=== PATIENT | male | born 1935 | race Caucasian/White ===

== ENCOUNTER → 2017-12-23 13:38 | Outpatient (CLI) | payer MEDICARE, OTHER, SELFPAY ==
[2017-12-13 10:35] VITALS: BMI 22.6
[2017-12-23 15:05] LABS: Absolute Lymphocyte Count 0.53 X10^3/ul (0.83-4.51); Absolute Neutrophil Count 19.1 X10^3/uL (2.0-7.7); Basophil# 0.01 X10^3/uL; Hematocrit 40.2 % (40-54); Lymphocyte # 0.53 X10^3/ul (4.0); Lymphocyte % 2.6 % (19-41); Mean Corp Hgb Conc 32.3 g/gl (32-36); Mean Corpuscular Hgb 29.3 pg (27.0-32.0); Mean Corpuscular Volume 90.7 fL (80-94); Mean Platelet Vol. 9.9 fl (6.2-12.0); Monocyte# 0.48 X10^3/uL; Monocyte% 2.4 % (0-10); Neutrophil # 19.12 X10^3/uL (2.7-7.7); Neutrophil % 93.9 % (47-70); Platelet Count 147 K/mm3 (150-450); RBC Distribution Width CV 14.5 % (11.6-14.6); RBC Distribution Width SD 47.5 fl (35.1-43.9); Red Blood Count 4.43 M/mm3 (4.6-6.2); White Blood Count 20.4 K/mm3 (4.4-11.0)
[2017-12-23 15:07] LABS: Differential Indicated SCAN CRITERIA MET; POSITIVE COUNT NO; POSITIVE DIFFERENTIAL YES; POSITIVE MORPHOLOGY NO
[2017-12-23 15:29] LABS: Anion Gap 10 (5-15); BUN 62 mg/dL (7-18); BUN/Creat Ratio 41.9 RATIO (10-20); Calcium,Total 8.2 mg/dL (8.5-10.1); Chloride 103 mmol/L (98-107); Creatinine, Serum 1.48 mg/dL (0.70-1.30); EST Glomerular Filtration Rate 48 mL/min (>60); Est Glom Filt Rate - Afr Amer 58 mL/min (>60); Glucose 175 mg/dL (74-106); Potassium 5.7 mmol/L (3.5-5.1); Sodium Level 133 mmol/L (136-145)
== END ==
PROVIDERS: Family Provider Family Medicine; PCP Family Medicine
DX: Z01.818 Encounter for other preprocedural examination (principal); C71.9 Malignant neoplasm of brain, unspecified; R73.9 Hyperglycemia, unspecified
CPT/HCPCS: 36415; 80048; 85025

== ENCOUNTER 2017-12-25 11:14 | Emergency (ER) | payer MEDICARE, OTHER, SELFPAY ==
[2017-12-13 10:35] VITALS: BMI 22.6
[2017-12-25 11:14] VITALS: BP 83/50; PULSE 83; RESP 18; TEMP 36.6; O2SAT 99; BMI 22.4
--- NOTE | 2017-12-25 11:53 | ED.VISSUMM ---
- ER Visit Summary Date of Service: 12/25/17 Chief Complaint: Abnormal labs History of Present Illness: The patient is a 82 M recently diagnosed with a glioblastoma. Patient was placed on Decadron for swelling. He has pending brain surgery tomorrow in [place] at the [facility] for resection of the glioblastoma. Outpatient labs revealed an elevated potassium and dehydration. He was sent in by his primary care physician's office for evaluation. He states he feels fine. He denies any nausea, vomiting or any headaches currently. Physical Examination: Elderly male accompanied by family. Initial blood pressure is 83/50. Afebrile. H EENT exam unremarkable. Moist mucous membranes. Neck nontender no lymphadenopathy. Lungs clear to auscultation bilaterally. Heart regular rhythm no murmur rate about 80. Abdomen soft nontender. Patient is moving all 4 extremities. Neurologically is awake and alert. He is answering questions. Normal speech. No facial droop. 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 Dorsi and plantar flexion intact. Test Results: CBC shows a 21,000 white count consistent with him being on Decadron. Hemoglobin 13. 125,000 platelets. MP shows a potassium of 5.9. BUN is 60 creatinine 1.4. Glucose of 84. Normal anion gap. Emergency Department Course and Treatment: Patient treated with 2 L normal saline. Treatment Plan: I spoke to the eye as a transfer line. The patient is scheduled to have neurosurgery on Saturday. They would like him transferred down there to get him optimally. For surgery. Discussed with the family they are comfortable with the plan. He will be transferred down by ground. Disposition: Transferred to [facility] Impression: Acute hyperkalemia Acute dehydration with hypotension History of glioblastoma on Decadron This note was generated with [employer] dictation software. It may contain incorrect words, spelling, and punctuation that were not noted in review of the chart prior to signing ED Disposition - Plan for ED Patient: Chief Complaint: Weakness Referrals: Violeta Copeland [Primary Care Provider] -
--- NOTE | 2017-12-25 11:57 | ED.DCSUM_ITS ---
- ER Visit Summary Date of Service: 12/25/17 Chief Complaint: Abnormal labs History of Present Illness: The patient is a 82 M recently diagnosed with a glioblastoma. Patient was placed on Decadron for swelling. He has pending brain surgery tomorrow in [place] at the [facility] for resection of t he glioblastoma. Outpatient labs revealed an elevated potassium and dehydration. He was sent in by his primary care physician's office for evaluation. He states he feels fine. He denies any nausea, vomiting or any headaches currently. Physical Examination: Elderly male accompanied by family. Initial blood pressure is 83/50. Afebrile. H EENT exam unremarkable. Moist mucous membranes. Neck nontender no lymphadenopathy. Lungs clear to auscultation bilaterally. Heart regular rhythm no murmur rate about 80. Abdomen soft nontender. Patient is moving all 4 extremities. Neurologically is awake and alert. He is answering questions. Normal speech. No facial droop. 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 Dorsi and plantar flexion intact. Test Results: CBC shows a 21,000 white count consistent with him being on Decadron. Hemoglobin 13. 125,000 platelets. MP shows a potassium of 5.9. BUN is 60 creatinine 1.4. Glucose of 84. Normal anion gap. Emergency Department Course and Treatment: Patient treated with 2 L normal saline. Treatment Plan: I spoke to the eye as a transfer line. The patient is scheduled to have neurosurgery on Saturday. They would like him transferred down there to get him optimally. For surgery. Discussed with the family they are comfortable with the plan. He will be transferred down by ground. Disposition: Transferred to [facility] Impression: Acute hyperkalemia Acute dehydration with hypotension History of glioblastoma on Decadron This note was generated with [employer] dictation software. It may contain incorrect words, spelling, and punctuation that were not noted in review of the chart prior to signing ED Disposition - Plan for ED Patient: Chief Complaint: Weakness Referrals: Violeta Copeland [Primary Care Provider] -
[2017-12-25 12:12] LABS: Absolute Lymphocyte Count 1.05 X10^3/ul (0.83-4.51); Absolute Neutrophil Count 20.1 X10^3/uL (2.0-7.7); Basophil# 0.01 X10^3/uL; Hematocrit 40.4 % (40-54); Hemoglobin 13.2 g/dl (13.0-16.5); Lymphocyte # 1.05 X10^3/ul (4.0); Lymphocyte % 4.8 % (19-41); Mean Corp Hgb Conc 32.7 g/gl (32-36); Mean Corpuscular Hgb 29.5 pg (27.0-32.0); Mean Corpuscular Volume 90.2 fL (80-94); Mean Platelet Vol. 8.9 fl (6.2-12.0); Monocyte# 0.54 X10^3/uL; Monocyte% 2.5 % (0-10); Neutrophil # 20.05 X10^3/uL (2.7-7.7); Neutrophil % 91.8 % (47-70); Platelet Count 125 K/mm3 (150-450); RBC Distribution Width CV 14.7 % (11.6-14.6); RBC Distribution Width SD 48.1 fl (35.1-43.9); Red Blood Count 4.48 M/mm3 (4.6-6.2); White Blood Count 21.8 K/mm3 (4.4-11.0)
[2017-12-25 12:13] LABS: Differential Indicated SCAN CRITERIA MET; POSITIVE COUNT NO; POSITIVE DIFFERENTIAL YES; POSITIVE MORPHOLOGY NO
[2017-12-25 12:14] VITALS: BP 114/59; PULSE 61; RESP 17; O2SAT 99
[2017-12-25 12:20] LABS: Anion Gap 7 (5-15); BUN 62 mg/dL (7-18); BUN/Creat Ratio 44.3 RATIO (10-20); Calcium,Total 8.3 mg/dL (8.5-10.1); Chloride 105 mmol/L (98-107); EST Glomerular Filtration Rate 51 mL/min (>60); Est Glom Filt Rate - Afr Amer 62 mL/min (>60); Glucose 84 mg/dL (74-106); Potassium 5.9 mmol/L (3.5-5.1); Sodium Level 135 mmol/L (136-145)
[2017-12-25] MEDS: 0.9% Normal Saline 1,000 ML 1000 ML IV ×2 (12:24)
--- NOTE | 2017-12-25 14:00 | NURSING ---
[facility] ER TO ER
[2017-12-25 14:09] VITALS: BP 120/84; PULSE 68; RESP 14; O2SAT 98
--- NOTE | 2017-12-25 14:10 | NURSING ---
CALLED [facility] FOR TRANSPORT. ETA IS 1. 5 HRS
[2017-12-25 14:47] VITALS: BP 135/75; PULSE 91; RESP 17
== END 2017-12-25 15:00 | disposition short-term general hospital (02) ==
LOC: ED 12:07
PROVIDERS: Emergency Provider Emergency Medicine; Family Provider Family Medicine; PCP Family Medicine
DX: E87.5 Hyperkalemia (principal); E86.0 Dehydration; I95.9 Hypotension, unspecified; C71.9 Malignant neoplasm of brain, unspecified; Z90.49 Acquired absence of other specified parts of digestive tract; Z79.899 Other long term (current) drug therapy
CPT/HCPCS: 80048; 85025; 96360; 96361; 96365; 96366; 99284; J7030; A4216

== ENCOUNTER 2018-01-20 15:15 | Inpatient (IN) | payer MEDICARE, OTHER, SELFPAY ==
[2017-12-13 10:35] VITALS: BMI 22.6
[2018-01-20 15:29] VITALS: BP 132/66; PULSE 82; RESP 18; TEMP 36.2; O2SAT 98; BMI 21.5; BMI 21.6
--- NOTE | 2018-01-20 15:32 | NURSING ---
pt arrived via cot from [facility]
[2018-01-20] MEDS: Tamsulosin HCl 0.4 MG Capsule PO (17:24)
[2018-01-20] MEDS: levETIRAcetam 500 MG Tablet PO (17:24)
[2018-01-20] MEDS: Menthol/Lanolin/Calamine/Znox 113 GM Tube 1 APPLIC TOPICAL (21:03)
[2018-01-20] MEDS: Atorvastatin Calcium 10 MG Tablet PO (21:04)
[2018-01-20] MEDS: MELATONIN 3 MG TABLET PO (21:04)
[2018-01-20 21:15] LABS: Bedside Glucose 140 mg/dL (70-110)
--- NOTE | 2018-01-20 21:15 | PCM.HP.STD ---
Problem List (1) BPH (benign prostatic hyperplasia) Status: Chronic (2) Hypertension Status: Chronic (3) Steroid-induced diabetes mellitus Status: Acute (4) Neurogenic bladder Status: Chronic (5) Left hemiparesis Status: Acute (6) Debility Status: Acute (7) GBM (glioblastoma multiforme) Status: Acute History of Present Illness Date of Admission: 01/20/18 Chief Complaint: Here for rehabilitation, strengthening, prior to discharge home for further treatment of Glioblastoma Multiforme. The patient is a 82 year old Male with below past medical history with following. Patient was in usual state of health, when his noted personality changes. He also had left leg weakness, dizziness. He was seen at [facility] Emergency Department where CT brain showed abnormal findings, and he was transferred to [facility], and MRI brain showed 3.3CM focus of abnormal signal right frontal area. 11/29/2017 Patient underwent biopsy with Dr. Cage that revealed GBM. He was then referred to Dr. Diony Barboza for radiation therapy. Dr. Barboza referred the patient to Dr. Mccabe for surgical resection. 12/16/2017, glucose noted to be 474, with creatinine of 1.85. He was sent to ER where he was treated with insulin, fluids, and given a Rx for Bactrim for presumed UTI. 12/17/2017 He followed up with primary care provider and started on insulin for steroid inducted diabetes mellitus. 12/25/2017 ED for dehydration, admitted to [facility] for surgery. 12/27/2017 Dr. Mccabe performed right frontal craniotomy for resection of right frontal glioblastoma multiforme. The procedure was well tolerated and post-op imaging showed stable post-op findings. Decadron was weaned for the management of cerebral edema. Patient was advanced in terms of diet and activity as tolerated. 12/31/2017 Patient was admitted to [facility] for inpatient rehab. While at [facility], patient developed ESBL K. pneumoniae UTI which was treated with Invanz. 01/20/2018 Admit to TCU with debility, here to continue rehabilitation, strengthening, prior to further treatment for GBM. Past Medical History Past Medical History (Chronic Problems): Chronic Problems (Last Reviewed 12/13/17 @ 10:34 by Heidi Pires) BPH (benign prostatic hyperplasia) (Chronic) Hypertension (Chronic) Neurogenic bladder (Chronic) History of chest pain (Chronic) Medical History: Medical History (Last Reviewed 12/13/17 @ 10:34 by Heidi Pires) Benign prostatic hyperplasia with lower urinary tract symptoms N40.1 Hyperlipidemia E78.5 Primary glioblastoma of brain C71.9 Ventricular hypertrophy I51.7 bilateral enlargement Allergies No Known Allergies Allergy (Unverified 12/25/17 11:16) Home Medications: Ambulatory Orders Medication Instructions Recorded Simvastatin [Zocor] 20 mg PO QHS 12/09/17 Tamsulosin HCl [Flomax] 0.4 mg PO BID 12/09/17 Levetiracetam [Keppra] 500 mg PO BID 12/11/17 Acetaminophen [Tylenol] 650 mg PO Q4H PRN PRN 01/20/18 Calcium Citrate 950 mg PO DAILY 01/20/18 Cholecalciferol (VIT D3) [Vitamin 2,000 unit PO DAILY 01/20/18 D] Docusate Sodium [Colace] 100 mg PO DAILY 01/20/18 Enoxaparin Sodium [Lovenox] 40 mg SQ DAILY 01/20/18 Ertapenem Sod [Invanz] 1 gm IV Q24 01/20/18 Melatonin 3 mg PO QHS 01/20/18 Ondansetron [Zofran Odt] 4 mg PO Q8H PRN PRN 01/20/18 Sennosides [Senna Laxative] 8.6 mg PO DAILY 01/20/18 Surgical History: Surgical History (Last Reviewed 12/13/17 @ 10:34 by Heidi Pires) History of appendectomy Z90.49 History of bilateral knee replacement Z96.653 History of cholecystectomy Z90.49 History of tonsillectomy Z90.89 Surgical History: appendectomy, cholecystectomy, total knee arthroplasty, tonsillectomy, - - Excision brain tumor by craniotomy. Psychiatric History: Anxiety, Depression Lives: Spouse/ Significant Other Smoking Status: Former smoker Tobacco Use: Non-smoker Alcohol: None Drugs: None - *Family History Maternal Family History: Family History (Last Updated 12/13/17 @ 10:50 by Heidi Pires) Mother Heart disease Father CAD (coronary artery disease) History Items: No pertinent history Paternal Family History: Family History (Last Updated 12/13/17 @ 10:50 by Heidi Pires) Mother Heart disease Father CAD (coronary artery disease) History Items: No pertinent history Review of Systems Constitutional: Denies: Chills, Fever, Weight Change HEENT: Denies: Head Aches, Sinus Congestion, Sinus Drainage Cardiovascular: Denies: Chest Pain, Palpitations Respiratory: Denies: Cough, Shortness of breath at rest, Sputum production Gastrointestinal: Denies: Abdominal Pain, Nausea, Vomiting Genitourinary: Denies: Dysuria Musculoskeletal: Denies: Joint Pain, Joint Tenderness Skin: Denies: Rash, Wounds Neurological: Denies: Numbness, Tingling, Focal weakness Psychiatric: Denies: Anxiety, Depression, Homicidal Ideations, Suicidal Ideations Hematologic/ Lymphatic: Denies: Easy Bruising, Easy Bleeding VTE Information - Inpt Only VTE Present on Admission: No VTE Mechan Device Prophylaxis: Knee High ALYSON Hose VTE Pharm Prophylaxis ordered?: Yes Patient Problems: Active and Suspected Problems (Last Reviewed 12/13/17 @ 10:34 by Heidi Pires) Steroid-induced diabetes mellitus (Acute) Left hemiparesis (Acute) Debility (Acute) - Physical Exam General: Alert, Oriented x3, Cooperative HEENT: Atraumatic, PERRLA, EOMI, Normocephalic Neck: Supple, No JVD, Negative Carotid Bruits Lungs: Clear to auscultation, Normal air movement Cardiovascular: Regular rate, No murmurs Abdomen: Bowel Sounds Present, Soft, Non Tender Extremities: No edema, Capillary Refill Less than 3 Seconds Skin: No rashes, No breakdown Musculoskeletal: No Tenderness to Palpation of Joints or Extremities Neurological: Cranial nerves II-XII grossly intact, - - Left lower extremity hemiparesis. Psych/Mental Status: Normal Affect, Appropriate Vital Signs Temp Pulse Resp BP Pulse Ox 97.1 F L 82 18 132/66 H 98 01/20/18 15:29 01/20/18 15:29 01/20/18 15:29 01/20/18 15:29 01/20/18 15:29 Oxygen Delivery Method Room Air Weight: 74.208 kg Body Mass Index (BMI) 21.5 Intake and Output for Last 24 Hours 01/18/18 01/19/18 01/20/18 23:59 23:59 23:59 Output Total 950 / 950 Balance -950 / -950 Assessment/Plan All Active Problems (Last Reviewed 12/13/17 @ 10:34 by Heidi Pires) Steroid-induced diabetes mellitus (Acute) Left hemiparesis (Acute) Debility (Acute) GBM (glioblastoma multiforme) (Acute) 82 year old male with below past medical history significant for glioblastoma multiforme s/p excision, complicated left hemiparesis, steroid induced diabetes mellitus, ESBL K. Pneumoniae UTI, admitted from [facility] inpatient rehab to U with debility, to continue rehabilitation, strengthening, prior to discharge home with spouse to continue treatment for GBM. Debility - PT/OT. Pain - Tylenol 1000MG Q6H PRN mild pain. Bowel - Miralax 17GM daily, Senna/colace 1 tablet BID, Dulcolax 10MG daily PRN. Pneumonia vaccination - Administer Prevnar 13 and/or Pneumovax 23 as necessary. DVT prophylaxis - Lovenox 40MG SC daily. Hyperlipidemia - Atorvastatin 10MG QHS. Calcium deficiency - Calcium 500MG daily. Vitamin D deficiency - D3 2000IU daily. ESBL K. Pneumoniae UTI - Invanz 1GM IV Q24H thru 01/26/2018. Seizure prophylaxis - Keppra 500MG twice daily. Insomnia - Melatonin 3MG QHS. Skin irritation - Calmoseptine BID coccyx. Nausea - Zofran 4MG Q8H PRN. BPH - Tamsulosin 0.4MG BID. Urinary retention - Straight cath twice daily, per resident he has urinary retention for 8 weeks after general anesthesia.
--- NOTE | 2018-01-20 21:25 | HP.PCM_ITS ---
Problem List (1) BPH (benign prostatic hyperplasia) Status: Chronic (2) Hypertension Status: Chronic (3) Steroid-induced diabetes mellitus Status: Acute (4) Neurogenic bladder Status: Chronic (5) Left hemiparesis Status: Acute (6) Debility Status: Acute (7) GBM (glioblastoma multiforme) Status: Acute History of Present Illness Date of Admission: 01/20/18 Chief Complaint: Here for rehabilitation, strengthening, prior to discharge home for further treatment of Glioblastoma Multiforme. The patient is a 82 year old Male with below past medical history with following. Patient was in usual state of health, when his noted personality changes. He also had left leg weakness, dizziness. He was seen at [facility] Emergency Department where CT brain showed abnormal findings, and he was transferred to [facility], and MRI brain showed 3.3CM focus of abnormal signal right frontal area. 11/29/2017 Patient underwent biopsy with Dr. Cage that revealed GBM. He was then referred to Dr. Diony Barboza for radiation therapy. Dr. Barboza referred the patient to Dr. Mccabe for surgical resection. 12/16/2017, glucose noted to be 474, with creatinine of 1.85. He was sent to ER where he was treated with insulin, fluids, and given a Rx for Bactrim for presumed UTI. 12/17/2017 He followed up with primary care provider and started on insulin for steroid inducted diabetes mellitus. 12/25/2017 ED for dehydration, admitted to [facility] for surgery. 12/27/2017 Dr. Mccabe performed right frontal craniotomy for resection of right frontal glioblastoma multiforme. The procedure was well tolerated and post-op imaging showed stable post-op findings. Decadron was weaned for the management of cerebral edema. Patient was advanced in terms of diet and activity as tolerated. 12/31/2017 Patient was admitted to [facility] for inpatient rehab. While at [facility], patient developed ESBL K. pneumoniae UTI which was treated with Invanz. 01/20/2018 Admit to TCU with debility, here to continue rehabilitation, strengthening, prior to further treatment for GBM. Past Medical History Past Medical History (Chronic Problems): Chronic Problems (Last Reviewed 12/13/17 @ 10:34 by Heidi Pires) BPH (benign prostatic hyperplasia) (Chronic) Hypertension (Chronic) Neurogenic bladder (Chronic) History of chest pain (Chronic) Medical History: Medical History (Last Reviewed 12/13/17 @ 10:34 by Heidi Pires) Benign prostatic hyperplasia with lower urinary tract symptoms N40.1 Hyperlipidemia E78.5 Primary glioblastoma of brain C71.9 Ventricular hypertrophy I51.7 bilateral enlargement Allergies No Known Allergies Allergy (Unverified 12/25/17 11:16) Home Medications: Ambulatory Orders Medication Instructions Recorded Simvastatin [Zocor] 20 mg PO QHS 12/09/17 Tamsulosin HCl [Flomax] 0.4 mg PO BID 12/09/17 Levetiracetam [Keppra] 500 mg PO BID 12/11/17 Acetaminophen [Tylenol] 650 mg PO Q4H PRN PRN 01/20/18 Calcium Citrate 950 mg PO DAILY 01/20/18 Cholecalciferol (VIT D3) [Vitamin 2,000 unit PO DAILY 01/20/18 D] Docusate Sodium [Colace] 100 mg PO DAILY 01/20/18 Enoxaparin Sodium [Lovenox] 40 mg SQ DAILY 01/20/18 Ertapenem Sod [Invanz] 1 gm IV Q24 01/20/18 Melatonin 3 mg PO QHS 01/20/18 Ondansetron [Zofran Odt] 4 mg PO Q8H PRN PRN 01/20/18 Sennosides [Senna Laxative] 8.6 mg PO DAILY 01/20/18 Surgical History: Surgical History (Last Reviewed 12/13/17 @ 10:34 by Heidi Pires) History of appendectomy Z90.49 History of bilateral knee replacement Z96.653 History of cholecystectomy Z90.49 History of tonsillectomy Z90.89 Surgical History: appendectomy, cholecystectomy, total knee arthroplasty, tonsillectomy, - - Excision brain tumor by craniotomy. Psychiatric History: Anxiety, Depression Lives: Spouse/ Significant Other Smoking Status: Former smoker Tobacco Use: Non-smoker Alcohol: None Drugs: None - *Family History Maternal Family History: Family History (Last Updated 12/13/17 @ 10:50 by Heidi Pires) Mother Heart disease Father CAD (coronary artery disease) History Items: No pertinent history Paternal Family History: Family History (Last Updated 12/13/17 @ 10:50 by Heidi Pires) Mother Heart disease Father CAD (coronary artery disease) History Items: No pertinent history Review of Systems Constitutional: Denies: Chills, Fever, Weight Change HEENT: Denies: Head Aches, Sinus Congestion, Sinus Drainage Cardiovascular: Denies: Chest Pain, Palpitations Respiratory: Denies: Cough, Shortness of breath at rest, Sputum production Gastrointestinal: Denies: Abdominal Pain, Nausea, Vomiting Genitourinary: Denies: Dysuria Musculoskeletal: Denies: Joint Pain, Joint Tenderness Skin: Denies: Rash, Wounds Neurological: Denies: Numbness, Tingling, Focal weakness Psychiatric: Denies: Anxiety, Depression, Homicidal Ideations, Suicidal Ideations Hematologic/ Lymphatic: Denies: Easy Bruising, Easy Bleeding VTE Information - Inpt Only VTE Present on Admission: No VTE Mechan Device Prophylaxis: Knee High ALYSON Hose VTE Pharm Prophylaxis ordered?: Yes Patient Problems: Active and Suspected Problems (Last Reviewed 12/13/17 @ 10:34 by Heidi Pires) Steroid-induced diabetes mellitus (Acute) Left hemiparesis (Acute) Debility (Acute) - Physical Exam General: Alert, Oriented x3, Cooperative HEENT: Atraumatic, PERRLA, EOMI, Normocephalic Neck: Supple, No JVD, Negative Carotid Bruits Lungs: Clear to auscultation, Normal air movement Cardiovascular: Regular rate, No murmurs Abdomen: Bowel Sounds Present, Soft, Non Tender Extremities: No edema, Capillary Refill Less than 3 Seconds Skin: No rashes, No breakdown Musculoskeletal: No Tenderness to Palpation of Joints or Extremities Neurological: Cranial nerves II-XII grossly intact, - - Left lower extremity hemiparesis. Psych/Mental Status: Normal Affect, Appropriate Vital Signs Temp Pulse Resp BP Pulse Ox 97.1 F L 82 18 132/66 H 98 01/20/18 15:29 01/20/18 15:29 01/20/18 15:29 01/20/18 15:29 01/20/18 15:29 Oxygen Delivery Method Room Air Weight: 74.208 kg Body Mass Index (BMI) 21.5 Intake and Output for Last 24 Hours 01/18/18 01/19/18 01/20/18 23:59 23:59 23:59 Output Total 950 / 950 Balance -950 / -950 Assessment/Plan All Active Problems (Last Reviewed 12/13/17 @ 10:34 by Heidi Pires) Steroid-induced diabetes mellitus (Acute) Left hemiparesis (Acute) Debility (Acute) GBM (glioblastoma multiforme) (Acute) 82 year old male with below past medical history significant for glioblastoma multiforme s/p excision, complicated left hemiparesis, steroid induced diabetes mellitus, ESBL K. Pneumoniae UTI, admitted from [facility] inpatient rehab to U with debility, to continue rehabilitation, strengthening, prior to discharge home with spouse to continue treatment for GBM. * Debility - PT/OT. * Pain - Tylenol 1000MG Q6H PRN mild pain. * Bowel - Miralax 17GM daily, Senna/colace 1 tablet BID, Dulcolax 10MG daily PRN. * Pneumonia vaccination - Administer Prevnar 13 and/or Pneumovax 23 as necessary. * DVT prophylaxis - Lovenox 40MG SC daily. * Hyperlipidemia - Atorvastatin 10MG QHS. * Calcium deficiency - Calcium 500MG daily. * Vitamin D deficiency - D3 2000IU daily. * ESBL K. Pneumoniae UTI - Invanz 1GM IV Q24H thru 01/26/2018. * Seizure prophylaxis - Keppra 500MG twice daily. * Insomnia - Melatonin 3MG QHS. * Skin irritation - Calmoseptine BID coccyx. * Nausea - Zofran 4MG Q8H PRN. * BPH - Tamsulosin 0.4MG BID. * Urinary retention - Straight cath twice daily, per resident he has urinary retention for 8 weeks after general anesthesia.
[2018-01-21] MEDS: Enoxaparin 40 MG/0.4 ML Syringe SC (04:32)
[2018-01-21] MEDS: levETIRAcetam 500 MG Tablet PO ×2 (04:32→17:19)
[2018-01-21] MEDS: Menthol/Lanolin/Calamine/Znox 113 GM Tube 1 APPLIC TOPICAL ×2 (04:38→21:36)
[2018-01-21 06:11] LABS: Anion Gap 8 (5-15); BUN 15 mg/dL (7-18); BUN/Creat Ratio 25.4 RATIO (10-20); Calcium,Total 7.7 mg/dL (8.5-10.1); Chloride 105 mmol/L (98-107); Creatinine, Serum 0.59 mg/dL (0.70-1.30); EST Glomerular Filtration Rate 139 mL/min (>60); Est Glom Filt Rate - Afr Amer 169 mL/min (>60); Estimated Creatinine Clearance 58.75 ml/min; Glucose 107 mg/dL (74-106); Hematocrit 29.3 % (40-54); Hemoglobin 9.4 g/dl (13.0-16.5); Mean Corp Hgb Conc 32.1 g/gl (32-36); Mean Corpuscular Hgb 29.7 pg (27.0-32.0); Mean Corpuscular Volume 92.7 fL (80-94); Mean Platelet Vol. 8.1 fl (6.2-12.0); Platelet Count 208 K/mm3 (150-450); RBC Distribution Width SD 51.8 fl (35.1-43.9); Red Blood Count 3.16 M/mm3 (4.6-6.2); Sodium Level 141 mmol/L (136-145); White Blood Count 6.9 K/mm3 (4.4-11.0)
[2018-01-21 06:19] LABS: Differential Indicated MANUAL DIFF; POSITIVE COUNT YES; POSITIVE DIFFERENTIAL NO; POSITIVE MORPHOLOGY YES
[2018-01-21 06:46] LABS: Bedside Glucose 115 mg/dL (70-110)
[2018-01-21 07:17] LABS: Lymphocyte 24 % (19-41); Metamyelocyte 3 % (0-1); Monocyte 7 % (0-10); Myelocyte 1 (0-0); Neutrophil-Band 3 % (0-5); Neutrophil-Segmented 62 % (47-70); Total Cells Counted 100 (MANUAL DIFF)
[2018-01-21 07:19] LABS: Anisocytosis 1+; Hypochromasia 1+; Platelet Estimate ADEQUATE (ADEQ); Platelet Morphology LARGE; Polychromasia 1+
[2018-01-21 07:30] LABS: Absolute Lymphocyte Count 1.66 X10^3/ul (0.83-4.51); Absolute Neutrophil Count 4.5 X10^3/uL (2.0-7.7)
[2018-01-21] MEDS: Calcium Carbonate 500 MG Tablet PO (08:23)
[2018-01-21] MEDS: Tamsulosin HCl 0.4 MG Capsule PO ×2 (08:23→17:19)
--- NOTE | 2018-01-21 08:27 | NURSING ---
ALL CARE GIVEN IN ROOM DUE TO PT IN PRECAUTIONS FOR ESBL IN URINE.
[2018-01-21] MEDS: 0.9% NaCl IVPB Med Flush (250 mL) 15 ML IV (09:54)
--- NOTE | 2018-01-21 10:18 | PCM.PN.RX ---
<MaritzachautrungArmando D - Last Filed: 01/21/18 10:18> Progress Note - Pharmacy Subjective: TCU Admission Objective: Allergies No Known Allergies Allergy (Unverified 12/25/17 11:16) Current Medications Generic Name Dose Route Start Last Admin Trade Name Freq PRN Reason Stop Dose Admin Acetaminophen 1,000 mg 01/20/18 21:38 Tylenol PO Q6H PRN PRN MILD PAIN (1-3/10) Atorvastatin Calcium 10 mg 01/20/18 22:00 01/20/18 21:04 Lipitor PO 10 mg QHS PAUL Administration Bisacodyl 10 mg 01/20/18 21:38 Dulcolax PO DAILY PRN Constipation Calamine/Phenol 1 applic 01/20/18 22:00 01/21/18 04:38 Calmoseptine Ointment TOPICAL 1 applicatio 0600,2200 PAUL Administration Protocol Calcium Carbonate 500 mg 01/21/18 08:00 01/21/18 08:23 Tums PO 500 mg DAILYCM PAUL Administration Cholecalciferol 2,000 unit 01/21/18 06:00 01/21/18 04:32 Vitamin D PO 2,000 unit DAILY PAUL Administration Enoxaparin Sodium 40 mg 01/21/18 06:00 01/21/18 04:32 Lovenox SC 40 mg DAILY PAUL Administration Ertapenem 1 gm/ Sodium 50 mls @ 100 mls/hr 01/21/18 10:00 01/21/18 09:54 Chloride IV 01/26/18 10:29 100 mls/hr Q24 PAUL Administration Sodium Chloride 250 mls @ 15 mls/hr 01/20/18 18:50 01/21/18 09:54 IV 15 mls/hr .[id number] PRN Administration SALINE FLUSH Levetiracetam 500 mg 01/20/18 18:00 01/21/18 04:32 Keppra Tablet PO 500 mg BID PAUL Administration Melatonin 3 mg 01/20/18 22:00 01/20/18 21:04 Melatonin PO 3 mg QHS PAUL Administration Ondansetron HCl 4 mg 01/20/18 15:51 Zofran Odt PO Q8H PRN PRN NAUSEA Polyethylene Glycol 17 gm 01/21/18 06:00 01/21/18 04:33 Miralax PO Not Given DAILY [facility] Polysaccharide Iron Complex 150 mg 01/22/18 08:00 Ferrex 150 PO DAILYCM [facility] Senna/Docusate Sodium 1 tablet 01/21/18 06:00 01/21/18 04:33 Senokot-S, Amberly-Colace PO Not Given BID [facility] Sodium Chloride 10 - 20 ml 01/20/18 18:50 IV UD PRN Midline Flush Tamsulosin HCl 0.4 mg 01/20/18 17:30 01/21/18 08:23 Flomax PO 0.4 mg BID@0830,1730 PAUL Administration Tuberculin PPD 5 tu 01/28/18 10:00 Tubersol, Aplisol, Ppd ID 01/28/18 10:01 X1 ONE Problem List (Last Reviewed 12/13/17 @ 10:34 by Heidi Pires) BPH (benign prostatic hyperplasia) (Chronic) Hypertension (Chronic) Steroid-induced diabetes mellitus (Acute) Neurogenic bladder (Chronic) Left hemiparesis (Acute) Debility (Acute) Vital Signs Temp Pulse Resp BP Pulse Ox 97.1 F L 82 18 132/66 H 98 01/20/18 15:29 01/20/18 15:29 01/20/18 15:29 01/20/18 15:29 01/20/18 15:29 Oxygen Delivery Method Room Air Weight: 74.208 kg Body Mass Index (BMI) 21.5 Sodium 141 mmol/L (136-145) 01/21/18 05:20 Potassium 4.0 mmol/L (3.5-5.1) 01/21/18 05:20 Chloride 105 mmol/L (98-107) 01/21/18 05:20 Carbon Dioxide 28.0 mmol/L (21.0-32.0) 01/21/18 05:20 Anion Gap 8 (5-15) 01/21/18 05:20 BUN 15 mg/dL (7-18) 01/21/18 05:20 Creatinine 0.59 mg/dL (0.70-1.30) L 01/21/18 05:20 Est GFR (MDRD) Af Amer 169 mL/min (>60) 01/21/18 05:20 Est GFR (MDRD) Non-Af 139 mL/min (>60) 01/21/18 05:20 BUN/Creatinine Ratio 25.4 RATIO (10-20) H 01/21/18 05:20 Glucose 107 mg/dL (74-106) H 01/21/18 05:20 Assessment/Plan: 1) Pain APAP for mild pain. Continue to monitor daily pain scores, prn medication use. 2) HLD Atorvastatin at HS. Continue to monitor lipids. 3) ID Ertapenem daily until 01/26. Continue to monitor s/s infection. 4) Seizure PPx Levetiracetam twice daily. Continue to monitor for seizure. 5) DVT PPx Enoxaparin daily. Continue to monitor for bleeding/clot. 6) Urinary Retention Tamsulosin. Continue to monitor for urinary symptoms. Psychotropic Medications: None Unnecessary Medications: None Bowel Regimen: 7) Senna/s, PEG, prn bisacodyl. Continue to monitor prn medication use, for constipation/diarrhea. Date of Note:: 01/21/18 - Provider Comments Provider responsibility: Provider responsible to enter orders to implement recommendations <Rui Mccray Chi - Last Filed: 01/21/18 17:54> Progress Note - Pharmacy Subjective: [] Objective: Allergies No Known Allergies Allergy (Unverified 12/25/17 11:16) Current Medications Generic Name Dose Route Start Last Admin Trade Name Freq PRN Reason Stop Dose Admin Acetaminophen 1,000 mg 01/20/18 21:38 Tylenol PO Q6H PRN PRN MILD PAIN (1-3/10) Atorvastatin Calcium 10 mg 01/20/18 22:00 01/20/18 21:04 Lipitor PO 10 mg QHS PAUL Administration Bisacodyl 10 mg 01/20/18 21:38 Dulcolax PO DAILY PRN Constipation Calamine/Phenol 1 applic 01/20/18 22:00 01/21/18 04:38 Calmoseptine Ointment TOPICAL 1 applicatio 0600,2200 PAUL Administration Protocol Calcium Carbonate 500 mg 01/21/18 08:00 01/21/18 08:23 Tums PO 500 mg DAILYCM PAUL Administration Cholecalciferol 2,000 unit 01/21/18 06:00 01/21/18 04:32 Vitamin D PO 2,000 unit DAILY PAUL Administration Enoxaparin Sodium 40 mg 01/21/18 06:00 01/21/18 04:32 Lovenox SC 40 mg DAILY PAUL Administration Ertapenem 1 gm/ Sodium 50 mls @ 100 mls/hr 01/21/18 10:00 01/21/18 09:54 Chloride IV 01/26/18 10:29 100 mls/hr Q24 PAUL Administration Sodium Chloride 250 mls @ 15 mls/hr 01/20/18 18:50 01/21/18 09:54 IV 15 mls/hr .[id number] PRN Administration SALINE FLUSH Levetiracetam 500 mg 01/20/18 18:00 01/21/18 17:19 Keppra Tablet PO 500 mg BID PAUL Administration Melatonin 3 mg 01/20/18 22:00 01/20/18 21:04 Melatonin PO 3 mg QHS PAUL Administration Nutritional Formula (Lactose Free) 120 ml 01/21/18 12:45 01/21/18 17:18 Glucerna Shake PO 120 ml TIDCM PAUL Administration Ondansetron HCl 4 mg 01/20/18 15:51 Zofran Odt PO Q8H PRN PRN NAUSEA Polyethylene Glycol 17 gm 01/21/18 06:00 01/21/18 04:33 Miralax PO Not Given DAILY [facility] Polysaccharide Iron Complex 150 mg 01/22/18 08:00 Ferrex 150 PO DAILYCM [facility] Senna/Docusate Sodium 1 tablet 01/21/18 06:00 01/21/18 17:19 Senokot-S, Amberly-Colace PO 1 tablet BID PAUL Administration Sodium Chloride 10 - 20 ml 01/20/18 18:50 IV UD PRN Midline Flush Tamsulosin HCl 0.4 mg 01/20/18 17:30 01/21/18 17:19 Flomax PO 0.4 mg BID@0830,1730 PAUL Administration Tuberculin PPD 5 tu 01/28/18 10:00 Tubersol, Aplisol, Ppd ID 01/28/18 10:01 X1 ONE Problem List (Last Reviewed 12/13/17 @ 10:34 by Heidi Pires) BPH (benign prostatic hyperplasia) (Chronic) Hypertension (Chronic) Steroid-induced diabetes mellitus (Acute) Neurogenic bladder (Chronic) Left hemiparesis (Acute) Debility (Acute) Vital Signs Temp Pulse Resp BP Pulse Ox 98.2 F 82 18 117/61 97 01/21/18 15:57 01/21/18 15:57 01/21/18 15:57 01/21/18 15:57 01/21/18 15:57 Oxygen Delivery Method Room Air Weight: 74.162 kg Body Mass Index (BMI) 21.5 Sodium 141 mmol/L (136-145) 01/21/18 05:20 Potassium 4.0 mmol/L (3.5-5.1) 01/21/18 05:20 Chloride 105 mmol/L (98-107) 01/21/18 05:20 Carbon Dioxide 28.0 mmol/L (21.0-32.0) 01/21/18 05:20 Anion Gap 8 (5-15) 01/21/18 05:20 BUN 15 mg/dL (7-18) 01/21/18 05:20 Creatinine 0.59 mg/dL (0.70-1.30) L 01/21/18 05:20 Est GFR (MDRD) Af Amer 169 mL/min (>60) 01/21/18 05:20 Est GFR (MDRD) Non-Af 139 mL/min (>60) 01/21/18 05:20 BUN/Creatinine Ratio 25.4 RATIO (10-20) H 01/21/18 05:20 Glucose 107 mg/dL (74-106) H 01/21/18 05:20 Assessment/Plan: Psychotropic Medications: Unnecessary Medications: Bowel Regimen: - Provider Comments Provider responsibility: Provider responsible to enter orders to implement recommendations Provider Comments to Recommendations by Pharmacy: Agree
--- NOTE | 2018-01-21 10:22 | PHA.CONS_ITS ---
<MaritzachautrungArmando D - Last Filed: 01/21/18 10:18> Progress Note - Pharmacy Subjective: TCU Admission Objective: Allergies No Known Allergies Allergy (Unverified 12/25/17 11:16) Current Medications Generic Name Dose Route Start Last Admin Trade Name Freq PRN Reason Stop Dose Admin Acetaminophen 1,000 mg 01/20/18 21:38 Tylenol PO Q6H PRN PRN MILD PAIN (1-3/10) Atorvastatin Calcium 10 mg 01/20/18 22:00 01/20/18 21:04 Lipitor PO 10 mg QHS PAUL Administration Bisacodyl 10 mg 01/20/18 21:38 Dulcolax PO DAILY PRN Constipation Calamine/Phenol 1 applic 01/20/18 22:00 01/21/18 04:38 Calmoseptine Ointment TOPICAL 1 applicatio 0600,2200 PAUL Administration Protocol Calcium Carbonate 500 mg 01/21/18 08:00 01/21/18 08:23 Tums PO 500 mg DAILYCM PAUL Administration Cholecalciferol 2,000 unit 01/21/18 06:00 01/21/18 04:32 Vitamin D PO 2,000 unit DAILY PAUL Administration Enoxaparin Sodium 40 mg 01/21/18 06:00 01/21/18 04:32 Lovenox SC 40 mg DAILY PAUL Administration Ertapenem 1 gm/ Sodium 50 mls @ 100 mls/hr 01/21/18 10:00 01/21/18 09:54 Chloride IV 01/26/18 10:29 100 mls/hr Q24 PAUL Administration Sodium Chloride 250 mls @ 15 mls/hr 01/20/18 18:50 01/21/18 09:54 IV 15 mls/hr .[id number] PRN Administration SALINE FLUSH Levetiracetam 500 mg 01/20/18 18:00 01/21/18 04:32 Keppra Tablet PO 500 mg BID PAUL Administration Melatonin 3 mg 01/20/18 22:00 01/20/18 21:04 Melatonin PO 3 mg QHS PAUL Administration Ondansetron HCl 4 mg 01/20/18 15:51 Zofran Odt PO Q8H PRN PRN NAUSEA Polyethylene Glycol 17 gm 01/21/18 06:00 01/21/18 04:33 Miralax PO Not Given DAILY [facility] Polysaccharide Iron Complex 150 mg 01/22/18 08:00 Ferrex 150 PO DAILYCM [facility] Senna/Docusate Sodium 1 tablet 01/21/18 06:00 01/21/18 04:33 Senokot-S, Amberly-Colace PO Not Given BID [facility] Sodium Chloride 10 - 20 ml 01/20/18 18:50 IV UD PRN Midline Flush Tamsulosin HCl 0.4 mg 01/20/18 17:30 01/21/18 08:23 Flomax PO 0.4 mg BID@0830,1730 PAUL Administration Tuberculin PPD 5 tu 01/28/18 10:00 Tubersol, Aplisol, Ppd ID 01/28/18 10:01 X1 ONE Problem List (Last Reviewed 12/13/17 @ 10:34 by Heidi Pires) BPH (benign prostatic hyperplasia) (Chronic) Hypertension (Chronic) Steroid-induced diabetes mellitus (Acute) Neurogenic bladder (Chronic) Left hemiparesis (Acute) Debility (Acute) Vital Signs Temp Pulse Resp BP Pulse Ox 97.1 F L 82 18 132/66 H 98 01/20/18 15:29 01/20/18 15:29 01/20/18 15:29 01/20/18 15:29 01/20/18 15:29 Oxygen Delivery Method Room Air Weight: 74.208 kg Body Mass Index (BMI) 21.5 Sodium 141 mmol/L (136-145) 01/21/18 05:20 Potassium 4.0 mmol/L (3.5-5.1) 01/21/18 05:20 Chloride 105 mmol/L (98-107) 01/21/18 05:20 Carbon Dioxide 28.0 mmol/L (21.0-32.0) 01/21/18 05:20 Anion Gap 8 (5-15) 01/21/18 05:20 BUN 15 mg/dL (7-18) 01/21/18 05:20 Creatinine 0.59 mg/dL (0.70-1.30) L 01/21/18 05:20 Est GFR (MDRD) Af Amer 169 mL/min (>60) 01/21/18 05:20 Est GFR (MDRD) Non-Af 139 mL/min (>60) 01/21/18 05:20 BUN/Creatinine Ratio 25.4 RATIO (10-20) H 01/21/18 05:20 Glucose 107 mg/dL (74-106) H 01/21/18 05:20 Assessment/Plan: 1) Pain APAP for mild pain. Continue to monitor daily pain scores, prn medication use. 2) HLD Atorvastatin at HS. Continue to monitor lipids. 3) ID Ertapenem daily until 01/26. Continue to monitor s/s infection. 4) Seizure PPx Levetiracetam twice daily. Continue to monitor for seizure. 5) DVT PPx Enoxaparin daily. Continue to monitor for bleeding/clot. 6) Urinary Retention Tamsulosin. Continue to monitor for urinary symptoms. Psychotropic Medications: None Unnecessary Medications: None Bowel Regimen: 7) Senna/s, PEG, prn bisacodyl. Continue to monitor prn medication use, for constipation/diarrhea. Date of Note:: 01/21/18 - Provider Comments Provider responsibility: Provider responsible to enter orders to implement recommendations <Rui Mccray Chi - Last Filed: 01/21/18 17:54> Progress Note - Pharmacy Subjective: [] Objective: Allergies No Known Allergies Allergy (Unverified 12/25/17 11:16) Current Medications Generic Name Dose Route Start Last Admin Trade Name Freq PRN Reason Stop Dose Admin Acetaminophen 1,000 mg 01/20/18 21:38 Tylenol PO Q6H PRN PRN MILD PAIN (1-3/10) Atorvastatin Calcium 10 mg 01/20/18 22:00 01/20/18 21:04 Lipitor PO 10 mg QHS PAUL Administration Bisacodyl 10 mg 01/20/18 21:38 Dulcolax PO DAILY PRN Constipation Calamine/Phenol 1 applic 01/20/18 22:00 01/21/18 04:38 Calmoseptine Ointment TOPICAL 1 applicatio 0600,2200 PAUL Administration Protocol Calcium Carbonate 500 mg 01/21/18 08:00 01/21/18 08:23 Tums PO 500 mg DAILYCM PAUL Administration Cholecalciferol 2,000 unit 01/21/18 06:00 01/21/18 04:32 Vitamin D PO 2,000 unit DAILY PAUL Administration Enoxaparin Sodium 40 mg 01/21/18 06:00 01/21/18 04:32 Lovenox SC 40 mg DAILY PAUL Administration Ertapenem 1 gm/ Sodium 50 mls @ 100 mls/hr 01/21/18 10:00 01/21/18 09:54 Chloride IV 01/26/18 10:29 100 mls/hr Q24 PAUL Administration Sodium Chloride 250 mls @ 15 mls/hr 01/20/18 18:50 01/21/18 09:54 IV 15 mls/hr .[id number] PRN Administration SALINE FLUSH Levetiracetam 500 mg 01/20/18 18:00 01/21/18 17:19 Keppra Tablet PO 500 mg BID PAUL Administration Melatonin 3 mg 01/20/18 22:00 01/20/18 21:04 Melatonin PO 3 mg QHS PAUL Administration Nutritional Formula (Lactose Free) 120 ml 01/21/18 12:45 01/21/18 17:18 Glucerna Shake PO 120 ml TIDCM PAUL Administration Ondansetron HCl 4 mg 01/20/18 15:51 Zofran Odt PO Q8H PRN PRN NAUSEA Polyethylene Glycol 17 gm 01/21/18 06:00 01/21/18 04:33 Miralax PO Not Given DAILY [facility] Polysaccharide Iron Complex 150 mg 01/22/18 08:00 Ferrex 150 PO DAILYCM [facility] Senna/Docusate Sodium 1 tablet 01/21/18 06:00 01/21/18 17:19 Senokot-S, Amberly-Colace PO 1 tablet BID PAUL Administration Sodium Chloride 10 - 20 ml 01/20/18 18:50 IV UD PRN Midline Flush Tamsulosin HCl 0.4 mg 01/20/18 17:30 01/21/18 17:19 Flomax PO 0.4 mg BID@0830,1730 PAUL Administration Tuberculin PPD 5 tu 01/28/18 10:00 Tubersol, Aplisol, Ppd ID 01/28/18 10:01 X1 ONE Problem List (Last Reviewed 12/13/17 @ 10:34 by Heidi Pires) BPH (benign prostatic hyperplasia) (Chronic) Hypertension (Chronic) Steroid-induced diabetes mellitus (Acute) Neurogenic bladder (Chronic) Left hemiparesis (Acute) Debility (Acute) Vital Signs Temp Pulse Resp BP Pulse Ox 98.2 F 82 18 117/61 97 01/21/18 15:57 01/21/18 15:57 01/21/18 15:57 01/21/18 15:57 01/21/18 15:57 Oxygen Delivery Method Room Air Weight: 74.162 kg Body Mass Index (BMI) 21.5 Sodium 141 mmol/L (136-145) 01/21/18 05:20 Potassium 4.0 mmol/L (3.5-5.1) 01/21/18 05:20 Chloride 105 mmol/L (98-107) 01/21/18 05:20 Carbon Dioxide 28.0 mmol/L (21.0-32.0) 01/21/18 05:20 Anion Gap 8 (5-15) 01/21/18 05:20 BUN 15 mg/dL (7-18) 01/21/18 05:20 Creatinine 0.59 mg/dL (0.70-1.30) L 01/21/18 05:20 Est GFR (MDRD) Af Amer 169 mL/min (>60) 01/21/18 05:20 Est GFR (MDRD) Non-Af 139 mL/min (>60) 01/21/18 05:20 BUN/Creatinine Ratio 25.4 RATIO (10-20) H 01/21/18 05:20 Glucose 107 mg/dL (74-106) H 01/21/18 05:20 Assessment/Plan: Psychotropic Medications: Unnecessary Medications: Bowel Regimen: - Provider Comments Provider responsibility: Provider responsible to enter orders to implement recommendations Provider Comments to Recommendations by Pharmacy: Agree
[2018-01-21] MEDS: Tuberculin,Purif.prot.deriv. 50 TU/ML Vial 5 ML ID (10:45)
--- NOTE | 2018-01-21 10:48 | NURSING ---
THIS NURSE TOOK PT TO BATHROOM FOR PT TO STRAIGHT CATH HIS SELF. STERILE PROCEDURE USED. PT DID OWN,TOLERATED WELL. 200 OUT, URINE CLOUDY AND STRAW. NORMAL SMELL. PT BACK TO RECLINER, CALL LIGHT AND BED TABLE IN REACH.
[2018-01-21] MEDS: Glucerna Shake 120 ML LIQUID PO ×2 (13:08→17:18)
[2018-01-21 15:57] VITALS: BP 117/61; PULSE 82; RESP 18; TEMP 36.8; O2SAT 97
[2018-01-21] MEDS: Senna/Docusate Sodium 1 Tablet PO (17:19)
[2018-01-21 20:41] LABS: Bedside Glucose 149 mg/dL (70-110)
[2018-01-21] MEDS: MELATONIN 3 MG TABLET PO (21:32)
[2018-01-21] MEDS: Atorvastatin Calcium 10 MG Tablet PO (21:33)
[2018-01-21] MEDS: 0.9% NaCl Midline IV Flush IV (21:33)
[2018-01-22] MEDS: Enoxaparin 40 MG/0.4 ML Syringe SC (06:47)
[2018-01-22] MEDS: levETIRAcetam 500 MG Tablet PO ×2 (06:47→16:40)
[2018-01-22] MEDS: Menthol/Lanolin/Calamine/Znox 113 GM Tube 1 APPLIC TOPICAL ×2 (06:52→20:59)
[2018-01-22 06:55] LABS: Bedside Glucose 113 mg/dL (70-110)
[2018-01-22] MEDS: Glucerna Shake 120 ML LIQUID PO ×3 (08:43→16:40)
[2018-01-22] MEDS: Iron Polysaccharide Complex 150 MG CAPSULE PO (08:44)
[2018-01-22] MEDS: Calcium Carbonate 500 MG Tablet PO (08:44)
[2018-01-22] MEDS: Tamsulosin HCl 0.4 MG Capsule PO ×2 (08:44→16:40)
[2018-01-22 13:31] LABS: Pathologist Review Reviewed
[2018-01-22 16:00] VITALS: BP 111/60; PULSE 76; RESP 18; TEMP 36.8; O2SAT 97
[2018-01-22] MEDS: Senna/Docusate Sodium 1 Tablet PO (16:40)
[2018-01-22] MEDS: MELATONIN 3 MG TABLET PO (20:59)
[2018-01-22] MEDS: Atorvastatin Calcium 10 MG Tablet PO (20:59)
--- NOTE | 2018-01-22 21:02 | NURSING ---
Pt unsure last time he was straight cath. No documentation noted. Pt bladder scanned for >900. Pt straight cath himself for 950ml. Pt did not have any sensation of needing the urge to void. Pt tolerated well.
[2018-01-23] MEDS: levETIRAcetam 500 MG Tablet PO ×2 (05:51→16:33)
[2018-01-23] MEDS: Enoxaparin 40 MG/0.4 ML Syringe SC (05:51)
[2018-01-23] MEDS: Menthol/Lanolin/Calamine/Znox 113 GM Tube 1 APPLIC TOPICAL ×2 (05:53→21:27)
[2018-01-23] MEDS: Calcium Carbonate 500 MG Tablet PO (09:22)
[2018-01-23] MEDS: Iron Polysaccharide Complex 150 MG CAPSULE PO (09:22)
[2018-01-23] MEDS: Tamsulosin HCl 0.4 MG Capsule PO ×2 (09:22→16:32)
[2018-01-23] MEDS: 0.9% NaCl Midline IV Flush IV ×2 (09:28→21:26)
[2018-01-23] MEDS: Glucerna Shake 120 ML LIQUID PO ×3 (09:28→16:32)
[2018-01-23 15:37] VITALS: BP 110/59; PULSE 78; RESP 14; TEMP 36.4; O2SAT 93
[2018-01-23] MEDS: Senna/Docusate Sodium 1 Tablet PO (16:33)
[2018-01-23] MEDS: MELATONIN 3 MG TABLET PO (21:27)
[2018-01-23] MEDS: Atorvastatin Calcium 10 MG Tablet PO (21:27)
[2018-01-24] MEDS: Senna/Docusate Sodium 1 Tablet PO ×2 (06:45→18:14)
[2018-01-24] MEDS: levETIRAcetam 500 MG Tablet PO ×2 (06:45→18:35)
[2018-01-24] MEDS: Enoxaparin 40 MG/0.4 ML Syringe SC (06:45)
[2018-01-24] MEDS: Menthol/Lanolin/Calamine/Znox 113 GM Tube 1 APPLIC TOPICAL ×2 (06:45→20:45)
[2018-01-24] MEDS: Polyethylene Glycol 3350 17 GM PACKET PO (06:45)
[2018-01-24] MEDS: Iron Polysaccharide Complex 150 MG CAPSULE PO (07:53)
[2018-01-24] MEDS: Calcium Carbonate 500 MG Tablet PO (07:53)
[2018-01-24] MEDS: Tamsulosin HCl 0.4 MG Capsule PO ×2 (07:53→18:35)
[2018-01-24] MEDS: Glucerna Shake 120 ML LIQUID PO ×3 (07:57→18:14)
--- NOTE | 2018-01-24 07:59 | NURSING ---
THIS NURSE APPLIED NEW MEPILEX TO PT BOTTOM.
--- NOTE | 2018-01-24 10:18 | NURSING ---
PT STRAIGHT CATH SELF FOR 400.
[2018-01-24] MEDS: 0.9% NaCl IVPB Med Flush (250 mL) 15 ML IV (10:28)
[2018-01-24] MEDS: 0.9% NaCl Midline IV Flush IV ×2 (10:33→22:57)
[2018-01-24 11:00] VITALS: PULSE 75; RESP 18; O2SAT 96
--- NOTE | 2018-01-24 14:42 | CASEMGMT ---
Addendum entered by Dali Forde 01/24/18 14:53: Student SW notes reviewed. JOSEFA Carias Original Note: Brief interview for mental status (BIMS) and mood (PHQ-9) completed on this day. BIMS score 02/01. PHQ-9 score 05/14. Faustina Xiong social work student
[2018-01-24 16:00] VITALS: BP 117/58; PULSE 76; RESP 20; TEMP 36.9; O2SAT 98
--- NOTE | 2018-01-24 16:46 | NURSING ---
PT STRAIGHT CATHED SELF. 300 OUT. PT TOLERATED WELL. REPORTED TO KELSEY WAKEFIELD
[2018-01-24] MEDS: Atorvastatin Calcium 10 MG Tablet PO (20:47)
[2018-01-24] MEDS: MELATONIN 3 MG TABLET PO (20:47)
--- NOTE | 2018-01-24 23:11 | NURSING ---
Pt straight cathed at this time per order. Pt tolerated procedure well. 350cc of clear, yellow urine flowed out.
[2018-01-25] MEDS: Menthol/Lanolin/Calamine/Znox 113 GM Tube 1 APPLIC TOPICAL ×2 (06:15→20:30)
[2018-01-25] MEDS: levETIRAcetam 500 MG Tablet PO ×2 (06:15→16:48)
[2018-01-25] MEDS: Polyethylene Glycol 3350 17 GM PACKET PO (06:16)
[2018-01-25] MEDS: Senna/Docusate Sodium 1 Tablet PO ×2 (06:16→16:48)
[2018-01-25] MEDS: Enoxaparin 40 MG/0.4 ML Syringe SC (06:16)
--- NOTE | 2018-01-25 06:31 | NURSING ---
Pt assisted with straight cath this morning with minimal assistance. Pt tolerated procedure well. 300cc of clear, yellow urine drained into urinal.
[2018-01-25] MEDS: Calcium Carbonate 500 MG Tablet PO (09:14)
[2018-01-25] MEDS: Glucerna Shake 120 ML LIQUID PO ×3 (09:14→16:47)
[2018-01-25] MEDS: Iron Polysaccharide Complex 150 MG CAPSULE PO (09:14)
[2018-01-25] MEDS: Tamsulosin HCl 0.4 MG Capsule PO ×2 (09:14→16:48)
[2018-01-25] MEDS: 0.9% NaCl Midline IV Flush IV ×2 (09:15→20:30)
[2018-01-25 15:20] VITALS: BP 114/67; PULSE 74; RESP 18; TEMP 36.4; O2SAT 98
[2018-01-25] MEDS: MELATONIN 3 MG TABLET PO (20:31)
[2018-01-25] MEDS: Atorvastatin Calcium 10 MG Tablet PO (20:31)
[2018-01-26] MEDS: Polyethylene Glycol 3350 17 GM PACKET PO (06:46)
[2018-01-26] MEDS: Senna/Docusate Sodium 1 Tablet PO ×2 (06:46→16:38)
[2018-01-26] MEDS: levETIRAcetam 500 MG Tablet PO ×2 (06:46→16:38)
[2018-01-26] MEDS: Menthol/Lanolin/Calamine/Znox 113 GM Tube 1 APPLIC TOPICAL ×2 (06:46→19:43)
[2018-01-26] MEDS: Enoxaparin 40 MG/0.4 ML Syringe SC (06:46)
[2018-01-26] MEDS: Tamsulosin HCl 0.4 MG Capsule PO ×2 (08:13→16:38)
[2018-01-26] MEDS: Iron Polysaccharide Complex 150 MG CAPSULE PO (08:13)
[2018-01-26] MEDS: Glucerna Shake 120 ML LIQUID PO ×3 (08:13→16:37)
[2018-01-26] MEDS: Calcium Carbonate 500 MG Tablet PO (08:13)
[2018-01-26 15:33] VITALS: BP 130/65; PULSE 81; RESP 20; TEMP 36.3; O2SAT 98
--- NOTE | 2018-01-26 18:32 | NURSING ---
pt needs encouraged to st cath more frequently. at bedside. Talia Choudhary RN offered to assist pt but pt said he did not want to now. this nurse explained that he has not been st cathed since 1030 this AM. Pt was not happy but did get up, RN assisting pt in BR at this time.
[2018-01-26] MEDS: Atorvastatin Calcium 10 MG Tablet PO (19:42)
[2018-01-26] MEDS: MELATONIN 3 MG TABLET PO (19:42)
[2018-01-26] MEDS: 0.9% NaCl Midline IV Flush IV (19:42)
[2018-01-27] MEDS: Polyethylene Glycol 3350 17 GM PACKET PO (04:52)
[2018-01-27] MEDS: Menthol/Lanolin/Calamine/Znox 113 GM Tube 1 APPLIC TOPICAL ×2 (04:52→21:14)
[2018-01-27] MEDS: Senna/Docusate Sodium 1 Tablet PO ×2 (04:52→17:03)
[2018-01-27] MEDS: levETIRAcetam 500 MG Tablet PO ×2 (04:52→17:03)
[2018-01-27] MEDS: Enoxaparin 40 MG/0.4 ML Syringe SC (04:52)
[2018-01-27] MEDS: Glucerna Shake 120 ML LIQUID PO ×3 (08:11→17:08)
[2018-01-27] MEDS: Iron Polysaccharide Complex 150 MG CAPSULE PO (08:11)
[2018-01-27] MEDS: Tamsulosin HCl 0.4 MG Capsule PO ×2 (08:11→17:03)
[2018-01-27] MEDS: Calcium Carbonate 500 MG Tablet PO (08:11)
[2018-01-27 08:43] VITALS: PULSE 75; O2SAT 95
[2018-01-27] MEDS: 0.9% NaCl Midline IV Flush IV (11:16)
[2018-01-27 16:00] VITALS: BP 185/65; PULSE 72; RESP 16; TEMP 36.5; O2SAT 95
[2018-01-27] MEDS: Atorvastatin Calcium 10 MG Tablet PO (21:15)
[2018-01-27] MEDS: MELATONIN 3 MG TABLET PO (21:15)
[2018-01-28 05:44] LABS: Absolute Lymphocyte Count 1.83 X10^3/ul (0.83-4.51); Absolute Neutrophil Count 3.3 X10^3/uL (2.0-7.7); Basophil# 0.03 X10^3/uL; Basophil% 0.5 % (0-1); Eosinophil# 0.09 X10^3/uL; Eosinophils% 1.5 % (0-5); Hematocrit 29.6 % (40-54); Hemoglobin 9.4 g/dl (13.0-16.5); Lymphocyte # 1.83 X10^3/ul (4.0); Lymphocyte % 30.7 % (19-41); Mean Corp Hgb Conc 31.8 g/gl (32-36); Mean Corpuscular Volume 94.6 fL (80-94); Mean Platelet Vol. 8.2 fl (6.2-12.0); Monocyte# 0.62 X10^3/uL; Monocyte% 10.4 % (0-10); Neutrophil # 3.32 X10^3/uL (2.7-7.7); Neutrophil % 55.6 % (47-70); Platelet Count 169 K/mm3 (150-450); RBC Distribution Width CV 17.1 % (11.6-14.6); RBC Distribution Width SD 56.4 fl (35.1-43.9); Red Blood Count 3.13 M/mm3 (4.6-6.2)
[2018-01-28 06:01] LABS: POSITIVE COUNT NO; POSITIVE DIFFERENTIAL NO; POSITIVE MORPHOLOGY NO
[2018-01-28 06:09] LABS: Anion Gap 9 (5-15); BUN 21 mg/dL (7-18); BUN/Creat Ratio 36.2 RATIO (10-20); Calcium,Total 7.9 mg/dL (8.5-10.1); Chloride 107 mmol/L (98-107); Creatinine, Serum 0.58 mg/dL (0.70-1.30); EST Glomerular Filtration Rate 142 mL/min (>60); Est Glom Filt Rate - Afr Amer 172 mL/min (>60); Estimated Creatinine Clearance 58.71 ml/min; Glucose 104 mg/dL (74-106); Sodium Level 143 mmol/L (136-145)
[2018-01-28] MEDS: Polyethylene Glycol 3350 17 GM PACKET PO (06:13)
[2018-01-28] MEDS: Senna/Docusate Sodium 1 Tablet PO ×2 (06:14→17:09)
[2018-01-28] MEDS: levETIRAcetam 500 MG Tablet PO ×2 (06:14→17:09)
[2018-01-28] MEDS: Menthol/Lanolin/Calamine/Znox 113 GM Tube 1 APPLIC TOPICAL ×2 (06:14→22:18)
[2018-01-28] MEDS: Enoxaparin 40 MG/0.4 ML Syringe SC (06:14)
[2018-01-28] MEDS: Glucerna Shake 120 ML LIQUID PO ×3 (08:11→17:10)
[2018-01-28] MEDS: Iron Polysaccharide Complex 150 MG CAPSULE PO (08:14)
[2018-01-28] MEDS: Tamsulosin HCl 0.4 MG Capsule PO ×2 (08:14→17:10)
[2018-01-28] MEDS: Calcium Carbonate 500 MG Tablet PO (08:14)
--- NOTE | 2018-01-28 10:01 | NURSING ---
Per Dr. Mahendra phan to D/C midline.
[2018-01-28] MEDS: Tuberculin,Purif.prot.deriv. 50 TU/ML Vial 5 ML ID (10:21)
--- NOTE | 2018-01-28 10:57 | NURSING ---
Left heel dressing was changed 01/27/18. Did not removed at this time. will monitor. heels offloaded at this time.
--- NOTE | 2018-01-28 11:26 | NURSING ---
Addendum entered by Nidia Zhu 01/28/18 11:38: Patient lowered to the floor by PRODUCTION BROACHER while transferring from recliner to wheelchair. Small abrasion to right upper back, no bleeding. Denies hitting head, PERRL. Denies pain. Alert and oriented. Patient assisted back to wheelchair and toileted. Vitals 115/74, 94, 98% RA, 16, 97.6. Hand grasps strong and equal, pedal push strong and equal. present during incident. Therapy department notified and Dr. Mccray updated. Will continue to monitor. Red falling star placed on patients doorway. Original Note: AID CALLED THIS NURSE FOR HELP. PT WAS SITTING ON FLOOR IN FRONT OF RECLINER. TOOK 3 PEOPLE TO GET PT UP IN WHEELCHAIR. FOUND SMALL ABRASION TO LEFT MIDDLE BACK. REPORTED TO KELSEY CUMMINGS. VITALS DONE. AID STATED PT GOT UP FROM RECLINER WITH HELP TO GO TO WHEELCHAIR AND PT STARTED SITTING DOWN BEFORE WHEELCHAIR WAS COMPLETELY UNDER HIM.
--- NOTE | 2018-01-28 11:53 | NURSING ---
PT STRAIGHT CATHED SELF WITH THIS NURSE IN ROOM. NO COMPLAINT OR CONCERNS AT THIS TIME. PT TOLERATED WELL. 350 OUT
--- NOTE | 2018-01-28 12:06 | NURSING ---
Patient left unit at 1130 for radiation treatment. with patient.
--- NOTE | 2018-01-28 14:53 | NURSING ---
Pt has appointment with Jojo Martin NP on 01/29/18 at 1300 in the outpatient pavilion.
[2018-01-28 15:27] VITALS: BP 124/82; PULSE 80; RESP 16; TEMP 36.4; O2SAT 97
--- NOTE | 2018-01-28 18:28 | NURSING ---
PT STRAIGHT CATHED SELF ON EDGE OF BED FOR 300. STERIL PROCEDURE USED, WITH THIS NURSE IN ROOM. PT TOLERATED WELL. NO QUESTIONS OR CONCERNS AT THIS TIME. REPORTED TO KELSEY WAKEFIELD
[2018-01-28] MEDS: MELATONIN 3 MG TABLET PO (22:18)
[2018-01-28] MEDS: Atorvastatin Calcium 10 MG Tablet PO (22:18)
[2018-01-29] MEDS: Polyethylene Glycol 3350 17 GM PACKET PO (06:24)
[2018-01-29] MEDS: Menthol/Lanolin/Calamine/Znox 113 GM Tube 1 APPLIC TOPICAL ×2 (06:24→21:08)
[2018-01-29] MEDS: levETIRAcetam 500 MG Tablet PO ×2 (06:24→16:57)
[2018-01-29] MEDS: Enoxaparin 40 MG/0.4 ML Syringe SC (06:24)
[2018-01-29] MEDS: Senna/Docusate Sodium 1 Tablet PO ×2 (06:24→16:56)
[2018-01-29] MEDS: Nystatin Powder 15gm Bottle 1 APPLIC TOPICAL ×2 (06:29→17:07)
[2018-01-29] MEDS: Glucerna Shake 120 ML LIQUID PO ×3 (08:18→16:57)
[2018-01-29] MEDS: Iron Polysaccharide Complex 150 MG CAPSULE PO (08:28)
[2018-01-29] MEDS: Tamsulosin HCl 0.4 MG Capsule PO ×2 (08:28→16:56)
[2018-01-29] MEDS: Calcium Carbonate 500 MG Tablet PO (08:29)
--- NOTE | 2018-01-29 12:51 | NURSING ---
PT STRAIGHT CATHED SELF IN BATHROOM THIS NURSE PRESENT. STERIL PROCEDURE USED. 250 OUT, CLEAR YELLOW. NORMAL SMELL.
--- NOTE | 2018-01-29 13:46 | NURSING ---
MEPILEX TO PT BOTTOM AND LEFT HEEL CHANGED TODAY.
--- NOTE | 2018-01-29 13:49 | CASEMGMT ---
Plan of care meeting held. Resident present as well as resident spouse. No discharge date set at this time. Resident to continue with further care and treatment on the Transitional Care Unit. Resident does have a ramp in place at this time. Resident plans to return to home with spouse at time of discharge. Support given. Will continue to follow. JOSEFA Buitrago, [employer] STENOGRAPHER
[2018-01-29 15:03] VITALS: BP 111/56; PULSE 82; RESP 16; TEMP 37.1; O2SAT 97
--- NOTE | 2018-01-29 18:13 | NURSING ---
PT STRAIGHT CATHED SELF IN BATH ROOM. THIS NURSE PRESENT. STERILE PROCEDURE USED. 150 OUT,CLEAR/YELLOW. NORMAL SMELL.
[2018-01-29] MEDS: Atorvastatin Calcium 10 MG Tablet PO (21:06)
[2018-01-29] MEDS: MELATONIN 3 MG TABLET PO (21:06)
--- NOTE | 2018-01-30 00:41 | NURSING ---
pT STRAIGHT CATH BY RN FOR 250CC OF CLEAR YELLOW. STERILE TECHNIQUE MAINTAINED. PT TOLERATED IT WELLL.
[2018-01-30] MEDS: Senna/Docusate Sodium 1 Tablet PO ×2 (06:07→16:52)
[2018-01-30] MEDS: levETIRAcetam 500 MG Tablet PO ×2 (06:07→16:52)
[2018-01-30] MEDS: Enoxaparin 40 MG/0.4 ML Syringe SC (06:07)
[2018-01-30] MEDS: Polyethylene Glycol 3350 17 GM PACKET PO (06:07)
[2018-01-30] MEDS: Nystatin Powder 15gm Bottle 1 APPLIC TOPICAL ×2 (06:21→16:54)
[2018-01-30] MEDS: Menthol/Lanolin/Calamine/Znox 113 GM Tube 1 APPLIC TOPICAL ×2 (06:22→21:29)
--- NOTE | 2018-01-30 06:23 | NURSING ---
pt staright cath for 650cc of clear yellow urine. sterile technique maintained. pt toleerated it well
[2018-01-30] MEDS: Glucerna Shake 120 ML LIQUID PO ×3 (09:18→16:51)
[2018-01-30] MEDS: Calcium Carbonate 500 MG Tablet PO (09:19)
[2018-01-30] MEDS: Iron Polysaccharide Complex 150 MG CAPSULE PO (09:19)
[2018-01-30] MEDS: Tamsulosin HCl 0.4 MG Capsule PO ×2 (09:19→16:52)
--- NOTE | 2018-01-30 13:07 | NURSING ---
pt catheterizes self at home, patient performed self catheterization with this RN to assist
--- NOTE | 2018-01-30 14:13 | MDS.RN ---
Information for the mds was obtained from review of the clinical record, interview of resident, staff, and direct observation of resident's care
--- NOTE | 2018-01-30 14:37 | NURSING ---
pt returned from chemo teaching, orders sent for bactrim DS & zofran. has chemo script and will bring med to unit when obtained from pharmacy.
[2018-01-30 15:33] VITALS: BP 144/79; PULSE 94; RESP 18; TEMP 36.4; O2SAT 99
[2018-01-30] MEDS: Atorvastatin Calcium 10 MG Tablet PO (21:28)
[2018-01-30] MEDS: MELATONIN 3 MG TABLET PO (21:28)
--- NOTE | 2018-01-31 06:30 | NURSING ---
pT STRAIGHT CATH HIMSELF WITH RN SUPERVISION. PT CATH 1000CC OF CLEAR YELLOW URINE. PT ATTEMPTED TO VOID EARLIER BUT WAS UNABLE TO
[2018-01-31] MEDS: Nystatin Powder 15gm Bottle 1 APPLIC TOPICAL ×2 (06:48→16:58)
[2018-01-31] MEDS: Menthol/Lanolin/Calamine/Znox 113 GM Tube 1 APPLIC TOPICAL ×2 (06:48→21:33)
[2018-01-31] MEDS: levETIRAcetam 500 MG Tablet PO ×2 (06:49→16:58)
[2018-01-31] MEDS: Polyethylene Glycol 3350 17 GM PACKET PO (06:49)
[2018-01-31] MEDS: Senna/Docusate Sodium 1 Tablet PO ×2 (06:49→16:58)
[2018-01-31] MEDS: Enoxaparin 40 MG/0.4 ML Syringe SC (06:49)
[2018-01-31] MEDS: Calcium Carbonate 500 MG Tablet PO (08:30)
[2018-01-31] MEDS: Iron Polysaccharide Complex 150 MG CAPSULE PO (08:30)
[2018-01-31] MEDS: Tamsulosin HCl 0.4 MG Capsule PO ×2 (08:30→16:58)
[2018-01-31] MEDS: Glucerna Shake 120 ML LIQUID PO ×3 (08:33→16:58)
--- NOTE | 2018-01-31 09:59 | CASEMGMT ---
Brief interview for mental status (BIMS) and resident mood interview (PHQ-9) completed on this day. BIMS score 15/15. PHQ-9 score
[2018-01-31 15:33] VITALS: BP 113/60; PULSE 77; RESP 18; TEMP 36.9; O2SAT 96
--- NOTE | 2018-01-31 16:25 | NURSING ---
pt straight cath for 650ml.
[2018-01-31] MEDS: MELATONIN 3 MG TABLET PO (21:30)
[2018-01-31] MEDS: Atorvastatin Calcium 10 MG Tablet PO (21:30)
[2018-02-01] MEDS: Senna/Docusate Sodium 1 Tablet PO ×2 (06:29→17:05)
[2018-02-01] MEDS: Menthol/Lanolin/Calamine/Znox 113 GM Tube 1 APPLIC TOPICAL ×2 (06:30→21:08)
[2018-02-01] MEDS: Enoxaparin 40 MG/0.4 ML Syringe SC (06:30)
[2018-02-01] MEDS: levETIRAcetam 500 MG Tablet PO ×2 (06:30→17:04)
[2018-02-01] MEDS: Nystatin Powder 15gm Bottle 1 APPLIC TOPICAL ×2 (06:32→17:02)
[2018-02-01] MEDS: Glucerna Shake 120 ML LIQUID PO ×3 (08:19→17:01)
[2018-02-01] MEDS: Calcium Carbonate 500 MG Tablet PO (08:20)
[2018-02-01] MEDS: Tamsulosin HCl 0.4 MG Capsule PO ×2 (08:20→17:04)
[2018-02-01] MEDS: Iron Polysaccharide Complex 150 MG CAPSULE PO (08:21)
--- NOTE | 2018-02-01 10:26 | NURSING ---
PT REFUSED THE PREVNOR-13. PT STATED HE HAD SHOT 2 WEEKS AGO.
--- NOTE | 2018-02-01 12:42 | NURSING ---
PT STRAIGHT CATHED SELF IN BATHROOM,THIS NURSE PRESENT. STERILE PROCEDURE USED. YELLOW,CLOUDY NORMAL SMELL. NO COMPLANTS OR CONCERNS VOICED. PT TOLERATED WELL.
[2018-02-01 16:00] VITALS: BP 137/70; PULSE 83; RESP 16; TEMP 36.9; O2SAT 96
--- NOTE | 2018-02-01 19:25 | NURSING ---
PT STRAIGHT CATHED SELF IN BATH ROOM,THIS NURSE PRESENT. STERILE PROCEDURE USED. 500 OUT. YELLOW,CLOUDY MINOR SMELL. PT TOLERATED WELL. URINE SAMPLES SENT PER ORDER.
[2018-02-01 19:35] LABS: Mucous, Urine 0 SEEN /hpf (<or=2+); Red Blood Cells-Urine 0 SEEN /hpf (0-5); Squamous Epithelial Cells - UA 0 SEEN /hpf (0-5)
[2018-02-01 19:45] LABS: Color, Urine Yellow (Yellow); Glucose, Dipstick Normal (Normal); Ketone-Dipstick Negative (Negative); Leukocyte Esterase-Dipstick 500 /ul (Negative); Nitrite-Dipstick Negative (Negative); Occult Blood-Urine 50 /ul (Negative); Protein-Dipstick 30 mg/dl (Negative); Urine Bilirubin Dipstick Negative (Negative); Urine Clarity Cloudy (Clear); Urine Urobilinogen Normal (Normal)
[2018-02-01 20:00] LABS: White Blood Cells >100 SEEN /hpf (0-5)
[2018-02-01 20:01] LABS: Bacteria 4+ /hpf (None Seen)
--- NOTE | 2018-02-01 20:43 | NURSING ---
Pt was very tearful about the drastic change to his body, and the new responsibilities of the urostomy and colostomy. States he is depressed and sad due to his new challenges. Also states his has not been the same, since he's been away, and doesn't want to be home for Andreina so he isn't a burden on the family during the Season.
--- NOTE | 2018-02-01 21:06 | NURSING ---
notified of UA results. N.O. PO Ceftin 500mg BID for 10days, first dose now.
[2018-02-01] MEDS: MELATONIN 3 MG TABLET PO (21:09)
[2018-02-01] MEDS: Atorvastatin Calcium 10 MG Tablet PO (21:09)
[2018-02-01 21:10] VITALS: PULSE 87; O2SAT 95
[2018-02-01] MEDS: CEFUROXIME AXETIL 250 MG TABLET 500 MG PO (21:27)
--- NOTE | 2018-02-02 01:10 | NURSING ---
Pt straight cathed at this time per order for 475cc for yellow, cloudy urine with strong odor. Pt tolerated procedure well.
[2018-02-02] MEDS: Menthol/Lanolin/Calamine/Znox 113 GM Tube 1 APPLIC TOPICAL ×2 (06:20→20:47)
[2018-02-02] MEDS: CEFUROXIME AXETIL 250 MG TABLET 500 MG PO ×2 (06:21→18:01)
[2018-02-02] MEDS: Enoxaparin 40 MG/0.4 ML Syringe SC (06:21)
[2018-02-02] MEDS: Senna/Docusate Sodium 1 Tablet PO ×2 (06:21→18:01)
[2018-02-02] MEDS: Polyethylene Glycol 3350 17 GM PACKET PO (06:21)
[2018-02-02] MEDS: Nystatin Powder 15gm Bottle 1 APPLIC TOPICAL ×2 (06:21→20:48)
[2018-02-02] MEDS: levETIRAcetam 500 MG Tablet PO ×2 (06:21→18:01)
--- NOTE | 2018-02-02 07:10 | NURSING ---
Pt straight cathed at this time per order for 550cc of yellow, cloudy strong odored urine. Pt tolerated well.
[2018-02-02] MEDS: Glucerna Shake 120 ML LIQUID PO ×3 (08:26→17:59)
[2018-02-02] MEDS: Tamsulosin HCl 0.4 MG Capsule PO ×2 (08:27→18:01)
[2018-02-02] MEDS: Calcium Carbonate 500 MG Tablet PO (08:27)
[2018-02-02] MEDS: Iron Polysaccharide Complex 150 MG CAPSULE PO (08:27)
--- NOTE | 2018-02-02 14:27 | NURSING ---
PT STRAIGHT CATHED SELF IN BATHROOM,THIS NURSE PRESENT. STERIL PROCEDURE USED. 600 OUT,YELLOW/CLOUDY,STRONG SMELL. PT TOLERATED WELL. NO COMPLAINTS OR CONCERNS AT THIS TIME.
[2018-02-02 15:02] VITALS: BP 113/61; PULSE 90; RESP 16; TEMP 36.3; O2SAT 96
--- NOTE | 2018-02-02 19:21 | NURSING ---
AT 1900 PT STRAIGHT CATHED SELF IN BATH ROOM,THIS NURSE PRESENT. STERILE PROCEDURE USED. 200 OUT,YELLOW/CLOUDY, FOUL SMELL. PT TOLERATED WELL. NO COMPLAINTS OR CONCERNS AT THIS TIME.
[2018-02-02] MEDS: MELATONIN 3 MG TABLET PO (20:47)
[2018-02-02] MEDS: Atorvastatin Calcium 10 MG Tablet PO (20:47)
[2018-02-03] MEDS: Enoxaparin 40 MG/0.4 ML Syringe SC (06:38)
[2018-02-03] MEDS: Senna/Docusate Sodium 1 Tablet PO ×2 (06:39→19:01)
[2018-02-03] MEDS: levETIRAcetam 500 MG Tablet PO ×2 (06:39→19:02)
[2018-02-03] MEDS: CEFUROXIME AXETIL 250 MG TABLET 500 MG PO (06:39)
[2018-02-03] MEDS: Nystatin Powder 15gm Bottle 1 APPLIC TOPICAL ×2 (06:40→22:01)
[2018-02-03] MEDS: Menthol/Lanolin/Calamine/Znox 113 GM Tube 1 APPLIC TOPICAL ×2 (06:40→22:01)
--- NOTE | 2018-02-03 07:54 | CPS ---
started by nursing
[2018-02-03] MEDS: Iron Polysaccharide Complex 150 MG CAPSULE PO (08:33)
[2018-02-03] MEDS: Tamsulosin HCl 0.4 MG Capsule PO ×2 (08:33→19:01)
[2018-02-03] MEDS: Calcium Carbonate 500 MG Tablet PO (08:33)
[2018-02-03] MEDS: Glucerna Shake 120 ML LIQUID PO ×3 (08:33→19:00)
[2018-02-03] MEDS: Smz/Tmp Ds Tablet 1 TABLET PO (08:33)
--- NOTE | 2018-02-03 09:00 | RAD_ITS ---
STUDY: X-RAY CHEST REASON FOR EXAM: Male, 82 years old. History of brain cancer. TECHNIQUE: PA and lateral views of the chest. COMPARISON: None. FINDINGS: There is elevation of the right hemidiaphragm. Increased linear markings at the lung bases suggestive of bibasilar scarring. Calcified granuloma in the right midlung. There is no demonstrated pleural abnormality. Normal size heart. Normal mediastinum and judah. Normal visualized pulmonary arteries. There is atherosclerotic calcification of the aortic arch with tortuosity. There are degenerative changes of the visualized thoracic spine. Normal visualized ribs, clavicles, and shoulders. There is no demonstrated abnormality of the visualized soft tissue structures of the upper abdomen. RAD/Chest PA and Lateral IMPRESSION: Mild increased linear markings at the lung bases suggestive of scarring. Electronically Signed: Mil Bell MD at 13:32 EST Tel [phone], Service support ,
--- NOTE | 2018-02-03 09:01 | NURSING ---
Addendum entered by Nisreen Zhou 02/03/18 17:18: dr mccray reviewed xray, no new orders. Original Note: Dr Mccray notified according to nurse on previous shift of crackles post bases & 2+ pitting edema ble's. new order for chest xray. pt updated.
--- NOTE | 2018-02-03 10:01 | NURSING ---
Dr bowman wants pt to start Temodar 140mg one tab m-f x3 weeks to start immediately today.
[2018-02-03] MEDS: Ondansetron ODT 4 MG Tablet PO (10:30)
[2018-02-03] MEDS: Ondansetron 8 MG Tablet PO (11:44)
[2018-02-03] MEDS: 0.9% NaCl IVPB Med Flush (250 mL) 15 ML IV (15:52)
[2018-02-03 16:00] VITALS: BP 108/59; PULSE 77; RESP 18; TEMP 36.8; O2SAT 98
--- NOTE | 2018-02-03 16:39 | NURSING ---
Pt self cathed himself with this nurse in the room. 450 ml of dark airam urine noted.
[2018-02-03] MEDS: 0.9% NaCl Midline IV Flush IV ×2 (19:00→23:32)
[2018-02-03] MEDS: Atorvastatin Calcium 10 MG Tablet PO (21:43)
[2018-02-03] MEDS: MELATONIN 3 MG TABLET PO (21:43)
--- NOTE | 2018-02-03 22:07 | NURSING ---
Pt straight cathed at this time for 480ml. Tolerated well.
--- NOTE | 2018-02-04 05:30 | NURSING ---
Pt straight cathed for 900ml. Tolerated well.
[2018-02-04] MEDS: Polyethylene Glycol 3350 17 GM PACKET PO (05:48)
[2018-02-04] MEDS: 0.9% NaCl Midline IV Flush IV ×5 (05:48→23:45)
[2018-02-04] MEDS: Enoxaparin 40 MG/0.4 ML Syringe SC (05:48)
[2018-02-04] MEDS: levETIRAcetam 500 MG Tablet PO ×2 (05:49→18:01)
[2018-02-04] MEDS: Senna/Docusate Sodium 1 Tablet PO ×2 (05:49→18:01)
[2018-02-04] MEDS: Menthol/Lanolin/Calamine/Znox 113 GM Tube 1 APPLIC TOPICAL ×2 (05:57→20:44)
[2018-02-04] MEDS: Nystatin Powder 15gm Bottle 1 APPLIC TOPICAL ×2 (05:57→20:43)
[2018-02-04 06:21] LABS: Absolute Lymphocyte Count 1.43 X10^3/ul (0.83-4.51); Absolute Neutrophil Count 3.8 X10^3/uL (2.0-7.7); Basophil# 0.03 X10^3/uL; Basophil% 0.5 % (0-1); Eosinophils% 3.2 % (0-5); Hematocrit 30.7 % (40-54); Hemoglobin 9.6 g/dl (13.0-16.5); Lymphocyte # 1.43 X10^3/ul (4.0); Lymphocyte % 23.1 % (19-41); Mean Corp Hgb Conc 31.3 g/gl (32-36); Mean Corpuscular Hgb 30.1 pg (27.0-32.0); Mean Corpuscular Volume 96.2 fL (80-94); Mean Platelet Vol. 8.5 fl (6.2-12.0); Monocyte% 11.3 % (0-10); Neutrophil # 3.78 X10^3/uL (2.7-7.7); Neutrophil % 60.9 % (47-70); Platelet Count 187 K/mm3 (150-450); RBC Distribution Width CV 17.1 % (11.6-14.6); RBC Distribution Width SD 57.4 fl (35.1-43.9); Red Blood Count 3.19 M/mm3 (4.6-6.2); White Blood Count 6.2 K/mm3 (4.4-11.0)
[2018-02-04 06:32] LABS: POSITIVE COUNT NO; POSITIVE DIFFERENTIAL NO; POSITIVE MORPHOLOGY NO
[2018-02-04 06:38] LABS: Anion Gap 8 (5-15); BUN 17 mg/dL (7-18); BUN/Creat Ratio 24.5 RATIO (10-20); Calcium,Total 8.2 mg/dL (8.5-10.1); Chloride 109 mmol/L (98-107); Creatinine, Serum 0.69 mg/dL (0.70-1.30); EST Glomerular Filtration Rate 116 mL/min (>60); Est Glom Filt Rate - Afr Amer 140 mL/min (>60); Estimated Creatinine Clearance 63.25 ml/min; Glucose 101 mg/dL (74-106); Potassium 4.1 mmol/L (3.5-5.1); Sodium Level 142 mmol/L (136-145)
--- NOTE | 2018-02-04 08:07 | NURSING ---
[facility], patient has an appointment Saturday 02/[address] Claros, will have radiation immediately after.
[2018-02-04] MEDS: Glucerna Shake 120 ML LIQUID PO ×3 (08:24→18:00)
[2018-02-04] MEDS: Iron Polysaccharide Complex 150 MG CAPSULE PO (08:25)
[2018-02-04] MEDS: Calcium Carbonate 500 MG Tablet PO (08:25)
[2018-02-04] MEDS: Tamsulosin HCl 0.4 MG Capsule PO ×2 (08:26→18:02)
[2018-02-04 10:45] VITALS: PULSE 90; RESP 18; O2SAT 96
--- NOTE | 2018-02-04 11:58 | NURSING ---
PT STRAIGHT CATHED SELF IN BATHROOM. STERIL,AND CHEMO PROCEDURE USED ,THIS NURSE PRESENT. URINE,YELLOW/CLOUDY,STRONG SMELL. NO COMPLAINTS OR CONCERNS AT THIS TIME.
--- NOTE | 2018-02-04 12:56 | NURSING ---
NO to D/C fluid restriction d/t need for increased fluids with chemo medication.
[2018-02-04 16:00] VITALS: BP 117/60; PULSE 81; RESP 18; TEMP 36.6; O2SAT 98
--- NOTE | 2018-02-04 17:56 | NURSING ---
Pt's toenails long and fibrotic. Attempted to trim, unable to due to thickness. Dr. Mccray notified, NO for podiatry consult.
[2018-02-04] MEDS: 0.9% NaCl IVPB Med Flush (250 mL) 15 ML IV (18:55)
[2018-02-04] MEDS: Ondansetron 8 MG Tablet PO (19:02)
--- NOTE | 2018-02-04 19:05 | NURSING ---
PT STRAIGHT CATHED SELF IN BATH ROOM,THIS NURSE PRESENT. STERIL PROCEDURE USED. 500 OUT. YELLOW/CLOUDY, MILD SMELL. NO COMPLAINT OR CONCERNS AT THIS TIME. PT TOLERATED WELL.
[2018-02-04] MEDS: MELATONIN 3 MG TABLET PO (20:43)
[2018-02-04] MEDS: Atorvastatin Calcium 10 MG Tablet PO (20:43)
[2018-02-05] MEDS: Senna/Docusate Sodium 1 Tablet PO ×2 (05:21→17:11)
[2018-02-05] MEDS: Polyethylene Glycol 3350 17 GM PACKET PO (05:21)
[2018-02-05] MEDS: levETIRAcetam 500 MG Tablet PO ×2 (05:21→17:11)
[2018-02-05] MEDS: Enoxaparin 40 MG/0.4 ML Syringe SC (05:21)
[2018-02-05] MEDS: 0.9% NaCl Midline IV Flush IV ×4 (05:27→23:57)
[2018-02-05] MEDS: Nystatin Powder 15gm Bottle 1 APPLIC TOPICAL ×2 (05:33→20:50)
[2018-02-05] MEDS: Menthol/Lanolin/Calamine/Znox 113 GM Tube 1 APPLIC TOPICAL ×2 (05:34→20:49)
[2018-02-05] MEDS: Glucerna Shake 120 ML LIQUID PO ×3 (07:53→17:08)
[2018-02-05] MEDS: Smz/Tmp Ds Tablet 1 TABLET PO (07:54)
[2018-02-05] MEDS: Tamsulosin HCl 0.4 MG Capsule PO ×2 (07:54→17:11)
[2018-02-05] MEDS: Calcium Carbonate 500 MG Tablet PO (07:54)
[2018-02-05] MEDS: Iron Polysaccharide Complex 150 MG CAPSULE PO (07:54)
--- NOTE | 2018-02-05 13:07 | NURSING ---
PT STRAIGHT CATHED SELF IN BATHROOM, THIS NURSE PRESENT. STERIL PROCEDURE USED. 6OO YELLOW,CLOUDY FOUL SMELL. PT TOLERATED WELL. NO COMPLAINTS OR CONCERNS AT THIS TIME.
[2018-02-05 14:58] VITALS: PULSE 84; RESP 18; O2SAT 96
[2018-02-05 15:59] VITALS: BP 135/66; PULSE 72; RESP 18; TEMP 36.6; O2SAT 96
--- NOTE | 2018-02-05 16:59 | PCM.PROGNOTE ---
Patient Problems: Active and Suspected Problems (Last Reviewed 02/03/18 @ 14:42 by Neetu Santiago) GBM (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) Left hemiparesis (Acute) Debility (Acute) Anemia (Acute) Educational circumstance (Acute) Subjective: This patient was consulted to podiatry for thickened, elongated, discolored, painful toenails 1, 2, 3, 4, 5 of the right and left foot. Patient says he is not had his nails trimmed in a long time. Patient currently denies any feelings of nausea, vomiting, fever, chills. - Physical Exam General: Alert, Oriented x3, Cooperative Extremities: Capillary Refill Less than 3 Seconds, No Calf Tenderness - Negative Brunilda and Ku sign, Edema - Slight lower extremity edema. Patient wearing ALYSON hose for this., Peripheral Pulses Normal - DP pulses palpable bilateral Skin: - - Toenails 1, 2, 3, 4, 5 of the right and left foot are thickened, discolored, elongated, painful with the presence of subungual debris. Musculoskeletal: No Tenderness to Palpation of Joints or Extremities, Tenderness - With palpation of the aforementioned toenails Neurological: Sensory exam intact to light touch and pain Psych/Mental Status: Normal Affect, Appropriate Vital Signs Temp Pulse Resp BP Pulse Ox 97.8 F 72 18 135/66 H 96 02/05/18 15:59 02/05/18 15:59 02/05/18 15:59 02/05/18 15:59 02/05/18 15:59 Oxygen Delivery Method Room Air Weight: 82.554 kg Body Mass Index (BMI) 21.5 Intake and Output for Last 24 Hours 02/03/18 02/04/18 02/05/18 23:59 23:59 23:59 Intake Total 910 / 910 1693 / 1693 920 / 920 Output Total 1080 / 1080 1750 / 1750 1200 / 1200 Balance -170 / -170 -57 / -57 -280 / -280 Microbiology Past 72 Hours 02/01/18 19:15 Urine Culture - Final Urine, Clean Catch Presumptive E. coli Medical Necessity - Tobacco Use Smoking Status: Former smoker Tobacco Use: Non-smoker Assessment/Plan All Active Problems (Last Reviewed 02/03/18 @ 14:42 by Neetu Santiago) GBM (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) Left hemiparesis (Acute) Debility (Acute) Anemia (Acute) Educational circumstance (Acute) Tinea unguium Pain right toe (s) Pain left toe (s) Patient was carefully examined and evaluated. Toenails 1, 2, 3, 4, 5 of the right and left foot were carefully debrided in length using a nail nipper. This was done without incident. Patient experienced relief following debridement of toenails. At this time, patient can be seen on an as-needed basis by podiatry. Thank you for this consult.
--- NOTE | 2018-02-05 18:33 | NURSING ---
IV FLUSHED,NO S/S OF INFECTION. NO CONCERNS OR COMPLAINTS AT THIS TIME. PT TOLERATED WELL. PT STRAIGHT CATHED SELF IN BATH ROOM,THIS NURSE PRESENT. STERIL PROCEDURE USED. 500 OUT,YELLOW,CLEAR, MILD SMELL. NO COMPLAINTS OR CONCERNS AT THIS TIME. PT TOLERATED WELL.
[2018-02-05] MEDS: Ondansetron 8 MG Tablet PO (20:49)
[2018-02-05] MEDS: Atorvastatin Calcium 10 MG Tablet PO (20:50)
[2018-02-05] MEDS: MELATONIN 3 MG TABLET PO (20:50)
--- NOTE | 2018-02-05 22:23 | NURSING ---
Pt remains in chemo precautions this shift.
[2018-02-05] MEDS: 0.9% NaCl IVPB Med Flush (250 mL) 15 ML IV (23:57)
--- NOTE | 2018-02-06 00:14 | NURSING ---
Pt straight cathed at this time for 800cc of clear, yellow urine. Pt tolerated procedure well.
--- NOTE | 2018-02-06 06:15 | NURSING ---
Pt straight cathed at this time for 1050cc of clear, yellow urine. Pt tolerated procedure well.
[2018-02-06] MEDS: Polyethylene Glycol 3350 17 GM PACKET PO (06:17)
[2018-02-06] MEDS: Nystatin Powder 15gm Bottle 1 APPLIC TOPICAL ×2 (06:17→19:59)
[2018-02-06] MEDS: Menthol/Lanolin/Calamine/Znox 113 GM Tube 1 APPLIC TOPICAL ×2 (06:17→20:01)
[2018-02-06] MEDS: levETIRAcetam 500 MG Tablet PO ×2 (06:17→19:47)
[2018-02-06] MEDS: Enoxaparin 40 MG/0.4 ML Syringe SC (06:17)
[2018-02-06] MEDS: Senna/Docusate Sodium 1 Tablet PO ×2 (06:18→19:47)
[2018-02-06] MEDS: 0.9% NaCl Midline IV Flush IV ×3 (06:28→23:50)
--- NOTE | 2018-02-06 07:41 | MDS.RN ---
Information for the mds was obtained from review of the clinical record, interview of resident, staff, and direct observation of resident's care.
[2018-02-06] MEDS: Iron Polysaccharide Complex 150 MG CAPSULE PO (08:26)
[2018-02-06] MEDS: Tamsulosin HCl 0.4 MG Capsule PO ×2 (08:26→19:47)
[2018-02-06] MEDS: Glucerna Shake 120 ML LIQUID PO (08:26)
[2018-02-06] MEDS: Calcium Carbonate 500 MG Tablet PO (08:26)
--- NOTE | 2018-02-06 18:05 | NURSING ---
pt off unit at 1000 to radiation then off to [facility] for appt, still has not returned. will catch up meds on return
[2018-02-06] MEDS: Atorvastatin Calcium 10 MG Tablet PO (19:47)
[2018-02-06] MEDS: Ondansetron 8 MG Tablet PO (19:47)
[2018-02-06] MEDS: 0.9% NaCl IVPB Med Flush (250 mL) 15 ML IV (19:54)
[2018-02-06] MEDS: MELATONIN 3 MG TABLET PO (21:18)
[2018-02-07] MEDS: Polyethylene Glycol 3350 17 GM PACKET PO (06:36)
[2018-02-07] MEDS: levETIRAcetam 500 MG Tablet PO ×2 (06:40→17:27)
[2018-02-07] MEDS: Senna/Docusate Sodium 1 Tablet PO ×2 (06:40→17:50)
[2018-02-07] MEDS: Enoxaparin 40 MG/0.4 ML Syringe SC (06:40)
[2018-02-07] MEDS: Nystatin Powder 15gm Bottle 1 APPLIC TOPICAL ×2 (06:42→20:53)
[2018-02-07] MEDS: Menthol/Lanolin/Calamine/Znox 113 GM Tube 1 APPLIC TOPICAL ×2 (06:43→20:54)
[2018-02-07] MEDS: Calcium Carbonate 500 MG Tablet PO (09:17)
[2018-02-07] MEDS: Iron Polysaccharide Complex 150 MG CAPSULE PO (09:17)
[2018-02-07] MEDS: Smz/Tmp Ds Tablet 1 TABLET PO (09:17)
[2018-02-07] MEDS: Glucerna Shake 120 ML LIQUID PO ×2 (09:17→17:26)
[2018-02-07] MEDS: Tamsulosin HCl 0.4 MG Capsule PO ×2 (09:18→17:27)
[2018-02-07 09:39] VITALS: PULSE 85
[2018-02-07] MEDS: 0.9% NaCl Midline IV Flush IV (11:09)
--- NOTE | 2018-02-07 15:31 | NURSING ---
Pt straight cathed himself with minimal assiastance from this nurse. Pt had 500ml of airam urine out. No odor noted
[2018-02-07 15:52] VITALS: BP 136/72; PULSE 77; RESP 18; TEMP 36.8; O2SAT 96
[2018-02-07] MEDS: Ondansetron 8 MG Tablet PO (19:17)
[2018-02-07] MEDS: Atorvastatin Calcium 10 MG Tablet PO (20:53)
[2018-02-07] MEDS: MELATONIN 3 MG TABLET PO (20:53)
[2018-02-08] MEDS: 0.9% NaCl IVPB Med Flush (250 mL) 15 ML IV (00:19)
[2018-02-08] MEDS: 0.9% NaCl Midline IV Flush IV ×5 (00:25→23:29)
[2018-02-08] MEDS: levETIRAcetam 500 MG Tablet PO ×2 (06:30→17:40)
[2018-02-08] MEDS: Polyethylene Glycol 3350 17 GM PACKET PO (06:30)
[2018-02-08] MEDS: Enoxaparin 40 MG/0.4 ML Syringe SC (06:30)
[2018-02-08] MEDS: Senna/Docusate Sodium 1 Tablet PO ×2 (06:30→17:40)
[2018-02-08] MEDS: Nystatin Powder 15gm Bottle 1 APPLIC TOPICAL ×2 (06:31→21:27)
[2018-02-08] MEDS: Menthol/Lanolin/Calamine/Znox 113 GM Tube 1 APPLIC TOPICAL ×2 (06:31→21:26)
[2018-02-08 10:00] VITALS: PULSE 86; O2SAT 93
[2018-02-08] MEDS: Tamsulosin HCl 0.4 MG Capsule PO ×2 (11:18→17:40)
[2018-02-08] MEDS: Calcium Carbonate 500 MG Tablet PO (11:18)
[2018-02-08] MEDS: Iron Polysaccharide Complex 150 MG CAPSULE PO (11:18)
[2018-02-08] MEDS: Glucerna Shake 120 ML LIQUID PO ×2 (11:56→17:42)
[2018-02-08 16:00] VITALS: BP 107/55; PULSE 74; RESP 20; TEMP 36.8; O2SAT 96
[2018-02-08] MEDS: Ondansetron 8 MG Tablet PO (19:17)
--- NOTE | 2018-02-08 20:14 | NURSING ---
PT has concerns that oral chemo medication should be given every day. [facility] pharmacist called, according to the original order put in by the oncology pharmacist, medication is to be given Saturday-Saturday. Patient made aware.
[2018-02-08] MEDS: MELATONIN 3 MG TABLET PO (21:27)
[2018-02-08] MEDS: Atorvastatin Calcium 10 MG Tablet PO (21:27)
--- NOTE | 2018-02-08 21:30 | NURSING ---
Pt straight cathed at this time per request for 700cc of clear, yellow urine. Pt tolerated procedure well. States wanting to be cathed again at 0630.
--- NOTE | 2018-02-09 06:20 | NURSING ---
Pt straight cathed at this time per order. 900cc of clear, yellow non odorous urine flowed out. Pt tolerated procedure well.
[2018-02-09] MEDS: Menthol/Lanolin/Calamine/Znox 113 GM Tube 1 APPLIC TOPICAL ×2 (06:31→21:38)
[2018-02-09] MEDS: 0.9% NaCl Midline IV Flush IV ×3 (06:32→18:19)
[2018-02-09] MEDS: Enoxaparin 40 MG/0.4 ML Syringe SC (06:34)
[2018-02-09] MEDS: levETIRAcetam 500 MG Tablet PO ×2 (06:34→18:17)
[2018-02-09] MEDS: Polyethylene Glycol 3350 17 GM PACKET PO (06:35)
[2018-02-09] MEDS: Senna/Docusate Sodium 1 Tablet PO ×2 (06:35→18:16)
[2018-02-09] MEDS: Nystatin Powder 15gm Bottle 1 APPLIC TOPICAL ×2 (06:35→21:38)
[2018-02-09] MEDS: Glucerna Shake 120 ML LIQUID PO ×3 (08:09→18:17)
[2018-02-09] MEDS: Iron Polysaccharide Complex 150 MG CAPSULE PO (08:09)
[2018-02-09] MEDS: Tamsulosin HCl 0.4 MG Capsule PO ×2 (08:09→18:17)
[2018-02-09] MEDS: Calcium Carbonate 500 MG Tablet PO (08:09)
[2018-02-09 15:31] VITALS: BP 115/66; PULSE 73; RESP 18; TEMP 36.8; O2SAT 97
--- NOTE | 2018-02-09 21:36 | NURSING ---
Pt straight cathed at this time per order for 700cc of clear, yellow urine. Pt tolerated procedure well.
[2018-02-09] MEDS: Atorvastatin Calcium 10 MG Tablet PO (21:38)
[2018-02-09] MEDS: MELATONIN 3 MG TABLET PO (21:38)
[2018-02-09 21:40] VITALS: PULSE 79; O2SAT 94
[2018-02-10] MEDS: 0.9% NaCl Midline IV Flush IV ×5 (00:24→23:10)
[2018-02-10] MEDS: Menthol/Lanolin/Calamine/Znox 113 GM Tube 1 APPLIC TOPICAL ×2 (06:17→19:57)
[2018-02-10] MEDS: Senna/Docusate Sodium 1 Tablet PO ×2 (06:18→17:19)
[2018-02-10] MEDS: levETIRAcetam 500 MG Tablet PO ×2 (06:18→17:19)
[2018-02-10] MEDS: Nystatin Powder 15gm Bottle 1 APPLIC TOPICAL ×2 (06:18→19:58)
[2018-02-10] MEDS: Polyethylene Glycol 3350 17 GM PACKET PO (06:18)
[2018-02-10] MEDS: Enoxaparin 40 MG/0.4 ML Syringe SC (06:21)
--- NOTE | 2018-02-10 06:36 | NURSING ---
Pt straight cathed at this time for 1,000cc of clear, yellow nonodorous urine. Pt tolerated procedure well.
[2018-02-10] MEDS: Glucerna Shake 120 ML LIQUID PO ×3 (07:54→17:16)
[2018-02-10] MEDS: Smz/Tmp Ds Tablet 1 TABLET PO (07:56)
[2018-02-10] MEDS: Tamsulosin HCl 0.4 MG Capsule PO ×2 (07:56→17:19)
[2018-02-10] MEDS: Calcium Carbonate 500 MG Tablet PO (07:56)
[2018-02-10] MEDS: Iron Polysaccharide Complex 150 MG CAPSULE PO (07:56)
[2018-02-10 09:30] VITALS: PULSE 88; RESP 18; O2SAT 92
--- NOTE | 2018-02-10 09:52 | PCM.TCUNOT ---
Subjective: Resident seen in room, he is sitting in chair, reading the newspaper, he has no complaints, he feels he is improving every day. Vitals/I&O's: Vital Signs Temp Pulse Resp BP Pulse Ox 98.3 F 79 18 115/66 94 02/09/18 15:31 02/09/18 21:40 02/09/18 15:31 02/09/18 15:31 02/09/18 21:40 Oxygen Delivery Method Room Air Weight: 82.327 kg Body Mass Index (BMI) 21.5 Intake and Output for Last 24 Hours 02/08/18 02/09/18 02/10/18 23:59 23:59 23:59 Intake Total 930 / 930 1061 / 1061 736 / 736 Output Total 1800 / 1800 2500 / 2500 1000 / 1000 Balance -870 / -870 -1439 / -1439 -264 / -264 Past Medical History Past Medical History (Chronic Problems): Chronic Problems (Last Reviewed 02/03/18 @ 14:42 by Neetu Santiago) History of chest pain (Chronic) BPH (benign prostatic hyperplasia) (Chronic) Hypertension (Chronic) Neurogenic bladder (Chronic) Medical History: Medical History (Last Reviewed 02/03/18 @ 14:42 by Neetu Santiago) S/P RIGHT FRONTAL CRANIECTOMY 12-27-[address] [facility] [address] MILLER Benign prostatic hyperplasia with lower urinary tract symptoms N40.1 Hyperlipidemia E78.5 Primary glioblastoma of brain C71.9 Ventricular hypertrophy I51.7 bilateral enlargement Allergies No Known Allergies Allergy (Verified 02/03/18 14:42) Home Medications: Ambulatory Orders Medication Instructions Recorded Simvastatin [Zocor] 20 mg PO QHS 12/09/17 Tamsulosin HCl [Flomax] 0.4 mg PO BID 12/09/17 Levetiracetam [Keppra] 500 mg PO BID 12/11/17 Acetaminophen [Tylenol] 650 mg PO Q4H PRN PRN 01/20/18 Calcium Citrate 950 mg PO DAILY 01/20/18 Cholecalciferol (VIT D3) [Vitamin 2,000 unit PO DAILY 01/20/18 D] Docusate Sodium [Colace] 100 mg PO DAILY 01/20/18 Enoxaparin Sodium [Lovenox] 40 mg SQ DAILY 01/20/18 Ertapenem Sod [Invanz] 1 gm IV Q24 12/03/18 Melatonin 3 mg PO QHS 01/20/18 Ondansetron [Zofran Odt] 4 mg PO Q8H PRN PRN 01/20/18 Sennosides [Senna Laxative] 8.6 mg PO DAILY 01/20/18 Ondansetron [Zofran] 8 mg PO Q8H PRN PRN 30 Days #30 tab 01/30/18 Smz/Tmp Ds [Bactrim Ds] 1 tab PO DAILY 70 Days #30 tab 01/30/18 Surgical History: Surgical History (Last Reviewed 02/03/18 @ 14:42 by Neetu Santiago) History of appendectomy Z90.49 History of bilateral knee replacement Z96.653 History of cholecystectomy Z90.49 History of tonsillectomy Z90.89 Surgical History: appendectomy, cholecystectomy, total knee arthroplasty, tonsillectomy, - - Excision brain tumor by craniotomy. Psychiatric History: Anxiety, Depression Lives: Spouse/ Significant Other Smoking Status: Former smoker Tobacco Use: Non-smoker Alcohol: None Drugs: None - *Family History Maternal Family History: Family History (Last Reviewed 02/03/18 @ 14:42 by Neetu Santiago) Mother Heart disease Father CAD (coronary artery disease) History Items: No pertinent history Paternal Family History: Family History (Last Reviewed 02/03/18 @ 14:42 by Neetu Santiago) Mother Heart disease Father CAD (coronary artery disease) History Items: No pertinent history Review of Systems Constitutional: Denies: Chills, Fever, Weight Change HEENT: Denies: Head Aches, Sinus Congestion, Sinus Drainage Cardiovascular: Denies: Chest Pain, Palpitations Respiratory: Denies: Cough, Shortness of breath at rest, Sputum production Gastrointestinal: Denies: Abdominal Pain, Nausea, Vomiting Genitourinary: Denies: Dysuria Musculoskeletal: Denies: Joint Pain, Joint Tenderness Skin: Denies: Rash, Wounds Neurological: Denies: Numbness, Tingling, Focal weakness Psychiatric: Denies: Anxiety, Depression, Homicidal Ideations, Suicidal Ideations Hematologic/ Lymphatic: Denies: Easy Bruising, Easy Bleeding Patient Problems: Active and Suspected Problems (Last Reviewed 02/03/18 @ 14:42 by Neetu Santiago) GBM (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) Left hemiparesis (Acute) Debility (Acute) Anemia (Acute) Educational circumstance (Acute) - Physical Exam General: Alert, Oriented x3, Cooperative HEENT: Atraumatic, PERRLA, EOMI, Normocephalic Neck: Supple, No JVD, Negative Carotid Bruits Lungs: Clear to auscultation, Normal air movement Cardiovascular: Regular rate, No murmurs Abdomen: Bowel Sounds Present, Soft, Non Tender Extremities: No edema, Capillary Refill Less than 3 Seconds Skin: No rashes, No breakdown Musculoskeletal: No Tenderness to Palpation of Joints or Extremities Neurological: Cranial nerves II-XII grossly intact Psych/Mental Status: Normal Affect, Appropriate Vital Signs Temp Pulse Resp BP Pulse Ox 98.3 F 79 18 115/66 94 02/09/18 15:31 02/09/18 21:40 02/09/18 15:31 02/09/18 15:31 02/09/18 21:40 Oxygen Delivery Method Room Air Weight: 82.327 kg Body Mass Index (BMI) 21.5 Intake and Output for Last 24 Hours 02/08/18 02/09/18 02/10/18 23:59 23:59 23:59 Intake Total 930 / 930 1061 / 1061 736 / 736 Output Total 1800 / 1800 2500 / 2500 1000 / 1000 Balance -870 / -870 -1439 / -1439 -264 / -264 Assessment/Plan All Active Problems (Last Reviewed 02/03/18 @ 14:42 by Neetu Santiago) GBM (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) Left hemiparesis (Acute) Debility (Acute) Anemia (Acute) Educational circumstance (Acute) 82 year old male with below past medical history significant for glioblastoma multiforme s/p excision, complicated left hemiparesis, steroid induced diabetes mellitus, ESBL K. Pneumoniae UTI, admitted from [facility] inpatient rehab to TCU with debility, to continue rehabilitation, strengthening, prior to discharge home with spouse to continue treatment for GBM. Debility - PT/OT. Pain - Tylenol 1000MG Q6H PRN mild pain. Bowel - Miralax 17GM daily, Senna/colace 1 tablet BID, Dulcolax 10MG daily PRN. Pneumonia vaccination - Administer Prevnar 13 and/or Pneumovax 23 as necessary. DVT prophylaxis - Lovenox 40MG SC daily. Hyperlipidemia - Atorvastatin 10MG QHS. Calcium deficiency - Calcium 500MG daily. Vitamin D deficiency - D3 2000IU daily. ESBL E. Coli UTI - Meropenem 500MG IV Q6H thru 02/13/2018. Seizure prophylaxis - Keppra 500MG twice daily. Insomnia - Melatonin 3MG QHS. Skin irritation - Calmoseptine BID coccyx. Nausea - Zofran 4MG Q8H PRN. BPH - Tamsulosin 0.4MG BID. Urinary retention - Straight cath twice daily, per resident he has urinary retention for 8 weeks after general anesthesia. GBM - Temozolomide 140MG Saturday thru Saturday per Dr. Singletary.
--- NOTE | 2018-02-10 09:55 | PN_ITS ---
Subjective: Resident seen in room, he is sitting in chair, reading the newspaper, he has no complaints, he feels he is improving every day. Vitals/I&O's: Vital Signs Temp Pulse Resp BP Pulse Ox 98.3 F 79 18 115/66 94 02/09/18 15:31 02/09/18 21:40 02/09/18 15:31 02/09/18 15:31 02/09/18 21:40 Oxygen Delivery Method Room Air Weight: 82.327 kg Body Mass Index (BMI) 21.5 Intake and Output for Last 24 Hours 02/08/18 02/09/18 02/10/18 23:59 23:59 23:59 Intake Total 930 / 930 1061 / 1061 736 / 736 Output Total 1800 / 1800 2500 / 2500 1000 / 1000 Balance -870 / -870 -1439 / -1439 -264 / -264 Past Medical History Past Medical History (Chronic Problems): Chronic Problems (Last Reviewed 02/03/18 @ 14:42 by Neetu Snatiago) History of chest pain (Chronic) BPH (benign prostatic hyperplasia) (Chronic) Hypertension (Chronic) Neurogenic bladder (Chronic) Medical History: Medical History (Last Reviewed 02/03/18 @ 14:42 by Neetu Santiago) S/P RIGHT FRONTAL CRANIECTOMY 12-27-[address] [address] MILLER Benign prostatic hyperplasia with lower urinary tract symptoms N40.1 Hyperlipidemia E78.5 Primary glioblastoma of brain C71.9 Ventricular hypertrophy I51.7 bilateral enlargement Allergies No Known Allergies Allergy (Verified 02/03/18 14:42) Home Medications: Ambulatory Orders Medication Instructions Recorded Simvastatin [Zocor] 20 mg PO QHS 12/09/17 Tamsulosin HCl [Flomax] 0.4 mg PO BID 12/09/17 Levetiracetam [Keppra] 500 mg PO BID 12/11/17 Acetaminophen [Tylenol] 650 mg PO Q4H PRN PRN 01/20/18 Calcium Citrate 950 mg PO DAILY 01/20/18 Cholecalciferol (VIT D3) [Vitamin 2,000 unit PO DAILY 01/20/18 D] Docusate Sodium [Colace] 100 mg PO DAILY 01/20/18 Enoxaparin Sodium [Lovenox] 40 mg SQ DAILY 01/20/18 Ertapenem Sod [Invanz] 1 gm IV Q24 12/03/18 Melatonin 3 mg PO QHS 01/20/18 Ondansetron [Zofran Odt] 4 mg PO Q8H PRN PRN 01/20/18 Sennosides [Senna Laxative] 8.6 mg PO DAILY 01/20/18 Ondansetron [Zofran] 8 mg PO Q8H PRN PRN 30 Days #30 tab 01/30/18 Smz/Tmp Ds [Bactrim Ds] 1 tab PO DAILY 70 Days #30 tab 01/30/18 Surgical History: Surgical History (Last Reviewed 02/03/18 @ 14:42 by Neetu Santiago) History of appendectomy Z90.49 History of bilateral knee replacement Z96.653 History of cholecystectomy Z90.49 History of tonsillectomy Z90.89 Surgical History: appendectomy, cholecystectomy, total knee arthroplasty, tonsillectomy, - - Excision brain tumor by craniotomy. Psychiatric History: Anxiety, Depression Lives: Spouse/ Significant Other Smoking Status: Former smoker Tobacco Use: Non-smoker Alcohol: None Drugs: None - *Family History Maternal Family History: Family History (Last Reviewed 02/03/18 @ 14:42 by Neetu Santiago) Mother Heart disease Father CAD (coronary artery disease) History Items: No pertinent history Paternal Family History: Family History (Last Reviewed 02/03/18 @ 14:42 by Neetu Santiago) Mother Heart disease Father CAD (coronary artery disease) History Items: No pertinent history Review of Systems Constitutional: Denies: Chills, Fever, Weight Change HEENT: Denies: Head Aches, Sinus Congestion, Sinus Drainage Cardiovascular: Denies: Chest Pain, Palpitations Respiratory: Denies: Cough, Shortness of breath at rest, Sputum production Gastrointestinal: Denies: Abdominal Pain, Nausea, Vomiting Genitourinary: Denies: Dysuria Musculoskeletal: Denies: Joint Pain, Joint Tenderness Skin: Denies: Rash, Wounds Neurological: Denies: Numbness, Tingling, Focal weakness Psychiatric: Denies: Anxiety, Depression, Homicidal Ideations, Suicidal Ideations Hematologic/ Lymphatic: Denies: Easy Bruising, Easy Bleeding Patient Problems: Active and Suspected Problems (Last Reviewed 02/03/18 @ 14:42 by Neetu Santiago) GBM (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) Left hemiparesis (Acute) Debility (Acute) Anemia (Acute) Educational circumstance (Acute) - Physical Exam General: Alert, Oriented x3, Cooperative HEENT: Atraumatic, PERRLA, EOMI, Normocephalic Neck: Supple, No JVD, Negative Carotid Bruits Lungs: Clear to auscultation, Normal air movement Cardiovascular: Regular rate, No murmurs Abdomen: Bowel Sounds Present, Soft, Non Tender Extremities: No edema, Capillary Refill Less than 3 Seconds Skin: No rashes, No breakdown Musculoskeletal: No Tenderness to Palpation of Joints or Extremities Neurological: Cranial nerves II-XII grossly intact Psych/Mental Status: Normal Affect, Appropriate Vital Signs Temp Pulse Resp BP Pulse Ox 98.3 F 79 18 115/66 94 02/09/18 15:31 02/09/18 21:40 02/09/18 15:31 02/09/18 15:31 02/09/18 21:40 Oxygen Delivery Method Room Air Weight: 82.327 kg Body Mass Index (BMI) 21.5 Intake and Output for Last 24 Hours 02/08/18 02/09/18 02/10/18 23:59 23:59 23:59 Intake Total 930 / 930 1061 / 1061 736 / 736 Output Total 1800 / 1800 2500 / 2500 1000 / 1000 Balance -870 / -870 -1439 / -1439 -264 / -264 Assessment/Plan All Active Problems (Last Reviewed 02/03/18 @ 14:42 by Neetu Santiago) GBM (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) Left hemiparesis (Acute) Debility (Acute) Anemia (Acute) Educational circumstance (Acute) 82 year old male with below past medical history significant for glioblastoma multiforme s/p excision, complicated left hemiparesis, steroid induced diabetes mellitus, ESBL K. Pneumoniae UTI, admitted from [facility] inpatient rehab to TCU with debility, to continue rehabilitation, strengthening, prior to discharge home with spouse to continue treatment for GBM. * Debility - PT/OT. * Pain - Tylenol 1000MG Q6H PRN mild pain. * Bowel - Miralax 17GM daily, Senna/colace 1 tablet BID, Dulcolax 10MG daily PRN. * Pneumonia vaccination - Administer Prevnar 13 and/or Pneumovax 23 as necessary. * DVT prophylaxis - Lovenox 40MG SC daily. * Hyperlipidemia - Atorvastatin 10MG QHS. * Calcium deficiency - Calcium 500MG daily. * Vitamin D deficiency - D3 2000IU daily. * ESBL E. Coli UTI - Meropenem 500MG IV Q6H thru 02/13/2018. * Seizure prophylaxis - Keppra 500MG twice daily. * Insomnia - Melatonin 3MG QHS. * Skin irritation - Calmoseptine BID coccyx. * Nausea - Zofran 4MG Q8H PRN. * BPH - Tamsulosin 0.4MG BID. * Urinary retention - Straight cath twice daily, per resident he has urinary retention for 8 weeks after general anesthesia. * GBM - Temozolomide 140MG Saturday thru Saturday per Dr. Singletary.
[2018-02-10] MEDS: 0.9% NaCl IVPB Med Flush (250 mL) 15 ML IV (11:54)
--- NOTE | 2018-02-10 13:16 | NURSING ---
PT STRAIGHT CATHED SELF IN BATHROOM. STERIL PROCEDURE USED. THIS NURSE PRESENT. URINE, YELLOW/CLEAR NORMAL SMELL. NO CONCERNS OR COMPLAINTS AT THIS TIME. 5OO OUT.
[2018-02-10 16:00] VITALS: BP 109/75; PULSE 76; RESP 18; TEMP 36.8; O2SAT 96
[2018-02-10] MEDS: Ondansetron 8 MG Tablet PO (18:55)
[2018-02-10] MEDS: Atorvastatin Calcium 10 MG Tablet PO (21:17)
[2018-02-10] MEDS: MELATONIN 3 MG TABLET PO (21:18)
[2018-02-11] MEDS: Senna/Docusate Sodium 1 Tablet PO ×2 (06:23→18:14)
[2018-02-11] MEDS: levETIRAcetam 500 MG Tablet PO ×2 (06:23→18:15)
[2018-02-11] MEDS: Enoxaparin 40 MG/0.4 ML Syringe SC (06:23)
[2018-02-11] MEDS: Polyethylene Glycol 3350 17 GM PACKET PO (06:23)
[2018-02-11] MEDS: 0.9% NaCl Midline IV Flush IV ×3 (06:24→18:12)
[2018-02-11] MEDS: Nystatin Powder 15gm Bottle 1 APPLIC TOPICAL ×2 (06:25→21:27)
[2018-02-11] MEDS: Menthol/Lanolin/Calamine/Znox 113 GM Tube 1 APPLIC TOPICAL ×2 (06:25→21:27)
[2018-02-11] MEDS: Glucerna Shake 120 ML LIQUID PO ×3 (09:03→18:11)
[2018-02-11] MEDS: Iron Polysaccharide Complex 150 MG CAPSULE PO (09:03)
[2018-02-11] MEDS: Tamsulosin HCl 0.4 MG Capsule PO ×2 (09:04→18:14)
[2018-02-11] MEDS: Calcium Carbonate 500 MG Tablet PO (09:04)
[2018-02-11 15:15] VITALS: BP 147/69; PULSE 69; RESP 17; TEMP 36.8
[2018-02-11] MEDS: Ondansetron 8 MG Tablet PO (18:51)
[2018-02-11] MEDS: Atorvastatin Calcium 10 MG Tablet PO (21:26)
[2018-02-11] MEDS: MELATONIN 3 MG TABLET PO (21:26)
[2018-02-12] MEDS: 0.9% NaCl Midline IV Flush IV ×4 (00:20→23:27)
[2018-02-12] MEDS: 0.9% NaCl IVPB Med Flush (250 mL) 15 ML IV (06:22)
[2018-02-12] MEDS: Polyethylene Glycol 3350 17 GM PACKET PO (06:22)
[2018-02-12] MEDS: Enoxaparin 40 MG/0.4 ML Syringe SC (06:25)
[2018-02-12] MEDS: levETIRAcetam 500 MG Tablet PO ×2 (06:25→17:15)
[2018-02-12] MEDS: Senna/Docusate Sodium 1 Tablet PO ×2 (06:25→17:15)
[2018-02-12] MEDS: Menthol/Lanolin/Calamine/Znox 113 GM Tube 1 APPLIC TOPICAL ×2 (06:26→20:20)
[2018-02-12] MEDS: Nystatin Powder 15gm Bottle 1 APPLIC TOPICAL ×2 (06:26→20:17)
[2018-02-12] MEDS: Glucerna Shake 120 ML LIQUID PO ×3 (07:52→17:16)
[2018-02-12] MEDS: Tamsulosin HCl 0.4 MG Capsule PO ×2 (07:53→17:15)
[2018-02-12] MEDS: Iron Polysaccharide Complex 150 MG CAPSULE PO (07:53)
[2018-02-12] MEDS: Smz/Tmp Ds Tablet 1 TABLET PO (07:53)
[2018-02-12] MEDS: Calcium Carbonate 500 MG Tablet PO (07:53)
--- NOTE | 2018-02-12 12:52 | NURSING ---
PT STRAIGHT CATHED SELF IN BATHROOM WITH THIS NURSE PRESENT. STERIL PROCEDURE USED. YELLOW/CLEAR NORMAL SMELL,400 OUT. PT TOLERATED WELL. NO CONCERNS OR COMPLAINTS AT THIS TIME.
[2018-02-12 15:30] VITALS: BP 132/70; PULSE 75; RESP 20; TEMP 36.6; O2SAT 98
--- NOTE | 2018-02-12 18:46 | NURSING ---
PT REFUSED TO DO THE STRAIGHT CATH AT THIS TIME. PT STATED HE WOULD LIKE TO DO IT AT 2100 TONIGHT SO HE DOESN'T HAVE TO GET IT DONE DURING THE MIDDLE OF THE NIGHT. REPORTED TO KELSEY MAYES
--- NOTE | 2018-02-12 20:10 | NURSING ---
Patient self cathed self at this time. Patient had 500 cc of clear yellow urine. Patient had no complaints at this time.
[2018-02-12] MEDS: Ondansetron 8 MG Tablet PO (20:12)
[2018-02-12] MEDS: Atorvastatin Calcium 10 MG Tablet PO (21:10)
[2018-02-12] MEDS: MELATONIN 3 MG TABLET PO (21:10)
[2018-02-13] MEDS: 0.9% NaCl Midline IV Flush IV ×2 (06:11→17:50)
[2018-02-13] MEDS: 0.9% NaCl IVPB Med Flush (250 mL) 15 ML IV (06:14)
[2018-02-13] MEDS: levETIRAcetam 500 MG Tablet PO ×2 (06:15→17:50)
[2018-02-13] MEDS: Polyethylene Glycol 3350 17 GM PACKET PO (06:15)
[2018-02-13] MEDS: Enoxaparin 40 MG/0.4 ML Syringe SC (06:15)
[2018-02-13] MEDS: Senna/Docusate Sodium 1 Tablet PO ×2 (06:16→17:51)
[2018-02-13] MEDS: Nystatin Powder 15gm Bottle 1 APPLIC TOPICAL ×2 (06:19→20:49)
[2018-02-13] MEDS: Menthol/Lanolin/Calamine/Znox 113 GM Tube 1 APPLIC TOPICAL ×2 (06:19→20:49)
--- NOTE | 2018-02-13 06:21 | NURSING ---
Patient self cathed self at this time. Patient had 1200 cc of clear yellow urine. Patient had no complaints at this time.
[2018-02-13] MEDS: Tamsulosin HCl 0.4 MG Capsule PO ×2 (09:11→17:50)
[2018-02-13] MEDS: Calcium Carbonate 500 MG Tablet PO (09:11)
[2018-02-13] MEDS: Iron Polysaccharide Complex 150 MG CAPSULE PO (09:11)
[2018-02-13] MEDS: Glucerna Shake 120 ML LIQUID PO ×3 (09:11→17:50)
--- NOTE | 2018-02-13 12:33 | NURSING ---
pt st cathed self on toilet, 325cc clear yellow urine
[2018-02-13 15:56] VITALS: BP 133/72; PULSE 76; RESP 20; TEMP 36.6; O2SAT 96
[2018-02-13] MEDS: Ondansetron 8 MG Tablet PO (18:58)
[2018-02-13] MEDS: Atorvastatin Calcium 10 MG Tablet PO (20:45)
[2018-02-13] MEDS: MELATONIN 3 MG TABLET PO (20:46)
--- NOTE | 2018-02-13 21:00 | NURSING ---
Patient self cathed self at this time. Patient had 500 cc of clear yellow urine. Patient had no complaints at this time.
--- NOTE | 2018-02-14 05:50 | NURSING ---
Patient straight cathed self at this time. Patient had 900 cc of clear yellow urine. Patient had no complaints at this time.
[2018-02-14] MEDS: Polyethylene Glycol 3350 17 GM PACKET PO (06:22)
[2018-02-14] MEDS: Enoxaparin 40 MG/0.4 ML Syringe SC (06:22)
[2018-02-14] MEDS: levETIRAcetam 500 MG Tablet PO ×2 (06:22→16:44)
[2018-02-14] MEDS: Senna/Docusate Sodium 1 Tablet PO ×2 (06:22→16:43)
[2018-02-14] MEDS: Menthol/Lanolin/Calamine/Znox 113 GM Tube 1 APPLIC TOPICAL ×2 (06:24→20:10)
[2018-02-14] MEDS: Nystatin Powder 15gm Bottle 1 APPLIC TOPICAL ×2 (06:25→20:10)
[2018-02-14] MEDS: Glucerna Shake 120 ML LIQUID PO ×3 (07:21→16:44)
[2018-02-14] MEDS: Calcium Carbonate 500 MG Tablet PO (07:22)
[2018-02-14] MEDS: Tamsulosin HCl 0.4 MG Capsule PO ×2 (07:23→16:43)
[2018-02-14] MEDS: Iron Polysaccharide Complex 150 MG CAPSULE PO (07:23)
[2018-02-14] MEDS: Smz/Tmp Ds Tablet 1 TABLET PO (07:23)
[2018-02-14 11:00] VITALS: PULSE 87; RESP 18; O2SAT 92
--- NOTE | 2018-02-14 11:35 | CASEMGMT ---
Brief interview for mental status (BIMS) and resident mood interview (PHQ-9) completed on this day. BIMS score 15/15. PHQ-9 score
--- NOTE | 2018-02-14 12:53 | NURSING ---
PT STRAIGHT CATHED SELF IN BATHROOM. STERIL PROCEDURE USED. THIS NURSE PRESENT. 500 OUT,YELLOW/CLEAR,NORMAL SMELL. NO COMPLAINTS OR CONCERNS AT THIS TIME.
--- NOTE | 2018-02-14 13:12 | MDS.RN ---
Pain interview for sue 02/17/18 completed.
--- NOTE | 2018-02-14 13:13 | MDS.RN ---
Pain interview for sue 02/17/18 completed.
[2018-02-14 15:26] VITALS: BP 135/67; PULSE 77; RESP 16; TEMP 36.9; O2SAT 95
--- NOTE | 2018-02-14 18:37 | NURSING ---
PT INCONTINENT IN PANTS. PT THEN WENT TO BATHROOM TO STRAIGHT CATH SELF, STERIL PROCEDURE USED. THIS NURSE PRESENT. 900 OUT YELLOW/CLEAR, NORMAL SMELL.
[2018-02-14] MEDS: Ondansetron 8 MG Tablet PO (19:09)
[2018-02-14] MEDS: Atorvastatin Calcium 10 MG Tablet PO (20:08)
[2018-02-14] MEDS: MELATONIN 3 MG TABLET PO (20:08)
[2018-02-15] MEDS: Enoxaparin 40 MG/0.4 ML Syringe SC (05:43)
[2018-02-15] MEDS: Senna/Docusate Sodium 1 Tablet PO ×2 (05:44→16:55)
[2018-02-15] MEDS: levETIRAcetam 500 MG Tablet PO ×2 (05:44→16:56)
[2018-02-15] MEDS: Polyethylene Glycol 3350 17 GM PACKET PO (05:45)
[2018-02-15] MEDS: Menthol/Lanolin/Calamine/Znox 113 GM Tube 1 APPLIC TOPICAL ×2 (05:48→21:44)
[2018-02-15] MEDS: Nystatin Powder 15gm Bottle 1 APPLIC TOPICAL ×2 (05:48→21:46)
[2018-02-15] MEDS: Glucerna Shake 120 ML LIQUID PO ×3 (08:44→16:55)
[2018-02-15] MEDS: Tamsulosin HCl 0.4 MG Capsule PO ×2 (08:45→16:55)
[2018-02-15] MEDS: Iron Polysaccharide Complex 150 MG CAPSULE PO (08:45)
[2018-02-15] MEDS: Calcium Carbonate 500 MG Tablet PO (08:45)
--- NOTE | 2018-02-15 10:57 | NURSING ---
Pt straight cath himself with this nurse assistance. Pt staight cathed for 700ml of clear yellow urine.
[2018-02-15 15:27] VITALS: BP 126/58; PULSE 86; RESP 16; TEMP 36.8; O2SAT 96
--- NOTE | 2018-02-15 16:25 | NURSING ---
Pt had 350ml of clear yellow urine out. Pt self cathed with assistance from this nurse
[2018-02-15] MEDS: Atorvastatin Calcium 10 MG Tablet PO (21:43)
[2018-02-15] MEDS: MELATONIN 3 MG TABLET PO (21:43)
--- NOTE | 2018-02-16 03:13 | NURSING ---
Pt calling out having the urge to void. Pt unable to void. Bladder scanned >500ml. Pt straight cath 550ml. Pt resting in bed with call light in reach.
[2018-02-16] MEDS: Polyethylene Glycol 3350 17 GM PACKET PO (06:40)
[2018-02-16] MEDS: levETIRAcetam 500 MG Tablet PO ×2 (06:43→19:05)
[2018-02-16] MEDS: Senna/Docusate Sodium 1 Tablet PO ×2 (06:43→19:05)
[2018-02-16] MEDS: Enoxaparin 40 MG/0.4 ML Syringe SC (06:46)
[2018-02-16] MEDS: Nystatin Powder 15gm Bottle 1 APPLIC TOPICAL ×2 (06:46→19:30)
[2018-02-16] MEDS: Menthol/Lanolin/Calamine/Znox 113 GM Tube 1 APPLIC TOPICAL ×2 (06:47→19:30)
[2018-02-16] MEDS: Glucerna Shake 120 ML LIQUID PO ×2 (08:52→19:02)
[2018-02-16] MEDS: Calcium Carbonate 500 MG Tablet PO (08:52)
[2018-02-16] MEDS: Tamsulosin HCl 0.4 MG Capsule PO ×2 (08:52→19:05)
[2018-02-16] MEDS: Iron Polysaccharide Complex 150 MG CAPSULE PO (08:52)
[2018-02-16] MEDS: Acetaminophen 500 MG Tablet 1000 MG PO ×2 (08:54→19:25)
--- NOTE | 2018-02-16 09:01 | NURSING ---
pt noted to have moist HOUSE PARENT cough, pt states it started lastnight. he feels that it is his sinuses. requesting cough syrup, dr walker updated, new order milton HARRY PRN
[2018-02-16] MEDS: guaiFENesin Dm 10 ML UDC PO ×2 (09:22→19:05)
--- NOTE | 2018-02-16 09:22 | NURSING ---
pt st cathed himself for 700cc yellow clear urine. robitussin & tylenol given for cough/sinus congestion per pt request
[2018-02-16 19:31] VITALS: O2SAT 98
[2018-02-16] MEDS: MELATONIN 3 MG TABLET PO (21:37)
[2018-02-16] MEDS: Atorvastatin Calcium 10 MG Tablet PO (21:37)
[2018-02-16 22:39] VITALS: BP 129/66; PULSE 81; RESP 19; TEMP 36.9; O2SAT 97
[2018-02-17] MEDS: guaiFENesin Dm 10 ML UDC PO ×3 (01:27→17:41)
[2018-02-17 05:55] LABS: Absolute Lymphocyte Count 1.24 X10^3/ul (0.83-4.51); Absolute Neutrophil Count 2.9 X10^3/uL (2.0-7.7); Basophil# 0.04 X10^3/uL; Basophil% 0.8 % (0-1); Eosinophil# 0.26 X10^3/uL; Eosinophils% 4.9 % (0-5); Hematocrit 31.4 % (40-54); Lymphocyte # 1.24 X10^3/ul (4.0); Lymphocyte % 23.3 % (19-41); Mean Corp Hgb Conc 31.8 g/gl (32-36); Mean Corpuscular Hgb 30.5 pg (27.0-32.0); Mean Corpuscular Volume 95.7 fL (80-94); Mean Platelet Vol. 8.5 fl (6.2-12.0); Monocyte# 0.84 X10^3/uL; Monocyte% 15.8 % (0-10); Neutrophil # 2.91 X10^3/uL (2.7-7.7); Neutrophil % 54.6 % (47-70); Platelet Count 175 K/mm3 (150-450); RBC Distribution Width CV 15.2 % (11.6-14.6); RBC Distribution Width SD 51.2 fl (35.1-43.9); Red Blood Count 3.28 M/mm3 (4.6-6.2); White Blood Count 5.3 K/mm3 (4.4-11.0)
[2018-02-17] MEDS: Senna/Docusate Sodium 1 Tablet PO ×2 (06:04→17:41)
[2018-02-17 06:05] LABS: POSITIVE COUNT NO; POSITIVE DIFFERENTIAL NO; POSITIVE MORPHOLOGY NO
[2018-02-17] MEDS: Polyethylene Glycol 3350 17 GM PACKET PO (06:05)
[2018-02-17] MEDS: levETIRAcetam 500 MG Tablet PO ×2 (06:05→17:41)
[2018-02-17 06:09] LABS: Anion Gap 9 (5-15); BUN 17 mg/dL (7-18); BUN/Creat Ratio 25.3 RATIO (10-20); Chloride 107 mmol/L (98-107); Creatinine, Serum 0.67 mg/dL (0.70-1.30); EST Glomerular Filtration Rate 120 mL/min (>60); Est Glom Filt Rate - Afr Amer 145 mL/min (>60); Estimated Creatinine Clearance 63.25 ml/min; Glucose 94 mg/dL (74-106); Potassium 3.9 mmol/L (3.5-5.1); Sodium Level 144 mmol/L (136-145)
[2018-02-17] MEDS: Nystatin Powder 15gm Bottle 1 APPLIC TOPICAL ×2 (06:11→20:03)
[2018-02-17] MEDS: Menthol/Lanolin/Calamine/Znox 113 GM Tube 1 APPLIC TOPICAL ×2 (06:11→20:03)
[2018-02-17] MEDS: Enoxaparin 40 MG/0.4 ML Syringe SC (06:12)
[2018-02-17] MEDS: Tamsulosin HCl 0.4 MG Capsule PO ×2 (07:53→17:41)
[2018-02-17] MEDS: Glucerna Shake 120 ML LIQUID PO ×3 (07:53→17:42)
[2018-02-17] MEDS: Smz/Tmp Ds Tablet 1 TABLET PO (07:53)
[2018-02-17] MEDS: Calcium Carbonate 500 MG Tablet PO (07:53)
[2018-02-17] MEDS: Iron Polysaccharide Complex 150 MG CAPSULE PO (07:53)
[2018-02-17] MEDS: Acetaminophen 500 MG Tablet 1000 MG PO (09:08)
[2018-02-17 15:11] VITALS: BP 148/61; PULSE 88; RESP 18; TEMP 37.1; O2SAT 97
[2018-02-17 17:47] LABS: Mucous, Urine 0 SEEN /hpf (<or=2+)
[2018-02-17 17:56] LABS: Color, Urine Yellow (Yellow); Glucose, Dipstick Normal (Normal); Ketone-Dipstick Negative (Negative); Leukocyte Esterase-Dipstick 25 /ul (Negative); Nitrite-Dipstick Positive (Negative); Occult Blood-Urine 10 /ul (Negative); Protein-Dipstick Negative (Negative); Urine Bilirubin Dipstick Negative (Negative); Urine Clarity Sl. Cloudy (Clear); Urine Urobilinogen Normal (Normal)
[2018-02-17 18:13] LABS: Bacteria 2+ /hpf (None Seen); Red Blood Cells-Urine 0-5 SEEN /hpf (0-5); Squamous Epithelial Cells - UA 0-5 SEEN /hpf (0-5); White Blood Cells 0-5 SEEN /hpf (0-5)
[2018-02-17 18:14] LABS: Amorphous Sediment 1+ PHOS
[2018-02-17] MEDS: Ondansetron 8 MG Tablet PO (19:01)
--- NOTE | 2018-02-17 19:39 | NURSING ---
Patient care was provided in R' room d/t isolation status.
[2018-02-17 20:00] VITALS: O2SAT 97
[2018-02-17] MEDS: MELATONIN 3 MG TABLET PO (22:04)
[2018-02-17] MEDS: Atorvastatin Calcium 10 MG Tablet PO (22:04)
[2018-02-18] MEDS: guaiFENesin Dm 10 ML UDC PO ×4 (00:06→23:03)
[2018-02-18] MEDS: CEFUROXIME AXETIL 250 MG TABLET 500 MG PO ×3 (00:06→16:47)
--- NOTE | 2018-02-18 03:15 | NURSING ---
Pt straight cathed at this time for 500cc of clear, yellow urine with strong odor. Pt tolerated procedure well.
--- NOTE | 2018-02-18 03:45 | NURSING ---
All care provided in room d/t pt remains in precautions.
[2018-02-18] MEDS: Senna/Docusate Sodium 1 Tablet PO ×2 (06:34→16:47)
[2018-02-18] MEDS: levETIRAcetam 500 MG Tablet PO ×2 (06:34→16:47)
[2018-02-18] MEDS: Menthol/Lanolin/Calamine/Znox 113 GM Tube 1 APPLIC TOPICAL ×2 (06:35→20:19)
[2018-02-18] MEDS: Polyethylene Glycol 3350 17 GM PACKET PO (06:35)
[2018-02-18] MEDS: Nystatin Powder 15gm Bottle 1 APPLIC TOPICAL ×2 (06:36→20:20)
[2018-02-18] MEDS: Enoxaparin 40 MG/0.4 ML Syringe SC (06:36)
[2018-02-18] MEDS: Glucerna Shake 120 ML LIQUID PO ×3 (08:47→16:47)
[2018-02-18] MEDS: Calcium Carbonate 500 MG Tablet PO (08:48)
[2018-02-18] MEDS: Tamsulosin HCl 0.4 MG Capsule PO ×2 (08:48→16:47)
[2018-02-18] MEDS: Iron Polysaccharide Complex 150 MG CAPSULE PO (08:48)
[2018-02-18 09:07] VITALS: PULSE 96; O2SAT 96
--- NOTE | 2018-02-18 09:12 | NURSING ---
Pt st cathed self w/supervision of nurse. obtained 500cc cloudy yellow urine.
--- NOTE | 2018-02-18 09:26 | NURSING ---
pt remains in precautions for RSV, all care/treatment done in room
--- NOTE | 2018-02-18 12:33 | NURSING ---
ALL CARE GIVEN IN ROOM DUE TO PT IN PRECAUTIONS FOR RSV.
--- NOTE | 2018-02-18 15:28 | NURSING ---
PT STRAIGHT CATHED SELF IN BATH ROOM,THIS NURSE PRESENT. STERIL PROCEDURE USED. URINE,YELLOW/CLOUDY,MINIMAL SMELL. 500 OUT AT 1500. PT TOLERATED WELL,NO COMPLAINTS OR CONCERNS AT THIS TIME.
[2018-02-18 15:56] VITALS: BP 154/85; PULSE 87; RESP 20; TEMP 37.2; O2SAT 91
[2018-02-18] MEDS: Acetaminophen 500 MG Tablet 1000 MG PO ×2 (16:51→23:03)
[2018-02-18] MEDS: Ondansetron 8 MG Tablet PO (18:55)
[2018-02-18] MEDS: MELATONIN 3 MG TABLET PO (21:33)
[2018-02-18] MEDS: Atorvastatin Calcium 10 MG Tablet PO (21:33)
--- NOTE | 2018-02-18 21:58 | NURSING ---
Pt straight cathed at this time for 780ml. Tolerated well.
--- NOTE | 2018-02-19 00:23 | NURSING ---
Pt remains in precautions w/RSV. All care/treatment provided in room.
--- NOTE | 2018-02-19 04:10 | NURSING ---
Pt straight cathed for 550ml. Tolerated well.
[2018-02-19] MEDS: Menthol/Lanolin/Calamine/Znox 113 GM Tube 1 APPLIC TOPICAL ×2 (05:19→20:00)
[2018-02-19] MEDS: Enoxaparin 40 MG/0.4 ML Syringe SC (05:20)
[2018-02-19] MEDS: CEFUROXIME AXETIL 250 MG TABLET 500 MG PO ×2 (05:20→17:52)
[2018-02-19] MEDS: levETIRAcetam 500 MG Tablet PO ×2 (05:20→17:52)
[2018-02-19] MEDS: guaiFENesin Dm 10 ML UDC PO ×3 (05:20→21:00)
[2018-02-19] MEDS: Senna/Docusate Sodium 1 Tablet PO ×2 (05:21→17:52)
[2018-02-19] MEDS: Polyethylene Glycol 3350 17 GM PACKET PO (05:21)
[2018-02-19] MEDS: Nystatin Powder 15gm Bottle 1 APPLIC TOPICAL ×2 (05:21→20:01)
--- NOTE | 2018-02-19 08:46 | NURSING ---
Per laborer rags, patient's urine positive for ESBL. Contact precautions initiated.
[2018-02-19] MEDS: Glucerna Shake 120 ML LIQUID PO (08:57)
[2018-02-19] MEDS: Calcium Carbonate 500 MG Tablet PO (08:58)
[2018-02-19] MEDS: Iron Polysaccharide Complex 150 MG CAPSULE PO (08:58)
[2018-02-19] MEDS: Smz/Tmp Ds Tablet 1 TABLET PO (08:58)
[2018-02-19] MEDS: Tamsulosin HCl 0.4 MG Capsule PO ×2 (08:58→17:52)
--- NOTE | 2018-02-19 10:22 | NURSING ---
Pt Straight cathed for 850ml strong smelling, straw colored urine.
[2018-02-19] MEDS: Acetaminophen 500 MG Tablet 1000 MG PO ×2 (12:10→20:59)
[2018-02-19 15:39] VITALS: BP 125/59; PULSE 66; RESP 18; TEMP 36.6; O2SAT 93
--- NOTE | 2018-02-19 15:50 | NURSING ---
Adrienne d/c'd per school guard.
--- NOTE | 2018-02-19 18:29 | NURSING ---
Dr. Mccray reviewed urine culture, NO to D/C ceftin and start meropenum IV x 10days, pharmacy to dose.
[2018-02-19] MEDS: Ondansetron 8 MG Tablet PO (18:53)
--- NOTE | 2018-02-19 19:24 | NURSING ---
Pt straight cathed for 700 ML strong smelling, straw colored urine. Pt tolerated well.
[2018-02-19] MEDS: Atorvastatin Calcium 10 MG Tablet PO (20:01)
[2018-02-19] MEDS: MELATONIN 3 MG TABLET PO (20:02)
[2018-02-19] MEDS: 0.9% NaCl Midline IV Flush IV (21:20)
[2018-02-19] MEDS: 0.9% NaCl IVPB Med Flush (250 mL) 15 ML IV (21:20)
--- NOTE | 2018-02-19 21:39 | NURSING ---
Pt remains in isolation precautions this shift for RSV. All care provided in room.
--- NOTE | 2018-02-20 05:05 | NURSING ---
Pt straight catheted at this time per request per order. Pt voided 100c prior to catheterization. Straight cathed for 450cc of clear, yellow, mildly odorous urine. Pt tolerated procedure well.
[2018-02-20] MEDS: Menthol/Lanolin/Calamine/Znox 113 GM Tube 1 APPLIC TOPICAL ×2 (05:13→20:00)
[2018-02-20] MEDS: Enoxaparin 40 MG/0.4 ML Syringe SC (05:16)
[2018-02-20] MEDS: Nystatin Powder 15gm Bottle 1 APPLIC TOPICAL ×2 (05:16→20:00)
[2018-02-20] MEDS: levETIRAcetam 500 MG Tablet PO ×2 (05:16→17:48)
[2018-02-20] MEDS: Polyethylene Glycol 3350 17 GM PACKET PO (05:16)
[2018-02-20] MEDS: Senna/Docusate Sodium 1 Tablet PO ×2 (05:17→17:48)
[2018-02-20] MEDS: 0.9% NaCl Midline IV Flush IV ×3 (05:19→21:00)
[2018-02-20] MEDS: Acetaminophen 500 MG Tablet 1000 MG PO ×2 (08:02→15:41)
[2018-02-20] MEDS: Iron Polysaccharide Complex 150 MG CAPSULE PO (08:02)
[2018-02-20] MEDS: Tamsulosin HCl 0.4 MG Capsule PO ×2 (08:02→17:48)
[2018-02-20] MEDS: Calcium Carbonate 500 MG Tablet PO (08:02)
--- NOTE | 2018-02-20 11:31 | NURSING ---
PT STRAIGHT CATHED SELF IN BATH ROOM,THIS NURSE PRESENT. STERILE PROCEDURE USED. 400 OUT. YELLOW/CLEAR,MINIMAL SMELL. NO CONCERNS OR COMPLAINTS AT THIS TIME.
--- NOTE | 2018-02-20 12:01 | NURSING ---
ALL CARE GIVEN IN ROOM DUE TO PT IN PRECAUTIONS FOR RSV.
[2018-02-20 15:02] VITALS: BP 109/52; PULSE 85; RESP 16; TEMP 37.2; O2SAT 93
[2018-02-20] MEDS: guaiFENesin Dm 10 ML UDC PO (15:41)
--- NOTE | 2018-02-20 17:45 | NURSING ---
PT STRAIGHT CATHED SELF IN BATH ROOM,THIS NURSE PRESENT. STERIL PROCEDURE USED. 400 OUT, YELLOW/CLOUDY MINIMAL SMELL. NO COMPLAINTS OR CONCERNS AT THIS TIME. PT TOLERATED WELL.
[2018-02-20] MEDS: Ondansetron 8 MG Tablet PO (19:56)
[2018-02-20] MEDS: 0.9% NaCl IVPB Med Flush (250 mL) 15 ML IV (21:00)
[2018-02-20] MEDS: MELATONIN 3 MG TABLET PO (21:17)
[2018-02-20] MEDS: Atorvastatin Calcium 10 MG Tablet PO (21:17)
--- NOTE | 2018-02-20 23:55 | NURSING ---
Pt straight cathed for 400ml. Tolerated well.
--- NOTE | 2018-02-21 01:14 | NURSING ---
Pt remains in precautions w/RSV. All care/treatment provided in room.
[2018-02-21] MEDS: Nystatin Powder 15gm Bottle 1 APPLIC TOPICAL ×2 (05:41→20:12)
[2018-02-21] MEDS: Menthol/Lanolin/Calamine/Znox 113 GM Tube 1 APPLIC TOPICAL ×2 (05:41→20:11)
[2018-02-21] MEDS: Polyethylene Glycol 3350 17 GM PACKET PO (05:42)
[2018-02-21] MEDS: Enoxaparin 40 MG/0.4 ML Syringe SC (05:42)
[2018-02-21] MEDS: levETIRAcetam 500 MG Tablet PO ×2 (05:42→18:44)
[2018-02-21] MEDS: Senna/Docusate Sodium 1 Tablet PO ×2 (05:42→18:44)
[2018-02-21] MEDS: 0.9% NaCl Midline IV Flush IV ×3 (05:43→21:31)
--- NOTE | 2018-02-21 06:00 | NURSING ---
Pt straight cathed at this time for 640ml. Tolerated well.
[2018-02-21] MEDS: Tamsulosin HCl 0.4 MG Capsule PO ×2 (08:31→18:44)
[2018-02-21] MEDS: Calcium Carbonate 500 MG Tablet PO (08:31)
[2018-02-21] MEDS: Iron Polysaccharide Complex 150 MG CAPSULE PO (08:31)
[2018-02-21] MEDS: Smz/Tmp Ds Tablet 1 TABLET PO (08:31)
[2018-02-21 10:00] VITALS: PULSE 74; RESP 16; O2SAT 94
--- NOTE | 2018-02-21 12:33 | NURSING ---
Pt remains in precautions this shift
--- NOTE | 2018-02-21 12:50 | NURSING ---
Pt straight cathed for 620. tolerated procedure well no complaints or pain noted.
[2018-02-21 15:35] VITALS: BP 152/77; PULSE 76; RESP 20; TEMP 36.8; O2SAT 97
--- NOTE | 2018-02-21 17:42 | NURSING ---
Pt straight cathed for 625 ml of Sarah colored Urine. Pt tolerated well with no complaints of pain. Pt assisted to recliner and set up with meal.
[2018-02-21] MEDS: Ondansetron 8 MG Tablet PO (18:44)
[2018-02-21] MEDS: MELATONIN 3 MG TABLET PO (21:30)
[2018-02-21] MEDS: Atorvastatin Calcium 10 MG Tablet PO (21:30)
[2018-02-21] MEDS: 0.9% NaCl IVPB Med Flush (250 mL) 15 ML IV (21:30)
[2018-02-22] MEDS: Enoxaparin 40 MG/0.4 ML Syringe SC (06:13)
[2018-02-22] MEDS: Polyethylene Glycol 3350 17 GM PACKET PO (06:13)
[2018-02-22] MEDS: Senna/Docusate Sodium 1 Tablet PO ×2 (06:13→16:59)
[2018-02-22] MEDS: Nystatin Powder 15gm Bottle 1 APPLIC TOPICAL ×2 (06:14→21:52)
[2018-02-22] MEDS: levETIRAcetam 500 MG Tablet PO ×2 (06:14→16:59)
[2018-02-22] MEDS: Menthol/Lanolin/Calamine/Znox 113 GM Tube 1 APPLIC TOPICAL ×2 (06:14→21:55)
[2018-02-22] MEDS: 0.9% NaCl Midline IV Flush IV ×3 (06:18→22:36)
--- NOTE | 2018-02-22 07:23 | NURSING ---
All care provided in room d/t pt remains in precautions.
[2018-02-22] MEDS: Calcium Carbonate 500 MG Tablet PO (08:17)
[2018-02-22] MEDS: Tamsulosin HCl 0.4 MG Capsule PO ×2 (08:17→16:59)
[2018-02-22] MEDS: Iron Polysaccharide Complex 150 MG CAPSULE PO (08:17)
--- NOTE | 2018-02-22 08:18 | NURSING ---
ALL PT CARE DONE IN ROOM DUE TO PT IN PRECAUTIONS FOR RSV.
--- NOTE | 2018-02-22 13:02 | NURSING ---
PT STRAIGHT CATHED SELF IN BATH ROOM AT 1300,THIS NURSE PRESENT. STERILE PROCEDURE USED. 400 OUT,YELLOW/CLEAR WITH SOME SEDIMENT. MINIMAL SMELL. PT TOLERATED WELL. NO CONCERNS OR COMPLAINTS AT THIS TIME.
[2018-02-22] MEDS: Acetaminophen 500 MG Tablet 1000 MG PO (14:13)
[2018-02-22 16:00] VITALS: BP 124/69; PULSE 72; RESP 18; TEMP 36.9; O2SAT 93
--- NOTE | 2018-02-22 18:25 | NURSING ---
PT RIGHT UPPER ARM WERE IV IS AT IS RED AND SWOLLEN. REPORTED TO SUGEYRN
--- NOTE | 2018-02-22 18:55 | NURSING ---
PT REFUSED TO BE STRAIGHT CATHED AT THIS TIME. REPORTED TO KELSEY MAYES
[2018-02-22] MEDS: MELATONIN 3 MG TABLET PO (21:44)
[2018-02-22] MEDS: Atorvastatin Calcium 10 MG Tablet PO (21:44)
[2018-02-22] MEDS: 0.9% NaCl IVPB Med Flush (250 mL) 15 ML IV (22:05)
[2018-02-22 23:26] VITALS: PULSE 77; RESP 18; O2SAT 95
[2018-02-23] MEDS: 0.9% NaCl Midline IV Flush IV ×3 (06:30→21:48)
[2018-02-23] MEDS: levETIRAcetam 500 MG Tablet PO ×2 (06:35→17:43)
[2018-02-23] MEDS: Senna/Docusate Sodium 1 Tablet PO ×2 (06:35→17:43)
[2018-02-23] MEDS: Enoxaparin 40 MG/0.4 ML Syringe SC (06:36)
[2018-02-23] MEDS: Polyethylene Glycol 3350 17 GM PACKET PO (06:50)
[2018-02-23] MEDS: Menthol/Lanolin/Calamine/Znox 113 GM Tube 1 APPLIC TOPICAL ×2 (06:52→21:51)
[2018-02-23] MEDS: Nystatin Powder 15gm Bottle 1 APPLIC TOPICAL ×2 (06:52→21:53)
[2018-02-23] MEDS: Acetaminophen 500 MG Tablet 1000 MG PO ×2 (08:33→17:46)
[2018-02-23] MEDS: guaiFENesin Dm 10 ML UDC PO ×2 (08:33→17:45)
[2018-02-23] MEDS: Iron Polysaccharide Complex 150 MG CAPSULE PO (08:38)
[2018-02-23] MEDS: Tamsulosin HCl 0.4 MG Capsule PO ×2 (08:38→17:43)
[2018-02-23] MEDS: Calcium Carbonate 500 MG Tablet PO (08:38)
--- NOTE | 2018-02-23 08:39 | NURSING ---
ALL CARE DONE IN ROOM DUE TO PT IN PRECAUTIONS FOR RSV.
--- NOTE | 2018-02-23 11:58 | NURSING ---
PT STRAIGHT CATHED SELF IN BATH ROOM, STERIL PROCEDURE USED. THIS NURSE PRESENT. 400 OUT, YELLOW/CLEAR, NORMAL SMELL. NO COMPLANTS OR CONCERNS AT THIS TIME.
[2018-02-23 15:27] VITALS: BP 139/73; PULSE 76; RESP 18; TEMP 36.7; O2SAT 94
--- NOTE | 2018-02-23 17:51 | NURSING ---
PT WAS DUE AT 1800 FOR STRAIGHT CATH. PT REFUSED AND STATED LETS WAIT TILL LATER. STATED TO PT TO CALL WHEN HE WAS READY. REPORTED TO KELSEY MOSHER
[2018-02-23] MEDS: MELATONIN 3 MG TABLET PO (21:48)
[2018-02-23] MEDS: 0.9% NaCl IVPB Med Flush (250 mL) 15 ML IV (21:48)
[2018-02-23] MEDS: Atorvastatin Calcium 10 MG Tablet PO (21:48)
[2018-02-23 21:55] VITALS: PULSE 74; RESP 18; O2SAT 97
[2018-02-24] MEDS: Senna/Docusate Sodium 1 Tablet PO (05:59)
[2018-02-24] MEDS: Polyethylene Glycol 3350 17 GM PACKET PO (05:59)
[2018-02-24] MEDS: levETIRAcetam 500 MG Tablet PO ×2 (05:59→18:05)
[2018-02-24] MEDS: Enoxaparin 40 MG/0.4 ML Syringe SC (05:59)
[2018-02-24] MEDS: Menthol/Lanolin/Calamine/Znox 113 GM Tube 1 APPLIC TOPICAL ×2 (06:12→21:11)
[2018-02-24] MEDS: Nystatin Powder 15gm Bottle 1 APPLIC TOPICAL ×2 (06:12→21:11)
[2018-02-24] MEDS: 0.9% NaCl Midline IV Flush IV ×2 (06:18→21:03)
[2018-02-24] MEDS: Iron Polysaccharide Complex 150 MG CAPSULE PO (08:40)
[2018-02-24] MEDS: Smz/Tmp Ds Tablet 1 TABLET PO (08:40)
[2018-02-24] MEDS: Calcium Carbonate 500 MG Tablet PO (08:40)
[2018-02-24] MEDS: Tamsulosin HCl 0.4 MG Capsule PO ×2 (08:40→18:05)
[2018-02-24 10:00] VITALS: PULSE 84; RESP 18; O2SAT 95
[2018-02-24 15:37] VITALS: BP 147/77; PULSE 84; RESP 16; TEMP 37; O2SAT 94
--- NOTE | 2018-02-24 19:18 | NURSING ---
Pt straight cathed by this nurse 850 ml of clear yellow urine.
[2018-02-24] MEDS: Ondansetron 8 MG Tablet PO (19:24)
[2018-02-24] MEDS: 0.9% NaCl IVPB Med Flush (250 mL) 15 ML IV (21:06)
[2018-02-24] MEDS: Atorvastatin Calcium 10 MG Tablet PO (21:12)
[2018-02-24] MEDS: MELATONIN 3 MG TABLET PO (21:16)
--- NOTE | 2018-02-24 22:40 | NURSING ---
All care provided in pt room remains in precaution for RSV.
--- NOTE | 2018-02-24 23:15 | NURSING ---
Pt straight cathed at this time for 400ml. Tolerated well.
--- NOTE | 2018-02-24 23:45 | NURSING ---
Nurse attempted to pass hs med pass couldn't locate chemo med, Temozolomide. Looked in med box, isolation box, and accudose couldn't find called pharmacy spoken with [facility] pharmarcist requesting nurse to check all areas to locate med. Nurse checked all areas didn't locate med will continue to monitor pt. RN aware
[2018-02-25] MEDS: Menthol/Lanolin/Calamine/Znox 113 GM Tube 1 APPLIC TOPICAL ×2 (06:25→21:40)
[2018-02-25] MEDS: Nystatin Powder 15gm Bottle 1 APPLIC TOPICAL ×2 (06:26→21:40)
[2018-02-25] MEDS: levETIRAcetam 500 MG Tablet PO ×2 (06:27→17:41)
[2018-02-25] MEDS: 0.9% NaCl Midline IV Flush IV ×3 (06:27→21:17)
[2018-02-25] MEDS: Polyethylene Glycol 3350 17 GM PACKET PO (06:27)
[2018-02-25] MEDS: Senna/Docusate Sodium 1 Tablet PO ×2 (06:27→17:41)
[2018-02-25] MEDS: Enoxaparin 40 MG/0.4 ML Syringe SC (06:27)
--- NOTE | 2018-02-25 06:42 | NURSING ---
Dr Claros office called and making sure pt last dose of chemo med is tonight at 8pm. orders entered.
--- NOTE | 2018-02-25 06:52 | NURSING ---
Pt was straight cathed at this time for 400ml. Tolerated well.
[2018-02-25] MEDS: Calcium Carbonate 500 MG Tablet PO (08:04)
[2018-02-25] MEDS: Iron Polysaccharide Complex 150 MG CAPSULE PO (08:04)
[2018-02-25] MEDS: Tamsulosin HCl 0.4 MG Capsule PO ×2 (08:04→17:41)
--- NOTE | 2018-02-25 08:10 | MDS.RN ---
Information for the mds was obtained from review of the clinical record, interview of resident, staff, and direct observation of resident's care.
--- NOTE | 2018-02-25 10:43 | NURSING ---
spoke with pharmacy and pt has had all 15 doses of chemo medication, Dr gracie soto and Chemo DC'd.
[2018-02-25] MEDS: guaiFENesin Dm 10 ML UDC PO (13:23)
[2018-02-25] MEDS: Acetaminophen 500 MG Tablet 1000 MG PO (13:24)
--- NOTE | 2018-02-25 13:57 | NURSING ---
PT STRAIGHT CATHED SELF,THIS NURSE PRESENT. STERIL PROCEDURE USED. 400 OUT,YELLOW/CLEAR,NORMAL SMELL. PT TOLERATED WELL. NO COMPLAINTS OR CONCERNS AT THIS TIME.
[2018-02-25 15:35] VITALS: BP 124/64; PULSE 70; RESP 18; TEMP 36.6; O2SAT 95
--- NOTE | 2018-02-25 18:05 | NURSING ---
PT STRAIGHT CATHED SELF IN BATHROOM,STERIL PROCEDURE USED. THIS NURSE PRESENT. 500 OUT,YELLOW/CLEAR,MINOR SMELL. PT TOLERATED WELL. NO CONCERNS OR COMPLAINTS AT THIS TIME.
--- NOTE | 2018-02-25 18:07 | NURSING ---
ALL CARE DONE IN ROOM DUE TO PT IN PRECAUTIONS FOR RSV.
[2018-02-25] MEDS: Ondansetron 8 MG Tablet PO (19:19)
[2018-02-25 21:20] VITALS: PULSE 82; O2SAT 94
--- NOTE | 2018-02-25 21:35 | NURSING ---
Pt remains in isolation precautions this shift dt RSV. All care provided in room.
[2018-02-25] MEDS: Atorvastatin Calcium 10 MG Tablet PO (21:40)
[2018-02-25] MEDS: MELATONIN 3 MG TABLET PO (21:41)
--- NOTE | 2018-02-26 | NURSING ---
Pt straight cathed at this time for 500cc of clear, yellow nonodorous urine. Pt tolerated procedure well.
--- NOTE | 2018-02-26 04:48 | NURSING ---
Per pt request, straight cathed at this time for 600cc of clear, yellow non-odorous urine. Pt tolerated procedure well.
[2018-02-26] MEDS: Menthol/Lanolin/Calamine/Znox 113 GM Tube 1 APPLIC TOPICAL ×2 (04:50→20:03)
[2018-02-26] MEDS: levETIRAcetam 500 MG Tablet PO ×2 (04:51→17:40)
[2018-02-26] MEDS: Senna/Docusate Sodium 1 Tablet PO ×2 (04:51→17:40)
[2018-02-26] MEDS: Nystatin Powder 15gm Bottle 1 APPLIC TOPICAL ×2 (04:51→20:04)
[2018-02-26] MEDS: Enoxaparin 40 MG/0.4 ML Syringe SC (04:51)
[2018-02-26] MEDS: Polyethylene Glycol 3350 17 GM PACKET PO (04:51)
[2018-02-26] MEDS: 0.9% NaCl Midline IV Flush IV ×2 (05:08→13:41)
[2018-02-26] MEDS: Ondansetron ODT 4 MG Tablet PO (08:18)
--- NOTE | 2018-02-26 08:20 | NURSING ---
PT REALLY NAUSEATED THIS MORNING. PT STATED HE FELT LIKE THAT YESTERDAY BUT DID NOT SAY ANY THING. N.O FOR ZOFRAN GIVEN. REPORTED TO KELSEY VILLAGOMEZ
[2018-02-26] MEDS: Iron Polysaccharide Complex 150 MG CAPSULE PO (08:55)
[2018-02-26] MEDS: Smz/Tmp Ds Tablet 1 TABLET PO (08:55)
[2018-02-26] MEDS: Calcium Carbonate 500 MG Tablet PO (08:55)
[2018-02-26] MEDS: Tamsulosin HCl 0.4 MG Capsule PO ×2 (08:56→17:40)
--- NOTE | 2018-02-26 09:58 | PCA ---
patient refused breakfast, due to nausea, offered a peg zita he declined offer and drank sunkist that was in his room along with some soda crackers
[2018-02-26 10:50] VITALS: PULSE 77; RESP 18; O2SAT 95
[2018-02-26] MEDS: Acetaminophen 500 MG Tablet 1000 MG PO (11:02)
[2018-02-26] MEDS: guaiFENesin Dm 10 ML UDC PO (11:02)
--- NOTE | 2018-02-26 11:26 | NURSING ---
PT RESTING IN BED. ONLY HAS GOTTEN UP TO GET DRESSED. PT STATED HE FEELS REALLY WEAK AND TIRED FROM THE LAST 2 RADIATION TREATMENTS AND WANTS TO JUST REST. STATED HE DOESN'T WANT TO GO FAR DO TO HIM BEING SO WEAK. ASSESSMENT DONE AND PT STRAIGHT CATHED SELF IN BED,THIS NURSE PRESENT. STERIL PROCEDURE USED. 600 OUT,YELLOW/CLEAR NORMAL SMELL. REPORTED TO KELSEY VILLAGOMEZ
--- NOTE | 2018-02-26 13:11 | MDS.RN ---
Information for the mds was obtained from review of the clinical record, interview of resident, staff, and direct observation of resident's care.
[2018-02-26] MEDS: 0.9% NaCl IVPB Med Flush (250 mL) 15 ML IV (13:41)
[2018-02-26 15:52] VITALS: BP 158/82; PULSE 72; RESP 20; TEMP 37.1; O2SAT 96
--- NOTE | 2018-02-26 15:52 | NURSING ---
PT STRAIGHT CATHED SELF IN BATH ROOM,STERIL PROCEDURE USED. THIS NURSE PRESENT. 800 OUT,YELLOW/CLEAR. NORMAL SMELL. PT ALSO HAD XL STOOL INCONTINENT. PT STATED HE IS FEELING A LITTLE BETTER. [facility] CLOTHES AND BED LINEN CHANGED. NO CONCERNS OR COMPLAINTS AT THIS TIME. REPORTED TO KELSEY VILLAGOMEZ
--- NOTE | 2018-02-26 16:48 | NURSING ---
Addendum entered by Nisreen Zhou 02/26/18 17:42: added room humidifier too, pt feels that is helping. Original Note: pt continues with dry cough, Dr Mccray updated, new order for fabian mayo
[2018-02-26] MEDS: Benzonatate 100 MG Capsule PO ×2 (17:40→21:38)
[2018-02-26] MEDS: Atorvastatin Calcium 10 MG Tablet PO (20:03)
[2018-02-26] MEDS: MELATONIN 3 MG TABLET PO (20:03)
[2018-02-27] MEDS: levETIRAcetam 500 MG Tablet PO ×2 (07:01→17:41)
[2018-02-27] MEDS: Enoxaparin 40 MG/0.4 ML Syringe SC (07:02)
[2018-02-27] MEDS: Menthol/Lanolin/Calamine/Znox 113 GM Tube 1 APPLIC TOPICAL ×2 (07:06→20:14)
[2018-02-27] MEDS: Nystatin Powder 15gm Bottle 1 APPLIC TOPICAL ×2 (07:07→20:14)
[2018-02-27] MEDS: Calcium Carbonate 500 MG Tablet PO (08:34)
[2018-02-27] MEDS: Iron Polysaccharide Complex 150 MG CAPSULE PO (08:34)
[2018-02-27] MEDS: Tamsulosin HCl 0.4 MG Capsule PO ×2 (08:34→17:41)
--- NOTE | 2018-02-27 13:25 | NURSING ---
Pt straight catged per protocol for 450 of clear yellow urine no smell noted.
[2018-02-27] MEDS: 0.9% NaCl Midline IV Flush IV ×2 (14:49→21:59)
[2018-02-27 15:29] LABS: Absolute Lymphocyte Count 1.67 X10^3/ul (0.83-4.51); Absolute Neutrophil Count 5.7 X10^3/uL (2.0-7.7); Basophil# 0.04 X10^3/uL; Basophil% 0.5 % (0-1); Eosinophil# 0.15 X10^3/uL; Eosinophils% 1.8 % (0-5); Hematocrit 34.1 % (40-54); Lymphocyte # 1.67 X10^3/ul (4.0); Lymphocyte % 19.6 % (19-41); Mean Corp Hgb Conc 32.3 g/gl (32-36); Mean Corpuscular Hgb 30.3 pg (27.0-32.0); Mean Corpuscular Volume 93.9 fL (80-94); Mean Platelet Vol. 8.3 fl (6.2-12.0); Monocyte# 0.94 X10^3/uL; Neutrophil # 5.71 X10^3/uL (2.7-7.7); Neutrophil % 66.9 % (47-70); Platelet Count 229 K/mm3 (150-450); RBC Distribution Width SD 46.1 fl (35.1-43.9); Red Blood Count 3.63 M/mm3 (4.6-6.2); White Blood Count 8.5 K/mm3 (4.4-11.0)
[2018-02-27 15:30] LABS: POSITIVE COUNT NO; POSITIVE DIFFERENTIAL NO; POSITIVE MORPHOLOGY NO
[2018-02-27 16:00] VITALS: BP 124/60; PULSE 83; RESP 22; TEMP 37.1; O2SAT 94
[2018-02-27 16:01] LABS: Anion Gap 6 (5-15); BUN 14 mg/dL (7-18); BUN/Creat Ratio 19.1 RATIO (10-20); Calcium,Total 8.4 mg/dL (8.5-10.1); Chloride 103 mmol/L (98-107); Creatinine, Serum 0.73 mg/dL (0.70-1.30); EST Glomerular Filtration Rate 108 mL/min (>60); Est Glom Filt Rate - Afr Amer 131 mL/min (>60); Estimated Creatinine Clearance 63.25 ml/min; Glucose 140 mg/dL (74-106); Potassium 4.3 mmol/L (3.5-5.1); Sodium Level 137 mmol/L (136-145)
[2018-02-27] MEDS: Senna/Docusate Sodium 1 Tablet PO (17:41)
[2018-02-27] MEDS: Atorvastatin Calcium 10 MG Tablet PO (20:16)
[2018-02-27] MEDS: MELATONIN 3 MG TABLET PO (20:16)
[2018-02-27] MEDS: 0.9% NaCl IVPB Med Flush (250 mL) 15 ML IV (21:58)
[2018-02-28] MEDS: Benzonatate 100 MG Capsule PO ×2 (03:33→21:38)
[2018-02-28] MEDS: 0.9% NaCl Midline IV Flush IV ×3 (06:01→21:35)
[2018-02-28] MEDS: levETIRAcetam 500 MG Tablet PO ×2 (06:33→17:37)
[2018-02-28] MEDS: Enoxaparin 40 MG/0.4 ML Syringe SC (06:33)
[2018-02-28] MEDS: Nystatin Powder 15gm Bottle 1 APPLIC TOPICAL ×2 (06:51→21:27)
[2018-02-28] MEDS: Menthol/Lanolin/Calamine/Znox 113 GM Tube 1 APPLIC TOPICAL ×2 (06:51→21:27)
[2018-02-28] MEDS: Calcium Carbonate 500 MG Tablet PO (08:40)
[2018-02-28] MEDS: Tamsulosin HCl 0.4 MG Capsule PO ×2 (08:40→17:37)
[2018-02-28] MEDS: Smz/Tmp Ds Tablet 1 TABLET PO (08:40)
[2018-02-28] MEDS: Iron Polysaccharide Complex 150 MG CAPSULE PO (08:40)
--- NOTE | 2018-02-28 08:50 | RAD_ITS ---
STUDY: X-RAY CHEST REASON FOR EXAM: Male, 82 years old. Cough. TECHNIQUE: AP and lateral views of the chest. COMPARISON: Comparison is made with prior study dated February 03, 2018. FINDINGS: Mild elevation of the right hemidiaphragm. The lungs are clear and expanded. Scattered calcified granulomas. No acute infiltration is seen. There is no demonstrated pleural abnormality. Normal size heart. Normal mediastinum and judah. Normal visualized pulmonary arteries. Normal visualized aortic arch and descending thoracic aorta. There are diffuse degenerative changes of the visualized thoracic spine. Normal visualized ribs, clavicles, and shoulders. There is no demonstrated abnormality of the visualized soft tissue structures of the upper abdomen. RAD/Chest PA and Lateral IMPRESSION: No acute abnormality is seen. Electronically Signed: Mil Bell MD at 9:58 EST Tel [phone], Service support ,
--- NOTE | 2018-02-28 08:53 | NURSING ---
Addendum entered by Nisreen Zhou 02/28/18 10:01: dr walker updated pt on chest xray results. Original Note: Addendum entered by Nisreen Zhou 02/28/18 09:11: Dr Walker updated, new order for chest xray, duonebs prn, robitussing codeine Original Note: Pt c/o to this nurse of increased cough, stating nothing he is currently taking is working. Pt has increased wheezing in posterior lung rashid and generalized weakness. Nisreen COLE notified.
[2018-02-28 09:02] VITALS: PULSE 68
[2018-02-28] MEDS: guaiFENesin/Codeine 5 ML UDC PO ×3 (09:28→21:38)
--- NOTE | 2018-02-28 12:22 | NURSING ---
Pt syraight cathed pper protocol. 350 ml or clear yellow urine noted. Pt tolerated well
[2018-02-28 15:42] VITALS: BP 134/77; PULSE 76; RESP 18; TEMP 37
--- NOTE | 2018-02-28 16:04 | CASEMGMT ---
Brief interview for mental status (BIMS) and resident mood interview (PHQ-9) completed on this day. BIMS score 15. PHQ-9 score 03/16
[2018-02-28] MEDS: Senna/Docusate Sodium 1 Tablet PO (17:37)
--- NOTE | 2018-02-28 19:12 | NURSING ---
Pt straight cathed for 350ml of clear yellow urine. Pt daniel cathed himself with assistance from this nurse.
[2018-02-28] MEDS: MELATONIN 3 MG TABLET PO (21:26)
[2018-02-28] MEDS: Atorvastatin Calcium 10 MG Tablet PO (21:26)
[2018-03-01] MEDS: Senna/Docusate Sodium 1 Tablet PO ×2 (06:12→18:37)
[2018-03-01] MEDS: Enoxaparin 40 MG/0.4 ML Syringe SC (06:12)
[2018-03-01] MEDS: Menthol/Lanolin/Calamine/Znox 113 GM Tube 1 APPLIC TOPICAL ×2 (06:12→21:41)
[2018-03-01] MEDS: Nystatin Powder 15gm Bottle 1 APPLIC TOPICAL ×2 (06:12→21:41)
[2018-03-01] MEDS: levETIRAcetam 500 MG Tablet PO ×2 (06:12→18:36)
[2018-03-01] MEDS: guaiFENesin/Codeine 5 ML UDC PO ×3 (06:15→21:33)
[2018-03-01] MEDS: Benzonatate 100 MG Capsule PO (06:15)
[2018-03-01] MEDS: Tamsulosin HCl 0.4 MG Capsule PO ×2 (09:31→18:36)
[2018-03-01] MEDS: Calcium Carbonate 500 MG Tablet PO (09:31)
[2018-03-01] MEDS: Iron Polysaccharide Complex 150 MG CAPSULE PO (09:32)
[2018-03-01 10:00] VITALS: PULSE 82; O2SAT 95
[2018-03-01] MEDS: 0.9% NaCl Midline IV Flush IV ×2 (14:39→21:36)
[2018-03-01 16:00] VITALS: BP 106/62; PULSE 16; RESP 16; TEMP 36.9; O2SAT 95
[2018-03-01] MEDS: MELATONIN 3 MG TABLET PO (21:34)
[2018-03-01] MEDS: Atorvastatin Calcium 10 MG Tablet PO (21:34)
--- NOTE | 2018-03-01 22:10 | NURSING ---
Pt straight cathed at this time for 400ml. Tolerated well.
[2018-03-02] MEDS: levETIRAcetam 500 MG Tablet PO ×2 (06:02→19:05)
[2018-03-02] MEDS: Polyethylene Glycol 3350 17 GM PACKET PO (06:02)
[2018-03-02] MEDS: Enoxaparin 40 MG/0.4 ML Syringe SC (06:02)
[2018-03-02] MEDS: Menthol/Lanolin/Calamine/Znox 113 GM Tube 1 APPLIC TOPICAL ×2 (06:03→21:33)
[2018-03-02] MEDS: Nystatin Powder 15gm Bottle 1 APPLIC TOPICAL ×2 (06:03→21:34)
[2018-03-02] MEDS: guaiFENesin/Codeine 5 ML UDC PO ×2 (06:24→19:04)
--- NOTE | 2018-03-02 06:26 | NURSING ---
Pt straight cathed at this time for 600ml. Tolerated well.
[2018-03-02] MEDS: Tamsulosin HCl 0.4 MG Capsule PO ×2 (08:22→19:05)
[2018-03-02] MEDS: Iron Polysaccharide Complex 150 MG CAPSULE PO (08:22)
[2018-03-02] MEDS: Calcium Carbonate 500 MG Tablet PO (08:22)
[2018-03-02 15:38] VITALS: BP 117/57; PULSE 73; RESP 14; TEMP 37; O2SAT 96
[2018-03-02] MEDS: Senna/Docusate Sodium 1 Tablet PO (19:05)
[2018-03-02] MEDS: Atorvastatin Calcium 10 MG Tablet PO (21:30)
[2018-03-02] MEDS: MELATONIN 3 MG TABLET PO (21:30)
--- NOTE | 2018-03-02 23:55 | NURSING ---
Pt straight cathed at this time for 380ml. Tolerated well.
--- NOTE | 2018-03-03 06:10 | NURSING ---
Pt straight cathed at this time for 500ml. Tolerated well.
[2018-03-03] MEDS: Senna/Docusate Sodium 1 Tablet PO ×2 (06:23→17:46)
[2018-03-03] MEDS: Polyethylene Glycol 3350 17 GM PACKET PO (06:23)
[2018-03-03] MEDS: Enoxaparin 40 MG/0.4 ML Syringe SC (06:23)
[2018-03-03] MEDS: levETIRAcetam 500 MG Tablet PO ×2 (06:23→17:46)
[2018-03-03] MEDS: Menthol/Lanolin/Calamine/Znox 113 GM Tube 1 APPLIC TOPICAL ×2 (06:26→21:42)
[2018-03-03] MEDS: Nystatin Powder 15gm Bottle 1 APPLIC TOPICAL ×2 (06:27→21:45)
[2018-03-03] MEDS: Smz/Tmp Ds Tablet 1 TABLET PO (08:33)
[2018-03-03] MEDS: Iron Polysaccharide Complex 150 MG CAPSULE PO (08:33)
[2018-03-03] MEDS: Tamsulosin HCl 0.4 MG Capsule PO ×2 (08:33→17:46)
[2018-03-03] MEDS: Calcium Carbonate 500 MG Tablet PO (08:33)
--- NOTE | 2018-03-03 15:42 | NURSING ---
this nurse straight cathed PT, 325 ml of clear yellow urine noted. No odor, or sediment noted. Pt tolerated with no concerns
[2018-03-03 15:58] VITALS: BP 109/64; PULSE 77; RESP 18; TEMP 36.7; O2SAT 96
--- NOTE | 2018-03-03 16:28 | NURSING ---
Pt straight cathed at this time. 200 ml of clear yellow urine noted. Pt tried getting to his urinal prior to pressing call light and was unsuccessful, Pt had soaked his brief and his pants. this nurse changed Pt brief and put him in hospital gown. Pt sitting in bed watching TV at this time.
[2018-03-03] MEDS: MELATONIN 3 MG TABLET PO (21:41)
[2018-03-03] MEDS: Atorvastatin Calcium 10 MG Tablet PO (21:41)
[2018-03-03 21:48] VITALS: O2SAT 98
[2018-03-04] MEDS: Polyethylene Glycol 3350 17 GM PACKET PO (06:42)
[2018-03-04] MEDS: levETIRAcetam 500 MG Tablet PO ×2 (06:42→17:42)
[2018-03-04] MEDS: Senna/Docusate Sodium 1 Tablet PO ×2 (06:42→17:42)
[2018-03-04] MEDS: Enoxaparin 40 MG/0.4 ML Syringe SC (06:42)
[2018-03-04] MEDS: Menthol/Lanolin/Calamine/Znox 113 GM Tube 1 APPLIC TOPICAL ×2 (06:43→20:31)
[2018-03-04] MEDS: Nystatin Powder 15gm Bottle 1 APPLIC TOPICAL ×2 (06:43→20:31)
[2018-03-04] MEDS: Tamsulosin HCl 0.4 MG Capsule PO ×2 (08:56→17:42)
[2018-03-04] MEDS: Iron Polysaccharide Complex 150 MG CAPSULE PO (08:56)
[2018-03-04] MEDS: Calcium Carbonate 500 MG Tablet PO (08:56)
--- NOTE | 2018-03-04 12:21 | NURSING ---
PT STRAIGHT CATHED SELF. THIS NURSE IN ROOM. STERILE PROCEDURE USED. 400 OUT,YELLOW,CLOUDY NORMAL SMELL. PT TOLERATED WELL. NO COMPLANTS OR CONCERNS AT THIS TIME.
[2018-03-04 14:15] VITALS: PULSE 74; RESP 18; O2SAT 97
[2018-03-04 15:50] VITALS: BP 152/70; PULSE 71; RESP 20; TEMP 36.3; O2SAT 95
--- NOTE | 2018-03-04 16:38 | NURSING ---
PT STRAIGHT CATHED SELF IN BED. STATED HE WAS TO WEAK TO GO TO BATH ROOM. THIS NURSE PRESENT. STERIL PROCEDURE USED. 500 OUT,YELLOW/CLOUDY,NORMAL SMELL. PT TOLERATED WELL.
--- NOTE | 2018-03-04 16:40 | NURSING ---
FINE CRACKLES TO POST LOWER LOBES. REPORTED TO KELSEY MAYES
[2018-03-04] MEDS: Atorvastatin Calcium 10 MG Tablet PO (20:32)
[2018-03-04] MEDS: MELATONIN 3 MG TABLET PO (20:32)
[2018-03-05] MEDS: Polyethylene Glycol 3350 17 GM PACKET PO (04:37)
[2018-03-05] MEDS: Senna/Docusate Sodium 1 Tablet PO ×2 (04:37→17:44)
[2018-03-05] MEDS: Enoxaparin 40 MG/0.4 ML Syringe SC (04:37)
[2018-03-05] MEDS: levETIRAcetam 500 MG Tablet PO ×2 (04:37→17:45)
[2018-03-05] MEDS: Nystatin Powder 15gm Bottle 1 APPLIC TOPICAL ×2 (04:38→21:59)
[2018-03-05] MEDS: Menthol/Lanolin/Calamine/Znox 113 GM Tube 1 APPLIC TOPICAL ×2 (04:38→22:00)
[2018-03-05] MEDS: Calcium Carbonate 500 MG Tablet PO ×2 (08:42)
[2018-03-05] MEDS: Tamsulosin HCl 0.4 MG Capsule PO ×2 (08:42→17:44)
[2018-03-05] MEDS: Iron Polysaccharide Complex 150 MG CAPSULE PO (08:43)
[2018-03-05] MEDS: Smz/Tmp Ds Tablet 1 TABLET PO (08:43)
--- NOTE | 2018-03-05 12:18 | NURSING ---
st cathed, return 300cc yellow urine.
[2018-03-05 15:09] VITALS: BP 134/76; PULSE 75; RESP 18; TEMP 36.6; O2SAT 95
--- NOTE | 2018-03-05 15:43 | NURSING ---
Pt straight cathed at this time. 250 ml of clear yellow urine noted. Pt tolerated well with no complaints
--- NOTE | 2018-03-05 18:04 | NURSING ---
Pt requesting to be straight cathed again, this nurse bladder scanned for 41. this nurse explained that we cannot cath again at this time. Pt understood.
[2018-03-05] MEDS: Atorvastatin Calcium 10 MG Tablet PO (21:59)
[2018-03-05] MEDS: MELATONIN 3 MG TABLET PO (21:59)
--- NOTE | 2018-03-06 01:30 | NURSING ---
Pt called out to nurses' station requesting to be straight cathed at 0130. Pt perviously cathed at 2230 for 600cc. Pt brief incot with moderate amt of urine. Pt bladder scanned for 250cc. Pt brief changed. Pt informed this nurse he used to go to a urologist years ago whom since has retired. Pt encouraged to use urinal and agreeable. Will continue to monitor and assess. Will report to day shift and Dr Mccray.
[2018-03-06] MEDS: Senna/Docusate Sodium 1 Tablet PO ×2 (06:42→18:34)
[2018-03-06] MEDS: Enoxaparin 40 MG/0.4 ML Syringe SC (06:42)
[2018-03-06] MEDS: Nystatin Powder 15gm Bottle 1 APPLIC TOPICAL ×2 (06:42→21:53)
[2018-03-06] MEDS: Menthol/Lanolin/Calamine/Znox 113 GM Tube 1 APPLIC TOPICAL ×2 (06:42→21:53)
[2018-03-06] MEDS: levETIRAcetam 500 MG Tablet PO ×2 (06:42→18:34)
[2018-03-06] MEDS: Polyethylene Glycol 3350 17 GM PACKET PO (06:42)
[2018-03-06] MEDS: Iron Polysaccharide Complex 150 MG CAPSULE PO (08:36)
[2018-03-06] MEDS: Tamsulosin HCl 0.4 MG Capsule PO ×2 (08:36→18:34)
[2018-03-06] MEDS: guaiFENesin/Codeine 5 ML UDC PO (13:27)
[2018-03-06 13:30] VITALS: PULSE 94; RESP 18; O2SAT 96
--- NOTE | 2018-03-06 13:44 | NURSING ---
pt straight cathed self in bath room. this nurse present. Steril procedure used. yellow/clear,normal smell. 300 out, sm incontinent. pt tolerated well. no complaints or concerns at this time. assessment done, fine crackles to right lower lobe. reported to carlos escalante
[2018-03-06 15:51] VITALS: BP 136/78; PULSE 80; RESP 16; TEMP 36.9; O2SAT 97
--- NOTE | 2018-03-06 18:36 | NURSING ---
PT STRAIGHT CATHED SELF IN BED.THIS NURSE PRESENT. STERIL PROCEDURE USED. 300 OUT,YELLOW/CLEAR,NORMAL SMELL. PT TOLERATED WELL.
[2018-03-06] MEDS: guaiFENesin Dm 10 ML UDC PO (19:19)
[2018-03-06] MEDS: MELATONIN 3 MG TABLET PO (21:52)
[2018-03-06] MEDS: Atorvastatin Calcium 10 MG Tablet PO (21:52)
[2018-03-07] MEDS: Enoxaparin 40 MG/0.4 ML Syringe SC (06:28)
[2018-03-07] MEDS: Polyethylene Glycol 3350 17 GM PACKET PO (06:28)
[2018-03-07] MEDS: levETIRAcetam 500 MG Tablet PO ×2 (06:28→17:39)
[2018-03-07] MEDS: Senna/Docusate Sodium 1 Tablet PO ×2 (06:28→17:39)
[2018-03-07] MEDS: Nystatin Powder 15gm Bottle 1 APPLIC TOPICAL ×2 (06:29→20:30)
[2018-03-07] MEDS: Menthol/Lanolin/Calamine/Znox 113 GM Tube 1 APPLIC TOPICAL ×2 (06:29→20:29)
[2018-03-07] MEDS: Acetaminophen 500 MG Tablet 1000 MG PO (06:44)
[2018-03-07] MEDS: Tamsulosin HCl 0.4 MG Capsule PO ×2 (08:28→17:39)
[2018-03-07] MEDS: Iron Polysaccharide Complex 150 MG CAPSULE PO (08:28)
[2018-03-07] MEDS: Smz/Tmp Ds Tablet 1 TABLET PO (08:28)
[2018-03-07] MEDS: Calcium Carbonate 500 MG Tablet PO (08:28)
--- NOTE | 2018-03-07 09:22 | NURSING ---
PT COMPLAINED TO THIS NURSE THAT HE DIDN'T GET ANY SLEEP DUE TO THE PT IN NEXT ROOM YELLING. REPORTED TO KELSEY WAKEFIELD
--- NOTE | 2018-03-07 13:07 | CASEMGMT ---
Addendum entered by Kellie Weiss 03/07/18 14:14: Reviewed and approved social work student [employer] documentation. JESÚS Patrick Original Note: Brief interview for mental status (BIMS) and mood (PHQ-9) completed on this day. BIMS score . PHQ-9 score 05/14. Faustina Xiong social work student
[2018-03-07 16:00] VITALS: BP 142/77; PULSE 69; RESP 18; TEMP 36.2; O2SAT 99
--- NOTE | 2018-03-07 19:35 | NURSING ---
PT STRAIGHT CATHED SELF IN BED. THIS NURSE PRESENT. STERIL PROCEDURE USED. 400 OUT,YELLOW/CLOUDY, MINOR SMELL. PT TOLERATED WELL. NO CONCERNS OR COMPLAINTS AT THIS TIME.
[2018-03-07] MEDS: Atorvastatin Calcium 10 MG Tablet PO (20:30)
[2018-03-07] MEDS: MELATONIN 3 MG TABLET PO (20:30)
--- NOTE | 2018-03-08 | NURSING ---
Pt straight cathed at this time for 200ml. Tolerated well.
[2018-03-08] MEDS: levETIRAcetam 500 MG Tablet PO ×2 (07:03→18:02)
[2018-03-08] MEDS: Polyethylene Glycol 3350 17 GM PACKET PO (07:03)
[2018-03-08] MEDS: Senna/Docusate Sodium 1 Tablet PO ×2 (07:03→18:02)
[2018-03-08] MEDS: Enoxaparin 40 MG/0.4 ML Syringe SC (07:03)
[2018-03-08] MEDS: Menthol/Lanolin/Calamine/Znox 113 GM Tube 1 APPLIC TOPICAL ×2 (07:06→21:54)
[2018-03-08] MEDS: Nystatin Powder 15gm Bottle 1 APPLIC TOPICAL ×2 (07:07→21:54)
--- NOTE | 2018-03-08 07:08 | NURSING ---
Pt straight cathed at this time for 400ml. Tolerated well.
[2018-03-08] MEDS: Iron Polysaccharide Complex 150 MG CAPSULE PO (08:36)
[2018-03-08] MEDS: Calcium Carbonate 500 MG Tablet PO (08:36)
[2018-03-08] MEDS: Tamsulosin HCl 0.4 MG Capsule PO ×2 (08:36→18:02)
[2018-03-08] MEDS: guaiFENesin/Codeine 5 ML UDC PO ×2 (14:54→22:01)
[2018-03-08 15:11] LABS: Mucous, Urine 0 SEEN /hpf (<or=2+); Red Blood Cells-Urine 0 SEEN /hpf (0-5); Squamous Epithelial Cells - UA 0 SEEN /hpf (0-5)
[2018-03-08 15:15] LABS: Color, Urine Yellow (Yellow); Glucose, Dipstick 50 mg/dl (Normal); Ketone-Dipstick Negative (Negative); Leukocyte Esterase-Dipstick 500 /ul (Negative); Nitrite-Dipstick Positive (Negative); Occult Blood-Urine 25 /ul (Negative); Protein-Dipstick 30 mg/dl (Negative); Specific Gravity, Urine 1.025 (1.002-1.030); Urine Bilirubin Dipstick Negative (Negative); Urine Clarity Clear (Clear); Urine Urobilinogen Normal (Normal)
[2018-03-08 15:23] LABS: Bacteria 3+ /hpf (None Seen); White Blood Cells 25-50 SEEN /hpf (0-5)
[2018-03-08 15:46] VITALS: BP 147/67; PULSE 75; RESP 18; TEMP 36.9; O2SAT 96
--- NOTE | 2018-03-08 16:25 | NURSING ---
Pt urine Dark in color, odorous during st cath. Dr Mccray updated, new order to check UA, send culture.
[2018-03-08] MEDS: MELATONIN 3 MG TABLET PO (21:54)
[2018-03-08] MEDS: Atorvastatin Calcium 10 MG Tablet PO (21:54)
[2018-03-09] MEDS: Nystatin Powder 15gm Bottle 1 APPLIC TOPICAL ×2 (05:02→21:55)
[2018-03-09] MEDS: Menthol/Lanolin/Calamine/Znox 113 GM Tube 1 APPLIC TOPICAL ×2 (05:02→21:55)
[2018-03-09] MEDS: levETIRAcetam 500 MG Tablet PO ×2 (05:03→17:11)
[2018-03-09] MEDS: Enoxaparin 40 MG/0.4 ML Syringe SC (05:03)
[2018-03-09] MEDS: Senna/Docusate Sodium 1 Tablet PO ×2 (05:03→17:11)
[2018-03-09] MEDS: Polyethylene Glycol 3350 17 GM PACKET PO (05:03)
[2018-03-09] MEDS: guaiFENesin/Codeine 5 ML UDC PO ×3 (05:08→21:54)
[2018-03-09] MEDS: Tamsulosin HCl 0.4 MG Capsule PO ×2 (08:33→17:11)
[2018-03-09] MEDS: Iron Polysaccharide Complex 150 MG CAPSULE PO (08:33)
[2018-03-09] MEDS: Calcium Carbonate 500 MG Tablet PO (08:33)
--- NOTE | 2018-03-09 12:47 | NURSING ---
Pt straight cathed at this time. 650 ml of dark airam urine with a strong odor noted. Pt tolerated well, Pt resting in bed at this time call light within reach.
[2018-03-09 13:13] VITALS: PULSE 82; O2SAT 96
[2018-03-09 15:53] VITALS: BP 154/73; PULSE 69; RESP 18; TEMP 36.3; O2SAT 96
--- NOTE | 2018-03-09 16:48 | NURSING ---
st cathed pt for 300cc yellow urine w/strong odor.
[2018-03-09] MEDS: guaiFENesin Dm 10 ML UDC PO (17:13)
[2018-03-09] MEDS: MELATONIN 3 MG TABLET PO (21:52)
[2018-03-09] MEDS: Atorvastatin Calcium 10 MG Tablet PO (21:52)
[2018-03-10] MEDS: Polyethylene Glycol 3350 17 GM PACKET PO (06:45)
[2018-03-10] MEDS: Enoxaparin 40 MG/0.4 ML Syringe SC (06:45)
[2018-03-10] MEDS: Menthol/Lanolin/Calamine/Znox 113 GM Tube 1 APPLIC TOPICAL ×2 (06:45→22:45)
[2018-03-10] MEDS: Nystatin Powder 15gm Bottle 1 APPLIC TOPICAL ×2 (06:45→23:38)
[2018-03-10] MEDS: levETIRAcetam 500 MG Tablet PO ×2 (06:45→17:03)
[2018-03-10] MEDS: Senna/Docusate Sodium 1 Tablet PO ×2 (06:45→17:03)
[2018-03-10] MEDS: guaiFENesin/Codeine 5 ML UDC PO ×3 (06:49→23:37)
--- NOTE | 2018-03-10 07:59 | NURSING ---
Pt with crackles posterior. Non productive cough noted. Reported at dayshift. Will update Dr Mccray.
[2018-03-10] MEDS: Smz/Tmp Ds Tablet 1 TABLET PO (08:25)
[2018-03-10] MEDS: Calcium Carbonate 500 MG Tablet PO (08:26)
[2018-03-10] MEDS: Tamsulosin HCl 0.4 MG Capsule PO ×2 (08:26→17:03)
[2018-03-10] MEDS: Iron Polysaccharide Complex 150 MG CAPSULE PO (08:26)
--- NOTE | 2018-03-10 11:11 | NURSING ---
Dr Marcial's office called to f/u with consult to TCU
--- NOTE | 2018-03-10 12:54 | NURSING ---
PT STRAIGHT CATHED IN BED,THIS NURSE PRESENT. STERIL PROCEDURE USED. 200 OUT,YELLOW/CLOUDY STRONG SMELL. PT TOLERATED WELL. NO CONCERNS OR COMPLAINTS AT THIS TIME.
--- NOTE | 2018-03-10 13:46 | RAD_ITS ---
STUDY: X-RAY CHEST REASON FOR EXAM: Male, 82 years old. Cough TECHNIQUE: PA and lateral views of the chest. COMPARISON: February 28, 2018 chest x-ray FINDINGS: There is a calcified granuloma in the right upper lobe stable since prior study measuring 5.4 mm. There is no demonstrated pleural abnormality. Normal size heart. Normal mediastinum and judah. Normal visualized pulmonary arteries. Normal visualized aortic arch and descending thoracic aorta. There are diffuse degenerative changes of the visualized thoracic spine. Normal visualized ribs, clavicles, and shoulders. There is no demonstrated abnormality of the visualized soft tissue structures of the upper abdomen. RAD/Chest 1 View (Portable) IMPRESSION: Degenerative changes, as described above. No demonstrated acute cardiopulmonary process. Electronically Signed: Chelsea Lua MD at 15:36 EST Tel , Service support ,
[2018-03-10 15:54] VITALS: BP 106/68; PULSE 77; RESP 18; TEMP 36.7; O2SAT 96
--- NOTE | 2018-03-10 16:46 | PCM.CONS.U ---
Problem List (1) BPH loc w urin obs/LUTS Status: Acute Reason for Consult Date of Consultation: 03/10/18 Reason for Consultation: urinary retention History of Present Illness: The patient is a 82 year old male s/p surgery for Glioblastoma h/o retention of surgery in the past on flomax currently doing well with self intermittent cath. recent UTI treated. Past Medical History Past Medical History (Chronic Problems): Chronic Problems (Last Reviewed 02/24/18 @ 11:27 by Neetu Santiago) History of chest pain (Chronic) BPH (benign prostatic hyperplasia) (Chronic) Hypertension (Chronic) Neurogenic bladder (Chronic) Medical History: Medical History (Last Reviewed 03/10/18 @ 16:48 by Kishan Marcial MD) Benign prostatic hyperplasia with lower urinary tract symptoms N40.1 Hyperlipidemia E78.5 Primary glioblastoma of brain C71.9 S/P RIGHT FRONTAL CRANIECTOMY 12-27-[address] [facility] [address] MILLER Ventricular hypertrophy I51.7 bilateral enlargement Allergies No Known Allergies Allergy (Verified 02/25/18 12:06) Home Medications: Ambulatory Orders Medication Instructions Recorded Simvastatin [Zocor] 20 mg PO QHS 12/09/17 Tamsulosin HCl [Flomax] 0.4 mg PO BID 12/09/17 Levetiracetam [Keppra] 500 mg PO BID 12/11/17 Acetaminophen [Tylenol] 650 mg PO Q4H PRN PRN 01/20/18 Calcium Citrate 950 mg PO DAILY 01/20/18 Cholecalciferol (VIT D3) [Vitamin 2,000 unit PO DAILY 01/20/18 D] Docusate Sodium [Colace] 100 mg PO DAILY 01/20/18 Enoxaparin Sodium [Lovenox] 40 mg SQ DAILY 01/20/18 Ertapenem Sod [Invanz] 1 gm IV Q24 01/20/18 Melatonin 3 mg PO QHS 01/20/18 Ondansetron [Zofran Odt] 4 mg PO Q8H PRN PRN 01/20/18 Sennosides [Senna Laxative] 8.6 mg PO DAILY 01/20/18 Ondansetron [Zofran] 8 mg PO Q8H PRN PRN 30 Days #30 tab 01/30/18 Smz/Tmp Ds [Bactrim Ds] 1 tab PO DAILY 70 Days #30 tab 01/30/18 Surgical History: Surgical History (Last Reviewed 03/10/18 @ 16:48 by Kishan Marcial MD) History of appendectomy Z90.49 History of bilateral knee replacement Z96.653 History of cholecystectomy Z90.49 History of tonsillectomy Z90.89 Surgical History: appendectomy, cholecystectomy, total knee arthroplasty, tonsillectomy, - - Excision brain tumor by craniotomy. Psychiatric History: Anxiety, Depression Lives: Spouse/ Significant Other Smoking Status: Former smoker Tobacco Use: Non-smoker Alcohol: None Drugs: None - *Family History Maternal Family History: Family History (Last Reviewed 02/24/18 @ 11:27 by Neetu Santiago) Mother Heart disease Father CAD (coronary artery disease) History Items: No pertinent history Paternal Family History: Family History (Last Reviewed 02/24/18 @ 11:27 by Neetu Santiago) Mother Heart disease Father CAD (coronary artery disease) History Items: No pertinent history Review of Systems Constitutional: Denies: Chills, Fever, Weight Change HEENT: Denies: Head Aches, Sinus Congestion, Sinus Drainage Cardiovascular: Denies: Chest Pain, Palpitations Respiratory: Denies: Cough, Shortness of breath at rest, Sputum production Gastrointestinal: Denies: Abdominal Pain, Nausea, Vomiting Genitourinary: Reports: Dysuria, Retention Musculoskeletal: Denies: Joint Pain, Joint Tenderness Skin: Denies: Rash, Wounds Neurological: Denies: Numbness, Tingling, Focal weakness Psychiatric: Denies: Anxiety, Depression, Homicidal Ideations, Suicidal Ideations Hematologic/ Lymphatic: Denies: Easy Bruising, Easy Bleeding Physical Exam - Physical Exam Vital Signs Temp 98.1 F 03/10/18 15:54 Pulse 77 03/10/18 15:54 Resp 18 03/10/18 15:54 BP 106/68 03/10/18 15:54 Pulse Ox 96 03/10/18 15:54 Intake & Output 03/08/18 03/09/18 03/10/18 23:59 23:59 23:59 Intake Total 780 / 780 1160 / 1160 613 / 613 Output Total 1050 / 1050 1150 / 1150 900 / 900 Balance -270 / -270 -287 / -287 Weight: 79.889 kg 80.343 kg Intake: Oral 780 / 780 1160 / 1160 613 / 613 Output: Urine 1050 / 1050 1150 / 1150 900 / 900 Other: Number of Bowel Movements 1 General: Alert, Oriented x3 HEENT: Atraumatic Oral: Moist Mucosa Neck: Supple Lungs: Normal air movement Cardiovascular: Regular rate Abdomen: Soft, Obese Microbiology Past 72 Hours 03/08/18 14:50 Urine Culture - Preliminary Urine, Catheterized Presumptive E. coli Assessment/Plan All Active Problems (Last Reviewed 02/24/18 @ 11:27 by Neetu Santiago) GBM (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) Left hemiparesis (Acute) Debility (Acute) Anemia (Acute) Educational circumstance (Acute) Chemotherapy management, encounter for (Acute) RSV (respiratory syncytial virus infection) (Acute) BPH loc w urin obs/LUTS (Acute) continue with flomax continue with self intermitent cath he can follow up with me as outpatient after discharge. urination will probably return with time.
--- NOTE | 2018-03-10 21:23 | PCM.TCUNOT ---
Subjective: Resident seen in room. He is undergoing treatment for glioblastoma with radiation, and chemotherapy. He says the radiation really took his energy away but he feels he is recovering. He has chronic cough, Chest X-rays have been negative, cough treated symptomatically. 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 Vitals/I&O's: Vital Signs Temp Pulse Resp BP Pulse Ox 98.1 F 77 18 106/68 96 03/10/18 15:54 03/10/18 15:54 03/10/18 15:54 03/10/18 15:54 03/10/18 15:54 Oxygen Delivery Method Room Air Weight: 80.343 kg Body Mass Index (BMI) 21.5 Intake and Output for Last 24 Hours 03/08/18 03/09/18 03/10/18 23:59 23:59 23:59 Intake Total 780 / 780 1160 / 1160 853 / 853 Output Total 1050 / 1050 1150 / 1150 900 / 900 Balance -270 / -270 -47 / -47 Microbiology Past 72 Hours 03/08/18 14:50 Urine, Catheterized Urine Culture - Preliminary Presumptive E. coli Past Medical History Past Medical History (Chronic Problems): Chronic Problems (Last Reviewed 03/10/18 @ 16:48 by Kishan Marcial MD) History of chest pain (Chronic) BPH (benign prostatic hyperplasia) (Chronic) Hypertension (Chronic) Neurogenic bladder (Chronic) Medical History: Medical History (Last Reviewed 03/10/18 @ 16:48 by Kishan Marcial MD) Benign prostatic hyperplasia with lower urinary tract symptoms N40.1 Hyperlipidemia E78.5 Primary glioblastoma of brain C71.9 S/P RIGHT FRONTAL CRANIECTOMY 12-27-[address] [facility] [address] MILLER Ventricular hypertrophy I51.7 bilateral enlargement Allergies No Known Allergies Allergy (Verified 02/25/18 12:06) Home Medications: Ambulatory Orders Medication Instructions Recorded Simvastatin [Zocor] 20 mg PO QHS 12/09/17 Tamsulosin HCl [Flomax] 0.4 mg PO BID 12/09/17 Levetiracetam [Keppra] 500 mg PO BID 12/11/17 Acetaminophen [Tylenol] 650 mg PO Q4H PRN PRN 12/03/18 Calcium Citrate 950 mg PO DAILY 01/20/18 Cholecalciferol (VIT D3) [Vitamin 2,000 unit PO DAILY 01/20/18 D] Docusate Sodium [Colace] 100 mg PO DAILY 01/20/18 Enoxaparin Sodium [Lovenox] 40 mg SQ DAILY 01/20/18 Ertapenem Sod [Invanz] 1 gm IV Q24 01/20/18 Melatonin 3 mg PO QHS 01/20/18 Ondansetron [Zofran Odt] 4 mg PO Q8H PRN PRN 01/20/18 Sennosides [Senna Laxative] 8.6 mg PO DAILY 01/20/18 Ondansetron [Zofran] 8 mg PO Q8H PRN PRN 30 Days #30 tab 01/30/18 Smz/Tmp Ds [Bactrim Ds] 1 tab PO DAILY 70 Days #30 tab 01/30/18 Surgical History: Surgical History (Last Reviewed 03/10/18 @ 16:48 by Kishan Marcial MD) History of appendectomy Z90.49 History of bilateral knee replacement Z96.653 History of cholecystectomy Z90.49 History of tonsillectomy Z90.89 Surgical History: appendectomy, cholecystectomy, total knee arthroplasty, tonsillectomy, - - Excision brain tumor by craniotomy. Psychiatric History: Anxiety, Depression Lives: Spouse/ Significant Other Smoking Status: Former smoker Tobacco Use: Non-smoker Alcohol: None Drugs: None - *Family History Maternal Family History: Family History (Last Reviewed 02/24/18 @ 11:27 by Neetu Santiago) Mother Heart disease Father CAD (coronary artery disease) History Items: No pertinent history Paternal Family History: Family History (Last Reviewed 02/24/18 @ 11:27 by Neetu Santiago) Mother Heart disease Father CAD (coronary artery disease) History Items: No pertinent history Review of Systems Constitutional: Denies: Chills, Fever, Weight Change HEENT: Denies: Head Aches, Sinus Congestion, Sinus Drainage Cardiovascular: Denies: Chest Pain, Palpitations Respiratory: Denies: Cough, Shortness of breath at rest, Sputum production Gastrointestinal: Denies: Abdominal Pain, Nausea, Vomiting Genitourinary: Denies: Dysuria Musculoskeletal: Denies: Joint Pain, Joint Tenderness Skin: Denies: Rash, Wounds Neurological: Denies: Numbness, Tingling, Focal weakness Psychiatric: Denies: Anxiety, Depression, Homicidal Ideations, Suicidal Ideations Hematologic/ Lymphatic: Denies: Easy Bruising, Easy Bleeding Patient Problems: Active and Suspected Problems (Last Reviewed 03/10/18 @ 16:48 by Kishan Marcial MD) Steroid-induced diabetes mellitus (Acute) Left hemiparesis (Acute) Debility (Acute) BPH loc w urin obs/LUTS (Acute) - Physical Exam General: Alert, Oriented x3, Cooperative HEENT: Atraumatic, PERRLA, EOMI, Normocephalic Neck: Supple, No JVD, Negative Carotid Bruits Lungs: Clear to auscultation, Normal air movement Cardiovascular: Regular rate, No murmurs Abdomen: Bowel Sounds Present, Soft, Non Tender Extremities: No edema, Capillary Refill Less than 3 Seconds Skin: No rashes, No breakdown Musculoskeletal: No Tenderness to Palpation of Joints or Extremities Neurological: Cranial nerves II-XII grossly intact Psych/Mental Status: Normal Affect, Appropriate Vital Signs Temp Pulse Resp BP Pulse Ox 98.1 F 77 18 106/68 96 03/10/18 15:54 03/10/18 15:54 03/10/18 15:54 03/10/18 15:54 03/10/18 15:54 Oxygen Delivery Method Room Air Weight: 80.343 kg Body Mass Index (BMI) 21.5 Intake and Output for Last 24 Hours 03/08/18 03/09/18 03/10/18 23:59 23:59 23:59 Intake Total 780 / 780 1160 / 1160 853 / 853 Output Total 1050 / 1050 1150 / 1150 900 / 900 Balance -270 / -270 -47 / -47 Microbiology Past 72 Hours 03/08/18 14:50 Urine Culture - Preliminary Urine, Catheterized Presumptive E. coli Assessment/Plan All Active Problems (Last Reviewed 03/10/18 @ 16:48 by Kishan Marcial MD) GBM (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) Left hemiparesis (Acute) Debility (Acute) Anemia (Acute) Educational circumstance (Acute) Chemotherapy management, encounter for (Acute) RSV (respiratory syncytial virus infection) (Acute) BPH loc w urin obs/LUTS (Acute) 82 year old male with below past medical history significant for glioblastoma multiforme s/p excision, complicated left hemiparesis, steroid induced diabetes mellitus, ESBL K. Pneumoniae UTI, admitted from [facility] inpatient rehab to U with debility, to continue rehabilitation, strengthening, prior to discharge home with spouse to continue treatment for GBM. Debility - PT/OT. Pain - Tylenol 1000MG Q6H PRN mild pain. Bowel - Miralax 17GM daily, Senna/colace 1 tablet BID, Dulcolax 10MG daily PRN. Pneumonia vaccination - Administer Prevnar 13 and/or Pneumovax 23 as necessary. DVT prophylaxis - Lovenox 40MG SC daily. Hyperlipidemia - Atorvastatin 10MG QHS. Calcium deficiency - Calcium 500MG daily. Vitamin D deficiency - D3 2000IU daily. ESBL E. Coli UTI - His bladder is colonized, will not treat, will not obtain further urine culture. Seizure prophylaxis - Keppra 500MG twice daily. Insomnia - Melatonin 3MG QHS. Skin irritation - Calmoseptine BID coccyx, Eucerin daily. Tinea Corporis - Nystatin powder BID. Nausea - Zofran 4MG Q8H PRN. BPH - Tamsulosin 0.4MG BID. Urinary retention - Straight cath twice daily, per resident he has urinary retention for 8 weeks after general anesthesia. GBM - Temozolomide 140MG Saturday thru Saturday per Dr. Singletary, radiation per Dr. Barboza. Chronic cough - Tessalon perles 100MG TID PRN, Robitussin DM 10ML Q6H PRN, Robitussin AC 5ML Q6H PRN, Duoneb 3ML Q6H. Iron deficiency anemia - Ferrex 150MG daily. PCP prophylaxis - Bactrim DS MWF.
--- NOTE | 2018-03-10 21:28 | PN_ITS ---
Subjective: Resident seen in room. He is undergoing treatment for glioblastoma with radiation, and chemotherapy. He says the radiation really took his energy away but he feels he is recovering. He has chronic cough, Chest X-rays have been negative, cough treated symptomatically. 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 Vitals/I&O's: Vital Signs Temp Pulse Resp BP Pulse Ox 98.1 F 77 18 106/68 96 03/10/18 15:54 03/10/18 15:54 03/10/18 15:54 03/10/18 15:54 03/10/18 15:54 Oxygen Delivery Method Room Air Weight: 80.343 kg Body Mass Index (BMI) 21.5 Intake and Output for Last 24 Hours 03/08/18 03/09/18 03/10/18 23:59 23:59 23:59 Intake Total 780 / 780 1160 / 1160 853 / 853 Output Total 1050 / 1050 1150 / 1150 900 / 900 Balance -270 / -270 -47 / -47 Microbiology Past 72 Hours 03/08/18 14:50 Urine, Catheterized Urine Culture - Preliminary Presumptive E. coli Past Medical History Past Medical History (Chronic Problems): Chronic Problems (Last Reviewed 03/10/18 @ 16:48 by Kishan Marcial MD) History of chest pain (Chronic) BPH (benign prostatic hyperplasia) (Chronic) Hypertension (Chronic) Neurogenic bladder (Chronic) Medical History: Medical History (Last Reviewed 03/10/18 @ 16:48 by Kishan Marcial MD) Benign prostatic hyperplasia with lower urinary tract symptoms N40.1 Hyperlipidemia E78.5 Primary glioblastoma of brain C71.9 S/P RIGHT FRONTAL CRANIECTOMY 12-27-[address] [address] MILLER Ventricular hypertrophy I51.7 bilateral enlargement Allergies No Known Allergies Allergy (Verified 02/25/18 12:06) Home Medications: Ambulatory Orders Medication Instructions Recorded Simvastatin [Zocor] 20 mg PO QHS 12/09/17 Tamsulosin HCl [Flomax] 0.4 mg PO BID 12/09/17 Levetiracetam [Keppra] 500 mg PO BID 12/11/17 Acetaminophen [Tylenol] 650 mg PO Q4H PRN PRN 12/03/18 Calcium Citrate 950 mg PO DAILY 01/20/18 Cholecalciferol (VIT D3) [Vitamin 2,000 unit PO DAILY 01/20/18 D] Docusate Sodium [Colace] 100 mg PO DAILY 01/20/18 Enoxaparin Sodium [Lovenox] 40 mg SQ DAILY 01/20/18 Ertapenem Sod [Invanz] 1 gm IV Q24 01/20/18 Melatonin 3 mg PO QHS 01/20/18 Ondansetron [Zofran Odt] 4 mg PO Q8H PRN PRN 01/20/18 Sennosides [Senna Laxative] 8.6 mg PO DAILY 01/20/18 Ondansetron [Zofran] 8 mg PO Q8H PRN PRN 30 Days #30 tab 01/30/18 Smz/Tmp Ds [Bactrim Ds] 1 tab PO DAILY 70 Days #30 tab 01/30/18 Surgical History: Surgical History (Last Reviewed 03/10/18 @ 16:48 by iKshan Marcial MD) History of appendectomy Z90.49 History of bilateral knee replacement Z96.653 History of cholecystectomy Z90.49 History of tonsillectomy Z90.89 Surgical History: appendectomy, cholecystectomy, total knee arthroplasty, tonsillectomy, - - Excision brain tumor by craniotomy. Psychiatric History: Anxiety, Depression Lives: Spouse/ Significant Other Smoking Status: Former smoker Tobacco Use: Non-smoker Alcohol: None Drugs: None - *Family History Maternal Family History: Family History (Last Reviewed 02/24/18 @ 11:27 by Neetu Santiago) Mother Heart disease Father CAD (coronary artery disease) History Items: No pertinent history Paternal Family History: Family History (Last Reviewed 02/24/18 @ 11:27 by Neetu Santiago) Mother Heart disease Father CAD (coronary artery disease) History Items: No pertinent history Review of Systems Constitutional: Denies: Chills, Fever, Weight Change HEENT: Denies: Head Aches, Sinus Congestion, Sinus Drainage Cardiovascular: Denies: Chest Pain, Palpitations Respiratory: Denies: Cough, Shortness of breath at rest, Sputum production Gastrointestinal: Denies: Abdominal Pain, Nausea, Vomiting Genitourinary: Denies: Dysuria Musculoskeletal: Denies: Joint Pain, Joint Tenderness Skin: Denies: Rash, Wounds Neurological: Denies: Numbness, Tingling, Focal weakness Psychiatric: Denies: Anxiety, Depression, Homicidal Ideations, Suicidal Ideations Hematologic/ Lymphatic: Denies: Easy Bruising, Easy Bleeding Patient Problems: Active and Suspected Problems (Last Reviewed 03/10/18 @ 16:48 by Kishan Marcial MD) Steroid-induced diabetes mellitus (Acute) Left hemiparesis (Acute) Debility (Acute) BPH loc w urin obs/LUTS (Acute) - Physical Exam General: Alert, Oriented x3, Cooperative HEENT: Atraumatic, PERRLA, EOMI, Normocephalic Neck: Supple, No JVD, Negative Carotid Bruits Lungs: Clear to auscultation, Normal air movement Cardiovascular: Regular rate, No murmurs Abdomen: Bowel Sounds Present, Soft, Non Tender Extremities: No edema, Capillary Refill Less than 3 Seconds Skin: No rashes, No breakdown Musculoskeletal: No Tenderness to Palpation of Joints or Extremities Neurological: Cranial nerves II-XII grossly intact Psych/Mental Status: Normal Affect, Appropriate Vital Signs Temp Pulse Resp BP Pulse Ox 98.1 F 77 18 106/68 96 03/10/18 15:54 03/10/18 15:54 03/10/18 15:54 03/10/18 15:54 03/10/18 15:54 Oxygen Delivery Method Room Air Weight: 80.343 kg Body Mass Index (BMI) 21.5 Intake and Output for Last 24 Hours 03/08/18 03/09/18 03/10/18 23:59 23:59 23:59 Intake Total 780 / 780 1160 / 1160 853 / 853 Output Total 1050 / 1050 1150 / 1150 900 / 900 Balance -270 / -270 -47 / -47 Microbiology Past 72 Hours 03/08/18 14:50 Urine Culture - Preliminary Urine, Catheterized Presumptive E. coli Assessment/Plan All Active Problems (Last Reviewed 03/10/18 @ 16:48 by Kishan Marcial MD) GBM (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) Left hemiparesis (Acute) Debility (Acute) Anemia (Acute) Educational circumstance (Acute) Chemotherapy management, encounter for (Acute) RSV (respiratory syncytial virus infection) (Acute) BPH loc w urin obs/LUTS (Acute) 82 year old male with below past medical history significant for glioblastoma multiforme s/p excision, complicated left hemiparesis, steroid induced diabetes mellitus, ESBL K. Pneumoniae UTI, admitted from [facility] inpatient rehab to TCU with debility, to continue rehabilitation, strengthening, prior to discharge margaret e with spouse to continue treatment for GBM. * Debility - PT/OT. * Pain - Tylenol 1000MG Q6H PRN mild pain. * Bowel - Miralax 17GM daily, Senna/colace 1 tablet BID, Dulcolax 10MG daily PRN. * Pneumonia vaccination - Administer Prevnar 13 and/or Pneumovax 23 as necessary. * DVT prophylaxis - Lovenox 40MG SC daily. * Hyperlipidemia - Atorvastatin 10MG QHS. * Calcium deficiency - Calcium 500MG daily. * Vitamin D deficiency - D3 2000IU daily. * ESBL E. Coli UTI - His bladder is colonized, will not treat, will not obtain further urine culture. * Seizure prophylaxis - Keppra 500MG twice daily. * Insomnia - Melatonin 3MG QHS. * Skin irritation - Calmoseptine BID coccyx, Eucerin daily. * Tinea Corporis - Nystatin powder BID. * Nausea - Zofran 4MG Q8H PRN. * BPH - Tamsulosin 0.4MG BID. * Urinary retention - Straight cath twice daily, per resident he has urinary retention for 8 weeks after general anesthesia. * GBM - Temozolomide 140MG Saturday thru Saturday per Dr. Singletary, radiation per Dr. Barboza. * Chronic cough - Tessalon perles 100MG TID PRN, Robitussin DM 10ML Q6H PRN, Robitussin AC 5ML Q6H PRN, Duoneb 3ML Q6H. * Iron deficiency anemia - Ferrex 150MG daily. * PCP prophylaxis - Bactrim DS MWF.
[2018-03-10] MEDS: MELATONIN 3 MG TABLET PO (22:45)
[2018-03-10] MEDS: Atorvastatin Calcium 10 MG Tablet PO (22:45)
[2018-03-11] MEDS: guaiFENesin/Codeine 5 ML UDC PO (06:25)
[2018-03-11] MEDS: Senna/Docusate Sodium 1 Tablet PO ×2 (06:26→17:16)
[2018-03-11] MEDS: Enoxaparin 40 MG/0.4 ML Syringe SC (06:26)
[2018-03-11] MEDS: Menthol/Lanolin/Calamine/Znox 113 GM Tube 1 APPLIC TOPICAL ×2 (06:26→19:56)
[2018-03-11] MEDS: Polyethylene Glycol 3350 17 GM PACKET PO (06:26)
[2018-03-11] MEDS: Nystatin Powder 15gm Bottle 1 APPLIC TOPICAL ×2 (06:26→19:56)
[2018-03-11] MEDS: levETIRAcetam 500 MG Tablet PO ×2 (06:26→17:16)
[2018-03-11] MEDS: Tamsulosin HCl 0.4 MG Capsule PO ×2 (08:36→17:16)
[2018-03-11] MEDS: Iron Polysaccharide Complex 150 MG CAPSULE PO (08:36)
[2018-03-11] MEDS: Calcium Carbonate 500 MG Tablet PO (08:36)
[2018-03-11 15:29] VITALS: BP 139/67; PULSE 75; RESP 18; TEMP 36.4; O2SAT 95
[2018-03-11] MEDS: guaiFENesin Dm 10 ML UDC PO (17:15)
--- NOTE | 2018-03-11 18:02 | NURSING ---
Dr. Mccray reviewed final urine culture, NNO. Patient is colonized.
[2018-03-11] MEDS: MELATONIN 3 MG TABLET PO (19:54)
[2018-03-11] MEDS: Atorvastatin Calcium 10 MG Tablet PO (19:54)
[2018-03-12 06:01] LABS: Absolute Lymphocyte Count 1.34 X10^3/ul (0.83-4.51); Absolute Neutrophil Count 3.4 X10^3/uL (2.0-7.7); Basophil# 0.04 X10^3/uL; Basophil% 0.7 % (0-1); Eosinophil# 0.23 X10^3/uL; Hematocrit 33.8 % (40-54); Lymphocyte # 1.34 X10^3/ul (4.0); Lymphocyte % 23.5 % (19-41); Mean Corp Hgb Conc 32.5 g/gl (32-36); Mean Corpuscular Hgb 30.2 pg (27.0-32.0); Mean Corpuscular Volume 92.9 fL (80-94); Mean Platelet Vol. 8.6 fl (6.2-12.0); Monocyte# 0.64 X10^3/uL; Monocyte% 11.2 % (0-10); Neutrophil # 3.43 X10^3/uL (2.7-7.7); Neutrophil % 60.2 % (47-70); POSITIVE COUNT NO; POSITIVE DIFFERENTIAL NO; POSITIVE MORPHOLOGY NO; Platelet Count 208 K/mm3 (150-450); RBC Distribution Width CV 13.1 % (11.6-14.6); RBC Distribution Width SD 42.4 fl (35.1-43.9); Red Blood Count 3.64 M/mm3 (4.6-6.2); White Blood Count 5.7 K/mm3 (4.4-11.0)
[2018-03-12 06:14] LABS: Anion Gap 9 (5-15); BUN 18 mg/dL (7-18); BUN/Creat Ratio 21.7 RATIO (10-20); Calcium,Total 8.6 mg/dL (8.5-10.1); Chloride 106 mmol/L (98-107); Creatinine, Serum 0.83 mg/dL (0.70-1.30); EST Glomerular Filtration Rate 94 mL/min (>60); Est Glom Filt Rate - Afr Amer 114 mL/min (>60); Estimated Creatinine Clearance 76.21 ml/min; Glucose 101 mg/dL (74-106); Sodium Level 142 mmol/L (136-145)
[2018-03-12] MEDS: Enoxaparin 40 MG/0.4 ML Syringe SC (06:19)
[2018-03-12] MEDS: levETIRAcetam 500 MG Tablet PO ×2 (06:20→17:59)
[2018-03-12] MEDS: Polyethylene Glycol 3350 17 GM PACKET PO (06:20)
[2018-03-12] MEDS: Senna/Docusate Sodium 1 Tablet PO ×2 (06:21→17:59)
[2018-03-12] MEDS: Menthol/Lanolin/Calamine/Znox 113 GM Tube 1 APPLIC TOPICAL ×2 (06:33→20:53)
[2018-03-12] MEDS: Nystatin Powder 15gm Bottle 1 APPLIC TOPICAL ×2 (06:33→20:52)
[2018-03-12] MEDS: Iron Polysaccharide Complex 150 MG CAPSULE PO (08:26)
[2018-03-12] MEDS: Smz/Tmp Ds Tablet 1 TABLET PO (08:26)
[2018-03-12] MEDS: Calcium Carbonate 500 MG Tablet PO (08:26)
[2018-03-12] MEDS: Tamsulosin HCl 0.4 MG Capsule PO ×2 (08:28→17:59)
[2018-03-12 15:42] VITALS: BP 124/65; PULSE 76; RESP 20; TEMP 36.7; O2SAT 94
[2018-03-12] MEDS: guaiFENesin Dm 10 ML UDC PO (18:02)
[2018-03-12] MEDS: MELATONIN 3 MG TABLET PO (20:52)
[2018-03-12] MEDS: Atorvastatin Calcium 10 MG Tablet PO (20:52)
[2018-03-12] MEDS: guaiFENesin/Codeine 5 ML UDC PO (20:56)
[2018-03-13] MEDS: Enoxaparin 40 MG/0.4 ML Syringe SC (06:18)
[2018-03-13] MEDS: Senna/Docusate Sodium 1 Tablet PO ×2 (06:18→17:21)
[2018-03-13] MEDS: levETIRAcetam 500 MG Tablet PO ×2 (06:18→17:21)
[2018-03-13] MEDS: Polyethylene Glycol 3350 17 GM PACKET PO (06:19)
[2018-03-13] MEDS: Menthol/Lanolin/Calamine/Znox 113 GM Tube 1 APPLIC TOPICAL ×2 (06:22→20:53)
[2018-03-13] MEDS: Nystatin Powder 15gm Bottle 1 APPLIC TOPICAL ×2 (06:22→20:54)
[2018-03-13] MEDS: Calcium Carbonate 500 MG Tablet PO (09:46)
[2018-03-13] MEDS: Iron Polysaccharide Complex 150 MG CAPSULE PO (09:46)
[2018-03-13] MEDS: Tamsulosin HCl 0.4 MG Capsule PO ×2 (09:46→17:21)
--- NOTE | 2018-03-13 10:17 | NURSING ---
Pt straight cathed at this time for 450. urine is pale yellow and cloudy with a strong odor. Pt tolerated porcedure without complaint. Pt also noted to have urinated in his brief. this nurse changed Pt brief and assisted Pt to a comfortable position in bed. Pt watching TV with call light within reach
--- NOTE | 2018-03-13 15:02 | NURSING ---
pt straight cathed for 550 of cloudy yellow urine. urine has a strong odor. Pt tolerated well with no complaints.
[2018-03-13 15:38] VITALS: BP 138/70; PULSE 76; RESP 16; TEMP 36.8
[2018-03-13] MEDS: Atorvastatin Calcium 10 MG Tablet PO (20:54)
[2018-03-13] MEDS: MELATONIN 3 MG TABLET PO (20:54)
[2018-03-14] MEDS: Polyethylene Glycol 3350 17 GM PACKET PO (06:16)
[2018-03-14] MEDS: levETIRAcetam 500 MG Tablet PO ×2 (06:16→17:37)
[2018-03-14] MEDS: Senna/Docusate Sodium 1 Tablet PO ×2 (06:16→17:37)
[2018-03-14] MEDS: Menthol/Lanolin/Calamine/Znox 113 GM Tube 1 APPLIC TOPICAL ×2 (06:16→22:03)
[2018-03-14] MEDS: Enoxaparin 40 MG/0.4 ML Syringe SC (06:16)
[2018-03-14] MEDS: Nystatin Powder 15gm Bottle 1 APPLIC TOPICAL ×2 (06:17→22:04)
[2018-03-14] MEDS: Iron Polysaccharide Complex 150 MG CAPSULE PO (08:32)
[2018-03-14] MEDS: Smz/Tmp Ds Tablet 1 TABLET PO (08:32)
[2018-03-14] MEDS: Calcium Carbonate 500 MG Tablet PO (08:32)
[2018-03-14] MEDS: Tamsulosin HCl 0.4 MG Capsule PO ×2 (08:32→17:37)
[2018-03-14 10:00] VITALS: PULSE 78
--- NOTE | 2018-03-14 11:57 | NURSING ---
Pt straight cathed for 425 or cloudy yellow urine with a strong odor. Pt tolerated well without any complaints. While Pt was transferring to bed to be cathed. Pt got weak and sat down on the nightstand beside the bed. This nurse assisted Pt to the bed, Pt having noticeable trouble with Left leg. Nisreen COLE aware
[2018-03-14 15:38] VITALS: BP 134/73; PULSE 69; RESP 14; TEMP 36.9; O2SAT 96
--- NOTE | 2018-03-14 18:18 | NURSING ---
Lynne straight cathed for 575 ml of cloudy yellow urine with a strong odor. Pt tolerated well with no complaints
[2018-03-14] MEDS: MELATONIN 3 MG TABLET PO (22:00)
[2018-03-14] MEDS: Atorvastatin Calcium 10 MG Tablet PO (22:01)
--- NOTE | 2018-03-14 22:05 | NURSING ---
Pt straight cath for 200 cloudy foul smelling urine. Sediment noted in the end of catheter. Pt denies any pain or discomfort.
[2018-03-15] MEDS: Menthol/Lanolin/Calamine/Znox 113 GM Tube 1 APPLIC TOPICAL ×2 (06:00→19:53)
[2018-03-15] MEDS: Nystatin Powder 15gm Bottle 1 APPLIC TOPICAL ×2 (06:00→19:54)
[2018-03-15] MEDS: Senna/Docusate Sodium 1 Tablet PO ×2 (06:01→16:48)
[2018-03-15] MEDS: Polyethylene Glycol 3350 17 GM PACKET PO (06:01)
[2018-03-15] MEDS: Enoxaparin 40 MG/0.4 ML Syringe SC (06:01)
[2018-03-15] MEDS: levETIRAcetam 500 MG Tablet PO ×2 (06:01→16:50)
[2018-03-15] MEDS: Tamsulosin HCl 0.4 MG Capsule PO ×2 (09:11→16:48)
[2018-03-15] MEDS: Iron Polysaccharide Complex 150 MG CAPSULE PO (09:11)
[2018-03-15] MEDS: Calcium Carbonate 500 MG Tablet PO (09:11)
--- NOTE | 2018-03-15 09:59 | NURSING ---
PT WANTED TO BE STRAIGHT CATHED AT 9AM. THIS NURSE BLADDER SCANNED PT FOR 375. TOOK PT TO BED TO TRY AND USE URINAL. REPORTED TO KELSEY MAYES
[2018-03-15 10:00] VITALS: PULSE 77; RESP 18; O2SAT 97
[2018-03-15 15:28] VITALS: BP 141/80; PULSE 68; RESP 16; TEMP 36.4; O2SAT 97
[2018-03-15] MEDS: Atorvastatin Calcium 10 MG Tablet PO (19:52)
[2018-03-15] MEDS: MELATONIN 3 MG TABLET PO (19:53)
[2018-03-16] MEDS: Menthol/Lanolin/Calamine/Znox 113 GM Tube 1 APPLIC TOPICAL ×2 (06:20→20:35)
[2018-03-16] MEDS: Senna/Docusate Sodium 1 Tablet PO ×2 (06:21→17:02)
[2018-03-16] MEDS: Nystatin Powder 15gm Bottle 1 APPLIC TOPICAL ×2 (06:21→20:34)
[2018-03-16] MEDS: levETIRAcetam 500 MG Tablet PO ×2 (06:21→17:02)
[2018-03-16] MEDS: Enoxaparin 40 MG/0.4 ML Syringe SC (06:22)
[2018-03-16] MEDS: Polyethylene Glycol 3350 17 GM PACKET PO (06:22)
[2018-03-16] MEDS: Tamsulosin HCl 0.4 MG Capsule PO ×2 (07:32→17:02)
[2018-03-16] MEDS: Calcium Carbonate 500 MG Tablet PO (07:32)
[2018-03-16] MEDS: Iron Polysaccharide Complex 150 MG CAPSULE PO (07:32)
--- NOTE | 2018-03-16 13:05 | NURSING ---
PT STRAIGHT CATHED AT 1300 FOR 500,YELLOW/CLOUDY. FOUL SMELL.
[2018-03-16 15:14] VITALS: BP 134/68; PULSE 75; RESP 14; TEMP 36.6; O2SAT 96
--- NOTE | 2018-03-16 19:13 | NURSING ---
STRAIGHT CATHED PT FOR 500. YELLOW,CLOUDY.
[2018-03-16] MEDS: Atorvastatin Calcium 10 MG Tablet PO (20:31)
[2018-03-16] MEDS: MELATONIN 3 MG TABLET PO (20:31)
[2018-03-17] MEDS: Menthol/Lanolin/Calamine/Znox 113 GM Tube 1 APPLIC TOPICAL ×2 (05:36→21:08)
[2018-03-17] MEDS: Nystatin Powder 15gm Bottle 1 APPLIC TOPICAL ×2 (05:36→21:08)
[2018-03-17] MEDS: Enoxaparin 40 MG/0.4 ML Syringe SC (05:37)
[2018-03-17] MEDS: levETIRAcetam 500 MG Tablet PO ×2 (05:37→17:14)
[2018-03-17] MEDS: Senna/Docusate Sodium 1 Tablet PO ×2 (05:37→17:14)
[2018-03-17] MEDS: Polyethylene Glycol 3350 17 GM PACKET PO (05:37)
[2018-03-17] MEDS: Iron Polysaccharide Complex 150 MG CAPSULE PO (07:49)
[2018-03-17] MEDS: Calcium Carbonate 500 MG Tablet PO (07:49)
[2018-03-17] MEDS: Smz/Tmp Ds Tablet 1 TABLET PO (07:49)
[2018-03-17] MEDS: Tamsulosin HCl 0.4 MG Capsule PO ×2 (07:49→17:14)
--- NOTE | 2018-03-17 15:21 | NURSING ---
Dr Singletary office called and wants marcelle zapata. next appt on 03/31/18 @
[2018-03-17 16:00] VITALS: BP 118/66; PULSE 72; RESP 18; TEMP 36.8; O2SAT 98
--- NOTE | 2018-03-17 16:15 | NURSING ---
Pt straight cathed for 400 Ml of pale yellow urine. no complaints at this time, Pt tolerated procedure well. Pt assisted bfrom bed to recliner by this nurse at this time
--- NOTE | 2018-03-17 16:36 | CASEMGMT ---
Brief interview for mental status (BIMS) and resident mood interview (PHQ-9) completed on this day. BIMS score 15. PHQ-9 score 03/16
[2018-03-17] MEDS: Atorvastatin Calcium 10 MG Tablet PO (21:06)
[2018-03-17] MEDS: MELATONIN 3 MG TABLET PO (21:06)
--- NOTE | 2018-03-17 23:00 | NURSING ---
Pt straight cathed at this time for 400ml. Tolerated well.
[2018-03-18] MEDS: levETIRAcetam 500 MG Tablet PO ×2 (06:23→17:26)
[2018-03-18] MEDS: Senna/Docusate Sodium 1 Tablet PO ×2 (06:24→17:26)
[2018-03-18] MEDS: Enoxaparin 40 MG/0.4 ML Syringe SC (06:24)
[2018-03-18] MEDS: Polyethylene Glycol 3350 17 GM PACKET PO (06:24)
[2018-03-18] MEDS: Menthol/Lanolin/Calamine/Znox 113 GM Tube 1 APPLIC TOPICAL ×2 (06:28→22:07)
[2018-03-18] MEDS: Nystatin Powder 15gm Bottle 1 APPLIC TOPICAL ×2 (06:28→22:06)
--- NOTE | 2018-03-18 06:29 | NURSING ---
Pt straight cathed at this time for 550ml. Tolerated well.
[2018-03-18] MEDS: Tamsulosin HCl 0.4 MG Capsule PO ×2 (07:48→17:26)
[2018-03-18] MEDS: Iron Polysaccharide Complex 150 MG CAPSULE PO (07:48)
[2018-03-18] MEDS: Calcium Carbonate 500 MG Tablet PO (07:48)
--- NOTE | 2018-03-18 11:40 | NURSING ---
PT STRAIGHT CATHED AT 11AM FOR 200 OUT.
[2018-03-18 16:00] VITALS: BP 150/66; PULSE 66; RESP 18; TEMP 36.7; O2SAT 96
--- NOTE | 2018-03-18 17:39 | NURSING ---
PT STRAIGHT CATHED SELF FOR 300 OUT.
[2018-03-18] MEDS: MELATONIN 3 MG TABLET PO (22:05)
[2018-03-18] MEDS: Atorvastatin Calcium 10 MG Tablet PO (22:05)
[2018-03-19] MEDS: Enoxaparin 40 MG/0.4 ML Syringe SC (05:27)
[2018-03-19] MEDS: levETIRAcetam 500 MG Tablet PO ×2 (05:27→17:02)
[2018-03-19] MEDS: Senna/Docusate Sodium 1 Tablet PO ×2 (05:28→17:02)
[2018-03-19] MEDS: Menthol/Lanolin/Calamine/Znox 113 GM Tube 1 APPLIC TOPICAL ×2 (05:29→22:16)
[2018-03-19] MEDS: Nystatin Powder 15gm Bottle 1 APPLIC TOPICAL ×2 (05:29→22:16)
[2018-03-19 05:50] LABS: Absolute Lymphocyte Count 1.41 X10^3/ul (0.83-4.51); Absolute Neutrophil Count 4.4 X10^3/uL (2.0-7.7); Basophil# 0.04 X10^3/uL; Basophil% 0.6 % (0-1); Eosinophil# 0.23 X10^3/uL; Eosinophils% 3.4 % (0-5); Hematocrit 34.6 % (40-54); Hemoglobin 11.4 g/dl (13.0-16.5); Lymphocyte # 1.41 X10^3/ul (4.0); Lymphocyte % 21.1 % (19-41); Mean Corp Hgb Conc 32.9 g/gl (32-36); Mean Corpuscular Hgb 30.5 pg (27.0-32.0); Mean Corpuscular Volume 92.5 fL (80-94); Mean Platelet Vol. 8.7 fl (6.2-12.0); Monocyte# 0.63 X10^3/uL; Monocyte% 9.4 % (0-10); Neutrophil # 4.36 X10^3/uL (2.7-7.7); Neutrophil % 65.2 % (47-70); Platelet Count 153 K/mm3 (150-450); RBC Distribution Width CV 13.2 % (11.6-14.6); RBC Distribution Width SD 43.1 fl (35.1-43.9); Red Blood Count 3.74 M/mm3 (4.6-6.2); White Blood Count 6.7 K/mm3 (4.4-11.0)
[2018-03-19 05:52] LABS: POSITIVE COUNT NO; POSITIVE DIFFERENTIAL NO; POSITIVE MORPHOLOGY NO
[2018-03-19 06:02] LABS: Anion Gap 8 (5-15); BUN 18 mg/dL (7-18); BUN/Creat Ratio 21.4 RATIO (10-20); Calcium,Total 8.4 mg/dL (8.5-10.1); Chloride 108 mmol/L (98-107); Creatinine, Serum 0.84 mg/dL (0.70-1.30); EST Glomerular Filtration Rate 92 mL/min (>60); Est Glom Filt Rate - Afr Amer 112 mL/min (>60); Glucose 117 mg/dL (74-106); Potassium 3.9 mmol/L (3.5-5.1); Sodium Level 141 mmol/L (136-145)
[2018-03-19] MEDS: Calcium Carbonate 500 MG Tablet PO (09:40)
[2018-03-19] MEDS: Iron Polysaccharide Complex 150 MG CAPSULE PO (09:40)
[2018-03-19] MEDS: Tamsulosin HCl 0.4 MG Capsule PO ×2 (09:40→17:02)
--- NOTE | 2018-03-19 11:13 | NURSING ---
Pt st cathed for 550cc cloudy urine w/odor. tolerated well.
[2018-03-19 16:00] VITALS: BP 126/76; PULSE 66; RESP 18; TEMP 36.7; O2SAT 95
--- NOTE | 2018-03-19 17:13 | NURSING ---
Pt st cathed 450cc. assisted back to chair for supper, denies needs or c/o.
[2018-03-19] MEDS: Atorvastatin Calcium 10 MG Tablet PO (22:15)
[2018-03-19] MEDS: MELATONIN 3 MG TABLET PO (22:15)
--- NOTE | 2018-03-19 22:39 | NURSING ---
Pt incont large amount of urine. Bladder scanned between 480 and 510. Pt not having verge to urinate. Pt straight cath himself for 500cc. Cloudy yellow urine. Pt denies any symptoms.
[2018-03-20] MEDS: Polyethylene Glycol 3350 17 GM PACKET PO (06:16)
[2018-03-20] MEDS: Enoxaparin 40 MG/0.4 ML Syringe SC (06:19)
[2018-03-20] MEDS: levETIRAcetam 500 MG Tablet PO ×2 (06:19→16:52)
[2018-03-20] MEDS: Senna/Docusate Sodium 1 Tablet PO ×2 (06:19→16:52)
[2018-03-20] MEDS: Nystatin Powder 15gm Bottle 1 APPLIC TOPICAL ×2 (06:29→20:48)
[2018-03-20] MEDS: Menthol/Lanolin/Calamine/Znox 113 GM Tube 1 APPLIC TOPICAL ×2 (06:32→20:49)
[2018-03-20] MEDS: Iron Polysaccharide Complex 150 MG CAPSULE PO (10:28)
[2018-03-20] MEDS: Tamsulosin HCl 0.4 MG Capsule PO ×2 (10:28→16:52)
[2018-03-20] MEDS: Calcium Carbonate 500 MG Tablet PO (10:28)
[2018-03-20 16:00] VITALS: BP 135/71; PULSE 67; RESP 14; TEMP 36.4; O2SAT 95
[2018-03-20] MEDS: Atorvastatin Calcium 10 MG Tablet PO (20:46)
[2018-03-20] MEDS: MELATONIN 3 MG TABLET PO (20:46)
[2018-03-21] MEDS: Polyethylene Glycol 3350 17 GM PACKET PO (06:53)
[2018-03-21] MEDS: levETIRAcetam 500 MG Tablet PO ×2 (06:56→17:32)
[2018-03-21] MEDS: Enoxaparin 40 MG/0.4 ML Syringe SC (06:56)
[2018-03-21] MEDS: Senna/Docusate Sodium 1 Tablet PO ×2 (06:56→17:32)
[2018-03-21] MEDS: Nystatin Powder 15gm Bottle 1 APPLIC TOPICAL ×2 (06:56→20:53)
[2018-03-21] MEDS: Menthol/Lanolin/Calamine/Znox 113 GM Tube 1 APPLIC TOPICAL ×2 (06:56→21:05)
[2018-03-21] MEDS: Tamsulosin HCl 0.4 MG Capsule PO ×2 (08:08→17:32)
[2018-03-21] MEDS: Iron Polysaccharide Complex 150 MG CAPSULE PO (08:08)
[2018-03-21] MEDS: Calcium Carbonate 500 MG Tablet PO (08:08)
--- NOTE | 2018-03-21 13:57 | NURSING ---
PT STRAIGHT CATHED SELF. 400 OUT,YELLOW/CLOUDY. MINOR SMELL.
[2018-03-21 15:51] VITALS: BP 124/75; PULSE 78; RESP 16; TEMP 36.8; O2SAT 93
[2018-03-21] MEDS: MELATONIN 3 MG TABLET PO (20:53)
[2018-03-21] MEDS: Atorvastatin Calcium 10 MG Tablet PO (20:53)
[2018-03-22] MEDS: Enoxaparin 40 MG/0.4 ML Syringe SC (06:24)
[2018-03-22] MEDS: Polyethylene Glycol 3350 17 GM PACKET PO (06:24)
[2018-03-22] MEDS: levETIRAcetam 500 MG Tablet PO ×2 (06:25→17:57)
[2018-03-22] MEDS: Senna/Docusate Sodium 1 Tablet PO ×2 (06:25→17:57)
[2018-03-22] MEDS: Nystatin Powder 15gm Bottle 1 APPLIC TOPICAL ×2 (06:27→20:21)
[2018-03-22] MEDS: Menthol/Lanolin/Calamine/Znox 113 GM Tube 1 APPLIC TOPICAL ×2 (06:27→20:20)
[2018-03-22] MEDS: Tamsulosin HCl 0.4 MG Capsule PO ×2 (09:08→17:57)
[2018-03-22] MEDS: Iron Polysaccharide Complex 150 MG CAPSULE PO (09:08)
[2018-03-22] MEDS: Calcium Carbonate 500 MG Tablet PO (09:10)
[2018-03-22 16:00] VITALS: BP 151/84; PULSE 76; RESP 20; TEMP 36.2; O2SAT 95
[2018-03-22] MEDS: Atorvastatin Calcium 10 MG Tablet PO (20:19)
[2018-03-22] MEDS: MELATONIN 3 MG TABLET PO (20:19)
--- NOTE | 2018-03-22 21:55 | NURSING ---
Pt requesting to be straight cathed at this time. Bladder scanned for 356cc. Straight cathed at this time for 400cc of cloudy urine with sediment present and mild odor. Pt tolerated procedure well.
--- NOTE | 2018-03-23 02:45 | NURSING ---
Pt straight cathed at this time for 400ml. Tolerated well.
[2018-03-23] MEDS: Senna/Docusate Sodium 1 Tablet PO ×2 (05:41→16:51)
[2018-03-23] MEDS: Enoxaparin 40 MG/0.4 ML Syringe SC (05:41)
[2018-03-23] MEDS: levETIRAcetam 500 MG Tablet PO ×2 (05:41→16:51)
[2018-03-23] MEDS: Menthol/Lanolin/Calamine/Znox 113 GM Tube 1 APPLIC TOPICAL ×2 (05:42→20:42)
[2018-03-23] MEDS: Nystatin Powder 15gm Bottle 1 APPLIC TOPICAL ×2 (05:44→20:42)
[2018-03-23] MEDS: Iron Polysaccharide Complex 150 MG CAPSULE PO (08:56)
[2018-03-23] MEDS: Calcium Carbonate 500 MG Tablet PO (08:56)
[2018-03-23] MEDS: Tamsulosin HCl 0.4 MG Capsule PO ×2 (08:56→16:51)
[2018-03-23 16:00] VITALS: BP 156/86; PULSE 68; RESP 20; TEMP 36.5; O2SAT 96
--- NOTE | 2018-03-23 18:09 | NURSING ---
ST CATH AT THIS TIME FOR 400CC. URINE SLIGHTLY CLOUDY, YELLOW. TOLERATED WELL.
--- NOTE | 2018-03-23 18:13 | NURSING ---
ST CATH R' AT 1800 FOR 400CC YELLOW, CLOUDY URINE. FOUL ODOR. R' TOLERATED WELL.
[2018-03-23] MEDS: Atorvastatin Calcium 10 MG Tablet PO (20:40)
[2018-03-23] MEDS: MELATONIN 3 MG TABLET PO (20:40)
--- NOTE | 2018-03-23 22:45 | NURSING ---
Pt straight cathed at this time for 400ml. Tolerated well.
[2018-03-23] MEDS: Acetaminophen 500 MG Tablet 1000 MG PO (22:56)
--- NOTE | 2018-03-24 02:34 | NURSING ---
Pt straight cathed at this time for 250ml. Tolerated well.
[2018-03-24] MEDS: Senna/Docusate Sodium 1 Tablet PO ×2 (05:47→16:46)
[2018-03-24] MEDS: Polyethylene Glycol 3350 17 GM PACKET PO (05:47)
[2018-03-24] MEDS: levETIRAcetam 500 MG Tablet PO ×2 (05:47→16:46)
[2018-03-24] MEDS: Nystatin Powder 15gm Bottle 1 APPLIC TOPICAL ×2 (05:50→20:13)
[2018-03-24] MEDS: Menthol/Lanolin/Calamine/Znox 113 GM Tube 1 APPLIC TOPICAL ×2 (05:51→20:11)
--- NOTE | 2018-03-24 07:05 | NURSING ---
Pt straight cathed at this time for 400ml. Tolerated well.
--- NOTE | 2018-03-24 07:40 | NURSING ---
Clarence trimble this AM d/t clots noted in urine per shift supervisor melting report during st cathing. Will update Dr Mccray
[2018-03-24] MEDS: Tamsulosin HCl 0.4 MG Capsule PO ×2 (07:49→16:46)
[2018-03-24] MEDS: Calcium Carbonate 500 MG Tablet PO (07:49)
[2018-03-24] MEDS: Iron Polysaccharide Complex 150 MG CAPSULE PO (07:49)
[2018-03-24] MEDS: Acetaminophen 500 MG Tablet 1000 MG PO (08:08)
--- NOTE | 2018-03-24 10:03 | MDS.RN ---
Information for the mds was obtained from review of the clinical record, interview of resident, staff, and direct observation of resident's care.
--- NOTE | 2018-03-24 12:46 | NURSING ---
pt st cathed 300cc yellow urine, no odor noted. no hematuria noted.
[2018-03-24 12:47] VITALS: PULSE 72; RESP 18; O2SAT 97
[2018-03-24 15:37] VITALS: BP 128/69; PULSE 77; RESP 18; TEMP 36.4; O2SAT 94
--- NOTE | 2018-03-24 17:46 | NURSING ---
st cathed pt with return of 300cc yellow urine.
[2018-03-24] MEDS: MELATONIN 3 MG TABLET PO (20:09)
[2018-03-24] MEDS: Atorvastatin Calcium 10 MG Tablet PO (20:09)
--- NOTE | 2018-03-24 23:32 | NURSING ---
Patient straight cathed at this time for 300 cc. Patient tolerated well.
[2018-03-25] MEDS: levETIRAcetam 500 MG Tablet PO ×2 (03:54→17:06)
[2018-03-25] MEDS: Polyethylene Glycol 3350 17 GM PACKET PO (03:54)
[2018-03-25] MEDS: Senna/Docusate Sodium 1 Tablet PO ×2 (03:54→17:06)
[2018-03-25] MEDS: Enoxaparin 40 MG/0.4 ML Syringe SC (03:54)
[2018-03-25] MEDS: Menthol/Lanolin/Calamine/Znox 113 GM Tube 1 APPLIC TOPICAL ×2 (03:56→20:28)
[2018-03-25] MEDS: Nystatin Powder 15gm Bottle 1 APPLIC TOPICAL ×2 (03:57→20:27)
--- NOTE | 2018-03-25 03:59 | NURSING ---
Patient straight cathed at this time for 250 cc. Patient tolerated well.
[2018-03-25] MEDS: Tamsulosin HCl 0.4 MG Capsule PO ×2 (08:04→17:06)
[2018-03-25] MEDS: Calcium Carbonate 500 MG Tablet PO (08:04)
[2018-03-25] MEDS: Iron Polysaccharide Complex 150 MG CAPSULE PO (08:04)
--- NOTE | 2018-03-25 08:54 | NURSING ---
Pt to have MRI on 03/31 @ 1p according to [facility]. Pt updated.
[2018-03-25 10:00] VITALS: PULSE 80; RESP 18; O2SAT 97
--- NOTE | 2018-03-25 10:30 | NURSING ---
PT straight cathed at this time. 600 Ml of pale yellow, cloudy urine with strong odor. Pt tolerated well with not complaints. Pt assisted to recliner. call light within reach
--- NOTE | 2018-03-25 14:02 | CASEMGMT ---
Addendum entered by Kellie Weiss 03/25/18 17:09: Reviewed and approved [employer] student documentation. Note: Resident to discharge to home with spouse and home health care. Paris ESPINOSA, WARP TYING MACHINE TENDER Original Note: social work Social work student spoke with resident in room with present about discharge date. Resident is choosing to discharge home with on 03/27/18. will provide transportation home. Team is agreeable to discharge date and is recommending a walker and home physical and occupational therapy. Resident is agreeable to home health through the [facility]. Called and spoke with Abbey from the [facility] and made referral for home physical and occupational therapy. Resident needs walker. Will fax order to [facility] for front wheeled walker when order is obtained. Social work will continue to follow. Discharge date: 03/27/18 Discharge plan: home with Faustina Xiong social work student
--- NOTE | 2018-03-25 14:26 | CASEMGMT ---
Addendum entered by Kellie Weiss 03/25/18 17:14: Reviewed and approved social work student documentation. Paris Weiss MULTIPLE SLIDE OPERATOR, PROPERTY INSPECTOR Original Note: Brief interview for mental status (BIMS) and mood (PHQ-9) completed on this day. BIMS score . PHQ-9 score 04/16. Faustina Xiong social work student
[2018-03-25 15:59] VITALS: BP 129/65; PULSE 72; RESP 20; TEMP 36.9; O2SAT 96
--- NOTE | 2018-03-25 16:46 | NURSING ---
Pt straighted cathed at this time for 300ml of pale yellow, cloudy, strong smelling urine. Pt tolerated procedure well without complaint. Pt assisted into recliner at this time. Call light within reach
--- NOTE | 2018-03-25 17:15 | CASEMGMT ---
Reviewed and approved attached CHILDREN'S BOOK AUTHOR student documentation. Paris ESPINOSA, TALYA
[2018-03-25] MEDS: MELATONIN 3 MG TABLET PO (20:26)
[2018-03-25] MEDS: Atorvastatin Calcium 10 MG Tablet PO (20:26)
--- NOTE | 2018-03-25 21:01 | DCINST_ITS ---
- Discharge Diagnoses Current Active Problems: Current Active and Chronic Problems (Last Reviewed 03/17/18 @ 13:33 by Neetu Santiago) BPH (benign prostatic hyperplasia) (Chronic) Hypertension (Chronic) Steroid-induced diabetes mellitus (Acute) Neurogenic bladder (Chronic) Left hemiparesis (Acute) Debility (Acute) BPH loc w urin obs/LUTS (Acute) You will use the following diet at home:: No restrictions, Regular Your food should be the consistency of: Regular Your liquids should be the consistency of: Regular/Thin Discharge Activity: Return to Normal Activity, May Shower, Use Walker Weight Bearing Status: Weight bearing as tolerated Call your doctor if you observe: Fever of 101 or Higher, Inability to urinate, Inability to have a bowel movement, Shortness of breath, Chest pain, Uncontrol led pain Allergies/Adverse Reactions: Allergies No Known Allergies Allergy (Verified 02/25/18 12:06) Medications to take at Discharge Simvastatin [Zocor] 20 mg PO QHS 12/09/17 Tamsulosin HCl [Flomax] 0.4 mg PO BID 12/09/17 Acetaminophen [Tylenol Tablet] 650 mg PO Q4H PRN PRN 01/20/18 Calcium Citrate 950 mg PO DAILY 01/20/18 Cholecalciferol (VIT D3) [Vitamin D3] 2,000 unit PO DAILY 01/20/18 Melatonin 3 mg PO QHS 01/20/18 Ondansetron [Zofran Odt] 4 mg PO Q8H PRN PRN 01/20/18 Sennosides [Senna Laxative] 8.6 mg PO DAILY 01/20/18 Ondansetron [Zofran] 8 mg PO Q8H PRN PRN 30 Days #30 tab 01/30/18 Smz/Tmp Ds [Bactrim Ds] 1 tab PO DAILY 70 Days #30 tab 01/30/18 Benzonatate [Tessalon Perle] 100 mg PO TID PRN PRN #90 capsule 03/25/18 Iron Polysaccharide Complex [Ferrex 150] 150 mg PO DAILYCM #30 capsule 03/25/18 Levetiracetam [Keppra] 500 mg PO BID #60 tablet 03/25/18 Menthol/Lanolin/Calamine/Znox [Calmoseptine Ointment] 1 applic TOPICAL 0600,2200 tube 03/25/18 Mineral Oil/Petrolatum,White [Eucerin] 1 applic TOPICAL 2200 jar 03/25/18 Nystatin Powder [Mycostatin Powder] 1 applic TOPICAL 0600,2200 bottle 03/25/18 Polyethylene Glycol 3350 [Miralax] 17 gm PO DAILY #30 packet 03/25/18 The following prescriptions were given: Benzonatate [Tessalon Perle] 100 mg PO TID PRN PRN #90 capsule PRN Reason: COUGH Iron Polysaccharide Complex [Ferrex 150] 150 mg PO DAILYCM #30 capsule Polyethylene Glycol 3350 [Miralax] 17 gm PO DAILY #30 packet Levetiracetam [Keppra] 500 mg PO BID #60 tablet Primary Care Physician: Violeta Copeland [Primary Care Provider] - Please follow up with your Primary Care Physician in: 1 week. Test Results: Test results from this visit will be discussed in further detail at your follow- up appointment, if applicable. Please Follow Up With: Dr Singletary When: [phone] Please Follow Up With: Dr Barboza When: [phone] Please Follow Up With: Dr Marcial When: [phone] Please Follow Up With: MRI Test When: [phone] Please Follow Up With: Morelia Singletary MD Please Follow Up With: Jojo RODRIGUES Proposed Discharge Date: 03/27/18
--- NOTE | 2018-03-25 21:03 | DS.PCM_ITS ---
Discharge Date and Diagnosis - Problem List Patient Problems: Active and Suspected Problems (Last Reviewed 03/17/18 @ 13:33 by Neetu Santiago) Steroid-induced diabetes mellitus (Acute) Left hemiparesis (Acute) Debility (Acute) BPH loc w urin obs/LUTS (Acute) Date of Admission: 01/20/18 Date of Discharge: 03/27/18 - Primary Discharge Diagnosis Active and Suspected Problems (Last Reviewed 03/17/18 @ 13:33 by Neetu Santiago) Steroid-induced diabetes mellitus (Acute) Left hemiparesis (Acute) Debility (Acute) BPH loc w urin obs/LUTS (Acute) - Secondary Discharge Diagnosis Chronic Problems (Last Reviewed 03/17/18 @ 13:33 by Neetu Santiago) History of chest pain (Chronic) BPH (benign prostatic hyperplasia) (Chronic) Hypertension (Chronic) Neurogenic bladder (Chronic) Hospital Course and Treatment Imaging Results: 01/20/18 15:58 Diet: Carbohydrate Controlled Is pt able to select menu?: Yes Clinical Impression(s) from Imaging Studies Chest X-Ray 03/10/18 13:46 IMPRESSION: Degenerative changes, as described above. No demonstrated acute cardiopulmonary process. Electronically Signed: Chelsea Lua MD at 15:36 EST Tel , Service support , Operations: None Procedures: None Summary of Care Provided: The patient is a 82 year old Male with below past medical history significant for glioblastoma multiforme s/p excision, complicated left hemiparesis, steroid induced diabetes mellitus, ESBL K. Pneumoniae UTI, admitted from [facility] inpatient rehab to U with debility, to continue rehabilitation, strengthening, prior to discharge home with spouse to continue treatment for GBM. On TCU, he received chemoradiation under Dr. Singletary, Dr. Barboza, will continue treatment after discharge. Discharge home with , and Home Health Services. Patient Problems: Active and Suspected Problems (Last Reviewed 03/17/18 @ 13:33 by Neetu Santiago) Steroid-induced diabetes mellitus (Acute) Left hemiparesis (Acute) Debility (Acute) BPH loc w urin obs/LUTS (Acute) - Physical Exam Vital Signs Temp Pulse Resp BP Pulse Ox 98.4 F 72 20 H 129/65 H 96 02/05/19 15:59 03/25/18 15:59 03/25/18 15:59 03/25/18 15:59 03/25/18 15:59 Oxygen Delivery Method Room Air Weight: 83.036 kg Body Mass Index (BMI) 21.5 Intake and Output for Last 24 Hours 03/23/18 03/24/18 03/25/18 23:59 23:59 23:59 Intake Total 960 / 960 820 / 820 920 / 920 Output Total 1750 / 1750 1550 / 1550 550 / 550 Balance -790 / -790 -730 / -730 370 / 370 Discharge Diet: No Restrictions Discharge Activity: Return to Normal Activity, May Shower, Use Walker Weight Bearing Status: Weight bearing as tolerated Call your doctor if you observe: Fever of 101 or Higher, Inability to urinate, Inability to have a bowel movement, Shortness of breath, Chest pain, Uncontrolled pain Home Medications: Medications to take at Discharge Simvastatin [Zocor] 20 mg PO QHS 12/09/17 Tamsulosin HCl [Flomax] 0.4 mg PO BID 12/09/17 Acetaminophen [Tylenol Tablet] 650 mg PO Q4H PRN PRN 01/20/18 Calcium Citrate 950 mg PO DAILY 01/20/18 Cholecalciferol (VIT D3) [Vitamin D3] 2,000 unit PO DAILY 01/20/18 Melatonin 3 mg PO QHS 01/20/18 Ondansetron [Zofran Odt] 4 mg PO Q8H PRN PRN 01/20/18 Sennosides [Senna Laxative] 8.6 mg PO DAILY 01/20/18 Ondansetron [Zofran] 8 mg PO Q8H PRN PRN 30 Days #30 tab 01/30/18 Smz/Tmp Ds [Bactrim Ds] 1 tab PO DAILY 70 Days #30 tab 01/30/18 Benzonatate [Tessalon Perle] 100 mg PO TID PRN PRN #90 capsule 03/25/18 Iron Polysaccharide Complex [Ferrex 150] 150 mg PO DAILYCM #30 capsule 03/25/18 Levetiracetam [Keppra] 500 mg PO BID #60 tablet 03/25/18 Menthol/Lanolin/Calamine/Znox [Calmoseptine Ointment] 1 applic TOPICAL 0600,2200 tube 03/25/18 Mineral Oil/Petrolatum,White [Eucerin] 1 applic TOPICAL 2200 jar 03/25/18 Nystatin Powder [Mycostatin Powder] 1 applic TOPICAL 0600,2200 bottle 03/25/18 Polyethylene Glycol 3350 [Miralax] 17 gm PO DAILY #30 packet 03/25/18 Following Prescrptions Were Given to Patient: Benzonatate [Tessalon Perle] 100 mg PO TID PRN PRN #90 capsule PRN Reason: COUGH Iron Polysaccharide Complex [Ferrex 150] 150 mg PO DAILYCM #30 capsule Polyethylene Glycol 3350 [Miralax] 17 gm PO DAILY #30 packet Levetiracetam [Keppra] 500 mg PO BID #60 tablet Primary Care Physician: Violeta Copeland [Primary Care Provider] - Please follow up with your Primary Care Physician in: 1 week. Please Follow Up With: Dr Singletary When: [phone] Please Follow Up With: Dr Barboza When: [phone] Please Follow Up With: Dr Marcial When: [phone] Please Follow Up With: MRI Test When: [phone] Please Follow Up With: Morelia Singletary MD Please Follow Up With: Jojo RODRIGUES Disposition: Home with Home Health Minutes spent on discharge:: 35 Patient Condition:: Stable Medical Necessity - Tobacco Use Smoking Status: Former smoker Tobacco Use: Non-smoker Meaningful Use Info Meaningful Use Diagnoses (Choose all that apply): None applicable
--- NOTE | 2018-03-25 21:03 | PCM.PN.HH ---
Home Health Note - Plan Overview of reason of hospitalization: The patient is a 82 year old Male with below past medical history significant for glioblastoma multiforme s/p excision, complicated left hemiparesis, steroid induced diabetes mellitus, ESBL K. Pneumoniae UTI, admitted from [facility] inpatient rehab to TCU with debility, to continue rehabilitation, strengthening, prior to discharge home with spouse to continue treatment for GBM. On TCU, he received chemoradiation under Dr. Singletary, Dr. Barboza, will continue treatment after discharge. Discharge home with , and Home Health Services. Problems: Patient was seen for (Last Reviewed 03/17/18 @ 13:33 by Neetu Santiago) BPH (benign prostatic hyperplasia) (Chronic) Hypertension (Chronic) Steroid-induced diabetes mellitus (Acute) Neurogenic bladder (Chronic) Left hemiparesis (Acute) Debility (Acute) BPH loc w urin obs/LUTS (Acute) Complete List of Medical Problems (Last Reviewed 03/17/18 @ 13:33 by Neetu Santiago) History of chest pain (Chronic) GBM (glioblastoma multiforme) (Acute) BPH (benign prostatic hyperplasia) (Chronic) Hypertension (Chronic) Steroid-induced diabetes mellitus (Acute) Neurogenic bladder (Chronic) Left hemiparesis (Acute) Debility (Acute) Anemia (Acute) Educational circumstance (Acute) Chemotherapy management, encounter for (Acute) RSV (respiratory syncytial virus infection) (Acute) BPH loc w urin obs/LUTS (Acute) - Requirements and Reasons Disciplines Needed/Ordered: Physical Therapy Reason for Disciplines: Gait Training, Stair Training, Fall Prevention, Home Safety/Equipment Instruction, Balance and/or Posture Training, Transfer Training Related To: Limited/Poor Endurance, Shortness of Breath with Activity, Physical Impairments, Unsteady Gait/Balance, Fall Risk Patient is unable to leave the home: Without Aid of Supportive Devices (crutches, cane, wheelchair, walker), Without the assistance of another person - Additional Disciplines Additional Disciplines Needed/Ordered: Occupational Therapy
[2018-03-26] MEDS: Senna/Docusate Sodium 1 Tablet PO ×2 (05:26→17:30)
[2018-03-26] MEDS: Polyethylene Glycol 3350 17 GM PACKET PO (05:26)
[2018-03-26] MEDS: Enoxaparin 40 MG/0.4 ML Syringe SC (05:26)
[2018-03-26] MEDS: levETIRAcetam 500 MG Tablet PO ×2 (05:27→17:30)
[2018-03-26] MEDS: Menthol/Lanolin/Calamine/Znox 113 GM Tube 1 APPLIC TOPICAL ×2 (05:29→21:05)
[2018-03-26] MEDS: Nystatin Powder 15gm Bottle 1 APPLIC TOPICAL ×2 (05:29→21:06)
[2018-03-26 06:09] LABS: Absolute Lymphocyte Count 1.63 X10^3/ul (0.83-4.51); Basophil# 0.04 X10^3/uL; Basophil% 0.6 % (0-1); Eosinophil# 0.23 X10^3/uL; Eosinophils% 3.6 % (0-5); Hematocrit 34.9 % (40-54); Hemoglobin 11.1 g/dl (13.0-16.5); Lymphocyte # 1.63 X10^3/ul (4.0); Lymphocyte % 25.2 % (19-41); Mean Corp Hgb Conc 31.8 g/gl (32-36); Mean Corpuscular Hgb 29.5 pg (27.0-32.0); Mean Corpuscular Volume 92.8 fL (80-94); Monocyte# 0.57 X10^3/uL; Monocyte% 8.8 % (0-10); Neutrophil # 3.97 X10^3/uL (2.7-7.7); Neutrophil % 61.5 % (47-70); Platelet Count 135 K/mm3 (150-450); RBC Distribution Width CV 13.5 % (11.6-14.6); RBC Distribution Width SD 45.9 fl (35.1-43.9); Red Blood Count 3.76 M/mm3 (4.6-6.2); White Blood Count 6.5 K/mm3 (4.4-11.0)
[2018-03-26 06:20] LABS: POSITIVE COUNT NO; POSITIVE DIFFERENTIAL NO; POSITIVE MORPHOLOGY NO
[2018-03-26 06:34] LABS: Anion Gap 5 (5-15); BUN 20 mg/dL (7-18); BUN/Creat Ratio 25.9 RATIO (10-20); Calcium,Total 8.3 mg/dL (8.5-10.1); Chloride 112 mmol/L (98-107); Creatinine, Serum 0.77 mg/dL (0.70-1.30); EST Glomerular Filtration Rate 102 mL/min (>60); Est Glom Filt Rate - Afr Amer 124 mL/min (>60); Estimated Creatinine Clearance 63.25 ml/min; Glucose 110 mg/dL (74-106); Potassium 3.8 mmol/L (3.5-5.1); Sodium Level 143 mmol/L (136-145)
[2018-03-26] MEDS: Calcium Carbonate 500 MG Tablet PO (07:50)
[2018-03-26] MEDS: Acetaminophen 500 MG Tablet 1000 MG PO (07:50)
[2018-03-26] MEDS: Iron Polysaccharide Complex 150 MG CAPSULE PO (07:50)
[2018-03-26] MEDS: Tamsulosin HCl 0.4 MG Capsule PO ×2 (07:50→17:30)
--- NOTE | 2018-03-26 09:34 | NURSING ---
PT STRAIGHT CATHED SELF FOR 500. STERIL PROCEDURE USED. YELLOW/CLOUDY,FOUL SMELL. PT TOLERATED WELL. NO COMPLANTS OR CONCERNS AT THIS TIME.
--- NOTE | 2018-03-26 11:44 | CASEMGMT ---
Social Work Faxed order for front wheeled walker to [employer] to deliver walker to resident room prior to discharge. Proposed discharge date: 03/27/18 PLAN: Discharge to home with spouse and home health care. Paris ESPINOSA, TALYA
[2018-03-26 16:00] VITALS: BP 133/73; PULSE 71; RESP 18; TEMP 36.5; O2SAT 95
--- NOTE | 2018-03-26 17:49 | NURSING ---
PT STRAIGHT CATHED SELF FOR 350 OUT. PT ALSO INCONTANT FOR MODERATE AMOUNT. URINE YELLOW/CLOUDY AND FOUL SMELLING. PT TOLERATED WELL. NO COMPLAINTS OR CONCERNS AT THIS TIME.
[2018-03-26] MEDS: MELATONIN 3 MG TABLET PO (21:03)
[2018-03-26] MEDS: Atorvastatin Calcium 10 MG Tablet PO (21:03)
[2018-03-27] MEDS: Senna/Docusate Sodium 1 Tablet PO (06:46)
[2018-03-27] MEDS: Enoxaparin 40 MG/0.4 ML Syringe SC (06:46)
[2018-03-27] MEDS: levETIRAcetam 500 MG Tablet PO (06:46)
[2018-03-27] MEDS: Polyethylene Glycol 3350 17 GM PACKET PO (06:46)
[2018-03-27] MEDS: Nystatin Powder 15gm Bottle 1 APPLIC TOPICAL (06:48)
[2018-03-27] MEDS: Menthol/Lanolin/Calamine/Znox 113 GM Tube 1 APPLIC TOPICAL (06:48)
[2018-03-27] MEDS: Iron Polysaccharide Complex 150 MG CAPSULE PO (08:08)
[2018-03-27] MEDS: Calcium Carbonate 500 MG Tablet PO (08:08)
[2018-03-27] MEDS: Tamsulosin HCl 0.4 MG Capsule PO (08:08)
--- NOTE | 2018-03-27 10:51 | NURSING ---
PT VOIDED 150 THEN STRAIGHT CATHED SELF FOR 300. THIS NURSE PRESENT. YELLOW/CLOUDY,FOUL SMELL. PT TOLERATED WELL. NO CONCERNS OR COMPLAINTS.
[2018-03-27 11:26] VITALS: BP 139/72; PULSE 66; RESP 16; TEMP 36.4; O2SAT 95
--- NOTE | 2018-03-27 11:51 | CASEMGMT ---
Reviewed and approved FLOTATION OPERATOR student MDS documentation on this day. JESÚS Patrick
[2018-03-27 14:12] VITALS: BP 118/73; PULSE 70; RESP 15; TEMP 37.1; O2SAT 96
== END 2018-03-27 13:30 | disposition home health service (06) | DRG 949 ==
PROVIDERS: Admitting Provider Family Medicine Geriatric Medicine; Family Provider Family Medicine; PCP Family Medicine; Referring Provider Family Medicine Geriatric Medicine; Visit Provider Family Medicine Geriatric Medicine
DX: Z48.811 Encounter for surgical aftercare following surgery on the nervous system (principal); N39.0 Urinary tract infection, site not specified; C71.1 Malignant neoplasm of frontal lobe; G81.94 Hemiplegia, unspecified affecting left nondominant side; E78.5 Hyperlipidemia, unspecified; B96.1 Klebsiella pneumoniae [K. pneumoniae] as the cause of diseases classified elsewhere; Z16.12 Extended spectrum beta lactamase (ESBL) resistance; I10 Essential (primary) hypertension; E09.9 Drug or chemical induced diabetes mellitus without complications; T38.0X5A Adverse effect of glucocorticoids and synthetic analogues, initial encounter; N31.9 Neuromuscular dysfunction of bladder, unspecified; E55.9 Vitamin D deficiency, unspecified; N40.1 Benign prostatic hyperplasia with lower urinary tract symptoms; Z87.891 Personal history of nicotine dependence; R33.9 Retention of urine, unspecified; B35.1 Tinea unguium; B96.20 Unspecified Escherichia coli [E. coli] as the cause of diseases classified elsewhere; B35.4 Tinea corporis; D50.9 Iron deficiency anemia, unspecified
CPT/HCPCS: 36415; 71045; 71046; 77014; 80048; 81001; 82962; 85025; 87086; 87088; 87186; 87633; 92507; 92523; 92610; 97110; 97116; 97163; 97166; 97530; 97535; 97802; J2185; J7050; A4216

== ENCOUNTER → 2018-01-23 11:49 | Outpatient (CLI) | payer MEDICARE, OTHER, SELFPAY ==
[2017-12-13 10:35] VITALS: BMI 22.6
[2018-01-20 15:29] VITALS: BMI 21.5
--- NOTE | 2018-01-23 11:53 | MRI_ITS ---
STUDY: MRI BRAIN WITH AND WITHOUT CONTRAST REASON FOR EXAM: Male, 82 years old. Glioblastoma. Status post resection. Radiation treatment planning. TECHNIQUE: Standardized multiplanar fat and water weighted pulse sequences were obtained. 8 ml of Gadavist contrast material was administered intravenously for the contrast portion of the examination. COMPARISON: None. FINDINGS: Right parasagittal convexity craniotomy defect overlying rim-enhancing surgical margins versus rim enhancing necrotic mass in the posterior aspect of the right superior frontal lobe gyrus. The rim-enhancing mass measures approximately 2.7 x 2.5 cm in the sagittal projection and 2.8 x 2.1 cm in the coronal projection. Normal size of the ventricles and extra-axial spaces for the patient's age. Multiple white matter T2 FLAIR hyperintensity foci in both cerebral hemispheres are chronic white matter ischemic changes. Normal bilateral basal ganglia. Normal thalami. There is no extra-axial fluid accumulation. Normal flow voids within the major intracranial circulation suggesting patency by spin echo criteria. Normal venous enhancement. Normal sella turcica, pituitary gland, infundibular stalk, optic chiasm and hypothalamus. Normal tectal plate and pineal gland. Normal midbrain, di and medulla. Normal cerebellum. Normal basal cisterns. Normal bilateral temporal bones. Normal bilateral internal auditory canals. No demonstrated orbital abnormality, within the constraints of a routine brain study. Normal visualized paranasal sinuses. Normal calvarium and skull base. Normal visualized soft tissue structures. Normal visualized upper cervical spine. MRI/Brain W/WO Contrast IMPRESSION: 1. Limited study without preoperative MRI scans for comparison. 2. 2.8 x 2.5 x 2.1 cm rim enhancing hernandez of the surgical cavity in the posterior aspect of the right superior frontal lobe gyrus versus rim-enhancing necrotic mass of known glioblastoma. Electronically Signed: Fidencio Flynn MD at 10:11 EST , Service support ,
== END ==
PROVIDERS: Family Provider Family Medicine; PCP Family Medicine; Referring Provider Student in an Organized Health Care Education/Training Program; Visit Provider Student in an Organized Health Care Education/Training Program
DX: C71.9 Malignant neoplasm of brain, unspecified (principal)
CPT/HCPCS: 70553; 77014; 77290; A9585; A4216

== ENCOUNTER → 2018-03-31 12:24 | Outpatient (CLI) | payer MEDICARE, OTHER, SELFPAY ==
[2017-12-13 10:35] VITALS: BMI 22.6
[2018-02-24 11:28] VITALS: BMI 23.3
[2018-03-17 13:37] VITALS: BMI 23.6
--- NOTE | 2018-03-31 12:32 | MRI_ITS ---
STUDY: MRI BRAIN WITH AND WITHOUT CONTRAST REASON FOR EXAM: Male, 82 years old. Glioblastoma. Recheck. Surgery 11/26/2017. TECHNIQUE: Standardized multiplanar fat and water weighted pulse sequences were obtained. 8 ml of Gadavist contrast material was administered intravenously for the contrast portion of the examination. COMPARISON: 01/23/2018. FINDINGS: Collapse of the surgical cavity with rim enhancing hernandez in the posterior aspect of the right superior frontal lobe gyrus. Small hemosiderin rim in the hernandez of the surgical cavity is postoperative. 1.1 x 0.7 cm rim-enhancing mass with irregular central necrosis was previously round and previously measured at 0.7 cm in diameter. There is surrounding vasogenic edema. This has increased in size. No other additional findings or changes. MRI/Brain W/WO Contrast IMPRESSION: 1. Increased size of previously round ring enhancing 0.7 cm mass in the posterior aspect of the right superior frontal lobe gyrus now measuring 1.1 x 0.7 cm and increased surrounding vasogenic edema is progression of residual GBM when compared to 01/23/2018. 2. Interval collapse of the rim-enhancing surgical cavity in the right superior frontal lobe gyrus. Electronically Signed: Fidencio Flynn MD at 14:30 EST , Service support ,
== END ==
PROVIDERS: Family Provider Family Medicine; PCP Family Medicine; Referring Provider Student in an Organized Health Care Education/Training Program; Visit Provider Student in an Organized Health Care Education/Training Program
DX: C71.9 Malignant neoplasm of brain, unspecified (principal)
CPT/HCPCS: 70553; A9585

== ENCOUNTER → 2018-05-29 09:26 | Outpatient (CLI) | payer MEDICARE, OTHER, SELFPAY ==
[2017-12-13 10:35] VITALS: BMI 22.6
[2018-04-03 11:42] VITALS: BMI 24.9
[2018-05-19 10:37] VITALS: BMI 25.0
--- NOTE | 2018-05-29 09:36 | MRI_ITS ---
We are attempting to reach Diony Barboza to discuss findings. An addendum with communication details will be sent when the communication is complete. STUDY: MRI BRAIN WITH AND WITHOUT CONTRAST REASON FOR EXAM: Male, 82 years old. Follow-up of treatment of a glioblastoma. Patient has continued weakness. TECHNIQUE: Standardized multiplanar fat and water weighted pulse sequences were obtained. 18 ml IV Dotarem was administered for the contrast portion of the examination. COMPARISON: MRI of the brain dated March 31, 2018. FINDINGS: There is mild cerebral atrophy with widening of the extra-axial spaces and ventricular dilatation. There are multiple confluent white matter hyperintensities, distributed throughout the deep white matter tracts of the cerebral hemispheres, consistent with severe chronic white matter ischemic changes in addition to sequela of whole-brain irradiation. There is a tiny focus of restricted diffusion within the LEFT zabala radiata that probably represents a tiny acute infarct. There is also a second area of restricted diffusion within the right posterior frontal lobe may represent additional infarct. There are questionable areas of restricted diffusion within the basal ganglia that may be artifactual. There is susceptibility artifact in the region of the posterior right frontal and parietal lobe corresponding to area of the tumor and probable previous surgery. There is also small area of susceptibility artifact corresponding to the area of restricted diffusion within the left-sided periatrial white matter. There is probably related to petechial hemorrhage. The susceptibility artifact is similar to the previous MRI. The restricted diffusion is new. There are prominent perivascular spaces (PVS) involving the basal ganglia. Normal thalami. There is no extra-axial fluid accumulation. Normal flow voids within the major intracranial circulation suggesting patency by spin echo criteria. Normal venous enhancement. There is nodular enhancement involving the posterior right frontal lobe presumably representing residual neoplasm and/or treatment changes. This is essentially unchanged since the previous MRI. This area of abnormal enhancement measures approximately 2.1 x 0.9 x 1.9 cm in size. There is peripheral ring enhancement surrounding these lesions. There is moderate vasogenic edema. Normal sella turcica, pituitary gland, infundibular stalk, optic chiasm and hypothalamus. Normal tectal plate and pineal gland. Normal midbrain, di and medulla. Normal cerebellum. Normal basal cisterns. Normal bilateral temporal bones. Normal bilateral internal auditory canals. No demonstrated orbital abnormality, within the constraints of a routine brain study. Normal visualized paranasal sinuses. Normal calvarium and skull base. Normal visualized soft tissue structures. There are degenerative changes of the anterior atlantoaxial articulation. MRI/Brain W/WO Contrast IMPRESSION: 1. Unchanged appearance to the right posterior frontal and parietal neoplasm since previous MRI. 2. Apparent sequela of acute infarcts involving the left periatrial white matter and posterior right frontal lobe near the tumor. This may be the result of treatment. Electronically Signed: Ema Arceo MD at 11:45 EDT , Service support ,
== END ==
PROVIDERS: Family Provider Family Medicine; PCP Family Medicine; Referring Provider Student in an Organized Health Care Education/Training Program; Visit Provider Student in an Organized Health Care Education/Training Program
DX: C71.9 Malignant neoplasm of brain, unspecified (principal)
CPT/HCPCS: 70553; A9575

== ENCOUNTER 2018-05-30 13:13 | Inpatient (IN) | payer MEDICARE, OTHER, SELFPAY ==
[2017-12-13 10:35] VITALS: BMI 22.6
[2018-05-19 10:37] VITALS: BMI 25.0
[2018-05-30] VITALS (13 sets, daily range): BP systolic 126–157; BP diastolic 63–76; PULSE 58–87; RESP 11–17; TEMP 36.2–36.5; O2SAT 96–100; BMI 24.4
--- NOTE | 2018-05-30 13:55 | EKG12_ITS ---
Test Reason : ABN LABS Blood Pressure : / mmHG Vent. Rate : 070 BPM Atrial Rate : 070 BPM P-R Int : 192 ms QRS Dur : 108 ms QT Int : 394 ms P-R-T Axes : 019 -31 007 degrees QTc Int : 425 ms Normal sinus rhythm Left axis deviation Moderate voltage criteria for LVH, may be normal variant Abnormal ECG Confirmed by GENET BRADLEY ([id number]), development editor AGUSTINA HURD ([id number] on 06/02/2018 4:48:38 PM Referred By: Chas Hutchison Confirmed By:GENET BRADLEY
--- NOTE | 2018-05-30 13:55 | ED.VIS.GEN ---
History of Present Illness Chief Complaint: Abn Labs Detail of Chief Complaint: MRI shows acute stroke Informant: Patient, Significant Other Onset: - - Unknown Context: - - Unaware Timing: - - Unknown Quality: Unable to quantitate Location: Not applicable Current Severity: Patient unaware that he had stroke Maximum Severity: Unaware Worsened by: Unknown Relieved by: Unknown Associated Symptoms: None Narrative: Patient is a 82-year-old male who was diagnosed with glioblastoma with residual left-sided weakness. He had MRI brain to evaluate persistent weakness. MRI revealed 3 areas of concern for acute stroke. Patient was sent to the emergency room for evaluation. - Past Medical History (1) Anemia Status: Acute (2) BPH loc w urin obs/LUTS Status: Acute (3) Chemotherapy management, encounter for Status: Acute (4) GBM (glioblastoma multiforme) Status: Acute (5) Left hemiparesis Status: Acute (6) Hypertension Status: Chronic (7) Neurogenic bladder Status: Chronic Past Medical History - Allergies and Home Meds Allergies/Adverse Reactions: Allergies No Known Allergies Allergy (Verified 05/30/18 13:17) Primary Care Physician: Violeta Copeland [Primary Care Provider] - Prior records reviewed: Yes Surgical History: appendectomy, cholecystectomy, total knee arthroplasty, tonsillectomy, - - Excision brain tumor by craniotomy. Lives: Spouse/ Significant Other Smoking Status: Former smoker Alcohol: None Drugs: None - Family History Maternal Family History: Family History (Last Reviewed 05/19/18 @ 10:32 by Lianne Rosado) Mother Heart disease Father CAD (coronary artery disease) Family History: Reports: No pertinent history Paternal Family History: Family History (Last Reviewed 05/19/18 @ 10:32 by Lianne Rosado) Mother Heart disease Father CAD (coronary artery disease) Family History: Reports: No pertinent history Review of Systems General: Denies: Chills, Fever, Sweats Eyes: Denies: Visual changes - bilaterally, Blurred Vision - bilaterally, Diplopia ENT: Denies: Rhinorrhea, Sore throat Cardiovascular: Denies: Chest pain, Palpitations Respiratory: Denies: Dyspnea, Cough, Dyspnea on exertion Gastrointestinal: Denies: Abdominal pain, Nausea, Vomiting, Diarrhea, Melena, Hematochezia Genitourinary: Denies: Dysuria, Hematuria, Frequency Musculoskeletal: Denies: Back pain, Extremity Pain Skin: Denies: Rash, Wounds Neurological: Reports: Weakness - Persistent left side secondary to glioblastoma. Denies: Headache, Parasthesia, Numbness Hematologic: Denies: Easy bruising, Easy bleeding Allergy: Denies: Uticaria, Swelling of the mouth Physical Exam Vital Signs/Narrative: Vital Signs Temp Pulse Resp BP Pulse Ox 05/30/18 13:14 97.3 F L 87 16 134/69 H 96 General: Well nourished, Well developed, No Acute Distress Head: Normocephalic, Atraumatic Eyes: Perrl, EOMI ENT: Moist mucous membranes, No rhinorrhea Neck: Supple, Nontender Cardiovascular: Regular rate, Regular rhythm, No murmurs Respiratory: No distress, CTA bilaterally, Chest nontender Abdomen: Soft, Nontender, Nondistended, Normal bowel sounds Back: Nontender, Normal Inspection Extremities: Nontender, No edema Skin: Normal color, No rash Neurological: Alert, Oriented x3, Cranial nerves II-XII grossly intact, Normal Sensation, - - NIH is 2 for left leg weakness and mild left facial droop. Negative for: Normal Strength - Persistent weakness left leg Psychological: Normal affect, Normal Mood Diagnostic/Tx/Re-eval There is a tiny focus of restricted diffusion within the LEFT zabala radiata that probably represents a tiny acute infarct. There is also a second area of restricted diffusion within the right posterior frontal lobe may represent additional infarct. There are questionable areas of restricted diffusion within the basal ganglia that may be artifactual. There is susceptibility artifact in the region of the posterior right frontal and parietal lobe corresponding to area of the tumor and probable previous surgery. There is also small area of susceptibility artifact corresponding to the area of restricted diffusion within the left-sided periatrial white matter. There is probably related to petechial hemorrhage. The susceptibility artifact is similar to the previous MRI. The restricted diffusion is new. There are prominent perivascular spaces (PVS) involving the basal ganglia. Normal thalami. There is no extra-axial fluid accumulation. Normal flow voids within the major intracranial circulation suggesting patency by spin echo criteria. Normal venous enhancement. Laboratory Results 05/30/18 05/30/18 14:35 14:35 WBC 6.4 RBC 4.13 L Hgb 12.2 L Hct 36.4 L MCV 88.1 MCH 29.5 MCHC 33.5 RDW 14.1 RDW Differential 44.6 H Plt Count 198 MPV 8.4 Immature Gran % (Auto) 0.200 Neut % (Auto) 69.8 Lymph % (Auto) 14.7 L Weston % (Auto) 10.0 Eos % (Auto) 4.4 Baso % (Auto) 0.9 Absolute Neuts (auto) 4.5 Absolute Lymphs (auto) 0.94 Total Counted Not Reportable PT 14.3 INR 1.1 APTT 34.2 - Medical Decision Making Patient presents because of abnormal MRI which reveals possibly 3 areas of acute ischemic infarct and raises possibility for embolic phenomenon. Patient was informed he will need admission and further testing. ED Disposition - Plan for ED Patient: Disposition: Acute Care [facility] Diagnosis: Acute CVA (cerebrovascular accident) Referrals: Violeta Copeland [Primary Care Provider] -
[2018-05-30 14:54] LABS: Absolute Lymphocyte Count 0.94 X10^3/ul (0.83-4.51); Absolute Neutrophil Count 4.5 X10^3/uL (2.0-7.7); Basophil# 0.06 X10^3/uL; Basophil% 0.9 % (0-1); Eosinophil# 0.28 X10^3/uL; Eosinophils% 4.4 % (0-5); Hematocrit 36.4 % (40-54); Hemoglobin 12.2 g/dl (13.0-16.5); Lymphocyte # 0.94 X10^3/ul (4.0); Lymphocyte % 14.7 % (19-41); Mean Corp Hgb Conc 33.5 g/gl (32-36); Mean Corpuscular Hgb 29.5 pg (27.0-32.0); Mean Corpuscular Volume 88.1 fL (80-94); Mean Platelet Vol. 8.4 fl (6.2-12.0); Monocyte# 0.64 X10^3/uL; Neutrophil # 4.47 X10^3/uL (2.7-7.7); Neutrophil % 69.8 % (47-70); Platelet Count 198 K/mm3 (150-450); RBC Distribution Width CV 14.1 % (11.6-14.6); RBC Distribution Width SD 44.6 fl (35.1-43.9); Red Blood Count 4.13 M/mm3 (4.6-6.2); White Blood Count 6.4 K/mm3 (4.4-11.0)
[2018-05-30 14:55] LABS: POSITIVE COUNT NO; POSITIVE DIFFERENTIAL NO; POSITIVE MORPHOLOGY NO
[2018-05-30 15:00] LABS: International Normalized Ratio 1.1; Partial Thromboplast Time 34.2 Seconds (24.1-36.2); Prothrombin Time (Protime)PT. 14.3 SECONDS (11.7-14.9)
[2018-05-30 15:25] LABS: Anion Gap 7 (5-15); BUN 23 mg/dL (7-18); BUN/Creat Ratio 24.8 RATIO (10-20); Calcium,Total 8.6 mg/dL (8.5-10.1); Chloride 105 mmol/L (98-107); Creatinine, Serum 0.93 mg/dL (0.70-1.30); EST Glomerular Filtration Rate 83 mL/min (>60); Est Glom Filt Rate - Afr Amer 100 mL/min (>60); Estimated Creatinine Clearance 68.02 ml/min; Glucose 122 mg/dL (74-106); Potassium 4.1 mmol/L (3.5-5.1); Sodium Level 139 mmol/L (136-145)
--- NOTE | 2018-05-30 16:50 | HP.PCM_ITS ---
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 The patient follows Dr. Singletary, last follow-up with May 19, 2018. The patient is undergoing combination therapy with radiation and concurrent daily Temodar as per note of Dr. Singletary. Patient also follows Dr. Barboza for radiation therapy. He denies new symptoms including dysphagia, change in his speech/language d eficit, confusion, disorientation. [] Past Medical History Past Medical History (Chronic Problems): Chronic Problems (Last Reviewed 05/19/18 @ 10:32 by Lianne Rosado) History of chest pain (Chronic) BPH (benign prostatic hyperplasia) (Chronic) Hypertension (Chronic) Neurogenic bladder (Chronic) Medical History: Medical History (Last Reviewed 05/19/18 @ 10:32 by Lianne Rosado) Benign prostatic hyperplasia with lower urinary tract symptoms N40.1 Hyperlipidemia E78.5 Primary glioblastoma of brain C71.9 S/P RIGHT FRONTAL CRANIECTOMY 12-27-17 [facility] Ventricular hypertrophy I51.7 bilateral enlargement Allergies No Known Allergies Allergy (Verified 05/30/18 13:17) Home Medications: Ambulatory Orders Medication Instructions Recorded Simvastatin [Zocor] 20 mg PO QHS 12/09/17 Tamsulosin HCl [Flomax] 0.4 mg PO MOWEFR PRN 12/09/17 Levetiracetam [Keppra] 500 mg PO BID #60 tablet 03/25/18 Acetaminophen [Tylenol Extra 1,000 mg PO PRN PRN 05/30/18 Strength] Calcium Carbonate/Vitamin D3 1 each PO DAILY 05/30/18 [Calcium 500-Vit D3 600 Tablet] Ibuprofen 800 mg PO PRN PRN 05/30/18 Polyethylene Glycol 3350 [Miralax] 17 gm PO DAILY 05/30/18 Surgical History: Surgical History (Last Reviewed 05/19/18 @ 10:32 by Lianne Rosado) History of appendectomy Z90.49 History of bilateral knee replacement Z96.653 History of cholecystectomy Z90.49 History of tonsillectomy Z90.89 Surgical History: appendectomy, cholecystectomy, total knee arthroplasty, tonsillectomy, - - Excision brain tumor by craniotomy. Lives: Spouse/ Significant Other Smoking Status: Former smoker Tobacco Use: Cigarettes Alcohol: None Drugs: None - *Family History Maternal Family History: Family History (Last Reviewed 05/19/18 @ 10:32 by Lianne Rosado) Mother Heart disease Father CAD (coronary artery disease) History Items: No pertinent history Paternal Family History: Family History (Last Reviewed 05/19/18 @ 10:32 by Lianne Rosado) Mother Heart disease Father CAD (coronary artery disease) History Items: No pertinent history Review of Systems Constitutional: Denies: Chills, Fever, Weight Change HEENT: Denies: Head Aches, Sinus Congestion, Sinus Drainage Cardiovascular: Denies: Chest Pain, Palpitations Respiratory: Denies: Cough, Shortness of breath at rest, Sputum production Gastrointestinal: Denies: Abdominal Pain, Nausea, Vomiting Genitourinary: Reports: Incontinence, Retention, - - Patient has urinary incontinence, mostly secondary to brain tumor. Patient not able to sense bladder fullness. On a straight cath every 4-hour.. Denies: Dysuria Musculoskeletal: Denies: Joint Pain, Joint Tenderness Skin: Denies: Rash, Wounds Neurological: Reports: Balance problems, Incoordination. Denies: Focal weakness, Numbness, Tingling Psychiatric: Denies: Anxiety, Depression, Homicidal Ideations, Suicidal Ideations Hematologic/ Lymphatic: Denies: Easy Bruising, Easy Bleeding VTE Information - Inpt Only VTE Present on Admission: No VTE Mechan Device Prophylaxis: None VTE Pharm Prophylaxis ordered?: Yes Patient Problems: Active and Suspected Problems (Last Reviewed 05/19/18 @ 10:32 by Lianne Rosado) Acute CVA (cerebrovascular accident) (Acute) - Physical Exam General: Alert, Oriented x3, Cooperative, - HEENT: Atraumatic, PERRLA, EOMI, Normocephalic, - - Surgical scar present for right frontal craniectomy Oral: Moist Mucosa Neck: Supple, No JVD, Negative Carotid Bruits Lungs: Clear to auscultation, Normal air movement, No rhonchi, No wheeze, No rales Cardiovascular: Regular rate, Regular Rhythm, Normal S1, Normal S2, No murmurs Abdomen: Bowel Sounds Present, Soft, Non Tender, Non-Distended Extremities: No edema, Capillary Refill Less than 3 Seconds Skin: No rashes, No breakdown Musculoskeletal: No Tenderness to Palpation of Joints or Extremities, Arthritic Changes Lymphatic: No Cervical, Supraclavicular, or Inguinal Adenopathy Neurological: Cranial nerves II-XII grossly intact, Deep Tendon Reflexes 2+/4 and Symmetrical, Neuro grossly intact, - - Muscle strength in left lower extremity 4/5; rest 5/5. Psych/Mental Status: Normal Affect, Appropriate Vital Signs Temp Pulse Resp BP Pulse Ox 97.3 F L 64 12 126/76 H 98 05/30/18 15:23 05/30/18 16:30 05/30/18 16:30 05/30/18 16:00 05/30/18 16:30 Oxygen Delivery Method Room Air Weight: 185 lb Body Mass Index (BMI) 24.4 Laboratory Tests Past 24 Hrs 05/30/18 05/30/18 05/30/18 14:35 14:35 14:35 WBC 6.4 RBC 4.13 L Hgb 12.2 L Hct 36.4 L MCV 88.1 MCH 29.5 MCHC 33.5 RDW 14.1 RDW Differential 44.6 H Plt Count 198 MPV 8.4 Immature Gran % (Auto) 0.200 Neut % (Auto) 69.8 Lymph % (Auto) 14.7 L Thayer % (Auto) 10.0 Eos % (Auto) 4.4 Baso % (Auto) 0.9 Absolute Neuts (auto) 4.5 Absolute Lymphs (auto) 0.94 Total Counted Not Reportable PT 14.3 INR 1.1 APTT 34.2 Sodium 139 Potassium 4.1 Chloride 105 Carbon Dioxide 27.0 Anion Gap 7 BUN 23 H Creatinine 0.93 Estim Creat Clear Calc 68.02 Est GFR (MDRD) Af Amer 100 Est GFR (MDRD) Non-Af 83 BUN/Creatinine Ratio 24.8 H Glucose 122 H Calcium 8.6 Troponin I < 0.015 Assessment/Plan All Active Problems (Last Reviewed 05/19/18 @ 10:32 by Lianne Rosado) GBM (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) Left hemiparesis (Acute) Debility (Acute) Anemia (Acute) Educational circumstance (Acute) Chemotherapy management, encounter for (Acute) RSV (respiratory syncytial virus infection) (Acute) BPH loc w urin obs/LUTS (Acute) Acute CVA (cerebrovascular accident) (Acute) The patient is a 82 year old M with history of 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 The patient follows Dr. Singletary, last follow-up with May 19, 2018. The patient is undergoing combination therapy with radiation and concurrent daily Temodar as per note of Dr. Singletary. Patient also follows Dr. Barboza for radiation therapy. He denies new symptoms including dysphagia, change in his speech/language deficit, confusion, disorientation. 1. MRI finding of multiple tiny acute ischmic infarcts: Patient is being admitted in PCU for further workup including CTA of head and neck, echo and cardiac monitoring. Patient denies history of MA, CHF or arrhythmia in the past. Troponin is negative. Vitals are stable. Neurology consult. Patient passed dysphagia screen and on cardiac diet. On stroke protocol including PT, OT, speech/swallow evaluation. BP and glucose control as per protocol. 2. Glioblastoma with residual left leg weakness: Patient repeat MRI brain with and without contrast on 05/29/2018 reported as a residual posterior right frontal lobe neoplasm with treatment changes. It is unchanged from previous MRI of March 31. Follow Dr. Singletary. 3. Neurogenic bladder mostly secondary to glioblastoma: Patient uses self- catheterization every 4 hours. 4. Hypertension: Blood pressure is controlled. 5. Steroid-induced diabetes mellitus: Accu-Chek before meals and at bedtime and cover with NovoLog sliding scale. Other comorbidities include BPH, debility, anemia of chronic disease: Home medication reconciliation done. Laboratory Results 05/30/18 14:35: WBC 6.4, RBC 4.13 L, Hgb 12.2 L, Hct 36.4 L, MCV 88.1, MCH 29.5, MCHC 33.5, RDW 14.1, RDW Differential 44.6 H, Plt Count 198, MPV 8.4, Immature Gran % (Auto) 0.200, Neut % (Auto) 69.8, Lymph % (Auto) 14.7 L, Thayer % (Auto) 10.0, Eos % (Auto) 4.4, Baso % (Auto) 0.9, Absolute Neuts (auto) 4.5, Absolute Lymphs (auto) 0.94, Total Counted Not Reportable 05/30/18 14:35: PT 14.3, INR 1.1, APTT 34.2 05/30/18 14:35: Sodium 139, Potassium 4.1, Chloride 105, Carbon Dioxide 27.0, Anion Gap 7, BUN 23 H, Creatinine 0.93, Estim Creat Clear Calc 68.02, Est GFR (MDRD) Af Amer 100, Est GFR (MDRD) Non-Af 83, BUN/Creatinine Ratio 24.8 H, Glucose 122 H, Calcium 8.6, Troponin I < 0.015 Code Visit Inpatient E&M: 00920 Init Hosp L3
--- NOTE | 2018-05-30 17:03 | CT_ITS ---
STUDY: CTA OF THE BRAIN REASON FOR EXAM: Male, 82 years old. Stroke RADIATION DOSAGE (If Supplied By Facility): CTDIvol = ( 29.21 ) mGy, DLP = ( 1507.11 ) mGycm TECHNIQUE: CT angiography was performed with a multi-detector CT scanner. Data acquisition was obtained from the skull base through the vertex following intravenous administration of 100ML IV Isovue 370. MIP images were reconstructed from the axial data set. Post-processing of the angiographic images was performed, with multiplanar reformation and 3D reconstruction. Individualized dose optimization techniques were used for this CT. COMPARISON: None. FINDINGS: Normal bilateral petrous carotid arteries. Normal right cavernous carotid artery with a normal supraclinoid bifurcation. Normal left cavernous carotid artery with a normal supraclinoid bifurcation. Normal right A1 segments of the anterior cerebral artery. Normal left A1 segments of the anterior cerebral artery. Normal intact anterior communicating artery (ACOM). Normal bilateral A2 segments of the anterior cerebral arteries. Normal right M1 and M2 segments of the middle cerebral arteries, with a normal M1 bifurcation. Normal left M1 and M2 segments of the middle cerebral arteries, with a normal M1 bifurcation. The LEFT vertebral artery is small in caliber which is most likely a normal variation. The basilar artery is small in caliber due to origin of the posterior cerebral arteries. The visualized bilateral superior cerebellar (SCA) arteries are normal. Normal bilateral P1, P2 and visualized P3 segments of the posterior cerebral arteries. There is no demonstrated aneurysm of the [place]. IMPRESSION: There is NO intracranial arterial stenosis or occlusion. There is NO aneurysm or vascular malformation. Electronically Signed: Trevor Leyva MD at 3:34 EDT , Service support , STUDY: CTA NECK WITH CONTRAST REASON FOR EXAM: Male, 82 years old. RADIATION DOSAGE (If Supplied By Facility): CTDIvol = ( ) mGy, DLP = ( ) mGycm TECHNIQUE: CT angiography with multi-detector data acquisition was performed from the aortic arch to the skull base following intravenous administration of 100mL IV Isovue 370. MIP images were reconstructed from the axial data set. Post-processing of the angiographic images was performed, with multiplanar reformation and 3D reconstruction. Individualized dose optimization techniques were used for this CT. COMPARISON: None. FINDINGS: AORTIC ARCH: Normal visualized aortic arch. Normal origins of the brachiocephalic, left common carotid, and left subclavian arteries. RIGHT CAROTID ARTERIES: Normal right common carotid artery (CCA). There is moderate atherosclerotic plaque formation with moderate narrowing of the right carotid bulb. There is moderate atherosclerotic plaque formation of the origin of the right internal carotid artery with an estimated stenosis of 50-69% stenosis. Normal visualized cervical portion of the right internal carotid artery. Normal origin of the right external carotid artery (ECA). LEFT CAROTID ARTERIES: Normal left common carotid artery (CCA). There is moderate atherosclerotic plaque formation with moderate narrowing of the carotid bulb. There is moderate atherosclerotic plaque formation of the origin of the left internal carotid artery with an estimated stenosis of 50-69% stenosis. Normal visualized cervical portion of the left internal carotid artery. Normal origin of the left external carotid artery (ECA). VERTEBRAL ARTERIES: There is enhancement within the bilateral vertebral arteries with a small left vertebral artery, and a dominant right vertebral artery. CT/CTA Head W/WO Contrast IMPRESSION: There is calcified plaque at the carotid bulbs without significant stenosis. Electronically Signed: Trevor Leyva MD at 3:35 EDT , Service support ,
--- NOTE | 2018-05-30 17:03 | ECHOD_ITS ---
Reason For Study: TIA/CVA Procedure This was a 2D Doppler, Color Flow transthoracic echocardiogram. Myocardial strain analysis was performed in this exam to aid in the assessment of cardiac function. Exam performed portable in patient room. Left Ventricle Mild concentric left ventricular hypertrophy. The estimated ejection fraction is 65 %. Stage 1 diastolic dysfunction. No regional wall motion abnormalities noted. Right Ventricle Mildly dilated right ventricle. Normal systolic function. Atria Normal left atrium. Normal right atrium. Normal atrial septum. Mitral Valve Mild diffuse mitral valve thickening. Moderate mitral annular calcification extending into the posterior leaflet. Equivocal mitral valve prolapse. Tricuspid Valve Normal tricuspid valve. Trivial tricuspid valve insufficiency. Right ventricular systolic pressure estimated to be 27 mmHg. Aortic Valve Trisinus/trileaflet aortic valve. Moderate focal aortic valve thickening. Moderate focal aortic valve calcification. Mild restriction of the aortic valve. Mild to moderate aortic stenosis. Peak aortic valve gradient 34 mmHg. Mean aortic valve gradient 18 mmHg. Calculated aortic valve area (continuity equation) is 1.4 cm2. Pulmonic Valve Normal pulmonic valve. Trivial pulmonic valve insufficiency. Great Vessels Calcified aortic root. Normal arch. Normal inferior vena cava. Inferior vena cava collapse with sniff. Pericardium/Pleural No pericardial effusion. Medication Performed a rapid injection of agitated mix of 9 cc saline and 1cc air to assess for atrial septal defect. MMode/2D Measurements & Calculations LVIDd: 4.8 cm IVSd: 1.3 cm LVOT diam: 2.1 cm LVIDs: 3.1 cm LVPWd: 1.4 cm RVDd: 3.9 cm FS: 35.6 % LVOT area: 3.5 cm2 Ao root diam: 3.3 cm LAV(MOD-bp): 57.3 ml LVAd ap4: 31.1 cm2 LAV(MOD-bp) Indexed: 27.5 ml/m2 EDV(MOD-sp4): 94.8 ml LAV(MOD-sp2): 63.2 ml EDV(sp4-el): 98.4 ml LAV(MOD-sp4): 44.2 ml LVAs ap4: 16.7 cm2 ESV(MOD-sp4): 34.3 ml ESV(sp4-el): 33.4 ml EF(MOD-sp4): 63.9 % EF(sp4-el): 66.1 % SV(MOD-sp4): 60.6 ml SV(sp4-el): 65.0 ml LA A4 area: 18.6 cm2 LA dimension(2D): 4.2 cm RA A4 area: 14.2 cm2 Doppler Measurements & Calculations MV E max jai: 51.0 cm/sec Lat Peak E' Jai: 8.5 cm/sec Med Peak E' Jai: 4.6 cm/sec MV A max jai: 101.9 cm/sec E/E' lat: 6.0 E/E' med: 11.1 MV E/A: 0.50 Ao V2 max: 289.5 cm/sec LV V1 max: 118.9 cm/sec SV(LVOT): 79.6 ml Ao max P.5 mmHg LV V1 max P.7 mmHg Ao V2 mean: 203.9 cm/sec LV V1 mean P.8 mmHg Ao mean P.2 mmHg LV V1 mean: 79.8 cm/sec Ao V2 VTI: 56.7 cm LV V1 VTI: 22.7 cm SANDI(I,D): 1.4 cm2 SANDI(V,D): 1.4 cm2 PA V2 max: 109.8 cm/sec TR max jai: 232.5 cm/sec TR max P.6 mmHg Interpretation Summary Mild concentric left ventricular hypertrophy. The estimated ejection fraction is 65 %. Stage 1 diastolic dysfunction. Mildly dilated right ventricle. Trivial tricuspid valve insufficiency. Right ventricular systolic pressure estimated to be 27 mmHg. Mild to moderate aortic stenosis. There is no comparison study available. Ordering Physician: Chas Hutchison Referring Physician: Violeta Copeland Performed By: Erica Villa RDCS, RVT
--- NOTE | 2018-05-30 17:03 | CT_ITS ---
STUDY: CTA OF THE BRAIN REASON FOR EXAM: Male, 82 years old. Stroke RADIATION DOSAGE (If Supplied By Facility): CTDIvol = ( 29.21 ) mGy, DLP = ( 1507.11 ) mGycm TECHNIQUE: CT angiography was performed with a multi-detector CT scanner. Data acquisition was obtained from the skull base through the vertex following intravenous administration of 100ML IV Isovue 370. MIP images were reconstructed from the axial data set. Post-processing of the angiographic images was performed, with multiplanar reformation and 3D reconstruction. Individualized dose optimization techniques were used for this CT. COMPARISON: None. FINDINGS: Normal bilateral petrous carotid arteries. Normal right cavernous carotid artery with a normal supraclinoid bifurcation. Normal left cavernous carotid artery with a normal supraclinoid bifurcation. Normal right A1 segments of the anterior cerebral artery. Normal left A1 segments of the anterior cerebral artery. Normal intact anterior communicating artery (ACOM). Normal bilateral A2 segments of the anterior cerebral arteries. Normal right M1 and M2 segments of the middle cerebral arteries, with a normal M1 bifurcation. Normal left M1 and M2 segments of the middle cerebral arteries, with a normal M1 bifurcation. The LEFT vertebral artery is small in caliber which is most likely a normal variation. The basilar artery is small in caliber due to origin of the posterior cerebral arteries. The visualized bilateral superior cerebellar (SCA) arteries are normal. Normal bilateral P1, P2 and visualized P3 segments of the posterior cerebral arteries. There is no demonstrated aneurysm of the [place] of [place]. IMPRESSION: There is NO intracranial arterial stenosis or occlusion. There is NO aneurysm or vascular malformation. Electronically Signed: Trevor Leyva MD at 3:34 EDT , Service support , STUDY: CTA NECK WITH CONTRAST REASON FOR EXAM: Male, 82 years old. RADIATION DOSAGE (If Supplied By Facility): CTDIvol = ( ) mGy, DLP = ( ) mGycm TECHNIQUE: CT angiography with multi-detector data acquisition was performed from the aortic arch to the skull base following intravenous administration of 100mL IV Isovue 370. MIP images were reconstructed from the axial data set. Post-processing of the angiographic images was performed, with multiplanar reformation and 3D reconstruction. Individualized dose optimization techniques were used for this CT. COMPARISON: None. FINDINGS: AORTIC ARCH: Normal visualized aortic arch. Normal origins of the brachiocephalic, left common carotid, and left subclavian arteries. RIGHT CAROTID ARTERIES: Normal right common carotid artery (CCA). There is moderate atherosclerotic plaque formation with moderate narrowing of the right carotid bulb. There is moderate atherosclerotic plaque formation of the origin of the right internal carotid artery with an estimated stenosis of 50-69% stenosis. Normal visualized cervical portion of the right internal carotid artery. Normal origin of the right external carotid artery (ECA). LEFT CAROTID ARTERIES: Normal left common carotid artery (CCA). There is moderate atherosclerotic plaque formation with moderate narrowing of the carotid bulb. There is moderate atherosclerotic plaque formation of the origin of the left internal carotid artery with an estimated stenosis of 50-69% stenosis. Normal visualized cervical portion of the left internal carotid artery. Normal origin of the left external carotid artery (ECA). VERTEBRAL ARTERIES: There is enhancement within the bilateral vertebral arteries with a small left vertebral artery, and a dominant right vertebral artery. CT/CTA Neck W/WO Contrast IMPRESSION: There is calcified plaque at the carotid bulbs without significant stenosis. Electronically Signed: Trevor Leyva MD at 3:35 EDT , Service support ,
[2018-05-30] MEDS: 0.9% Normal Saline 1,000 ML 100 ML IV (18:57)
[2018-05-30] MEDS: Enoxaparin 40 MG/0.4 ML Syringe SC (18:58)
[2018-05-30] MEDS: Aspirin 81 MG TAB.CHEW PO (18:58)
[2018-05-30] MEDS: levETIRAcetam 500 MG Tablet PO (21:47)
[2018-05-30] MEDS: Atorvastatin Calcium 80 MG Tablet PO (21:47)
--- NOTE | 2018-05-30 22:04 | NURSING ---
Pt straight cathed at this time for 600 mL of urine.
[2018-05-30 22:36] LABS: Bedside Glucose 107 mg/dL (70-110)
[2018-05-31] VITALS (10 sets, daily range): BP systolic 131–148; BP diastolic 65–71; PULSE 68–78; RESP 11–16; TEMP 36.5–37.1; O2SAT 96–97; BMI 24.4
--- NOTE | 2018-05-31 03:28 | NURSING ---
Straight cathed pt around 03:00 for approximately 730 mL urine.
[2018-05-31 06:18] LABS: Absolute Lymphocyte Count 0.98 X10^3/ul (0.83-4.51); Absolute Neutrophil Count 3.9 X10^3/uL (2.0-7.7); Basophil# 0.04 X10^3/uL; Basophil% 0.7 % (0-1); Eosinophil# 0.51 X10^3/uL; Eosinophils% 8.3 % (0-5); Hematocrit 33.5 % (40-54); Hemoglobin 11.1 g/dl (13.0-16.5); Lymphocyte # 0.98 X10^3/ul (4.0); Lymphocyte % 15.9 % (19-41); Mean Corp Hgb Conc 33.1 g/gl (32-36); Mean Corpuscular Hgb 29.4 pg (27.0-32.0); Mean Corpuscular Volume 88.9 fL (80-94); Mean Platelet Vol. 8.5 fl (6.2-12.0); Monocyte# 0.73 X10^3/uL; Monocyte% 11.9 % (0-10); Neutrophil # 3.88 X10^3/uL (2.7-7.7); Platelet Count 201 K/mm3 (150-450); RBC Distribution Width SD 44.6 fl (35.1-43.9); Red Blood Count 3.77 M/mm3 (4.6-6.2); White Blood Count 6.2 K/mm3 (4.4-11.0)
[2018-05-31 06:20] LABS: POSITIVE COUNT NO; POSITIVE DIFFERENTIAL NO; POSITIVE MORPHOLOGY NO
[2018-05-31 06:44] LABS: Cholesterol 127 mg/dL (200); High Density Lipoprotein 41 mg/dL; Triglycerides 119 mg/dL; Very Low Density Lipoprotein 24 mg/dL (5-40)
--- NOTE | 2018-05-31 07:43 | NURSING ---
Pt straight cathed around 06:35 for approximately 450 mL of urine.
[2018-05-31] MEDS: Calcium Carb/Vitamin D 1 TABLET Tablet PO (08:08)
[2018-05-31] MEDS: Aspirin 81 MG TAB.CHEW PO (08:08)
[2018-05-31] MEDS: levETIRAcetam 500 MG Tablet PO (09:30)
[2018-05-31] MEDS: Enoxaparin 40 MG/0.4 ML Syringe SC (09:30)
[2018-05-31] MEDS: Polyethylene Glycol 3350 17 GM PACKET PO (09:55)
--- NOTE | 2018-05-31 10:12 | NURSING ---
Pt up ambulating in [place] with PT, tolerating well.
[2018-05-31 11:06] LABS: Bedside Glucose 159 mg/dL (70-110)
[2018-05-31 13:02] LABS: Mucous, Urine 0 SEEN /hpf (<or=2+)
[2018-05-31 13:13] LABS: Color, Urine Yellow (Yellow); Glucose, Dipstick Normal (Normal); Ketone-Dipstick Negative (Negative); Leukocyte Esterase-Dipstick 500 /ul (Negative); Nitrite-Dipstick Negative (Negative); Occult Blood-Urine 25 /ul (Negative); Protein-Dipstick 15 mg/dl (Negative); Specific Gravity, Urine 1.015 (1.002-1.030); Urine Bilirubin Dipstick Negative (Negative); Urine Clarity Cloudy (Clear); Urine Urobilinogen Normal (Normal)
[2018-05-31 13:20] LABS: Bacteria 4+ /hpf (None Seen); Red Blood Cells-Urine 0-5 SEEN /hpf (0-5); Squamous Epithelial Cells - UA 0-5 SEEN /hpf (0-5); White Blood Cells >100 SEEN /hpf (0-5)
--- NOTE | 2018-05-31 15:39 | CM.UR ---
RN CM Assessment Met face to face with patient for initial transition planning/care coordination assessment. Introduced myself and my role. Verb understanding and agreement for assessment. Recently in TCU for radiation oncology. discharged home with home care then but has now progressed to OP therapy at [facility]. Presentation: Had OP MRI, 3 areas of acute CVA noted, sent to ER PCP: Violeta Copeland Specialists: Oncology Dr. Singletary and radiation oncologist Dr. Barboza Preferred Pharmacy: [facility] Insurance: [facility] with AARP supplement Prescription Benefit: Yes LNOK: Jason Home: 2 story house with first floor set up. 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 does most of the cooking, all the financial. Transportation: drives. He can drive but doesn't. DME: FWW, Ramp, Rollator, raised toilet seat, grab bars. SNF/HHC: [facility] and TCU. Passport/waiver provider network mgr: none Advance Directives: [facility] has DPOA and Living will. States , jason, is DPOA. DC PLAN: Home, return to OP therapy. Denies any other needs. Anup Velásquez RN, CCM.
[2018-05-31 16:55] LABS: Bedside Glucose 103 mg/dL (70-110)
--- NOTE | 2018-05-31 18:30 | DCINST_ITS ---
- Discharge Diagnoses Current Active Problems: Current Active and Chronic Problems (Last Reviewed 05/19/18 @ 10:32 by Lianne Rosado) Acute CVA (cerebrovascular accident) (Acute) You will use the following diet at home:: No restrictions Your food should be the consistency of: Regular Your liquids should be the consistency of: Regular/Thin Discharge Activity: Return to Normal Activity Weight Bearing Status: Full weight bearing Additional Instructions: Dr. Nguyen will need to arrange for a 30 day heart monitor for you Allergies/Adverse Reactions: Allergies No Known Allergies Allergy (Verified 05/30/18 13:17) Medications to take at Discharge Tamsulosin HCl [Flomax] 0.4 mg PO MOWEFR PRN 12/09/17 Levetiracetam [Keppra] 500 mg PO BID #60 tablet 03/25/18 Acetaminophen [Tylenol Extra Strength] 1,000 mg PO PRN PRN 05/30/18 Calcium Carbonate/Vitamin D3 [Calcium 500-Vit D3 600 Tablet] 1 each PO DAILY 05/30/18 Ibuprofen 800 mg PO PRN PRN 05/30/18 Polyethylene Glycol 3350 [Miralax] 17 gm PO DAILY 05/30/18 Aspirin [Aspirin, Baby] 81 mg PO DAILY@0800 tab.chew 05/31/18 Atorvastatin Calcium [Lipitor] 40 mg PO DAILY #30 tablet 05/31/18 Clopidogrel Bisulfate [Plavix] 75 mg PO DAILY #30 tablet 05/31/18 Nitrofurantoin Macrocrystals [Macrobid] 100 mg PO BID #14 capsule 05/31/18 The following prescriptions were given: Atorvastatin Calcium [Lipitor] 40 mg PO DAILY #30 tablet Clopidogrel Bisulfate [Plavix] 75 mg PO DAILY #30 tablet Nitrofurantoin Macrocrystals [Macrobid] 100 mg PO BID #14 capsule Primary Care Physician: Violeta Copeland [Primary Care Provider] - Test Results: Test results from this visit will be discussed in further detail at your follow- up appointment, if applicable. Please Follow Up With: Morelia Singletary MD When: next week Please Follow Up With: Yanelis Zapata MD When: in 4 weeks-call for appointment
--- NOTE | 2018-05-31 19:21 | CON.PCM_ITS ---
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 Patient is being followed by Dr. Holliday from oncology for GBM is status post chemotherapy and radiation therapy. He had a repeat MRI brain done on 05/29/2018 for monitoring which was reported by Dr. Ema Arceo as showing area of abnormal nodular enhancement involving the posterior right frontal lobe presumably representing residual neoplasm and/or treatment changes, measuring approximately 2.1 x 0.9 x 1.9 cm in size along with peripheral ring enhancement surrounding this lesions with moderate vasogenic edema, acute infarct involving the left parietal white matter and posterior right frontal lobe near the tumor. Patient was admitted due to this abnormal abnormal MRI findings, patient denies any new stroke symptoms. Patient had residual left- sided weakness since his right GBM surgery per patient, he is on Keppra for seizure prophylaxis, denies any witnessed generalized tonic clonic seizures in the past. At present patient denies any new onset focal motor weakness, sensory loss, headache, dizziness, visual disturbances or speech disturbances. Per patient he uses a walker to ambulate, does not drive, denies any frequent falls and denies any worsening of the residual left-sided weakness. Per patient his left upper extremity and lower extremity strength has been improving. CTA head/neck done on admission showed bilateral ICA 50-69% stenosis. Patient he does not take any aspirin at baseline. [] Past Medical History Past Medical History (Chronic Problems): Chronic Problems (Last Reviewed 05/19/18 @ 10:32 by Lianne Rosado) History of chest pain (Chronic) BPH (benign prostatic hyperplasia) (Chronic) Hypertension (Chronic) Neurogenic bladder (Chronic) Medical History: Medical History (Last Reviewed 05/19/18 @ 10:32 by Lianne Rosado) Benign prostatic hyperplasia with lower urinary tract symptoms N40.1 Hyperlipidemia E78.5 Primary glioblastoma of brain C71.9 S/P RIGHT FRONTAL CRANIECTOMY 12-27-[address] [facility] [address] MILLER Ventricular hypertrophy I51.7 bilateral enlargement Allergies No Known Allergies Allergy (Verified 05/30/18 13:17) Home Medications: Ambulatory Orders Medication Instructions Recorded Tamsulosin HCl [Flomax] 0.4 mg PO MOWEFR PRN 12/09/17 Levetiracetam [Keppra] 500 mg PO BID #60 tablet 03/25/18 Acetaminophen [Tylenol Extra 1,000 mg PO PRN PRN 05/30/18 Strength] Calcium Carbonate/Vitamin D3 1 each PO DAILY 05/30/18 [Calcium 500-Vit D3 600 Tablet] Ibuprofen 800 mg PO PRN PRN 05/30/18 Polyethylene Glycol 3350 [Miralax] 17 gm PO DAILY 05/30/18 Aspirin [Aspirin, Baby] 81 mg PO DAILY@0800 tab.chew 05/31/18 Atorvastatin Calcium [Lipitor] 40 mg PO DAILY #30 tablet 05/31/18 Clopidogrel Bisulfate [Plavix] 75 mg PO DAILY #30 tablet 05/31/18 Nitrofurantoin Macrocrystals 100 mg PO BID #14 capsule 05/31/18 [Macrobid] Surgical History: Surgical History (Last Reviewed 05/19/18 @ 10:32 by Lianne Rosado) History of appendectomy Z90.49 History of bilateral knee replacement Z96.653 History of cholecystectomy Z90.49 History of tonsillectomy Z90.89 Surgical History: appendectomy, cholecystectomy, total knee arthroplasty, tonsillectomy, - - Excision brain tumor by craniotomy. Lives: Spouse/ Significant Other Smoking Status: Former smoker Tobacco Use: Cigarettes Alcohol: None Drugs: None - *Family History Maternal Family History: Family History (Last Reviewed 05/19/18 @ 10:32 by Lianne Rosado) Mother Heart disease Father CAD (coronary artery disease) History Items: No pertinent history Paternal Family History: Family History (Last Reviewed 05/19/18 @ 10:32 by Lianne Rosado) Mother Heart disease Father CAD (coronary artery disease) History Items: No pertinent history Review of Systems Constitutional: Reports: - - complete ROS negative except as documented in HPI Patient Problems: Active and Suspected Problems (Last Reviewed 05/19/18 @ 10:32 by Lianne Rosado) Acute CVA (cerebrovascular accident) (Acute) Stroke (Acute) - Physical Exam General: Alert HEENT: Normocephalic Neck: Supple Lungs: Normal air movement Cardiovascular: Normal S1, Normal S2 Abdomen: Bowel Sounds Present Extremities: No cyanosis Neurological: - - consious, alert, AoAx3, CN 2-12 grossly intact, power 5/5 right UE/LE, 4/5 left UE/+4/5 left LE (chronic/residual since December 2017 when GBM was removed), no sensory loss, no cerebellar signs, Reflexes + B/L B/S/T/K/A, gait deferred Psych/Mental Status: Normal Affect Vital Signs Temp Pulse Resp BP Pulse Ox 98.7 F 71 16 148/71 H 96 05/31/18 14:53 05/31/18 15:04 05/31/18 14:53 05/31/18 14:53 05/31/18 14:53 Oxygen Delivery Method Room Air Weight: 83.4 kg Body Mass Index (BMI) 24.4 Intake and Output for Last 24 Hours 05/29/18 05/30/18 05/31/18 23:59 23:59 23:59 Intake Total 833 / 833 480 / 480 Output Total 975 / 975 2004 Balance -142 / -142 -1525 / -1525 Laboratory Tests Past 24 Hrs 05/31/18 05/31/18 05/31/18 05:35 05:35 12:00 WBC 6.2 RBC 3.77 L Hgb 11.1 L Hct 33.5 L MCV 88.9 MCH 29.4 MCHC 33.1 RDW 14.0 RDW Differential 44.6 H Plt Count 201 MPV 8.5 Immature Gran % (Auto) 0.200 Neut % (Auto) 63.0 Lymph % (Auto) 15.9 L [place] % (Auto) 11.9 H Eos % (Auto) 8.3 H Baso % (Auto) 0.7 Absolute Neuts (auto) 3.9 Absolute Lymphs (auto) 0.98 Total Counted Not Reportable Triglycerides 119 Cholesterol 127 LDL Cholesterol 62 VLDL Cholesterol 24 HDL Cholesterol 41 Urine Color Yellow Urine Clarity Cloudy Urine pH 6.0 Ur Specific [place] 1.015 Urine Protein 15 H Urine Glucose (UA) Normal Urine Ketones Negative Urine Occult Blood 25 H Urine Nitrite Negative Urine Bilirubin Negative Urine Urobilinogen Normal Ur Leukocyte Esterase 500 H Urine RBC 0-5 SEEN Urine WBC >100 SEEN Ur Squamous Epith Cells 0-5 SEEN Urine Bacteria 4+ Urine Mucus 0 SEEN POC Glucose 05/31/18 05/31/18 05/30/18 10:43 06:47 21:50 POC Glucose 159 H 103 107 Assessment/Plan All Active Problems (Last Reviewed 05/19/18 @ 10:32 by Lianne Rosado) GBM (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) Left hemiparesis (Acute) Debility (Acute) Anemia (Acute) Educational circumstance (Acute) Chemotherapy management, encounter for (Acute) RSV (respiratory syncytial virus infection) (Acute) BPH loc w urin obs/LUTS (Acute) Acute CVA (cerebrovascular accident) (Acute) Stroke (Acute) The patient is a 82 year old M H HTN, 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 Patient is being followed by Dr. Holliday from oncology for GBM is status post chemotherapy and radiation therapy. He had a repeat MRI brain done on 05/29/2018 for monitoring which was reported by Dr. Ema Arceo as showing area of abnormal nodular enhancement involving the posterior right frontal lobe presumably representing residual neoplasm and/or treatment changes, measuring approximately 2.1 x 0.9 x 1.9 cm in size along with peripheral ring enhancement surrounding this lesions with moderate vasogenic edema, acute infarct involving the left parietal white matter and posterior right frontal lobe near the tumor. Patient was admitted due to this abnormal abnormal MRI findings, patient denies any new stroke symptoms. Patient had residual left- sided weakness since his right GBM surgery per patient, he is on Keppra for seizure prophylaxis, denies any witnessed generalized tonic clonic seizures in the past. At present patient denies any new onset focal motor weakness, sensory loss, headache, dizziness, visual disturbances or speech disturbances. Per patient he uses a walker to ambulate, does not drive, denies any frequent falls and denies any worsening of the residual left-sided weakness. Per patient his left upper extremity and lower extremity strength has been improving. CTA head/neck done on admission showed bilateral ICA 50-69% stenosis. Patient he does not take any aspirin at baseline. Impression Acute small Embolic stroke- left parietal white matter and posterior right frontal lobe B/L Carotid stenosis. Plan -Aspirin 81 mg and Plavix 75 mg once daily for 3 weeks. Dual antiplatelets for 3 weeks then switch to single antiplatelet with aspirin. Bleeding risk discussed with the patient in detail. ?Lipitor 40 mg p.o. nightly ?MRI brain reviewed and CT angiogram head neck reviewed ?Vascular surgery consult for carotid stenosis ?Recommend 30-day event recorder. ?TTE?EF 65%, normal LA size. ?LDL?62, HbA1c?elevated ?Goal blood pressure < 130/80 mmHg and goal HbA1c less than 7% ?Stroke risk factors are discussed and stroke education provided ?Patient is currently on chemotherapy for GBM, the same needs to be reviewed by the oncologist and determination made whether the chemotherapy can be continued and or is causative in patient's stroke. Will defer to the treating oncologist. Patient at present does not know the name of the chemotherapy agent he is on. ?Further medical management per hospitalist team ?PT/OT/ST ?GI/DVT prophylaxis ?Fall precautions ?Please call with questions if any ?Follow-up with neurology as outpatient in 4 weeks ?Thank you for allowing us to participate in patient's care and management. Code Visit Inpatient E&M: 36221 Init Hosp L3
[2018-05-31 23:04] LABS: Hemoglobin A1c 5.8 % (4.2-6.3)
--- NOTE | 2018-06-01 09:04 | DS.PCM_ITS ---
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 Patient had an MRI of the brain performed a day prior for follow-up on his chronic glioblastoma, this MRI showed 2 small strokes one in the left parietal area and one in the posterior right frontal lobe. Patient was asymptomatic with these 2 small embolic strokes and had no focal deficits. Patient was admitted to PCU, he underwent an echocardiogram which showed no evidence of thrombus in the ventricle, mild to moderate aortic stenosis was noted, patient had a CT of the head and neck performed which showed no significant stenosis. Patient was seen in consultation by neurology, neurology recommended placing the patient on Plavix and aspirin and recommended an outpatient 30-day monitor. This recommendation was relayed to the patient's oncologist, patient's oncologist stated that they did not feel comfortable ordering a 30-day monitor and this was discussed with the patient, it was advised that the patient's PCP should order this test as an outpatient. Patient was seen by PT and OT. On 05/31/18, patient was seen and examined: On examination he appeared in good health and spirits. Vital signs as documented. Skin warm and dry and without overt rashes. Neck without JVD. Lungs clear. Heart exam notable for regular rhythm, normal sounds and absence of murmurs, rubs or gallops. Abdomen unremarkable and without evidence of organomegaly, masses, or abdominal aortic enlargement. Extremities nonedematous. Neuro: Cranial nerves II through XII are grossly intact, mild left-sided weakness was noted, sensation to light touch and pinprick intact. Psych: Patient is alert and oriented x3, he does not appear anxious or depressed On 05/31/18, patient was seen and examined and felt to be in stable condition for discharge home - Physical Exam Vital Signs Temp Pulse Resp BP Pulse Ox 98.7 F 71 16 148/71 H 96 05/31/18 14:53 05/31/18 15:04 05/31/18 14:53 05/31/18 14:53 05/31/18 14:53 Oxygen Delivery Method Room Air Weight: 83.4 kg Body Mass Index (BMI) 24.4 Intake and Output for Last 24 Hours 05/30/18 05/31/18 06/01/18 23:59 23:59 23:59 Intake Total 833 / 833 480 / 480 Output Total 975 / 975 2555 / 2555 Balance -142 / -142 -2075 / -2075 Laboratory Tests Past 24 Hrs 05/31/18 05/31/18 05:35 12:00 Hemoglobin A1c 5.8 Urine Color Yellow Urine Clarity Cloudy Urine pH 6.0 Ur Specific [place] 1.015 Urine Protein 15 H Urine Glucose (UA) Normal Urine Ketones Negative Urine Occult Blood 25 H Urine Nitrite Negative Urine Bilirubin Negative Urine Urobilinogen Normal Ur Leukocyte Esterase 500 H Urine RBC 0-5 SEEN Urine WBC >100 SEEN Ur Squamous Epith Cells 0-5 SEEN Urine Bacteria 4+ Urine Mucus 0 SEEN POC Glucose 05/31/18 05/31/18 10:43 06:47 POC Glucose 159 H 103 Discharge Activity: Return to Normal Activity Weight Bearing Status: Full weight bearing Home Medications: Medications to take at Discharge Tamsulosin HCl [Flomax] 0.4 mg PO MOWEFR PRN 12/09/17 Levetiracetam [Keppra] 500 mg PO BID #60 tablet 03/25/18 Acetaminophen [Tylenol Extra Strength] 1,000 mg PO PRN PRN 05/30/18 Calcium Carbonate/Vitamin D3 [Calcium 500-Vit D3 600 Tablet] 1 each PO DAILY 05/30/18 Ibuprofen 800 mg PO PRN PRN 05/30/18 Polyethylene Glycol 3350 [Miralax] 17 gm PO DAILY 05/30/18 Aspirin [Aspirin, Baby] 81 mg PO DAILY@0800 tab.chew 05/31/18 Atorvastatin Calcium [Lipitor] 40 mg PO DAILY #30 tablet 05/31/18 Clopidogrel Bisulfate [Plavix] 75 mg PO DAILY #30 tablet 05/31/18 Nitrofurantoin Macrocrystals [Macrobid] 100 mg PO BID #14 capsule 05/31/18 Following Prescrptions Were Given to Patient: Atorvastatin Calcium [Lipitor] 40 mg PO DAILY #30 tablet Clopidogrel Bisulfate [Plavix] 75 mg PO DAILY #30 tablet Nitrofurantoin Macrocrystals [Macrobid] 100 mg PO BID #14 capsule Primary Care Physician: Violeta Copeland [Primary Care Provider] - Please Follow Up With: Morelia Singletary MD When: next week Please Follow Up With: Yanelis Zapata MD When: in 4 weeks-call for appointment Please Follow Up With: Violeta Copeland Disposition: Home Minutes spent on discharge:: 32 Patient Condition:: Stable Medical Necessity - Tobacco Use Smoking Status: Former smoker Tobacco Use: Cigarettes Meaningful Use Info Meaningful Use Diagnoses (Choose all that apply): Ischemic CVA - CVA Therapy Assessed for PT,OT and/or ST?: Yes - Ischemic Stroke Antithrombotic order at d/c?: Yes Dx of Atrial fib/flutter?: No Anticoagulant at discharge?: No Reason anticoagulant not ordered: Treatment not Indicated Statins at discharge?: Yes Primary Dx Acute Ischemic CVA?: Yes IV tPA ordered during stay?: No Reason IV t-PA not ordered: Treatment not Indicated Code Visit Inpatient E&M: 27588 Disch Hosp
--- NOTE | 2018-06-03 14:43 | CASEMGMT ---
KELSEY ECHEVARRIA Discharge Follow-Up Phone Call. Maday: Daphne Strata: 3 Discharge Date: 05/31/18 Adm Dx: Embolic Stroke, Gliobastoma. Call to pt to inquire about how he has been doing since being discharged from the hospital. answered and spoke with KELSEY ECHEVARRIA. She states pt has been doing really good. She states he has been doing his Out-pt therapy as he had been doing and that she got all of his new prescriptions filled. She states she has no further questions/concerns about discharge instructions. Discussed follow-up appts with her and she stated she was not aware that she needed to call and make any appts. made aware instructions are to follow up with Dr Copeland, Dr Singletary, and Dr Zapata. Pt stated she would take a look at it. KELSEY ECHEVARRIA thanked pt for choosing [facility]. Daryn HATHAWAY RN, CM
== END 2018-05-31 19:40 | disposition home or self-care (01) | DRG 65 ==
LOC: ED 15:35 → PCU 16:40
PROVIDERS: Family Medicine; Psychiatry & Neurology Neurology; Admitting Provider Internal Medicine; Emergency Provider Emergency Medicine; Family Provider Family Medicine; PCP Family Medicine; Referring Provider Internal Medicine; Visit Provider Internal Medicine
DX: I63.19 Cerebral infarction due to embolism of other precerebral artery (principal); C71.9 Malignant neoplasm of brain, unspecified; N30.00 Acute cystitis without hematuria; G81.94 Hemiplegia, unspecified affecting left nondominant side; N31.9 Neuromuscular dysfunction of bladder, unspecified; I10 Essential (primary) hypertension; R53.1 Weakness; N40.0 Benign prostatic hyperplasia without lower urinary tract symptoms; I65.23 Occlusion and stenosis of bilateral carotid arteries; I35.0 Nonrheumatic aortic (valve) stenosis; Z79.899 Other long term (current) drug therapy; Z92.3 Personal history of irradiation; Z87.891 Personal history of nicotine dependence; R53.81 Other malaise
CPT/HCPCS: 36415; 70496; 70498; 70553; 80048; 80061; 81001; 82962; 83036; 84484; 85025; 85610; 85730; 87086; 87088; 87186; 92610; 93005; 93306; 97110; 97162; 97164; 97165; 97530; 99285; A9575; J7030; Q9967; A4216

== ENCOUNTER → 2018-07-28 | Outpatient (CLI) | payer MEDICARE, OTHER, SELFPAY ==
[2017-12-13 10:35] VITALS: BMI 22.6
[2018-06-02 11:41] VITALS: BMI 24.0
[2018-07-16 11:27] VITALS: BMI 24.8
--- NOTE | 2018-07-28 09:36 | MRI_ITS ---
STUDY: MRI BRAIN WITH AND WITHOUT CONTRAST REASON FOR EXAM: Male, 83 years old. Follow-up brain tumor TECHNIQUE: Standardized multiplanar fat and water weighted pulse sequences were obtained. 17 IV Dotarem was administered for the contrast portion of the examination. COMPARISON: 05/29/2018 FINDINGS: There is mild cerebral atrophy with widening of the extra-axial spaces and ventricular dilatation. There are multiple white matter hyperintensities, distributed throughout the deep white matter tracts of the cerebral hemispheres, consistent with moderate chronic white matter ischemic changes. There is no evidence for recent intracranial ischemia or other cause of cytotoxic edema on diffusion weighted imaging (DWI). No change in the punctate areas of the hemosiderin staining in the perinephric white matter of the posterior left parietal lobe and the mid right parietal lobe consistent with prior petechial hemorrhage. Normal bilateral basal ganglia. Normal thalami. There is no extra-axial fluid accumulation. Normal flow voids within the major intracranial circulation suggesting patency by spin echo criteria. Normal venous enhancement. Healing high right parietal craniotomy with no change in 1 x 2 cm peripherally enhancing lesion with surrounding vasogenic edema consistent with known tumor. Normal sella turcica, pituitary gland, infundibular stalk, optic chiasm and hypothalamus. Normal tectal plate and pineal gland. Normal midbrain, di and medulla. Normal cerebellum. Normal basal cisterns. Normal bilateral temporal bones. Normal bilateral internal auditory canals. No demonstrated orbital abnormality, within the constraints of a routine brain study. Normal visualized paranasal sinuses. Normal calvarium and skull base. Normal visualized soft tissue structures. Normal visualized upper cervical spine. MRI/Brain W/WO Contrast IMPRESSION: Healing right parietal craniotomy with no change in the residual or recurrent tumor in the superior right parietal lobe. Electronically Signed: Bebeto Braswell MD at 12:24 EDT Tel , Service support ,
== END | disposition home or self-care (01) ==
PROVIDERS: Family Provider Family Medicine; PCP Family Medicine; Referring Provider Student in an Organized Health Care Education/Training Program; Visit Provider Student in an Organized Health Care Education/Training Program
DX: C71.9 Malignant neoplasm of brain, unspecified (principal)
CPT/HCPCS: 36415; 70553; 80053; 85025; A9575

== ENCOUNTER 2018-07-30 11:00 | Outpatient (RCR) | payer MEDICARE, OTHER, SELFPAY ==
[2017-12-13 10:35] VITALS: BMI 22.6
[2018-04-21 10:42] VITALS: BMI 24.0
[2018-04-28 11:37] VITALS: BMI 24.0
--- NOTE | 2018-04-29 14:09 | HP.OTEVAL_ITS ---
Patient's Visit Information BETO AGUILAR is a 82 year old M, referred to Occupational Therapy by Morelia Singletary MD, with a diagnosis of Milgant neoplasm of brain; Weakness. Date of Evaluation: 04/29/18 Occupational Therapist: Itzel Langston - Subjective Subjective: Arrived with who wanted to stay in [facility] for visit. He has been using rollator for last week. He noted that he was at [facility] on TCU after having neoplasmectomy removed at [facility] main [place]. 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 He noted as of now i'm not really leaving the house becuase I'm not to steady. He noted PLOF he was (i) with all ADL/AIdlsa, including working as vet, performing some surgeries, driving, and completing all ADls (I). - ADLs Dressing: Overhead shirt, Button shirt, Pants, Socks, Shoes Fasteners: Tie shoes, Buttons Eating: Use silverware, Cut food Toileting: Manage clothing Kitchen: Open jars, Open bottle caps Yard: Mow lawn, [place], [place] Miscellaneous: Start car, Open medication bottle, Shuffle cards, Drive Comments: Pt. is R hand dominant and has L sided hemiplegia. He noted increased difficulty with functional mobility around home for ADL/IADLs. 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 Would like to get back to surgeries if able with L hand. - ROM Shoulder: flexion R WFL, L 0-101; abduction R WFL, L 0-116 Elbow: WFL Forearm: WFL Wrist: Flexion R 0-65, L 0-59 ; extension R 0-47, L 0-50 MP: R WFL; L 2nd 0-69, 3rd 0- 62 , 4th 0-57 ,5th 0-61 PIP: R WFL, L 2nd 0-75, 3rd 8-62, 4th 0-68, 5th 30- 58 ROM Comments: About 2.25 inches from MF to palm. - Strength Shoulder: flexion R 4+/5, L 3+/5 Elbow: flexion and extension R 4+/5, L 3/5 Wrist: flexion and extension R 4+/5, L 3+/5 Environmental Engineering Technician: R 43, L 5 Lateral Pinch: R 14, L 10 Tripod Pinch: R 14, L 8 Tip-to-Tip Pinch: R 11, L 7 - Edema Proximal Phalanx: IF R 8.2 , L 8.6 - Sensation Thumb: R 3.61 , L 3.22 Index: R 3.61 , L 3.22 Middle: R 3.61 , L 3.22 Ring: R 2.83 , L 3.61 Little: R 3.22 , L 2.83 Kinesthesia: Abnormal - Right, Abnormal - Left Proprioception: Abnormal - Right, Abnormal - Left - Nine Hole Peg Right: 30. 69 s Left: 57.95 s - Upper Limb Functional Index ULFI Score: 17.5 - Quick DASH-Disab of Arm,Shoulder& Hand Quick DASH Score: 71.4275 - Goals Goal:: Beto to increase strength of L UE to 4/5 and increased L litigation assistant by 20- 30 lbs to promote increased strength, (i) , and ability to return to PLOF by d/c. Goal:: Beto to be able to form full composite fist with L hand to promote increased FMC and gross grasp needed fro ADL/IADls 100% of the time by d/c. Goal:: Beto to increase L hand FMC and dexterity to be within 5-7 seconds of R dominant hand to promote increased coordination and in hand manipulation sk ills needed for ADL/AIDLs by d/c. 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 Goal:: Beto to be mod I to complete HEP to promote increased strength and endruance for ADL/IADLS 4/5 trials 80% of the time by d/c. - Rehabilitation General Assessment: Pt., Beto, arrived to OT evaluation on this date of 04/29/18. He is s/p neoplasmectomy. He noted symptoms started in November and he has been on rehab for last four months. Beto exhibits increased geenralized weakness throughout bpody with increased symptoms on left side of upper and lower body. Rehabilitation Potential: Good - Anticipated Interventions Anticipated Interventions: A/AAROM/PROM, Strengthening, Modalities, Joint Protection/Energy Conservation, Ergonomic Education, Dynamic Sitting Balance, Fine Motor Coord/Tee, Neuro Reeducation, ADL Training, Education re assistive Equipment, Caregiver Training, Home Program - Visit Plan Frequency: 2x /Week Duration: 4 Weeks General Plan: Beto to complete OT to work on increased Pt. ability to returnt o PLOF, increased FMC, strength, and ability to complete composite fist , as well as general increased ability to return to PLOF. TEXT: Thank you for the opportunity to evaluate your patient. For Medicare and Medicare HMO plans, please review the plan of care and approve it. It will need to be FAXED BACK to us at [phone] for Medicare purposes. Please let me know if there are questions or concerns regarding this plan of care. Physician Signature: Date:
--- NOTE | 2018-04-29 14:42 | HP.PTEVAL_ITS ---
Patient's Visit Information BETO AGUILAR is a 82 year old M referred to Physical Therapy by Morelia Singletary MD with a diagnosis of Weakness- Neoblastoma. Date of Evaluation: 04/29/18 Physical Therapist: Stacey Mccloud DPT - Visit Plan Frequency: 2x /Week Duration: 4 Weeks Plan: Focus on balance, LE and core s/s with functional mobility- left weakness>right- GAIT BELT - Subjective Findings: November noticed his left leg weaker than the other- hard to get it up over the door- mouth dry, nauseated- went to hospital in [place]. Had a CT scan showed a spot- MRI with dye with biopsy- Neoblastoma. Took him to the [facility] in [place] and they operated on Dec 27 or . Was in rehab in [place] for 2 weeks- they had to have in a harness to get him him moving again. Then they sent him to [facility] and found the TCU in [place]. Was in TCU for approx 4 months. Has been home since Mar 25, 2018. Had home health but did not feel like he got a good workout and was ready to head to outpatient. Is still doing his exercises from them and TCU. Lives in a two story home but has everything he needs on one floor and neighbor built him a nice ramp. Can get in/out okay but has someone with him. Lives with and she helps a lot. Can do all of his ADL's at this time. Had grab bars put in for safety. Had one fall since he has been home- but since then has had a bar installed. No falls since then. 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 Can't stand any longer than able to brush his teeth. Feels balance is his main problem. He had chemo and radiation while in the TCU. He is currently doing chemo 5 days a month-pill. Is using the rollerator at all times. Uses bars in the bathroom instead of the walk/rollator for space. No pain since the whole thing started. Mild swelling and stiffness in the left hand. PMHx/Meds: no changes since leaving the hopsital. Requires straight cath but can do I - Objective Posture: FH, RS, increased kyphosis. Standing: poor does not fully extend knees and slumps forwards quickly. Gait: moderate deviation- decreased stance on the left LE with poor heel/toe pattern- drags the left LE as he fatigues- Rollerator. HR/TR: seated HR easily TR only on the right is 100% 25% on the left. SLS: WS only. ROM: WFL. Sit to Stand: x10 half way up with bilateral LE push off-challenged and required min A from lower surface. Balance: sitting: good. Standing static: fair Standing dynamic: fair minus. Eyes Closed required A from therapist for righting. Strength: Left- ankle:2+/5, Knee: 4-/5, Hip: 4- /5 Core: poor Right- ankle: 4-/5, Knee: 4/5, Hip: 4/5. Stairs: step to pattern with bilateral HR and CGA - Goals Goal 1:: Patient will be I with HEP and progression Goal Time Frame: 4-6 Weeks Goal 2:: Patient will demo 4/5 strength in bilateral LE Goal Time Frame: 4-6 Weeks Goal 3:: Patient will peform 12 full sit to stands in 30 seconds Goal Time Frame: 4-6 Weeks Goal 4:: Patient will asc/desc 8 stairs recip with 2 HR Goal Time Frame: 4-6 Weeks Goal 5:: Patient will ambulate >800 feet with a normalized gait pattern and LRD Goal Time Frame: 4-6 Weeks - Rehabilitation Potential Physical Therapy Diagnosis: Patient presents with hypomobility- he has decreased strength and muscular endurance leading to abnormal gait and decreased ability to perform ADL's. Rehabilitation Potential: Fair - Anticipated Interventions Therapeutic Exercise to Include: Strength training, Endurance training, Balance training, Coordination, Body mechanics, Postural training, Flexibilty training, Gait and locomotor training, Dynamic Lumbar Stabilization For the Purpose of:: To improve muscle performance and motor function Functional Training to Include: ADL Training, Gait training Thank you for the opportunity to evaluate your patient. For Medicare and Medicare HMO plans, please review the plan of care and approve it. It will need to be FAXED BACK to us at [phone] for Medicare purposes. For Medicare only, by signing this I certify the plan of care. Please let me know if there are questions or concerns regarding this plan of care. Physician Signature: Date:
--- NOTE | 2018-04-30 10:57 | HP.OTEVAL_ITS ---
Patient's Visit Information BETO AGUILAR is a 82 year old M, referred to Occupational Therapy by Morelia Singletary MD, with a diagnosis of Milgant neoplasm of brain; Weakness. Date of Evaluation: 04/29/18 Occupational Therapist: Itzel Langston - Subjective Subjective: Arrived with who wanted to stay in [facility] for visit. He has been using rollator for last week. He noted that he was at [facility] on TCU after having neoplasectomy removed at [facility]. 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 He noted as of now I?m not really leaving the house because I'm not to steady. 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 - ADLs Dressing: Overhead shirt, Button shirt, Pants, Socks, Shoes Fasteners: Tie shoes, Buttons Eating: Use silverware, Cut food Toileting: Manage clothing Kitchen: Open jars, Open bottle caps Yard: Mow lawn, [place], [place] Miscellaneous: Start car, Open medication bottle, Shuffle cards, Drive Comments: Pt. is R hand dominant and is exhibiting L sided hemiplegia. He noted increased difficulty with functional mobility around home for ADL/IADLs. 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 He would like to get back to surgeries if able with L hand. - Objective Objective/Observation: Skin closed and intact; wekaness of L UE. - ROM Shoulder: flexion R WFL, L 0-101; abduction R WFL, L 0-116 Elbow: WFL Forearm: WFL Wrist: Flexion R 0-65, L 0-59 ; extension R 0-47, L 0-50 MP: R WFL; L 2nd 0-69, 3rd 0- 62 , 4th 0-57 ,5th 0-61 PIP: R WFL, L 2nd 0-75, 3rd 8-62, 4th 0-68, 5th 30- 58 ROM Comments: About 2.25 inches from MF to palm. - Strength Shoulder: flexion R 4+/5, L 3+/5 Elbow: flexion and extension R 4+/5, L 3/5 Wrist: flexion and extension R 4+/5, L 3+/5 Rivet Maker: R 43, L 5 Lateral Pinch: R 14, L 10 Tripod Pinch: R 14, L 8 Tip-to-Tip Pinch: R 11, L 7 - Edema Proximal Phalanx: IF R 8.2 , L 8.6 - Sensation Thumb: R 3.61 , L 3.22 Index: R 3.61 , L 3.22 Middle: R 3.61 , L 3.22 Ring: R 2.83 , L 3.61 Little: R 3.22 , L 2.83 Kinesthesia: Abnormal - Right, Abnormal - Left Proprioception: Abnormal - Right, Abnormal - Left - Nine Hole Peg Right: 30. 69 s Left: 57.95 s - Upper Limb Functional Index ULFI Score: 17.5 - Quick DASH-Disab of Arm,Shoulder& Hand Quick DASH Score: 71.4275 - Goals Goal:: Beto to increase strength of L UE to 4/5 and increased L grain manager by 20- 30 lbs to promote increased strength, (i) , and ability to return to PLOF by d/c. Goal:: Beto to be able to form full composite fist with L hand to promote increased FMC and gross grasp needed fro ADL/IADls 100% of the time by d/c. Goal:: Beto to increase L hand FMC and dexterity to be within 5-7 seconds of R dominant hand to promote increased coordination and in hand manipulation skills needed for ADL/AIDLs by d/c. Goal:: Beto to be (i) to complete edema management technique of L hand to manage symptoms of arthritis 4/ 5trials 80% of the time to promote increased ROM and ability to form composite fist by d/c. 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 Goal:: Beto to be mod I to complete HEP to promote increased strength and endruance for ADL/IADLS 4/5 trials 80% of the time by d/c. - Rehabilitation General Assessment: Pt., Beto, arrived at OT evaluation on this date of 04/29/18. He is s/p neoplasmectomy. He noted symptoms started in November and he has been receiving rehab for last four months. Beto exhibits increased generalized weakness throughout body with increased symptoms on left side of upper and lower body. Skilled OT warranted to promote increased FMC, dexterity, strength, and coordination of L UE needed to return to PLOF for ADL/IADLs. Rehabilitation Potential: Good - Anticipated Interventions Anticipated Interventions: A/AAROM/PROM, Strengthening, Modalities, Joint Protection/Energy Conservation, Ergonomic Education, Dynamic Sitting Balance, Fine Motor Coord/Tee, Neuro Reeducation, ADL Training, Education re assistive Equipment, Caregiver Training, Home Program - Visit Plan Frequency: 2x /Week Duration: 4 Weeks General Plan: Beto to complete OT to work on increased Pt. ability to return to PLOF, increased FMC, strength, and ability to complete composite fist , as well as general increased ability to return to PLOF. TEXT: Thank you for the opportunity to evaluate your patient. For Medicare and Medicare HMO plans, please review the plan of care and approve it. It will need to be FAXED BACK to us at [phone] for Medicare purposes. Please let me know if there are questions or concerns regarding this plan of care. Physician Signature:_ Date:
--- NOTE | 2018-05-22 11:02 | HP.OTREVAL ---
Morelia Singletary MD, It has been my pleasure to treat BETO AGUILAR over the last 8 visits for Milg[place] neoplasm of brain; Weakness. Please see the progress note below for an update on the occupational therapy plan of care! Subjective: Arrived and noted that he is 'feeling pretty good' today. He is currently on 3 weeks no chemo. He noted that since start of OT he feelshe has made 25% improvement over the last month. Objective/Function: Completed reassessment on this date of 05/22/18 and results as follows: ROM. Shoulder: - flexion: R WFL, L 103. - extension: R WFL, L 0-37. - ER: R WFL, L 0-67. - IR: R WFL, L 0-67. - Abduction: R WFL, L 0-121. ELbow: WFL. Wrist: - flexion: R WFL, L 0-57. - extension: r wfl, L 0-53. Fingers: He has improved and is not able to make full composite fist. Strength: Shoulder. - flexion R 4/5, L 3/5. - abduction R 4/5, L 3/5. - IR R 4/5, L 3/5. - ER R 4/5, L 3/5. Elbow. - flexion: R 4/5, L 3/5. - Extension: R 4/5, L 3-/5. Wrist. - Flexion R 4/5, L 3+/5. - extension R 4/5, L 3+/5. Slide Fasteners Inspector R 54, L 39 lbs. Lateral R 14, l 13 lbs. Tripod R 14, L 12 lbs. Tip inch R 12, L 10 lbs. 9 hole pegboard test: R 25.05 s. L 47.55 s. Sensation completed on volar finger pads with monofilament test: R 2nd 3.22, 3rd 3.61, 4th 2.83, 5th 3.22, thumb 3.61. L 2nd 3.22, 3rd 3.22, 4th 3.22, 5th 2.83, thumb 3.22 Plan Frequency: 2x /Week Duration: 4 Weeks Visits in this POC: 18 Plan: Will continue POC for 2x weekly appointment for next 6 weeks and progressing with all measurements. Goals - Goals Goal:: Beto to increase strength of L UE to 4/5 and increased L senior statistician by 20-30 lbs to promote increased strength, (i) , and ability to return to PLOF by d/c. Goal:: Beto to be able to form full composite fist with L hand to promote increased FMC and gross grasp needed fro ADL/IADls 100% of the time by d/c. Goal:: Beto to increase L hand FMC and dexterity to be within 5-7 seconds of R dominant hand to promote increased coordination and in hand manipulation skills needed for ADL/AIDLs by d/c. Goal:: Beto to be (i) to complete edema management technique of L hand to manage symptoms of arthritis 4/ 5trials 80% of the time to promote increased ROM and ability to form composite fist by d/c. 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 Goal:: Beto to be mod I to complete HEP to promote increased strength and endruance for ADL/IADLS 4/5 trials 80% of the time by d/c. Anticipated Interventions Anticipated Interventions: A/AAROM/PROM, Strengthening, Modalities, Joint Protection/Energy Conservation, Ergonomic Education, Dynamic Sitting Balance, Fine Motor Coord/Tee, Neuro Reeducation, ADL Training, Education re assistive Equipment, Caregiver Training, Home Program Please do not hesitate to contact me at [phone] by phone or if you have questions or concerns regarding this new plan of care! Sincerely, Itzel Langston
--- NOTE | 2018-05-29 15:13 | HP.PTREVAL_ITS ---
Morelia Singletary MD, It has been my pleasure to treat BETO AGUILAR over the last 9 visits for Weakness- Neoblastoma. Please see the progress note below for an update on the physical therapy plan of care! Subjective: Patient reports that he feels he is getting stronger. Has had no standing falls since start of PT. 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 Is not walking on the gravel does not feel confident on uneven surfaces. Feels that his legs are 40% back to where he wants them to be. Looking for more strength and endurance on the left leg. Does not have an AFO for the left LE- Had another MRI today and will see the MD next week. Objective/Function: Posture: FH, RS, increased kyphosis. Gait: mild deviation- decreased stance on the left LE with poor heel/toe pattern- drags the left LE as he fatigues- Rollerator. HR/TR: seated HR easily TR only on the right is 100% 25% on the left. SLS: WS only. ROM: WFL. Sit to Stand:x10 with full extension and bilateral UE A Balance: sitting: good. Standing static: fair Standing robbie alberto: fair minus. Eyes Closed required A from therapist for righting. Strength: Left- ankle:3/5, Knee: 4/5, Hip: 4/5 Core: fair Right- ankle: 4/5, Knee: 4/5, Hip: 4/5. Stairs: step to pattern with bilateral HR and SBA. Plan Plan: Continue 2x a week 6 weeks with progression of LE and core strength with focus on function Goals Goal 1:: Patient will be I with HEP and progression Goal Time Frame: 4-6 Weeks Goal 2:: Patient will demo 4/5 strength in bilateral LE Goal Time Frame: 4-6 Weeks Goal 3:: Patient will peform 12 full sit to stands in 30 seconds Goal Time Frame: 4-6 Weeks Goal 4:: Patient will asc/desc 8 stairs recip with 2 HR Goal Time Frame: 4-6 Weeks Goal 5:: Patient will ambulate >800 feet with a normalized gait pattern and LRD Goal Time Frame: 4-6 Weeks Anticipated Interventions Therapeutic Exercise to Include: Strength training, Endurance training, Balance training, Coordination, Body mechanics, Postural training, Flexibilty training, Gait and locomotor training, Dynamic Lumbar Stabilization For the Purpose of:: To improve muscle performance and motor function Functional Training to Include: ADL Training, Gait training Please do not hesitate to contact me at [phone] by phone or if you have questions or concerns regarding this new plan of care! Sincerely, SOHAM KwokT
--- NOTE | 2018-06-03 14:16 | HP.OTCOM_ITS ---
OT Communication Note 06/03/[address] Morelia Singletary MD Completed additional measurements on this date of 06/03/18 as recent MRI showed recent infarcts. Measurements are as follows: Community Health Specialist R 51, L 40 Lateral R 14, L 12 Tripod R 14, L 10 Pincer R 12, L 8 9 hole pegboard test: R 29.65 s L 48.43 s L hand measurements are similar as previous measurements. Slight ataxia on L UE but non-limiting at this time as still able, with additional time, to completed coordination tasks L UE for tasks. Weakness remains t/o L UE. R hand 9 hole pegb oard test is 4 seconds slower after recent infarcts. Will continue established POC and will continue to address current deficits. Sincerely, Itzel Langston, OTR/L Contact Information
--- NOTE | 2018-06-26 12:59 | OTREVAL_ITS ---
Morelia Singletary MD, It has been my pleasure to treat BETO AGUILAR over the last 18 visits for Milgant neoplasm of brain; Weakness. Please see the progress note below for an update on the occupational therapy plan of care! Subjective: Beto vieyvd and noted he feels he has made an addition 30% improvement for a total of 75% total improvement. He noted he feels JAS is 'much stronger' and 'really noticing a difference in the shoulder area'. Objective/Function: Completed reassessment on this date of 06/26/18. Measurements are as follows: ROM: Shoulder. - flexion: R WFL, L 0-103. - extension: R WFL, L 0-35. - abduction: R WFL, L 0-142. - ER: R WFL, L 0-58. Elbow. - R WFL, L 15-137. Wrist. - flexion:R WFL, 0-65. - extension: R WFL, L 0-54. Able to make full composite fist. Completed strength testing and is as follows: SHoulder: - flexion R WFL, L 4-/5; dynanmometer testing R 12 L 9.8 lbs. - abduction R WFL, L 4-/5. - ER R WFL, L 4/5. - IR R WFL, L 4/5. Elbow. - flexion R WFL, L 4/5 dynanmometer testing R 14.8 L 12.2 lbs. - extension R WFL, 4/5 dynanmometer testing R 10.3, L 15.4 lbs. supervisor lens generating: - flexed: R 49, L 34. - extension R 53, L 32. Lateral pinch: R 14, L 13. Tripod pinch: R 13, L 10. Pincer: R 10, L 8. 9 hole. R 22.98. L 48.65 s. Sensation testing with monofilamnet test: R 2nd 3.22, 3rd 2.83, 4th 2.83, 5th 2.83, thumb 2.83. L 2nd 2.83, 3rd 2.83, 4th 2.83, 5th 2.83, thumb 2.83. Has progressed 20 degrees in abduction and general strengthening. Plan Frequency: 1-2x /Week Duration: 3 Weeks Visits in this POC: 21-24 Plan: continue POC for 1-2x weekly, for next 3 weeks. He is to continue HEP as instructed. He is progressing well and after this round of therapy is looking at tentative d/c. Goals - Goals Goal:: Beto to increase strength of L UE to 4/5 and increased L supervisor lens generating by 20- 30 lbs to promote increased strength, (i) , and ability to return to PLOF by d/c. Goal:: Beto to be able to form full composite fist with L hand to promote increased FMC and gross grasp needed fro ADL/IADls 100% of the time by d/c. Goal:: Beto to increase L hand FMC and dexterity to be within 5-7 seconds of R dominant hand to promote increased coordination and in hand manipulation skills needed for ADL/AIDLs by d/c. Goal:: Beto to be (i) to complete edema management technique of L hand to manage symptoms of arthritis 4/ 5trials 80% of the time to promote increased ROM and ability to form composite fist by d/c. 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 Goal:: Beto to be mod I to complete HEP to promote increased strength and endruance for ADL/IADLS 4/5 trials 80% of the time by d/c. Anticipated Interventions Anticipated Interventions: A/AAROM/PROM, Strengthening, Modalities, Joint Protection/Energy Conservation, Ergonomic Education, Dynamic Sitting Balance, Fine Motor Coord/Tee, Neuro Reeducation, ADL Training, Education re assistive Equipment, Caregiver Training, Home Program Please do not hesitate to contact me at [phone] by phone or if you have questions or concerns regarding this new plan of care! Sincerely, Itzel Langston, MIR/L
--- NOTE | 2018-07-16 14:49 | HP.OTREVAL ---
Morelia Singletary MD, It has been my pleasure to treat BETO AGUILAR over the last 24 visits for Milgant neoplasm of brain; Weakness. Please see the progress note below for an update on the occupational therapy plan of care! Subjective: Arrived and noted feels 80% back to PLOF. He notes he is completing surgeries on small household animals. Noted he 'feels like his L shoulder and hand have really improved but post last radiation round he regressed some'. Objective/Function: Completed reassessment on this date of 07/16/18. He has progressed with tasks and results are as follows: ROM. Shoulder. - flexion: R WFL; L 0-107. - extension: R WFL; L 0-40. - abduction: R WFL; L 0-136. - IR: R WFL; L 0-62. - ER: R WFL; L 0-83. Elbow: - WFL. Wrist. - flexion: R WFL; L 0-67. - extension R WFL; 0-49. Able to make full composite fist with B hands. Strength: Shoulder (used dynamometer at proximal axis): - flexion: R WFL; L 11.3 s. - extension: R WFL; L 7.2 lbs. - abduction: R WFL; L 9.9 lbs. - IR: R WFL; 8.5 lbs. - ER: R WFL; 8.0 lbs. Elbow. - flexion: R WFL; L 15.1. - extension: R WFL; L 15.5 lbs. Flight Engineer Manager flexed R 48, L 35 lbs. Flight Engineer Manager extended R 50, L 36 lbs. lateral pinch R 14, L 13 lbs. tripod R 14, L 12 lbs. pincer R 10, L 9 lbs. 9 hole pegboard test: R 26.43 s. L 47.37 s Plan Frequency: 1x follow up Duration: 2 Weeks Visits in this POC: 1x follow up for total 25 visits Plan: Completed reassessment on this date. He has made progress in some areas and plateaued in others. He was recommended to follow up for 1x session in two weeks. He is to work in the meantime on setting up daily routine to complete HEP as well as look into completing H&W program through [employer]. He has progressed nicely throughout POC. At two weeks follow up tentative d/c planning to proceed. Goals - Goals Goal:: Beto to increase strength of L UE to 4/5 and increased L distributor sales manager by 20-30 lbs to promote increased strength, (i) , and ability to return to PLOF by d/c. Goal:: Beto to be able to form full composite fist with L hand to promote increased FMC and gross grasp needed fro ADL/IADls 100% of the time by d/c. Goal:: Beto to increase L hand FMC and dexterity to be within 5-7 seconds of R dominant hand to promote increased coordination and in hand manipulation skills needed for ADL/AIDLs by d/c. Goal:: Beto to be (i) to complete edema management technique of L hand to manage symptoms of arthritis 4/ 5trials 80% of the time to promote increased ROM and ability to form composite fist by d/c. 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 Goal:: Beto to be mod I to complete HEP to promote increased strength and endruance for ADL/IADLS 4/5 trials 80% of the time by d/c. Anticipated Interventions Anticipated Interventions: A/AAROM/PROM, Strengthening, Modalities, Joint Protection/Energy Conservation, Ergonomic Education, Dynamic Sitting Balance, Fine Motor Coord/Tee, Neuro Reeducation, ADL Training, Education re assistive Equipment, Caregiver Training, Home Program Please do not hesitate to contact me at [phone] by phone or if you have questions or concerns regarding this new plan of care! Sincerely, Itzel Langston, JOSAFATR/L
--- NOTE | 2018-07-17 14:00 | HP.PTREVAL ---
Morelia Singeltary MD, It has been my pleasure to treat BETO AGUILAR over the last 21 visits for Weakness- Neoblastoma. Please see the progress note below for an update on the physical therapy plan of care! Subjective: Patient reports that he is getting stronger but is using the rollerator all the time. His balance is not where he wants it to be. Feels that he is 50% back to where he wants to be. His left leg feels heavy. Goes back to the neurologist July 28 and when the next chemo begins. Objective/Function: Posture: FH, RS, increased kyphosis. Standing: can fully extend but does not stay erect more than 1 min then reaches for walker Gait: moderate deviation- decreased stance on the left LE with poor heel/toe pattern- drags the left LE as he fatigues- exaggerated hip flexion to clear the left LE (have spoken about possible need for AFO)- Rollerator. HR/TR: seated HR easily TR only on the right is 100% 50% on the left. SLS: WS only. ROM: WFL. Sit to Stand: x10 then fatigues quickly. Balance: sitting: good. Standing static: fair Standing dynamic: fair. Strength: Left- ankle:2+/5, Knee: 4/5, Hip: 4/5 Core: fair Right- ankle: 4/5, Knee: 4+/5, Hip: 4/5. Stairs: recip with 2 HR and SBA Plan Plan: Continue 2x a week for 2 weeks for progression to Health and Wellness HEP Goals Goal 1:: Patient will be I with HEP and progression Goal Time Frame: 4-6 Weeks Goal 2:: Patient will demo 4/5 strength in bilateral LE Goal Time Frame: 4-6 Weeks Goal 3:: Patient will peform 12 full sit to stands in 30 seconds Goal Time Frame: 4-6 Weeks Goal 4:: Patient will asc/desc 8 stairs recip with 2 HR Goal Time Frame: 4-6 Weeks Goal 5:: Patient will ambulate >800 feet with a normalized gait pattern and LRD Goal Time Frame: 4-6 Weeks Anticipated Interventions Therapeutic Exercise to Include: Strength training, Endurance training, Balance training, Coordination, Body mechanics, Postural training, Flexibilty training, Gait and locomotor training, Dynamic Lumbar Stabilization For the Purpose of:: To improve muscle performance and motor function Functional Training to Include: ADL Training, Gait training Please do not hesitate to contact me at [phone] by phone or if you have questions or concerns regarding this new plan of care! Sincerely, SOHAM KwokT
--- NOTE | 2018-07-30 11:44 | HP.OTDCSUM ---
HP - OT D/C Summary It has been my pleasure to treat RYLAN AGUILAR under orders from Morelia Singletary MD, for the diagnosis of Milgant neoplasm of brain; Weakness for a total of 24 visit(s). Please see the following information for a summary of their discharge status. - Overall Improvement % Improvement: 80 - Objective Objective/Function: Completed reassessment on this date of 07/30/18 and results are as follows: ROM: Shoulder. - flexion: R WFL; L 0-102. - extension: R WFL; L 0-32. - IR: R WFL;L 0-78. - ER: R WFL;L 0-44. - abduction: R WFL; L 0-86. Strength: - flexion: R WFL; L 12.8 lbs. - extension: R WFL; L 8.5 lbs. - IR: R WFL; L 11.3 lbs. - ER: R WFL; L 9.4 lbs. - abduction: R WFL; L 6.3 lbs. - safety investigator/cause analyst: flexed R 47, L 30 lbs ; extended R 50, L 36 lbs. - lateral: R 14, L 14 lbs. - tripod: R 14, L 12 lbs. - Pincer: R 8, L 9 lbs. 9 hole pegboard test: R 24.22 s; L 48.76 s - Goals Patient Goals: Regain Mobility, Regain Strength, Return to Work, Improve Fine Motor Skills, Use Hand/Wrist/Arm Normally Again, Increase ROM, Be More Independent in ADLS, Improve Sitting Balance, Improve Transfer Skills, Resume Former Household Responsibilities (Cooking,Cleaning,Yard, etc.), Resume Hobbies Goal:: Rylan to increase strength of L UE to 4/5 and increased L safety investigator/cause analyst by 20-30 lbs to promote increased strength, (i) , and ability to return to PLOF by d/c. Goal:: Rylan to be able to form full composite fist with L hand to promote increased FMC and gross grasp needed fro ADL/IADls 100% of the time by d/c. Goal:: Rylan to increase L hand FMC and dexterity to be within 5-7 seconds of R dominant hand to promote increased coordination and in hand manipulation skills needed for ADL/AIDLs by d/c. Goal:: Rylan to be (i) to complete edema management technique of L hand to manage symptoms of arthritis 4/ 5trials 80% of the time to promote increased ROM and ability to form composite fist by d/c. 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 Goal:: Rylan to be mod I to complete HEP to promote increased strength and endruance for ADL/IADLS 4/5 trials 80% of the time by d/c. - Plan Plan: Rylan will be d/c'd today and he is to call with questions or concerns. He has been provided and educated on setting up Health and Wellness program for additional strength training of L UE and is looking into it with his . He has made increased progress over the course fo therapy. He noted that this is a week of chemo treatments and feels weaker this week. Despite feeling weaker measurements have shown minimal regression and he has still progressed. 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 - D/C Information If there are questions or concerns regarding this patient's occupational therapy, please fell free to call me at [phone]. Thank you for the referral of this patient. Sincerely, Itzel Langston, OTR/L
== END 2018-07-30 19:00 | disposition home or self-care (01) ==
LOC: OT 11:00
PROVIDERS: Family Provider Family Medicine; PCP Family Medicine; Referring Provider Internal Medicine Hematology & Oncology; Visit Provider Internal Medicine Hematology & Oncology
DX: C71.9 Malignant neoplasm of brain, unspecified (principal); R53.1 Weakness; G81.94 Hemiplegia, unspecified affecting left nondominant side; R53.81 Other malaise
CPT/HCPCS: 97110; 97112; 97162; 97164; 97166; 97168; 97530

== ENCOUNTER → 2018-09-29 | Outpatient (CLI) | payer MEDICARE, OTHER, SELFPAY ==
[2017-12-13 10:35] VITALS: BMI 22.6
[2018-07-28 11:08] VITALS: BMI 24.7
[2018-09-22 13:50] VITALS: BMI 25.2
--- NOTE | 2018-09-29 10:02 | MRI_ITS ---
STUDY: MRI BRAIN WITH AND WITHOUT CONTRAST REASON FOR EXAM: Male, 83 years old. The patient presents with a history of a glioblastoma, status post surgery, and completion of chemotherapy 3 weeks prior, complaining of left-sided weakness, undergoing restaging. TECHNIQUE: Standardized multiplanar fat and water weighted pulse sequences were obtained. 17 IV Dotarem was administered for the contrast portion of the examination. COMPARISON: MRI BRAIN-July 28, 2018 FINDINGS: The patient is status post right parietal craniotomy with a craniotomy bone flap in place. There is slight enlargement of the enhancing tumor bed, which on the prior examination measured 18.1 x 8.5 x 9.5 mm (AP x transverse x craniocaudal), and which now measures 23.5 x 10.8 x 11.3 mm (AP, transverse x craniocaudal). 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 There is susceptibility artifact within the tumor bed (axial T2*GRE series 8, image 20), with intense surrounding vasogenic edema. The findings suggest residual or recurrent tumor. There is confluent hyperintensity of both cerebral hemispheres. In addition, there are scattered white matter hyperintensities consistent with chronic white matter ischemic changes. Normal diffusion-weighted images. Normal bilateral basal ganglia. Normal thalami. Normal flow voids within the major intracranial circulation suggesting patency by spin echo criteria. Normal sella turcica, pituitary gland, infundibular stalk, optic chiasm and hypothalamus. Normal tectal plate and pineal gland. Normal midbrain, di and medulla. Normal cerebellum. Normal basal cisterns. Normal bilateral temporal bones. Normal bilateral internal auditory canals. No demonstrated orbital abnormality, within the constraints of a routine brain study. Normal visualized paranasal sinuses. Normal visualized soft tissue structures. Normal visualized upper cervical spine. MRI/Brain W/WO Contrast IMPRESSION: 1. Status post right parietal craniotomy with a craniotomy bone flap in place. 2. Enlargement of the enhancing tumor bed, as compared the prior examination of July 28, 2018, with an area of linear enhancing extension to the leptomeninges, suggesting recurrent or residual tumor. 3. Stable surrounding vasogenic edema without a mass effect. Electronically Signed: Evert Suero DO at 11:37 EDT Tel , Service support ,
== END | disposition home or self-care (01) ==
LOC: MRI 09:42
PROVIDERS: Family Provider Family Medicine; PCP Family Medicine; Referring Provider Student in an Organized Health Care Education/Training Program; Visit Provider Student in an Organized Health Care Education/Training Program
DX: C71.9 Malignant neoplasm of brain, unspecified (principal)
CPT/HCPCS: 70553; A9575

== ENCOUNTER 2018-10-03 08:57 | Inpatient (IN) | payer MEDICARE, OTHER, SELFPAY ==
[2018-09-22 13:50] VITALS: BMI 25.2
[2018-10-01 10:57] VITALS: BMI 24.5
[2018-10-03] VITALS (7 sets, daily range): BP systolic 151–177; BP diastolic 78–92; PULSE 83–94; RESP 16–22; TEMP 37–37.2; O2SAT 94–99; BMI 24.5; BMI 24.3
--- NOTE | 2018-10-03 09:19 | ED.DCSUM_ITS ---
History of Present Illness Chief Complaint: Headache Informant: Patient Onset: Yesterday Context: Sudden Onset Timing: Continuous Quality: Increased weakness left side and inability to ambulate Location: Worsening neuro symptoms left Current Severity: Moderate Maximum Severity: Moderate Worsened by: Recurrence of grade 4 glioblastoma Relieved by: Nothing Associated Symptoms: Inability to ambulate Narrative: Patient is an elderly male who was diagnosed with a glioblastoma last year and underwent resection at [facility]. He underwent radiation and chemotherapy through the [facility]. He was in rehab for prolonged period of time. He states he had minimal/residual left-sided weakness. Yesterday he was able to ambulate. Today he is not able to ambulate. He states he had an MRI on Saturday. The MRI report was reviewed as well as oncologist office note. There is evidence of vasogenic edema. There appears to be recurrence of his glioblastoma. Patient has not made decision regarding treatment because his case was going to be discu ssed at the tumor board at [facility]. He presently denies headache. He presently denies visual symptoms. He denies trouble with speech, swallowing or change in voice. Prior similar symptoms: Yes - Diagnosis of glioblastoma and Lillian Recent Illness/Hospitalization: Yes - Past Medical History (1) GBM (glioblastoma multiforme) Status: Chronic (2) BPH (benign prostatic hyperplasia) Status: Chronic (3) Hypertension Status: Chronic (4) Steroid-induced diabetes mellitus Status: Chronic (5) Neurogenic bladder Status: Chronic (6) Left hemiparesis Status: Chronic (7) Acute CVA (cerebrovascular accident) Status: Acute Past Medical History - Allergies and Home Meds Allergies/Adverse Reactions: Allergies No Known Allergies Allergy (Verified 10/01/18 10:57) Primary Care Physician: Violeta Copeland [Primary Care Provider] - Prior records reviewed: Yes Surgical History: appendectomy, cholecystectomy, total knee arthroplasty, tonsillectomy, - - Excision brain tumor by craniotomy. Lives: Spouse/ Significant Other Smoking Status: Former smoker Alcohol: Rare Drugs: None - Family History Maternal Family History: Family History (Last Reviewed 10/01/18 @ 10:57 by Heidi Pires) Mother Heart disease Father CAD (coronary artery disease) Family History: Reports: No pertinent history Paternal Family History: Family History (Last Reviewed 10/01/18 @ 10:57 by Heidi Pires) Mother Heart disease Father CAD (coronary artery disease) Family History: Reports: No pertinent history Review of Systems General: Denies: Chills, Fever, Sweats Eyes: Denies: Visual changes - bilaterally, Blurred Vision - bilaterally, Diplopia ENT: Denies: Rhinorrhea, Sore throat Cardiovascular: Denies: Chest pain, Palpitations Respiratory: Denies: Dyspnea, Cough, Dyspnea on exertion Gastrointestinal: Denies: Abdominal pain, Nausea, Vomiting, Diarrhea, Melena, Hematochezia Genitourinary: Denies: Dysuria, Hematuria, Frequency Musculoskeletal: Denies: Back pain, Extremity Pain Skin: Denies: Rash, Wounds Neurological: Reports: Weakness, Numbness Hematologic: Denies: Easy bruising, Easy bleeding Allergy: Denies: Uticaria, Swelling of the mouth Physical Exam Vital Signs/Narrative: Vital Signs Temp Pulse Resp BP Pulse Ox 10/03/18 08:58 98.6 F 94 22 H 177/92 H 99 Inital Vital Signs reviewed: Yes General: Well nourished, Well developed, No Acute Distress Head: Normocephalic, Atraumatic Eyes: Perrl, EOMI ENT: Moist mucous membranes, No rhinorrhea Neck: Supple, Nontender Cardiovascular: Regular rate, Regular rhythm, No murmurs Respiratory: No distress, CTA bilaterally, Chest nontender Abdomen: Soft, Nontender, Nondistended, Normal bowel sounds Back: Nontender, Normal Inspection Extremities: Nontender, No edema Skin: Normal color, No rash Neurological: Alert, Oriented x3, Cranial nerves II-XII grossly intact, - - Sh ould not has significant weakness left side. There is greater weakness lower extremity. He has an equivocal Babinski sign on the left. He has hyperreflexia on the right. There is 6-7 beats of clonus right ankle only.. Negative for: Normal Strength, Normal Sensation, Normal DTR, Normal Gait Psychological: Normal affect, Normal Mood Diagnostic/Tx/Re-eval Impressions Brain CT 10/03/18 10:13 IMPRESSION: Chronic involutional changes of the brain. Focal encephalomalacia in the superior aspect of the right parietal lobe posteriorly in keeping with prior surgical intervention. Electronically Signed: Mil Bell, at 10:47 EDT , Service support , 10/03/18 10:13 CT Head [Brain/Head without Contrast] [CT] Stat Laboratory Results 10/03/18 10/03/18 09:00 09:00 WBC 18.0 H RBC 4.77 Hgb 14.3 Hct 42.9 MCV 89.9 MCH 30.0 MCHC 33.3 RDW Std Deviation 45.1 H RDW Coeff of Agus 13.7 Plt Count 151 MPV 9.0 Immature Gran % (Auto) 0.400 Neut % (Auto) 86.7 H Lymph % (Auto) 5.1 L Schley % (Auto) 7.4 Eos % (Auto) 0.2 Baso % (Auto) 0.2 Absolute Neuts (auto) 15.6 H Absolute Lymphs (auto) 0.92 Nucleated RBC % 0 Sodium 143 Potassium 3.9 Chloride 111 H Carbon Dioxide 26.0 Anion Gap 6 BUN 19 H Creatinine 0.91 Estim Creat Clear Calc 68.29 Est GFR (MDRD) Af Amer 102 Est GFR (MDRD) Non-Af 84 BUN/Creatinine Ratio 20.9 H Glucose 134 H Calcium 8.9 Total Bilirubin 0.80 AST 15 ALT 18 Alkaline Phosphatase 42 L Total Protein 7.6 Albumin 3.9 Globulin 3.7 Albumin/Globulin Ratio 1.1 Talk with oncology. Requested admission to [facility]. He will contact [facility] to determine treatment options. He is being admitted since she is unable to ambulate. - Medical Decision Making Allergy was paged. Based on MRI performed this week suspect his new deficits are secondary to recurrence of his glioblastoma with vasogenic edema. He received 10 mg of Decadron. Baseline blood work was obtained. Will discuss with oncology if imaging is indicated and what best to do for this patient who is now unable to ambulate. ED Disposition - Plan for ED Patient: Diagnosis: Weakness of muscle of left side of face due to and not concurrent with cerebrovascular disease, Glioblastoma multiforme of central nervous system Referrals: Violeta Copeland [Primary Care Provider] -
[2018-10-03] MEDS: 0.9% Normal Saline 1,000 ML 150 ML IV (09:27)
[2018-10-03] MEDS: dexAMETHasone 10 MG/ML Vial IV (09:27)
[2018-10-03 09:28] LABS: Absolute Lymphocyte Count 0.92 X10^3/uL (0.83-4.51); Absolute Neutrophil Count 15.6 X10^3/uL (2.0-7.7); Basophil# 0.04 X10^3/uL; Basophil% 0.2 % (0-1); Eosinophil# 0.03 X10^3/uL; Eosinophils% 0.2 % (0-5); Hematocrit 42.9 % (40-54); Hemoglobin 14.3 g/dL (13.0-16.5); Lymphocyte # 0.92 X10^3/ul (4.0); Lymphocyte % 5.1 % (19-41); Mean Corp Hgb Conc 33.3 g/dL (32-36); Mean Corpuscular Volume 89.9 fL (80-94); Monocyte# 1.34 X10^3/uL; Monocyte% 7.4 % (0-10); NRBC Flagged by Analyzer 0 % (0-5); Neutrophil # 15.61 X10^3/uL (2.7-7.7); Neutrophil % 86.7 % (47-70); Platelet Count 151 K/mm3 (150-450); RBC Distribution Width CV 13.7 % (11.6-14.6); RBC Distribution Width SD 45.1 fl (35.1-43.9); Red Blood Count 4.77 M/mm3 (4.6-6.2)
[2018-10-03 09:42] LABS: ALB/GLOB Ratio 1.1 RATIO (0.9-2.4); AST(SGOT) 15 U/L (15-37); Alanine Aminotransfer ALT/SGPT 18 U/L (16-61); Albumin, Serum 3.9 g/dL (3.2-5.0); Alkaline Phosphatase 42 U/L (45-117); Anion Gap 6 (5-15); BUN 19 mg/dL (7-18); BUN/Creat Ratio 20.9 RATIO (10-20); Calcium,Total 8.9 mg/dL (8.5-10.1); Chloride 111 mmol/L (98-107); Creatinine, Serum 0.91 mg/dL (0.70-1.30); EST Glomerular Filtration Rate 84 mL/min (>60); Est Glom Filt Rate - Afr Amer 102 mL/min (>60); Estimated Creatinine Clearance 68.29 ml/min; Globulin 3.7 g/dL (2.2-4.2); Glucose 134 mg/dL (74-106); Potassium 3.9 mmol/L (3.5-5.1); Protein, Total 7.6 g/dL (6.4-8.2); Sodium Level 143 mmol/L (136-145)
--- NOTE | 2018-10-03 10:13 | CT_ITS ---
STUDY: CT BRAIN WITHOUT CONTRAST REASON FOR EXAM: Male, 83 years old. Two-week history of headaches. The patient has a history of glioblastoma. RADIATION DOSAGE (If Supplied By Facility): CTDIvol = ( 44.99 ) mGy, DLP = ( 796.11 ) mGycm TECHNIQUE: Transaxial CT imaging of the brain was performed without administration of intravenous contrast material. Individualized dose optimization techniques were used for this CT. COMPARISON: No relevant priors. FINDINGS: Normal soft tissue structures. Status post right frontoparietal craniotomy. There is mild cerebral atrophy with widening of the extra-axial spaces and ventricular dilatation. There are areas of decreased attenuation within the white matter tracts of the supratentorial brain, consistent with microvascular disease changes. Focal area of encephalomalacia in the superior aspect of the right parietal lobe posteriorly. 3 mm rounded hyperdensity in the deep right frontoparietal lobe. Normal basal ganglia and thalami. Normal brainstem. Normal cerebellum. There is no intracranial hemorrhage. There are no findings of an acute ischemic infarction. Normal visualized paranasal sinuses. CT/Brain/Head without Contrast IMPRESSION: Chronic involutional changes of the brain. Focal encephalomalacia in the superior aspect of the right parietal lobe posteriorly in keeping with prior surgical intervention. Electronically Signed: Mil Bell, at 10:47 EDT , Service support ,
--- NOTE | 2018-10-03 11:32 | NURSING ---
DR DEBORAH BUCKNER
--- NOTE | 2018-10-03 11:36 | NURSING ---
PCU DEBORAH LT SIDED WEANKESS NOT DUE TO CVA, GLIOBASTOMA RECURRANCE
--- NOTE | 2018-10-03 12:49 | PCM.HP.STD ---
Problem List (1) Glioblastoma multiforme of central nervous system Status: Acute History of Present Illness Date of Admission: 10/03/18 Chief Complaint: weakness The patient is a 83 year old M with a known history of glioblastoma multiform whose had a history of partial resection of the cancer with residual left-sided weakness. Presents with generalized weakness today. Patient had a routine MRI of his brain performed on the and showed enlargement of the enhancing tumor bed compared to July 28 with an area of linear enhancing extension of the leptomeninges, suggesting recurrence or residual tumor and stable surrounding vasogenic edema without mass-effect. Patient had a head CT that showed no acute changes. Oncology was contacted and recommended IV dexamethasone. Oncology was going to reach out to [facility] and is relayed to me from the emergency room physician, that the patient could be admitted here to be treated for vasogenic edema from glioblastoma despite not having neurosurgery coverage. I found out shortly after, that the patient was reviewed at tumor board this week and felt the patient should have a other biopsy and they had recommended during the tumor board the patient be transferred. [] Past Medical History Past Medical History (Chronic Problems): Chronic Problems (Last Reviewed 10/01/18 @ 10:56 by Heidi Pires) History of chest pain (Chronic) GBM (glioblastoma multiforme) (Chronic) BPH (benign prostatic hyperplasia) (Chronic) Hypertension (Chronic) Steroid-induced diabetes mellitus (Chronic) Neurogenic bladder (Chronic) Left hemiparesis (Chronic) BPH loc w urin obs/LUTS (Chronic) Medical History: Medical History (Last Reviewed 10/03/18 @ 12:52 by Mariano Canales DO) Benign prostatic hyperplasia with lower urinary tract symptoms N40.1 Hyperlipidemia E78.5 Primary glioblastoma of brain C71.9 S/P RIGHT FRONTAL CRANIECTOMY 12-27-[address] [facility] [address] MCCABE Ventricular hypertrophy I51.7 bilateral enlargement Allergies No Known Allergies Allergy (Verified 10/01/18 10:57) Home Medications: Ambulatory Orders Medication Instructions Recorded Tamsulosin HCl [Flomax] 0.4 mg PO DAILY 12/09/17 Levetiracetam [Keppra] 500 mg PO BID #60 tablet 03/25/18 Acetaminophen [Tylenol Extra 1,000 mg PO PRN PRN 05/30/18 Strength] Calcium Carbonate/Vitamin D3 1 each PO DAILY 05/30/18 [Calcium 500-Vit D3 600 Tablet] Ibuprofen 800 mg PO PRN PRN 05/30/18 Polyethylene Glycol 3350 [Miralax] 17 gm PO DAILY 05/30/18 Aspirin [Aspirin, Baby] 81 mg PO DAILY@0800 tab.chew 05/31/18 Oxybutynin [Ditropan] 10 mg PO DAILY 06/02/18 Simvastatin [Zocor] 20 mg PO QHS 07/16/18 Ondansetron [Zofran] 8 mg PO Q8H PRN PRN 08/25/18 Surgical History: Surgical History (Last Reviewed 10/01/18 @ 10:56 by Heidi Pires) History of appendectomy Z90.49 History of bilateral knee replacement Z96.653 History of cholecystectomy Z90.49 History of tonsillectomy Z90.89 Surgical History: appendectomy, cholecystectomy, total knee arthroplasty, tonsillectomy, - - Excision brain tumor by craniotomy. Psychiatric History: Anxiety, Depression Lives: Spouse/ Significant Other Smoking Status: Former smoker Alcohol: Rare Drugs: None - *Family History Maternal Family History: Family History (Last Reviewed 10/03/18 @ 12:52 by Mariano Canales DO) Mother Heart disease Father CAD (coronary artery disease) History Items: No pertinent history Paternal Family History: Family History (Last Reviewed 10/03/18 @ 12:52 by Mariano Canales DO) Mother Heart disease Father CAD (coronary artery disease) History Items: No pertinent history Review of Systems Constitutional: Reports: Weakness. Denies: Anorexia, Chills, Fever Eyes: Denies: Blurred vision, Double vision HEENT: Denies: Head Aches, Sinus Congestion, Sinus Drainage Cardiovascular: Denies: Chest Pain, Palpitations Respiratory: Denies: Cough, Shortness of breath at rest, Sputum production Gastrointestinal: Denies: Abdominal Pain, Nausea, Vomiting Genitourinary: Denies: Dysuria Musculoskeletal: Denies: Joint Pain, Joint Tenderness Skin: Denies: Rash, Wounds Neurological: Reports: Balance problems, Focal weakness. Denies: Blurred vision, Double vision Psychiatric: Denies: Anxiety, Depression Endocrine: Denies: Change in Body Habitus, Heat/ Cold Intolerance Hematologic/ Lymphatic: Denies: Easy Bruising, Easy Bleeding, Hx of blood clot Comment: A 10 point review of systems were negative except as mentioned in the history of present illness and the other review of systems. VTE Information - Inpt Only VTE Present on Admission: No VTE Mechan Device Prophylaxis: SCD's Reason prophylaxis not ordered:: Medical Contraindication Patient Problems: Active and Suspected Problems (Last Reviewed 10/01/18 @ 10:56 by Heidi Pires) Weakness of muscle of left side of face due to and not concurrent with cerebrovascular disease (Acute) Glioblastoma multiforme of central nervous system (Acute) - Physical Exam General: Alert, Cooperative, No apparent distress HEENT: Atraumatic, PERRLA, EOMI, Normocephalic Oral: Moist Mucosa, No Gingival or Mucosal Lesions/ Ulcerations Neck: No Nodes, Thyroid Normal Size and Texture Lungs: Clear to auscultation, Normal air movement, No rhonchi, No wheeze, No rales Cardiovascular: Regular rate, Regular Rhythm, Normal S1, Normal S2, No murmurs Abdomen: Bowel Sounds Present, Soft, Non Tender, Non-Distended Extremities: No edema, No Calf Tenderness Skin: No rashes, No breakdown Musculoskeletal: No Tenderness to Palpation of Joints or Extremities, No Muscle Wasting Neurological: Cranial nerves II-XII grossly intact, - - Muscle strength 5 out of 5 in the right upper right lower extremity. 4-5 in the left upper extremity and 3-5 in the left lower extremity Psych/Mental Status: Normal Affect, Appropriate Vital Signs Temp Pulse Resp BP Pulse Ox 37.0 C 91 16 154/89 H 94 10/03/18 08:58 10/03/18 11:47 10/03/18 11:47 10/03/18 11:47 10/03/18 11:02 Oxygen Delivery Method Room Air Weight: 84.6 kg Body Mass Index (BMI) 24.5 Laboratory Tests Past 24 Hrs 10/03/18 10/03/18 09:00 09:00 WBC 18.0 H RBC 4.77 Hgb 14.3 Hct 42.9 MCV 89.9 MCH 30.0 MCHC 33.3 RDW Std Deviation 45.1 H RDW Coeff of Agus 13.7 Plt Count 151 MPV 9.0 Immature Gran % (Auto) 0.400 Neut % (Auto) 86.7 H Lymph % (Auto) 5.1 L Lewis % (Auto) 7.4 Eos % (Auto) 0.2 Baso % (Auto) 0.2 Absolute Neuts (auto) 15.6 H Absolute Lymphs (auto) 0.92 Nucleated RBC % 0 Sodium 143 Potassium 3.9 Chloride 111 H Carbon Dioxide 26.0 Anion Gap 6 BUN 19 H Creatinine 0.91 Estim Creat Clear Calc 68.29 Est GFR (MDRD) Af Amer 102 Est GFR (MDRD) Non-Af 84 BUN/Creatinine Ratio 20.9 H Glucose 134 H Calcium 8.9 Total Bilirubin 0.80 AST 15 ALT 18 Alkaline Phosphatase 42 L Total Protein 7.6 Albumin 3.9 Globulin 3.7 Albumin/Globulin Ratio 1.1 Clinical Impression(s) from Imaging Studies Brain CT 10/03/18 10:13 IMPRESSION: Chronic involutional changes of the brain. Focal encephalomalacia in the superior aspect of the right parietal lobe posteriorly in keeping with prior surgical intervention. Electronically Signed: Mil Bell, at 10:47 EDT , Service support , Assessment/Plan All Active Problems (Last Reviewed 10/01/18 @ 10:56 by Heidi Pires) Weakness of muscle of left side of face due to and not concurrent with cerebrovascular disease (Acute) Glioblastoma multiforme of central nervous system (Acute) Debility (Resolved) Anemia (Resolved) Educational circumstance (Acute) Chemotherapy management, encounter for (Acute) RSV (respiratory syncytial virus infection) (Resolved) Acute CVA (cerebrovascular accident) (Acute) Stroke (Acute) 1. Glioblastoma multiforme with vasogenic edema She had MRI done as outpatient that showed the vision edema but the patient was without any symptoms at that time and so was not treated. CAT scan here does not reflect any new vasogenic edema however. Concern from oncology is that this is worsening vasogenic edema given the patient's known glioblastoma that was not clearly resected previously. Discussed with Dr. Yeh who reached out to Dr. Mccabe, the neurosurgeon at [facility] and per their tumor board, have recommended biopsy. Plan is to continue with IV dexamethasone. I have already spoken with [facility] and they are looking to see about accepting the patient upon transfer. Continue with Sandy for seizure prophylaxis Hold off on aspirin and ibuprofen, which is on his home medication list given the possibility of biopsy Signed scale insulin for the high-dose Decadron if patient does require coverage or not 2. Debility Patient has a chronic left-sided weakness related with previous resection of glioblastoma. Unclear if some new generalized weakness is treatable to some of the vasogenic edema Patient will be have activity up with assistance to a chair. Patient remains here long enough, he will be evaluated by physical and occupational therapy 3. VTE prophylaxis: Moderate to high risk. SCDs. Hold off on chemical prophylaxis given the potential need for a biopsy 4. Advanced care planning: Confirmed with the patient and his . Patient wishes to be DNR Comfort Care arrest, no intubation and no PEG tube. Code Visit Inpatient E&M: 55900 Init Hosp L3
--- NOTE | 2018-10-03 12:59 | PCM.DC.SUM ---
Discharge Date and Diagnosis - Problem List Patient Problems: Active and Suspected Problems (Last Reviewed 10/03/18 @ 12:52 by Mariano Canales DO) Weakness of muscle of left side of face due to and not concurrent with cerebrovascular disease (Acute) Glioblastoma multiforme of central nervous system (Acute) Date of Admission: 10/03/18 Date of Discharge: 10/03/18 - Primary Discharge Diagnosis Active and Suspected Problems (Last Reviewed 10/03/18 @ 12:52 by Mariano Canales DO) Weakness of muscle of left side of face due to and not concurrent with cerebrovascular disease (Acute) Glioblastoma multiforme of central nervous system (Acute) - Secondary Discharge Diagnosis Chronic Problems (Last Reviewed 10/03/18 @ 12:52 by Mariano Canales DO) History of chest pain (Chronic) GBM (glioblastoma multiforme) (Chronic) BPH (benign prostatic hyperplasia) (Chronic) Hypertension (Chronic) Steroid-induced diabetes mellitus (Chronic) Neurogenic bladder (Chronic) Left hemiparesis (Chronic) BPH loc w urin obs/LUTS (Chronic) Hospital Course and Treatment Imaging Results: 10/03/18 10:13 CT Head [Brain/Head without Contrast] [CT] Stat Clinical Impression(s) from Imaging Studies Brain CT 10/03/18 10:13 IMPRESSION: Chronic involutional changes of the brain. Focal encephalomalacia in the superior aspect of the right parietal lobe posteriorly in keeping with prior surgical intervention. Electronically Signed: Mil Ray, at 10:47 EDT , Service support , Operations: None Procedures: None Summary of Care Provided: The patient is a 83 year old M presents with weakness. Patient on outpatient MRI of his brain for routine maintenance that showed some vasogenic edema though unchanged from July. The weakness got worse on the and is persisted today. Is more generalized and not focal. Had a CAT scan that showed no worsening vasogenic edema but no other acute process. Oncology was contacted recommended steroids. After the patient just left the emergency room, I spoke with Dr. Yeh who was in contact with the neurosurgeon, Dr. Mccabe, at [facility], and they had a tumor board on the and stated that the patient should have a biopsy. With that information patient being admitted, I spoke with [facility] transfer line and seeking transfer to their facility to continue with treatment and possible biopsy. I did confer with the patient and his that they were comfortable with being admitted here without neurosurgery coverage before I had the opportunity to speak with Dr. Singletary, and they stated that they would be comfortable at that time. I did confer CODE STATUS the patient is and patient did confirm that he is DNR Comfort Care arrest, no intubation and no PEG tube. Prognosis is guarded though the patient is hemodynamically stable at this time. [] Patient Problems: Active and Suspected Problems (Last Reviewed 10/03/18 @ 12:52 by Mariano Canales DO) Weakness of muscle of left side of face due to and not concurrent with cerebrovascular disease (Acute) Glioblastoma multiforme of central nervous system (Acute) - Physical Exam Vital Signs Temp Pulse Resp BP Pulse Ox 37.0 C 91 16 154/89 H 94 10/03/18 08:58 10/03/18 11:47 10/03/18 11:47 10/03/18 11:47 10/03/18 11:02 Oxygen Delivery Method Room Air Weight: 84.6 kg Body Mass Index (BMI) 24.5 Laboratory Tests Past 24 Hrs 10/03/18 10/03/18 09:00 09:00 WBC 18.0 H RBC 4.77 Hgb 14.3 Hct 42.9 MCV 89.9 MCH 30.0 MCHC 33.3 RDW Std Deviation 45.1 H RDW Coeff of Agus 13.7 Plt Count 151 MPV 9.0 Immature Gran % (Auto) 0.400 Neut % (Auto) 86.7 H Lymph % (Auto) 5.1 L Solano % (Auto) 7.4 Eos % (Auto) 0.2 Baso % (Auto) 0.2 Absolute Neuts (auto) 15.6 H Absolute Lymphs (auto) 0.92 Nucleated RBC % 0 Sodium 143 Potassium 3.9 Chloride 111 H Carbon Dioxide 26.0 Anion Gap 6 BUN 19 H Creatinine 0.91 Estim Creat Clear Calc 68.29 Est GFR (MDRD) Af Amer 102 Est GFR (MDRD) Non-Af 84 BUN/Creatinine Ratio 20.9 H Glucose 134 H Calcium 8.9 Total Bilirubin 0.80 AST 15 ALT 18 Alkaline Phosphatase 42 L Total Protein 7.6 Albumin 3.9 Globulin 3.7 Albumin/Globulin Ratio 1.1 Discharge Diet: 1800 Calorie Control Diet Discharge Activity: Return to Normal Activity Home Medications: Medications to take at Discharge Tamsulosin HCl [Flomax] 0.4 mg PO DAILY 12/09/17 Levetiracetam [Keppra] 500 mg PO BID #60 tablet 03/25/18 Acetaminophen [Tylenol Extra Strength] 1,000 mg PO PRN PRN 05/30/18 Calcium Carbonate/Vitamin D3 [Calcium 500-Vit D3 600 Tablet] 1 each PO DAILY 05/30/18 Ibuprofen 800 mg PO PRN PRN 05/30/18 Polyethylene Glycol 3350 [Miralax] 17 gm PO DAILY 05/30/18 Aspirin [Aspirin, Baby] 81 mg PO DAILY@0800 tab.chew 05/31/18 Oxybutynin [Ditropan] 10 mg PO DAILY 06/02/18 Simvastatin [Zocor] 20 mg PO QHS 07/16/18 Ondansetron [Zofran] 8 mg PO Q8H PRN PRN 08/25/18 Primary Care Physician: Violeta Copeland [Primary Care Provider] - Disposition: Acute care Hospital Minutes spent on discharge:: 45 Patient Condition:: Guarded Medical Necessity - Tobacco Use Smoking Status: Former smoker Meaningful Use Info Meaningful Use Diagnoses (Choose all that apply): None applicable Code Visit OBSV E&M: 85578 Observ/hosp same date L3 - Disregard if not discharged on 10/03
[2018-10-03 14:01] LABS: Bedside Glucose 144 mg/dL (70-110)
--- NOTE | 2018-10-03 15:03 | NURSING ---
Attempted to call and give report at 1445. RN unable to take at this time. Informed patient to be leaving shortly.
--- NOTE | 2018-10-03 15:08 | NURSING ---
Addendum entered by Aundrea Doss 10/03/18 15:09: Straight cathed patient for 650 per order - pt tolerated well. Denies pain. Dark yellow clear. Done at 1400 Original Note: Straight cathed patient for 650 per order - pt tolerated well. Denies pain. Dark yellow clear.
--- NOTE | 2018-10-03 15:30 | NURSING ---
Called and gave report at 1524 to KELSEY Cowan. Given unit number for questions but had no further questions at this time. aware of transfer and location
== END 2018-10-03 15:36 | disposition short-term general hospital (02) | DRG 54 ==
LOC: ED 09:42 → PCU 12:15
PROVIDERS: Emergency Provider Emergency Medicine; Family Provider Family Medicine; PCP Family Medicine
DX: C71.9 Malignant neoplasm of brain, unspecified (principal); G93.6 Cerebral edema; G81.94 Hemiplegia, unspecified affecting left nondominant side; N13.8 Other obstructive and reflux uropathy; Z66 Do not resuscitate; I10 Essential (primary) hypertension; Z87.891 Personal history of nicotine dependence; Z92.21 Personal history of antineoplastic chemotherapy; Z92.3 Personal history of irradiation; N31.9 Neuromuscular dysfunction of bladder, unspecified; N40.1 Benign prostatic hyperplasia with lower urinary tract symptoms
CPT/HCPCS: 70450; 80053; 82962; 85025; 99284; J7030; A4216

== ENCOUNTER 2018-10-07 16:10 | Inpatient (IN) | payer MEDICARE, OTHER, SELFPAY ==
[2018-10-01 10:57] VITALS: BMI 24.5
[2018-10-03 13:10] VITALS: BMI 24.3
[2018-10-07 16:45] VITALS: BP 159/88; PULSE 85; RESP 18; TEMP 36.7; O2SAT 95; BMI 24.9
--- NOTE | 2018-10-07 18:15 | NURSING ---
PT ARRIVED BY WHEEL CHAIR,FAMILY BROUGHT FROM [facility]. AT 1600.
--- NOTE | 2018-10-07 18:17 | NURSING ---
PT STRAIGHT CATHED AT 1645, 300 OUT. URINE-STRAW/CLEAR/NO SMELL. PT TOLERATED WELL.
[2018-10-07] MEDS: Famotidine 20 MG Tablet PO (18:19)
[2018-10-07] MEDS: dexAMETHasone 4 MG Tablet 2 MG PO (18:48)
[2018-10-07] MEDS: MELATONIN 3 MG TABLET PO (20:05)
[2018-10-07] MEDS: Atorvastatin Calcium 10 MG Tablet PO (20:05)
--- NOTE | 2018-10-07 20:20 | HP.PCM_ITS ---
Problem List (1) GBM (glioblastoma multiforme) Status: Chronic (2) BPH (benign prostatic hyperplasia) Status: Chronic (3) Hypertension Status: Chronic (4) Steroid-induced diabetes mellitus Status: Chronic (5) Neurogenic bladder Status: Chronic (6) Left hemiparesis Status: Acute (7) Debility Status: Acute History of Present Illness Date of Admission: 10/07/18 Chief Complaint: Here for rehabilitation, strengthening, prior to discharge home with spouse. The patient is a 83 year old Male with an established diagnosis of glioblastoma who presented to [facility] and admitted 10/03/2018 with rapidly progressive left sided weakness. 10/02/2018 Started experiencing left sided weakness. 10/03/2018 Woke up with severe weakness of his left side. Dexamethasone administered at [facility] with improvement of left sided weakness. 10/03/2018 CT scan of head at [facility] showed worsening vasogenic edema. Patient transferred to [facility]. Patient felt left sided weakness had improved but not to baseline. 10/04/2018 MRI brain showed heterogeneous enhancing lesion within the right frontal lobe posterior to the resection cavity is increased in size compared to prior MRI brain July 28, 2018. Surrounding T2/FLAIR white matter hyperintensity is increased compared to prior MRI brain May 29/2019. It is unclear what component represents progressive tumor versus posttreatment changes. Steroids continued as patient improved with dexamethasone. Anticonvulsant therapy continued for seizure prophylaxis although patient has not seizure history. Seizure risk perceived high. Regarding treatment of glioblastoma: Patient has been treated with chemoradiation and 6 cycles of adjuvant temozolomide. He now has progressive imaging changes suggestive of progressive disease. Differential diagnosis includes treatment related changes. Significant worsening of left sided weakness improved with high-dose steroids. Patient will be discharged on steroid taper and return to clinic in 4 weeks from most recent MRI brain dated October 04, 2018 for consideration of possible biopsy of enhancement especially with the progression on the follow-up MRI versus continued clinical and imaging surveillance the changes are stable or improved. 10/07/2018 Admit to TCU with debility here for rehabilitation, strengthening, prior to discharge home with spouse. Past Medical History Past Medical History (Chronic Problems): Chronic Problems (Last Reviewed 10/03/18 @ 12:52 by Mariano Canales DO) History of chest pain (Chronic) GBM (glioblastoma multiforme) (Chronic) BPH (benign prostatic hyperplasia) (Chronic) Hypertension (Chronic) Steroid-induced diabetes mellitus (Chronic) Neurogenic bladder (Chronic) BPH loc w urin obs/LUTS (Chronic) Medical History: Medical History (Last Reviewed 10/03/18 @ 12:52 by Mariano Canales DO) Benign prostatic hyperplasia with lower urinary tract symptoms N40.1 Hyperlipidemia E78.5 Primary glioblastoma of brain C71.9 S/P RIGHT FRONTAL CRANIECTOMY 12-27-17 [facility] Ventricular hypertrophy I51.7 bilateral enlargement Allergies No Known Allergies Allergy (Verified 10/01/18 10:57) Home Medications: Ambulatory Orders Medication Instructions Recorded Tamsulosin HCl [Flomax] 0.4 mg PO BID 12/09/17 Acetaminophen [Tylenol Extra 1,000 mg PO Q8H PRN PRN 05/30/18 Strength] Simvastatin [Zocor] 20 mg PO QHS 07/16/18 Ondansetron [Zofran] 4 mg PO Q8H PRN PRN 08/25/18 Amlodipine [Norvasc] 5 mg PO DAILY 10/07/18 Calcium Citrate 250 mg PO DAILY 10/07/18 Cholecalciferol (VIT D3) [Vitamin 2,000 unit PO DAILY 10/07/18 D] Dexamethasone [Decadron] See Taper PO TID 10/07/18 Docusate Sodium [Stool Softener] 100 mg PO DAILY 10/07/18 Famotidine 20 mg PO Q12H 10/07/18 Insulin Lispro [Humalog KwikPen] See Protocol SUBCUT ACHS 10/07/18 Levetiracetam [Levetiracetam ER] 1,000 mg PO DAILY 10/07/18 Melatonin 3 mg PO QHS 10/07/18 Surgical History: Surgical History (Last Reviewed 10/01/18 @ 10:56 by Heidi Pires) History of appendectomy Z90.49 History of bilateral knee replacement Z96.653 History of cholecystectomy Z90.49 History of tonsillectomy Z90.89 Surgical History: appendectomy, cholecystectomy, total knee arthroplasty, tonsillectomy, - - Excision brain tumor by craniotomy. Psychiatric History: Anxiety, Depression Lives: Spouse/ Significant Other Smoking Status: Former smoker Tobacco Use: Cigarettes Alcohol: None Drugs: None - *Family History Maternal Family History: Family History (Last Reviewed 10/03/18 @ 12:52 by Mariano Canales DO) Mother Heart disease Father CAD (coronary artery disease) History Items: No pertinent history Paternal Family History: Family History (Last Reviewed 10/03/18 @ 12:52 by Mariano Canales DO) Mother Heart disease Father CAD (coronary artery disease) History Items: No pertinent history Review of Systems Constitutional: Denies: Chills, Fever, Weight Change HEENT: Denies: Head Aches, Sinus Congestion, Sinus Drainage Cardiovascular: Denies: Chest Pain, Palpitations Respiratory: Denies: Cough, Shortness of breath at rest, Sputum production Gastrointestinal: Denies: Abdominal Pain, Nausea, Vomiting Genitourinary: Denies: Dysuria Musculoskeletal: Denies: Joint Pain, Joint Tenderness Skin: Denies: Rash, Wounds Neurological: Denies: Numbness, Tingling, Focal weakness Psychiatric: Denies: Anxiety, Depression, Homicidal Ideations, Suicidal Ideations Hematologic/ Lymphatic: Denies: Easy Bruising, Easy Bleeding VTE Information - Inpt Only VTE Present on Admission: No VTE Mechan Device Prophylaxis: Knee High ALYSON Hose VTE Pharm Prophylaxis ordered?: Yes - Physical Exam General: Alert, Oriented x3, Cooperative HEENT: Atraumatic, PERRLA, EOMI, Normocephalic Neck: Supple, No JVD, Negative Carotid Bruits Lungs: Clear to auscultation, Normal air movement Cardiovascular: Regular rate, No murmurs Abdomen: Bowel Sounds Present, Soft, Non Tender Extremities: No edema, Capillary Refill Less than 3 Seconds Skin: No rashes, No breakdown Musculoskeletal: No Tenderness to Palpation of Joints or Extremities Neurological: Cranial nerves II-XII grossly intact, - - Left hemiparesis. Psych/Mental Status: Normal Affect, Appropriate Vital Signs Temp Pulse Resp BP Pulse Ox 98.1 F 85 18 159/88 H 95 10/07/18 16:45 10/07/18 16:45 10/07/18 16:45 10/07/18 16:45 10/07/18 16:45 Oxygen Delivery Method Room Air Weight: 85.7 kg Body Mass Index (BMI) 24.9 Intake and Output for Last 24 Hours 10/05/18 10/06/18 10/07/18 23:59 23:59 23:59 Intake Total 240 / 240 Output Total 300 / 300 Balance -60 / -60 Assessment/Plan All Active Problems (Last Reviewed 10/03/18 @ 12:52 by Mariano Canales DO) Weakness of muscle of left side of face due to and not concurrent with cerebrovascular disease (Acute) Glioblastoma multiforme of central nervous system (Acute) Left hemiparesis (Acute) Debility (Acute) Anemia (Resolved) Educational circumstance (Acute) Chemotherapy management, encounter for (Acute) RSV (respiratory syncytial virus infection) (Resolved) Acute CVA (cerebrovascular accident) (Acute) Stroke (Acute) 83 year old male with below past medical history significant for Glioblastoma multiforme, hospitalized for acute left sided weakness which improved with high dose steroids, admitted to TCU with debility, here for rehabilitation, strengthening, prior to discharge home with spouse. * Debility - PT/OT. * Pain - Tylenol 1000MG Q8H PRN mild pain. * Bowel - Miralax 17GM daily, Senna/colace 1 tablet BID, Dulcolax 10MG daily PRN. * Pneumonia vaccination - Administer Prevnar 13 and/or Pneumovax 23 as necessary. * DVT prophylaxis - Lovenox 40MG SC daily. * Hypertension - Amlodipine 5MG daily. * Hyperlipidemia - Atorvastatin 10MG QHS. * Calcium deficiency - Calcium 500MG daily. * Vitamin D deficiency - D3 2000IU daily. * Glioblastoma - Dexamethasone 4MG TID thru 11/04/2018, left hemiparesis improved. * GERD - Famotidine 20MG BID. * Diabetes Mellitus II - Monitor blood glucose, add insulin as necessary. * Seizure prophylaxis - Keppra ER 1000MG daily. * Insomnia - Melatonin 3MG QHS. * Nausea - Zofran 4MG Q8H PRN. * BPH - Tamsulosin 0.4MG daily.
[2018-10-08 05:42] LABS: Absolute Lymphocyte Count 0.96 X10^3/uL (0.83-4.51); Absolute Neutrophil Count 9.4 X10^3/uL (2.0-7.7); Basophil# 0.02 X10^3/uL; Basophil% 0.2 % (0-1); Eosinophils% 0.9 % (0-5); Hematocrit 39.4 % (40-54); Hemoglobin 13.3 g/dL (13.0-16.5); Lymphocyte # 0.96 X10^3/ul (4.0); Lymphocyte % 8.4 % (19-41); Mean Corp Hgb Conc 33.8 g/dL (32-36); Mean Corpuscular Hgb 29.5 pg (27.0-32.0); Mean Corpuscular Volume 87.4 fL (80-94); Mean Platelet Vol. 9.2 fl (6.2-12.0); Monocyte# 0.61 X10^3/uL; Monocyte% 5.3 % (0-10); NRBC Flagged by Analyzer 0 % (0-5); Neutrophil % 81.7 % (47-70); Platelet Count 171 K/mm3 (150-450); RBC Distribution Width CV 13.5 % (11.6-14.6); RBC Distribution Width SD 42.9 fl (35.1-43.9); Red Blood Count 4.51 M/mm3 (4.6-6.2); White Blood Count 11.5 K/mm3 (4.4-11.0)
[2018-10-08 05:56] LABS: Anion Gap 7 (5-15); BUN 28 mg/dL (7-18); BUN/Creat Ratio 34.1 RATIO (10-20); Calcium,Total 8.1 mg/dL (8.5-10.1); Chloride 107 mmol/L (98-107); Creatinine, Serum 0.82 mg/dL (0.70-1.30); EST Glomerular Filtration Rate 95 mL/min (>60); Est Glom Filt Rate - Afr Amer 115 mL/min (>60); Estimated Creatinine Clearance 75.79 ml/min; Glucose 172 mg/dL (74-106); Potassium 4.3 mmol/L (3.5-5.1); Sodium Level 139 mmol/L (136-145)
[2018-10-08 06:25] LABS: Bedside Glucose 166 mg/dL (70-110)
[2018-10-08] MEDS: Famotidine 20 MG Tablet PO ×2 (06:25→17:56)
[2018-10-08] MEDS: amLODIPine 5 MG Tablet PO (06:25)
[2018-10-08] MEDS: Menthol/Lanolin/Calamine/Znox 113 GM Tube 1 APPLIC TOPICAL ×2 (06:25→21:13)
[2018-10-08] MEDS: Nystatin Powder 15gm Bottle 1 APPLIC TOPICAL ×2 (06:26→21:14)
[2018-10-08] MEDS: Polyethylene Glycol 3350 17 GM PACKET PO (06:29)
[2018-10-08] MEDS: Senna/Docusate Sodium 1 Tablet PO ×2 (06:29→17:56)
[2018-10-08] MEDS: Enoxaparin 40 MG/0.4 ML Syringe SC (06:31)
[2018-10-08] MEDS: dexAMETHasone 4 MG Tablet 2 MG PO ×3 (08:34→17:55)
[2018-10-08] MEDS: Tamsulosin HCl 0.4 MG Capsule PO ×2 (09:32→17:55)
[2018-10-08] MEDS: Calcium Carbonate 500 MG Tablet PO (09:33)
[2018-10-08] MEDS: CLARIFY ORDER NOTE (10:17)
--- NOTE | 2018-10-08 10:25 | CASEMGMT ---
See assessment for further details. Prior to hospitalization, pt lived home w/. He was independent with personal care but she assisted with most ADL's. 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 Pt's plan is to return home w/ at discharge. SW will continue to follow. MALIA Novoa
[2018-10-08] MEDS: Tuberculin,Purif.prot.deriv. 50 TU/ML Vial 5 ML ID (11:05)
--- NOTE | 2018-10-08 11:45 | NURSING ---
Pt requesting to be straight cath'd at this time. Pt straight cath'd for 300ml of clear, straw colored urine. No odor noted. Pt tolerated well. Reported to Nidia COLE.
[2018-10-08] MEDS: levETIRAcetam 500 MG Tablet PO ×2 (15:17→21:15)
[2018-10-08 15:26] VITALS: BP 151/89; PULSE 84; RESP 18; TEMP 36.4; O2SAT 96
--- NOTE | 2018-10-08 16:56 | NURSING ---
Pt requesting to be straight cath'd at this time. Pt straight cath'd for 350ml of clear, straw colored urine. No odor noted. Pt tolerated well. Reported to Nidia COLE.
[2018-10-08] MEDS: Atorvastatin Calcium 10 MG Tablet PO (21:15)
[2018-10-08] MEDS: MELATONIN 3 MG TABLET PO (21:16)
[2018-10-08] MEDS: Acetaminophen 500 MG Tablet 1000 MG PO (21:22)
[2018-10-08 21:25] VITALS: PULSE 68; RESP 16; O2SAT 96
[2018-10-09] MEDS: Menthol/Lanolin/Calamine/Znox 113 GM Tube 1 APPLIC TOPICAL ×2 (06:04→21:01)
[2018-10-09] MEDS: Nystatin Powder 15gm Bottle 1 APPLIC TOPICAL ×2 (06:04→21:01)
[2018-10-09] MEDS: Enoxaparin 40 MG/0.4 ML Syringe SC (06:05)
[2018-10-09] MEDS: Polyethylene Glycol 3350 17 GM PACKET PO (06:05)
[2018-10-09] MEDS: Famotidine 20 MG Tablet PO ×2 (06:05→17:17)
[2018-10-09] MEDS: levETIRAcetam 500 MG Tablet PO ×2 (06:05→17:17)
[2018-10-09] MEDS: Senna/Docusate Sodium 1 Tablet PO (06:05)
[2018-10-09] MEDS: amLODIPine 5 MG Tablet PO (06:05)
[2018-10-09 06:31] LABS: Bedside Glucose 153 mg/dL (70-110)
[2018-10-09] MEDS: dexAMETHasone 4 MG Tablet 2 MG PO ×3 (08:16→17:17)
[2018-10-09] MEDS: Tamsulosin HCl 0.4 MG Capsule PO ×2 (09:05→17:17)
[2018-10-09] MEDS: Calcium Carbonate 500 MG Tablet PO (09:05)
--- NOTE | 2018-10-09 10:53 | PCM.PN.RX ---
<VinodraheelErica M - Last Filed: 10/09/18 10:53> Progress Note - Pharmacy Subjective: TCU Admission Objective: Allergies No Known Allergies Allergy (Verified 10/01/18 10:57) Current Medications Generic Name Dose Route Start Last Admin Trade Name Freq PRN Reason Stop Dose Admin Acetaminophen 1,000 mg 10/07/18 17:07 10/08/18 21:22 Tylenol PO 1,000 mg Q8H PRN PRN Administration MILD PAIN (1-310) Amlodipine Besylate 5 mg 10/08/18 06:00 10/09/18 06:05 Norvasc PO 5 mg DAILY PAUL Administration Atorvastatin Calcium 10 mg 10/07/18 22:00 10/08/18 21:15 Lipitor PO 10 mg QHS PAUL Administration Bisacodyl 10 mg 10/07/18 20:43 Dulcolax PO DAILY PRN Constipation Calamine/Phenol 1 applic 10/08/18 06:00 10/09/18 06:04 Calmoseptine Ointment TOPICAL 1 applicatio 0600,2200 PAUL Administration Protocol Calcium Carbonate 500 mg 10/08/18 08:00 10/09/18 09:05 Tums PO 500 mg DAILYCM PAUL Administration Cholecalciferol 2,000 unit 10/08/18 08:00 10/09/18 09:05 Vitamin D PO 2,000 unit DAILYCM PAUL Administration Dexamethasone 4 mg 10/07/18 17:45 10/09/18 08:16 Decadron PO 11/04/18 17:44 4 mg TIDCM PAUL Administration Taper Enoxaparin Sodium 40 mg 10/08/18 06:00 10/09/18 06:05 Lovenox SC 40 mg DAILY@0600 PAUL Administration Famotidine 20 mg 10/07/18 18:00 10/09/18 06:05 Pepcid PO 20 mg Q12H PAUL Administration Levetiracetam 500 mg 10/08/18 14:00 10/09/18 06:05 Keppra Tablet PO 500 mg BID PAUL Administration Melatonin 3 mg 10/07/18 22:00 10/08/18 21:16 Melatonin PO 3 mg QHS PAUL Administration Nystatin 1 applic 10/08/18 06:00 10/09/18 06:04 Mycostatin Powder TOPICAL 1 applicatio 0600,2200 PAUL Administration Protocol Ondansetron HCl 4 mg 10/07/18 17:39 Zofran Odt PO Q8H PRN NAUSEA Polyethylene Glycol 17 gm 10/08/18 06:00 10/09/18 06:05 Miralax PO 17 gm DAILY PAUL Administration Senna/Docusate Sodium 1 tablet 10/08/18 06:00 10/09/18 06:05 Senokot-S, Amberly-Colace PO 1 tablet BID PAUL Administration Tamsulosin HCl 0.4 mg 10/08/18 08:30 10/09/18 09:05 Flomax PO 0.4 mg BID@0830,1730 PAUL Administration Tuberculin PPD 5 tu 10/15/18 10:00 Tubersol, Aplisol, Ppd ID 10/15/18 10:01 X1 ONE Vital Signs Temp Pulse Resp BP Pulse Ox 97.6 F L 68 16 151/89 H 96 10/08/18 15:26 10/08/18 21:25 10/08/18 21:25 10/08/18 15:26 10/08/18 21:25 Oxygen Delivery Method Room Air Weight: 85.7 kg Body Mass Index (BMI) 24.9 Sodium 139 mmol/L (136-145) 10/08/18 05:05 Potassium 4.3 mmol/L (3.5-5.1) 10/08/18 05:05 Chloride 107 mmol/L (98-107) 10/08/18 05:05 Carbon Dioxide 25.0 mmol/L (21.0-32.0) 10/08/18 05:05 7 (5-15) 10/08/18 05:05 BUN 28 mg/dL (7-18) H 10/08/18 05:05 0.82 mg/dL (0.70-1.30) 10/08/18 05:05 Est GFR (MDRD) Af Amer 115 mL/min (>60) 10/08/18 05:05 Est GFR (MDRD) Non-Af 95 mL/min (>60) 10/08/18 05:05 34.1 RATIO (10-20) H 10/08/18 05:05 Glucose 172 mg/dL (74-106) H 10/08/18 05:05 Assessment/Plan: 1. Pain: Tylenol 1000mg PO Q8h PRN mild pain (1-3/10). Please continue to monitor patient for signs/symptoms of increased or decreased pain. 2. Hypertension: Amlodipine 5mg PO daily. Please continue to monitor blood pressure, electrolytes. 3. Hyperlipidemia: Atorvastatin 10mg PO QHS. Last lipid panel 05/2018. Please continue to monitor and order lipid panel annually as clinically appropriate. 4. BPH: Flomax 0.4mg PO BID. Please continue to monitor for signs and symptoms of urinary retention, BPH. 5. GERD: Pepcid 20mg PO BID. Please continue to monitor for signs and symptoms of increased/decreased GERD symptoms, renal function. 6. Glioblastoma: Dexamethasone 40mg PO TID taper thru 11/04/18. Please continue to monitor for symptom improvement, as well as blood glucose levels due to steroid induced diabetes. 7. DVT Prophylaxis: Lovenox 40mg SC daily. Please continue to monitor for signs and symptoms of bleeding, renal function. 8. Seizure prophylaxis: Keppra 500mg PO BID. Please continue to monitor for signs/symptoms of seizure. 9. Nausea: Zofran 4mg PO Q8h PRN nausea. Please continue to monitor for signs and symptoms of nausea/ vomiting. 10. Insomnia: Melatonin 3mg PO QHS. Please continue to monitor for signs and symptoms of insomnia, oversedation, confusion. 11. General wellness: Calcium Carbonate 500mg PO daily, Cholecalciferol 2,000 unit PO daily. Please continue to monitor. Psychotropic Medications: None Unnecessary Medications: None Bowel Regimen: Bisacodyl 10mg PO daily PRN, Miralax 17g PO daily, Senna/docusate 1T PO BID. Please continue to monitor for signs and symptoms of constipation/diarrhea. Date of Note:: 10/09/18 - Provider Comments Provider responsibility: Provider responsible to enter orders to implement recommendations <Rui Mccray Chi - Last Filed: 10/09/18 21:46> Progress Note - Pharmacy Subjective: [] Objective: Allergies No Known Allergies Allergy (Verified 10/01/18 10:57) Current Medications Generic Name Dose Route Start Last Admin Trade Name Freq PRN Reason Stop Dose Admin Acetaminophen 1,000 mg 10/07/18 17:07 10/09/18 21:01 Tylenol PO 1,000 mg Q8H PRN PRN Administration MILD PAIN (1-04/27) Amlodipine Besylate 5 mg 10/08/18 06:00 10/09/18 06:05 Norvasc PO 5 mg DAILY PAUL Administration Atorvastatin Calcium 10 mg 10/07/18 22:00 10/09/18 21:01 Lipitor PO 10 mg QHS [facility] Administration Bisacodyl 10 mg 10/07/18 20:43 Dulcolax PO DAILY PRN Constipation Calamine/Phenol 1 applic 10/08/18 06:00 10/09/18 21:01 Calmoseptine Ointment TOPICAL 1 applicatio 0600,2200 [facility] Administration Protocol Calcium Carbonate 500 mg 10/08/18 08:00 10/09/18 09:05 Tums PO 500 mg DAILYCM [facility] Administration Cholecalciferol 2,000 unit 10/08/18 08:00 10/09/18 09:05 Vitamin D PO 2,000 unit DAILYCM [facility] Administration Dexamethasone 4 mg 10/07/18 17:45 10/09/18 17:17 Decadron PO 11/04/18 17:44 4 mg TIDCM [facility] Administration Taper Enoxaparin Sodium 40 mg 10/08/18 06:00 10/09/18 06:05 Lovenox SC 40 mg DAILY@0600 PAUL Administration Famotidine 20 mg 10/07/18 18:00 10/09/18 17:17 Pepcid PO 20 mg Q12H PAUL Administration Levetiracetam 500 mg 10/08/18 14:00 10/09/18 17:17 Keppra Tablet PO 500 mg BID PAUL Administration Melatonin 3 mg 10/07/18 22:00 10/09/18 21:01 Melatonin PO 3 mg QHS [facility] Administration Nystatin 1 applic 10/08/18 06:00 10/09/18 21:01 Mycostatin Powder TOPICAL 1 applicatio 0600,2200 [facility] Administration Protocol Ondansetron HCl 4 mg 10/07/18 17:39 Zofran Odt PO Q8H PRN NAUSEA Polyethylene Glycol 17 gm 10/08/18 06:00 10/09/18 06:05 Miralax PO 17 gm DAILY [facility] Administration Senna/Docusate Sodium 1 tablet 10/08/18 06:00 10/09/18 17:17 Senokot-S, Amberly-Colace PO Not Given BID [facility] Tamsulosin HCl 0.4 mg 10/08/18 08:30 10/09/18 17:17 Flomax PO 0.4 mg BID@0830,1730 PAUL Administration Tuberculin PPD 5 tu 10/15/18 10:00 Tubersol, Aplisol, Ppd ID 10/15/18 10:01 X1 ONE Vital Signs Temp Pulse Resp BP Pulse Ox 97.9 F 61 18 140/77 H 97 10/09/18 15:05 10/09/18 15:05 10/09/18 15:05 10/09/18 15:05 10/09/18 15:05 Oxygen Delivery Method Room Air Weight: 85.7 kg Body Mass Index (BMI) 24.9 Sodium 139 mmol/L (136-145) 10/08/18 05:05 Potassium 4.3 mmol/L (3.5-5.1) 10/08/18 05:05 Chloride 107 mmol/L (98-107) 10/08/18 05:05 Carbon Dioxide 25.0 mmol/L (21.0-32.0) 10/08/18 05:05 7 (5-15) 10/08/18 05:05 BUN 28 mg/dL (7-18) H 10/08/18 05:05 0.82 mg/dL (0.70-1.30) 10/08/18 05:05 Est GFR (MDRD) Af Amer 115 mL/min (>60) 10/08/18 05:05 Est GFR (MDRD) Non-Af 95 mL/min (>60) 10/08/18 05:05 34.1 RATIO (10-20) H 10/08/18 05:05 Glucose 172 mg/dL (74-106) H 10/08/18 05:05 Assessment/Plan: Psychotropic Medications: Unnecessary Medications: Bowel Regimen: - Provider Comments Provider responsibility: Provider responsible to enter orders to implement recommendations Provider Comments to Recommendations by Pharmacy: Agree
--- NOTE | 2018-10-09 12:53 | NURSING ---
Pt requesting to be straight cath'd at this time. Pt straight cath'd for 600ml of clear, straw colored urine. No odor noted. Pt tolerated well. Reported to Nisreen COLE.
[2018-10-09 15:05] VITALS: BP 140/77; PULSE 61; RESP 18; TEMP 36.6; O2SAT 97
--- NOTE | 2018-10-09 18:47 | NURSING ---
Addendum entered by Millicent Schofield 10/09/18 19:16: Pt did not want straight cath'd at this time. Stated he would wait d/t saturating of briefs. Original Note: Pt bladder scanned for 205ml. Pt sitting in recliner chair at this time. Brief saturated with large amount of incontinent urine. Pt stated he was changed prior to getting out of bed prior to dinner. Pt informed that Dr Mccray was updated regarding him wanting a woods catheter. Order given to use condom catheter as needed. Pt requesting to have it put on at HS. Will report to oncoming staff.
[2018-10-09] MEDS: MELATONIN 3 MG TABLET PO (21:01)
[2018-10-09] MEDS: Atorvastatin Calcium 10 MG Tablet PO (21:01)
[2018-10-09] MEDS: Acetaminophen 500 MG Tablet 1000 MG PO (21:01)
[2018-10-10] MEDS: Polyethylene Glycol 3350 17 GM PACKET PO (05:43)
[2018-10-10] MEDS: Senna/Docusate Sodium 1 Tablet PO (05:48)
[2018-10-10] MEDS: amLODIPine 5 MG Tablet PO (05:48)
[2018-10-10] MEDS: Famotidine 20 MG Tablet PO ×2 (05:48→17:29)
[2018-10-10] MEDS: Nystatin Powder 15gm Bottle 1 APPLIC TOPICAL ×2 (05:48→22:34)
[2018-10-10] MEDS: levETIRAcetam 500 MG Tablet PO ×2 (05:48→17:28)
[2018-10-10] MEDS: Menthol/Lanolin/Calamine/Znox 113 GM Tube 1 APPLIC TOPICAL ×2 (05:48→22:35)
[2018-10-10] MEDS: Enoxaparin 40 MG/0.4 ML Syringe SC (05:48)
[2018-10-10 06:06] LABS: Bedside Glucose 171 mg/dL (70-110)
[2018-10-10] MEDS: Calcium Carbonate 500 MG Tablet PO (09:18)
[2018-10-10] MEDS: dexAMETHasone 4 MG Tablet 2 MG PO ×3 (09:18→17:28)
[2018-10-10] MEDS: Tamsulosin HCl 0.4 MG Capsule PO ×2 (09:18→17:28)
--- NOTE | 2018-10-10 11:52 | NURSING ---
pt in the middle of eating lunch when he felt hot in his room and asked for me to check his blood sugar. blood sugar is 269.
[2018-10-10 12:01] LABS: Bedside Glucose 269 mg/dL (70-110)
[2018-10-10] MEDS: Insulin Lispro 100 UNIT/ML INSULN.PEN SC (12:37)
[2018-10-10 15:35] VITALS: BP 130/67; PULSE 98; RESP 18; TEMP 36.6; O2SAT 95
--- NOTE | 2018-10-10 15:41 | NURSING ---
Aware of Vital Signs that were recently taken.
[2018-10-10 17:36] LABS: Bedside Glucose 180 mg/dL (70-110)
[2018-10-10] MEDS: MELATONIN 3 MG TABLET PO (22:36)
[2018-10-10] MEDS: Atorvastatin Calcium 10 MG Tablet PO (22:37)
[2018-10-10] MEDS: Acetaminophen 500 MG Tablet 1000 MG PO (22:41)
[2018-10-11 06:26] LABS: Bedside Glucose 157 mg/dL (70-110)
[2018-10-11] MEDS: levETIRAcetam 500 MG Tablet PO ×2 (06:56→17:20)
[2018-10-11] MEDS: Famotidine 20 MG Tablet PO ×2 (06:56→17:20)
[2018-10-11] MEDS: Enoxaparin 40 MG/0.4 ML Syringe SC (06:56)
[2018-10-11] MEDS: amLODIPine 5 MG Tablet PO (06:57)
[2018-10-11] MEDS: Senna/Docusate Sodium 1 Tablet PO (06:57)
[2018-10-11] MEDS: Nystatin Powder 15gm Bottle 1 APPLIC TOPICAL ×2 (07:02→22:20)
[2018-10-11] MEDS: Menthol/Lanolin/Calamine/Znox 113 GM Tube 1 APPLIC TOPICAL ×2 (07:02→22:19)
[2018-10-11] MEDS: Polyethylene Glycol 3350 17 GM PACKET PO (07:04)
--- NOTE | 2018-10-11 07:49 | NURSING ---
Pt had condom cath removed by this nurse @ 7:20 am. Refused to be straight cath pt was bladder scanned 220.
[2018-10-11] MEDS: dexAMETHasone 4 MG Tablet 2 MG PO ×3 (08:41→17:19)
[2018-10-11] MEDS: Calcium Carbonate 500 MG Tablet PO (08:42)
[2018-10-11] MEDS: Tamsulosin HCl 0.4 MG Capsule PO ×2 (08:42→17:19)
[2018-10-11 13:00] VITALS: PULSE 60; RESP 18; O2SAT 96
--- NOTE | 2018-10-11 13:06 | NURSING ---
ASKED PT IF HE NEEDED STRAIGHT CATHED,PT STATED NO.
--- NOTE | 2018-10-11 14:47 | NURSING ---
PT LEFT HEEL IS RED. ASKED PT IF IT HURT PT STATED NO. WENT TO PUT PILLOW UNDER PT HEELS TO FLOAT,PT REFUSED. REPORTED TO KELSEY FLAHERTY
[2018-10-11 15:48] VITALS: BP 145/76; PULSE 61; RESP 18; TEMP 36.6; O2SAT 95
[2018-10-11] MEDS: Atorvastatin Calcium 10 MG Tablet PO (22:19)
[2018-10-11] MEDS: MELATONIN 3 MG TABLET PO (22:19)
[2018-10-11] MEDS: Acetaminophen 500 MG Tablet 1000 MG PO (22:27)
[2018-10-12] MEDS: levETIRAcetam 500 MG Tablet PO ×2 (06:08→17:36)
[2018-10-12] MEDS: Senna/Docusate Sodium 1 Tablet PO (06:08)
[2018-10-12] MEDS: Polyethylene Glycol 3350 17 GM PACKET PO (06:08)
[2018-10-12] MEDS: Famotidine 20 MG Tablet PO ×2 (06:08→17:36)
[2018-10-12] MEDS: Menthol/Lanolin/Calamine/Znox 113 GM Tube 1 APPLIC TOPICAL ×2 (06:08→21:28)
[2018-10-12] MEDS: amLODIPine 5 MG Tablet PO (06:08)
[2018-10-12] MEDS: Enoxaparin 40 MG/0.4 ML Syringe SC (06:08)
[2018-10-12] MEDS: Nystatin Powder 15gm Bottle 1 APPLIC TOPICAL ×2 (06:09→21:29)
[2018-10-12 06:31] LABS: Bedside Glucose 164 mg/dL (70-110)
[2018-10-12] MEDS: dexAMETHasone 4 MG Tablet 2 MG PO ×3 (08:03→17:35)
[2018-10-12] MEDS: Calcium Carbonate 500 MG Tablet PO (08:03)
[2018-10-12] MEDS: Tamsulosin HCl 0.4 MG Capsule PO ×2 (08:04→17:36)
[2018-10-12 15:23] VITALS: BP 137/79; PULSE 64; RESP 18; TEMP 36.7; O2SAT 96
[2018-10-12] MEDS: MELATONIN 3 MG TABLET PO (21:28)
[2018-10-12] MEDS: Atorvastatin Calcium 10 MG Tablet PO (21:28)
[2018-10-12 21:30] VITALS: PULSE 65; RESP 18
[2018-10-12] MEDS: Acetaminophen 500 MG Tablet 1000 MG PO (21:33)
[2018-10-13 06:21] LABS: Bedside Glucose 181 mg/dL (70-110)
[2018-10-13] MEDS: Enoxaparin 40 MG/0.4 ML Syringe SC (06:42)
[2018-10-13] MEDS: Nystatin Powder 15gm Bottle 1 APPLIC TOPICAL ×2 (06:42→20:11)
[2018-10-13] MEDS: levETIRAcetam 500 MG Tablet PO ×2 (06:42→17:40)
[2018-10-13] MEDS: Menthol/Lanolin/Calamine/Znox 113 GM Tube 1 APPLIC TOPICAL ×2 (06:42→20:10)
[2018-10-13] MEDS: amLODIPine 5 MG Tablet PO (06:42)
[2018-10-13] MEDS: Famotidine 20 MG Tablet PO ×2 (06:42→17:40)
[2018-10-13] MEDS: Polyethylene Glycol 3350 17 GM PACKET PO (06:46)
[2018-10-13] MEDS: Tamsulosin HCl 0.4 MG Capsule PO ×2 (08:21→17:41)
[2018-10-13] MEDS: dexAMETHasone 4 MG Tablet 2 MG PO ×3 (08:21→17:40)
[2018-10-13] MEDS: Calcium Carbonate 500 MG Tablet PO (08:21)
--- NOTE | 2018-10-13 14:34 | NURSING ---
Pt requesting to be straight cath'd at this time. Bladder scanned for 505ml. Pt straight cath'd for 600ml clear, straw colored urine. Tolerated well. Reported to Nisreen COLE.
[2018-10-13 15:13] VITALS: BP 137/63; PULSE 62; RESP 18; TEMP 36.6; O2SAT 97
[2018-10-13] MEDS: MELATONIN 3 MG TABLET PO (20:09)
[2018-10-13] MEDS: Atorvastatin Calcium 10 MG Tablet PO (20:09)
[2018-10-13 20:12] VITALS: PULSE 76; RESP 16; O2SAT 97
--- NOTE | 2018-10-13 21:39 | NURSING ---
Pt requested for condom cath to be pt on at this time. Asked pt if he would like to be straight cath he stated, no he doesn't need it. I bladder scanned pt 329 at this time.
[2018-10-14] MEDS: Polyethylene Glycol 3350 17 GM PACKET PO (06:16)
[2018-10-14] MEDS: Famotidine 20 MG Tablet PO ×2 (06:16→17:14)
[2018-10-14] MEDS: amLODIPine 5 MG Tablet PO (06:17)
[2018-10-14] MEDS: levETIRAcetam 500 MG Tablet PO ×2 (06:17→17:13)
[2018-10-14] MEDS: Enoxaparin 40 MG/0.4 ML Syringe SC (06:19)
[2018-10-14] MEDS: Nystatin Powder 15gm Bottle 1 APPLIC TOPICAL ×2 (06:20→20:57)
[2018-10-14] MEDS: Menthol/Lanolin/Calamine/Znox 113 GM Tube 1 APPLIC TOPICAL ×2 (06:20→20:56)
[2018-10-14 06:45] LABS: Bedside Glucose 155 mg/dL (70-110)
[2018-10-14] MEDS: Calcium Carbonate 500 MG Tablet PO (08:27)
[2018-10-14] MEDS: dexAMETHasone 4 MG Tablet 2 MG PO ×2 (08:27→11:49)
[2018-10-14] MEDS: Tamsulosin HCl 0.4 MG Capsule PO ×2 (08:28→17:13)
[2018-10-14 15:06] VITALS: BP 145/68; PULSE 67; RESP 18; TEMP 36.7; O2SAT 95
[2018-10-14] MEDS: Atorvastatin Calcium 10 MG Tablet PO (20:56)
[2018-10-14] MEDS: MELATONIN 3 MG TABLET PO (20:56)
--- NOTE | 2018-10-14 21:38 | NURSING ---
[place] cath applied. pt tolerated it without any problems
--- NOTE | 2018-10-14 23:55 | NURSING ---
Eyes closed. Appears to be sleeping. resp even and unlabored at this time
[2018-10-15] MEDS: Polyethylene Glycol 3350 17 GM PACKET PO (05:35)
[2018-10-15] MEDS: levETIRAcetam 500 MG Tablet PO ×2 (05:35→17:09)
[2018-10-15] MEDS: Enoxaparin 40 MG/0.4 ML Syringe SC (05:35)
[2018-10-15] MEDS: Famotidine 20 MG Tablet PO ×2 (05:35→17:09)
[2018-10-15] MEDS: Menthol/Lanolin/Calamine/Znox 113 GM Tube 1 APPLIC TOPICAL ×2 (05:37→21:43)
[2018-10-15] MEDS: amLODIPine 5 MG Tablet PO (05:38)
[2018-10-15] MEDS: Nystatin Powder 15gm Bottle 1 APPLIC TOPICAL ×2 (05:39→21:44)
[2018-10-15 05:57] LABS: Absolute Lymphocyte Count 1.19 X10^3/uL (0.83-4.51); Basophil# 0.02 X10^3/uL; Basophil% 0.1 % (0-1); Hematocrit 39.1 % (40-54); Hemoglobin 12.9 g/dL (13.0-16.5); Lymphocyte # 1.19 X10^3/ul (4.0); Lymphocyte % 8.3 % (19-41); Mean Corpuscular Hgb 28.9 pg (27.0-32.0); Mean Corpuscular Volume 87.7 fL (80-94); Mean Platelet Vol. 8.8 fl (6.2-12.0); Monocyte# 0.94 X10^3/uL; Monocyte% 6.5 % (0-10); NRBC Flagged by Analyzer 0 % (0-5); Neutrophil # 12.03 X10^3/uL (2.7-7.7); Neutrophil % 83.7 % (47-70); Platelet Count 179 K/mm3 (150-450); RBC Distribution Width CV 13.5 % (11.6-14.6); RBC Distribution Width SD 43.4 fl (35.1-43.9); Red Blood Count 4.46 M/mm3 (4.6-6.2); White Blood Count 14.4 K/mm3 (4.4-11.0)
[2018-10-15 06:14] LABS: Anion Gap 8 (5-15); BUN 35 mg/dL (7-18); BUN/Creat Ratio 40.6 RATIO (10-20); Calcium,Total 7.9 mg/dL (8.5-10.1); Chloride 105 mmol/L (98-107); Creatinine, Serum 0.86 mg/dL (0.70-1.30); EST Glomerular Filtration Rate 90 mL/min (>60); Est Glom Filt Rate - Afr Amer 109 mL/min (>60); Estimated Creatinine Clearance 72.26 ml/min; Glucose 147 mg/dL (74-106); Potassium 4.6 mmol/L (3.5-5.1); Sodium Level 139 mmol/L (136-145)
[2018-10-15 06:56] LABS: Bedside Glucose 163 mg/dL (70-110)
[2018-10-15] MEDS: Tamsulosin HCl 0.4 MG Capsule PO ×2 (08:24→17:09)
[2018-10-15] MEDS: Calcium Carbonate 500 MG Tablet PO (08:25)
[2018-10-15] MEDS: dexAMETHasone 4 MG Tablet 2 MG PO ×2 (08:25→17:09)
--- NOTE | 2018-10-15 13:54 | CASEMGMT ---
Social Work IDT met with patient and for care plan meeting. Discussed patient's progress in therapy. Patient is CGA for transfers, walking and min assist for lower body ADLs. Patient's goal is to get stronger and return home with . Will continue to follow. JESÚS WatkinsW
[2018-10-15] MEDS: Tuberculin,Purif.prot.deriv. 50 TU/ML Vial 5 ML ID (14:14)
[2018-10-15 15:04] VITALS: BP 133/69; PULSE 60; RESP 18; TEMP 36.6; O2SAT 95
[2018-10-15] MEDS: Atorvastatin Calcium 10 MG Tablet PO (21:43)
[2018-10-15] MEDS: Acetaminophen 500 MG Tablet 1000 MG PO (21:43)
[2018-10-15] MEDS: MELATONIN 3 MG TABLET PO (21:43)
[2018-10-16 06:26] LABS: Bedside Glucose 175 mg/dL (70-110)
[2018-10-16] MEDS: levETIRAcetam 500 MG Tablet PO ×2 (06:55→17:28)
[2018-10-16] MEDS: Enoxaparin 40 MG/0.4 ML Syringe SC (06:55)
[2018-10-16] MEDS: Polyethylene Glycol 3350 17 GM PACKET PO (06:55)
[2018-10-16] MEDS: Nystatin Powder 15gm Bottle 1 APPLIC TOPICAL ×2 (06:55→20:28)
[2018-10-16] MEDS: amLODIPine 5 MG Tablet PO (06:56)
[2018-10-16] MEDS: Famotidine 20 MG Tablet PO ×2 (06:56→17:28)
[2018-10-16] MEDS: Menthol/Lanolin/Calamine/Znox 113 GM Tube 1 APPLIC TOPICAL ×2 (07:02→20:28)
[2018-10-16] MEDS: dexAMETHasone 4 MG Tablet 2 MG PO ×2 (08:19→17:27)
[2018-10-16] MEDS: Calcium Carbonate 500 MG Tablet PO (08:19)
[2018-10-16] MEDS: Tamsulosin HCl 0.4 MG Capsule PO ×2 (08:20→17:28)
[2018-10-16 10:00] VITALS: RESP 16
[2018-10-16 15:16] VITALS: BP 135/68; PULSE 66; RESP 18; TEMP 36.6; O2SAT 96
[2018-10-16] MEDS: Acetaminophen 500 MG Tablet 1000 MG PO (20:28)
[2018-10-16] MEDS: Atorvastatin Calcium 10 MG Tablet PO (20:28)
[2018-10-16] MEDS: MELATONIN 3 MG TABLET PO (20:28)
[2018-10-17] MEDS: Polyethylene Glycol 3350 17 GM PACKET PO (06:16)
[2018-10-17] MEDS: Nystatin Powder 15gm Bottle 1 APPLIC TOPICAL ×2 (06:19→21:38)
[2018-10-17] MEDS: Famotidine 20 MG Tablet PO ×2 (06:19→18:00)
[2018-10-17] MEDS: Senna/Docusate Sodium 1 Tablet PO (06:19)
[2018-10-17] MEDS: amLODIPine 5 MG Tablet PO (06:19)
[2018-10-17] MEDS: Menthol/Lanolin/Calamine/Znox 113 GM Tube 1 APPLIC TOPICAL ×2 (06:19→21:39)
[2018-10-17] MEDS: levETIRAcetam 500 MG Tablet PO ×2 (06:19→18:00)
[2018-10-17] MEDS: Enoxaparin 40 MG/0.4 ML Syringe SC (06:20)
[2018-10-17 06:26] LABS: Bedside Glucose 172 mg/dL (70-110)
[2018-10-17] MEDS: Tamsulosin HCl 0.4 MG Capsule PO ×2 (08:38→18:00)
[2018-10-17] MEDS: Calcium Carbonate 500 MG Tablet PO (08:39)
[2018-10-17] MEDS: dexAMETHasone 4 MG Tablet 2 MG PO ×2 (08:39→18:00)
--- NOTE | 2018-10-17 10:43 | MDS.RN ---
Information for the mds was obtained from review of the clinical record, interview of resident, staff, and direct observation of resident's care.
[2018-10-17 12:09] VITALS: RESP 16
[2018-10-17 15:05] VITALS: BP 137/79; PULSE 63; RESP 18; TEMP 37.1; O2SAT 96
[2018-10-17] MEDS: MELATONIN 3 MG TABLET PO (21:35)
[2018-10-17] MEDS: Atorvastatin Calcium 10 MG Tablet PO (21:35)
[2018-10-17] MEDS: Acetaminophen 500 MG Tablet 1000 MG PO (21:38)
[2018-10-18] MEDS: levETIRAcetam 500 MG Tablet PO ×2 (05:48→17:29)
[2018-10-18] MEDS: Famotidine 20 MG Tablet PO ×2 (05:48→17:29)
[2018-10-18] MEDS: Senna/Docusate Sodium 1 Tablet PO (05:48)
[2018-10-18] MEDS: amLODIPine 5 MG Tablet PO (05:49)
[2018-10-18] MEDS: Polyethylene Glycol 3350 17 GM PACKET PO (05:49)
[2018-10-18] MEDS: Enoxaparin 40 MG/0.4 ML Syringe SC (05:49)
[2018-10-18] MEDS: Menthol/Lanolin/Calamine/Znox 113 GM Tube 1 APPLIC TOPICAL ×2 (05:50→21:57)
[2018-10-18] MEDS: Nystatin Powder 15gm Bottle 1 APPLIC TOPICAL ×2 (05:50→21:56)
[2018-10-18 06:41] LABS: Bedside Glucose 192 mg/dL (70-110)
[2018-10-18] MEDS: dexAMETHasone 4 MG Tablet 2 MG PO ×2 (09:27→17:29)
[2018-10-18] MEDS: Calcium Carbonate 500 MG Tablet PO (09:27)
[2018-10-18] MEDS: Tamsulosin HCl 0.4 MG Capsule PO ×2 (09:27→17:29)
[2018-10-18 15:05] VITALS: BP 129/71; PULSE 66; RESP 18; TEMP 37.6; O2SAT 95
[2018-10-18] MEDS: MELATONIN 3 MG TABLET PO (20:55)
[2018-10-18] MEDS: Atorvastatin Calcium 10 MG Tablet PO (20:55)
[2018-10-18] MEDS: Acetaminophen 500 MG Tablet 1000 MG PO (21:51)
[2018-10-19] MEDS: amLODIPine 5 MG Tablet PO (05:42)
[2018-10-19] MEDS: levETIRAcetam 500 MG Tablet PO ×2 (05:42→17:11)
[2018-10-19] MEDS: Senna/Docusate Sodium 1 Tablet PO (05:42)
[2018-10-19] MEDS: Polyethylene Glycol 3350 17 GM PACKET PO (05:42)
[2018-10-19] MEDS: Famotidine 20 MG Tablet PO ×2 (05:42→17:11)
[2018-10-19] MEDS: Enoxaparin 40 MG/0.4 ML Syringe SC (05:42)
[2018-10-19] MEDS: Nystatin Powder 15gm Bottle 1 APPLIC TOPICAL ×2 (05:48→21:34)
[2018-10-19] MEDS: Menthol/Lanolin/Calamine/Znox 113 GM Tube 1 APPLIC TOPICAL ×2 (05:48→21:35)
[2018-10-19 06:35] LABS: Bedside Glucose 200 mg/dL (70-110)
[2018-10-19] MEDS: Calcium Carbonate 500 MG Tablet PO (08:22)
[2018-10-19] MEDS: Tamsulosin HCl 0.4 MG Capsule PO ×2 (08:22→17:11)
[2018-10-19] MEDS: dexAMETHasone 4 MG Tablet 2 MG PO ×2 (08:22→17:11)
[2018-10-19 15:11] VITALS: BP 126/70; PULSE 68; RESP 18; TEMP 36.8; O2SAT 95
[2018-10-19] MEDS: MELATONIN 3 MG TABLET PO (21:34)
[2018-10-19] MEDS: Atorvastatin Calcium 10 MG Tablet PO (21:36)
[2018-10-19] MEDS: Acetaminophen 500 MG Tablet 1000 MG PO (21:40)
[2018-10-19 22:00] VITALS: PULSE 86; RESP 16; O2SAT 95
[2018-10-20] MEDS: Menthol/Lanolin/Calamine/Znox 113 GM Tube 1 APPLIC TOPICAL ×2 (05:20→21:36)
[2018-10-20] MEDS: amLODIPine 5 MG Tablet PO (05:21)
[2018-10-20] MEDS: Enoxaparin 40 MG/0.4 ML Syringe SC (05:21)
[2018-10-20] MEDS: levETIRAcetam 500 MG Tablet PO ×2 (05:21→17:43)
[2018-10-20] MEDS: Famotidine 20 MG Tablet PO ×2 (05:21→17:43)
[2018-10-20] MEDS: Polyethylene Glycol 3350 17 GM PACKET PO (05:21)
[2018-10-20] MEDS: Nystatin Powder 15gm Bottle 1 APPLIC TOPICAL ×2 (05:22→21:36)
[2018-10-20 06:21] LABS: Bedside Glucose 206 mg/dL (70-110)
[2018-10-20] MEDS: dexAMETHasone 4 MG Tablet 2 MG PO ×2 (07:36→17:43)
[2018-10-20] MEDS: Calcium Carbonate 500 MG Tablet PO (07:36)
[2018-10-20] MEDS: Tamsulosin HCl 0.4 MG Capsule PO ×2 (07:36→17:43)
[2018-10-20 15:12] VITALS: BP 124/70; PULSE 68; RESP 18; TEMP 37; O2SAT 94
[2018-10-20 21:23] VITALS: RESP 16; O2SAT 95
[2018-10-20] MEDS: MELATONIN 3 MG TABLET PO (21:30)
[2018-10-20] MEDS: Atorvastatin Calcium 10 MG Tablet PO (21:30)
[2018-10-20] MEDS: Acetaminophen 500 MG Tablet 1000 MG PO (21:38)
[2018-10-21] MEDS: amLODIPine 5 MG Tablet PO (06:16)
[2018-10-21] MEDS: Polyethylene Glycol 3350 17 GM PACKET PO (06:16)
[2018-10-21] MEDS: Menthol/Lanolin/Calamine/Znox 113 GM Tube 1 APPLIC TOPICAL ×2 (06:16→21:42)
[2018-10-21] MEDS: Famotidine 20 MG Tablet PO ×2 (06:16→17:43)
[2018-10-21] MEDS: levETIRAcetam 500 MG Tablet PO ×2 (06:16→17:43)
[2018-10-21] MEDS: Nystatin Powder 15gm Bottle 1 APPLIC TOPICAL ×2 (06:16→21:42)
[2018-10-21] MEDS: Enoxaparin 40 MG/0.4 ML Syringe SC (06:17)
[2018-10-21 06:21] LABS: Bedside Glucose 190 mg/dL (70-110)
[2018-10-21] MEDS: dexAMETHasone 4 MG Tablet 2 MG PO ×2 (08:13→17:43)
[2018-10-21] MEDS: Calcium Carbonate 500 MG Tablet PO (08:13)
[2018-10-21] MEDS: Tamsulosin HCl 0.4 MG Capsule PO ×2 (08:14→17:43)
[2018-10-21 15:16] VITALS: BP 130/69; PULSE 63; RESP 18; TEMP 36.8; O2SAT 92
[2018-10-21] MEDS: Atorvastatin Calcium 10 MG Tablet PO (21:40)
[2018-10-21] MEDS: MELATONIN 3 MG TABLET PO (21:40)
[2018-10-21] MEDS: Acetaminophen 500 MG Tablet 1000 MG PO (21:41)
[2018-10-22] MEDS: amLODIPine 5 MG Tablet PO (04:49)
[2018-10-22] MEDS: Famotidine 20 MG Tablet PO ×2 (04:50→17:17)
[2018-10-22] MEDS: Enoxaparin 40 MG/0.4 ML Syringe SC (04:50)
[2018-10-22] MEDS: levETIRAcetam 500 MG Tablet PO ×2 (04:50→17:17)
[2018-10-22] MEDS: Polyethylene Glycol 3350 17 GM PACKET PO (04:50)
[2018-10-22] MEDS: Menthol/Lanolin/Calamine/Znox 113 GM Tube 1 APPLIC TOPICAL ×2 (04:54→20:45)
[2018-10-22] MEDS: Nystatin Powder 15gm Bottle 1 APPLIC TOPICAL ×2 (04:55→20:45)
[2018-10-22 06:08] LABS: Absolute Lymphocyte Count 0.54 X10^3/uL (0.83-4.51); Absolute Neutrophil Count 13.1 X10^3/uL (2.0-7.7); Basophil# 0.01 X10^3/uL; Basophil% 0.1 % (0-1); Hematocrit 37.9 % (40-54); Hemoglobin 12.5 g/dL (13.0-16.5); Lymphocyte # 0.54 X10^3/ul (4.0); Lymphocyte % 3.7 % (19-41); Mean Corpuscular Hgb 29.3 pg (27.0-32.0); Mean Corpuscular Volume 88.8 fL (80-94); Mean Platelet Vol. 8.7 fl (6.2-12.0); Monocyte# 0.78 X10^3/uL; Monocyte% 5.4 % (0-10); NRBC Flagged by Analyzer 0 % (0-5); Neutrophil # 13.05 X10^3/uL (2.7-7.7); POSITIVE DIFFERENTIAL YES; Platelet Count 126 K/mm3 (150-450); RBC Distribution Width CV 13.8 % (11.6-14.6); RBC Distribution Width SD 44.8 fl (35.1-43.9); Red Blood Count 4.27 M/mm3 (4.6-6.2); White Blood Count 14.5 K/mm3 (4.4-11.0)
[2018-10-22 06:21] LABS: Differential Indicated SCAN CRITERIA MET
[2018-10-22 06:24] LABS: Anion Gap 7 (5-15); BUN 34 mg/dL (7-18); BUN/Creat Ratio 34.2 RATIO (10-20); Calcium,Total 7.9 mg/dL (8.5-10.1); Chloride 104 mmol/L (98-107); EST Glomerular Filtration Rate 76 mL/min (>60); Est Glom Filt Rate - Afr Amer 92 mL/min (>60); Estimated Creatinine Clearance 61.78 ml/min; Glucose 244 mg/dL (74-106); Potassium 4.7 mmol/L (3.5-5.1); Sodium Level 136 mmol/L (136-145)
[2018-10-22 06:31] LABS: Bedside Glucose 220 mg/dL (70-110)
[2018-10-22 06:56] LABS: Differential Comment SCANNED
[2018-10-22] MEDS: Calcium Carbonate 500 MG Tablet PO (08:55)
[2018-10-22] MEDS: dexAMETHasone 4 MG Tablet 2 MG PO (08:55)
[2018-10-22] MEDS: Tamsulosin HCl 0.4 MG Capsule PO ×2 (08:55→17:17)
[2018-10-22 10:45] VITALS: PULSE 89; RESP 18; O2SAT 97
[2018-10-22 15:58] VITALS: BP 135/78; PULSE 72; RESP 20; TEMP 36.5; O2SAT 95
[2018-10-22] MEDS: MELATONIN 3 MG TABLET PO (20:42)
[2018-10-22] MEDS: Atorvastatin Calcium 10 MG Tablet PO (20:42)
[2018-10-22] MEDS: Acetaminophen 500 MG Tablet 1000 MG PO (20:44)
[2018-10-23] MEDS: Polyethylene Glycol 3350 17 GM PACKET PO (05:00)
[2018-10-23] MEDS: Nystatin Powder 15gm Bottle 1 APPLIC TOPICAL ×2 (05:01→21:29)
[2018-10-23] MEDS: Enoxaparin 40 MG/0.4 ML Syringe SC (05:01)
[2018-10-23] MEDS: Famotidine 20 MG Tablet PO ×2 (05:01→17:38)
[2018-10-23] MEDS: levETIRAcetam 500 MG Tablet PO ×3 (05:01→21:17)
[2018-10-23] MEDS: amLODIPine 5 MG Tablet PO (05:01)
[2018-10-23] MEDS: Menthol/Lanolin/Calamine/Znox 113 GM Tube 1 APPLIC TOPICAL ×2 (05:02→21:29)
[2018-10-23 06:25] LABS: Bedside Glucose 194 mg/dL (70-110)
[2018-10-23] MEDS: Tamsulosin HCl 0.4 MG Capsule PO ×2 (08:19→17:38)
[2018-10-23] MEDS: Calcium Carbonate 500 MG Tablet PO (08:19)
[2018-10-23] MEDS: dexAMETHasone 4 MG Tablet 2 MG PO (08:19)
[2018-10-23 15:16] VITALS: BP 146/70; PULSE 64; RESP 18; TEMP 36.8; O2SAT 93
[2018-10-23] MEDS: MELATONIN 3 MG TABLET PO (21:17)
[2018-10-23] MEDS: Atorvastatin Calcium 10 MG Tablet PO (21:17)
[2018-10-23] MEDS: Acetaminophen 500 MG Tablet 1000 MG PO (21:19)
[2018-10-24] MEDS: Polyethylene Glycol 3350 17 GM PACKET PO (05:46)
[2018-10-24] MEDS: Famotidine 20 MG Tablet PO ×2 (05:46→17:04)
[2018-10-24] MEDS: Enoxaparin 40 MG/0.4 ML Syringe SC (05:46)
[2018-10-24] MEDS: amLODIPine 5 MG Tablet PO (05:47)
[2018-10-24] MEDS: Menthol/Lanolin/Calamine/Znox 113 GM Tube 1 APPLIC TOPICAL ×2 (05:49→21:01)
[2018-10-24] MEDS: Nystatin Powder 15gm Bottle 1 APPLIC TOPICAL ×2 (05:50→21:02)
[2018-10-24 06:31] LABS: Bedside Glucose 173 mg/dL (70-110)
[2018-10-24] MEDS: Calcium Carbonate 500 MG Tablet PO (08:40)
[2018-10-24] MEDS: Tamsulosin HCl 0.4 MG Capsule PO ×2 (08:40→17:04)
[2018-10-24] MEDS: dexAMETHasone 4 MG Tablet 2 MG PO (08:41)
[2018-10-24 15:18] VITALS: BP 124/71; PULSE 67; RESP 19; TEMP 36.8; O2SAT 96
[2018-10-24] MEDS: levETIRAcetam 500 MG Tablet PO (17:04)
[2018-10-24] MEDS: Atorvastatin Calcium 10 MG Tablet PO (21:01)
[2018-10-24] MEDS: MELATONIN 3 MG TABLET PO (21:01)
[2018-10-25] MEDS: amLODIPine 5 MG Tablet PO (05:39)
[2018-10-25] MEDS: levETIRAcetam 500 MG Tablet PO ×2 (05:39→17:38)
[2018-10-25] MEDS: Polyethylene Glycol 3350 17 GM PACKET PO (05:39)
[2018-10-25] MEDS: Famotidine 20 MG Tablet PO ×2 (05:39→17:38)
[2018-10-25] MEDS: Enoxaparin 40 MG/0.4 ML Syringe SC (05:41)
[2018-10-25] MEDS: Menthol/Lanolin/Calamine/Znox 113 GM Tube 1 APPLIC TOPICAL ×2 (05:44→20:21)
[2018-10-25] MEDS: Nystatin Powder 15gm Bottle 1 APPLIC TOPICAL ×2 (05:44→20:22)
[2018-10-25 06:41] LABS: Bedside Glucose 206 mg/dL (70-110)
[2018-10-25] MEDS: dexAMETHasone 4 MG Tablet 2 MG PO (08:13)
[2018-10-25] MEDS: Calcium Carbonate 500 MG Tablet PO (08:13)
[2018-10-25] MEDS: Tamsulosin HCl 0.4 MG Capsule PO ×2 (08:13→17:38)
[2018-10-25 16:00] VITALS: BP 141/66; PULSE 70; RESP 18; TEMP 36.6; O2SAT 98
[2018-10-25] MEDS: Atorvastatin Calcium 10 MG Tablet PO (20:22)
[2018-10-25] MEDS: MELATONIN 3 MG TABLET PO (20:22)
[2018-10-26] MEDS: Polyethylene Glycol 3350 17 GM PACKET PO (05:08)
[2018-10-26] MEDS: Enoxaparin 40 MG/0.4 ML Syringe SC (05:08)
[2018-10-26] MEDS: amLODIPine 5 MG Tablet PO (05:08)
[2018-10-26] MEDS: Famotidine 20 MG Tablet PO ×2 (05:08→18:16)
[2018-10-26] MEDS: levETIRAcetam 500 MG Tablet PO ×2 (05:08→18:16)
[2018-10-26] MEDS: Menthol/Lanolin/Calamine/Znox 113 GM Tube 1 APPLIC TOPICAL ×2 (05:09→21:01)
[2018-10-26] MEDS: Nystatin Powder 15gm Bottle 1 APPLIC TOPICAL ×2 (05:09→21:01)
[2018-10-26 06:26] LABS: Bedside Glucose 189 mg/dL (70-110)
[2018-10-26] MEDS: Calcium Carbonate 500 MG Tablet PO (07:51)
[2018-10-26] MEDS: Tamsulosin HCl 0.4 MG Capsule PO ×2 (07:51→18:16)
[2018-10-26] MEDS: dexAMETHasone 4 MG Tablet 2 MG PO (07:51)
[2018-10-26 15:58] VITALS: BP 127/65; PULSE 67; RESP 18; TEMP 37.1; O2SAT 96
[2018-10-26] MEDS: Atorvastatin Calcium 10 MG Tablet PO (21:00)
[2018-10-26] MEDS: MELATONIN 3 MG TABLET PO (21:00)
[2018-10-27] MEDS: Famotidine 20 MG Tablet PO ×2 (06:13→17:18)
[2018-10-27] MEDS: levETIRAcetam 500 MG Tablet PO ×2 (06:13→17:18)
[2018-10-27] MEDS: Polyethylene Glycol 3350 17 GM PACKET PO (06:13)
[2018-10-27] MEDS: Enoxaparin 40 MG/0.4 ML Syringe SC (06:13)
[2018-10-27] MEDS: amLODIPine 5 MG Tablet PO (06:13)
[2018-10-27] MEDS: Nystatin Powder 15gm Bottle 1 APPLIC TOPICAL ×2 (06:18→21:34)
[2018-10-27] MEDS: Menthol/Lanolin/Calamine/Znox 113 GM Tube 1 APPLIC TOPICAL ×2 (06:18→21:34)
[2018-10-27 06:36] LABS: Bedside Glucose 167 mg/dL (70-110)
[2018-10-27] MEDS: Calcium Carbonate 500 MG Tablet PO (08:25)
[2018-10-27] MEDS: Tamsulosin HCl 0.4 MG Capsule PO ×2 (08:25→17:17)
[2018-10-27] MEDS: dexAMETHasone 4 MG Tablet 2 MG PO (08:25)
[2018-10-27 16:00] VITALS: BP 119/72; PULSE 72; RESP 17; TEMP 36.6; O2SAT 98
[2018-10-27] MEDS: Acetaminophen 500 MG Tablet 1000 MG PO (21:33)
[2018-10-27] MEDS: MELATONIN 3 MG TABLET PO (21:33)
[2018-10-27] MEDS: Atorvastatin Calcium 10 MG Tablet PO (21:33)
[2018-10-27 21:35] VITALS: PULSE 64; RESP 16; O2SAT 96
--- NOTE | 2018-10-27 22:21 | NURSING ---
Condom cath applied no concerns voiced during this time.
[2018-10-28] MEDS: levETIRAcetam 500 MG Tablet PO ×2 (06:05→17:34)
[2018-10-28] MEDS: amLODIPine 5 MG Tablet PO (06:05)
[2018-10-28] MEDS: Polyethylene Glycol 3350 17 GM PACKET PO (06:05)
[2018-10-28] MEDS: Famotidine 20 MG Tablet PO ×2 (06:05→17:34)
[2018-10-28] MEDS: Menthol/Lanolin/Calamine/Znox 113 GM Tube 1 APPLIC TOPICAL ×2 (06:05→21:59)
[2018-10-28] MEDS: Nystatin Powder 15gm Bottle 1 APPLIC TOPICAL ×2 (06:05→21:58)
[2018-10-28] MEDS: Enoxaparin 40 MG/0.4 ML Syringe SC (06:10)
[2018-10-28] MEDS: Calcium Carbonate 500 MG Tablet PO (08:48)
[2018-10-28] MEDS: dexAMETHasone 4 MG Tablet 2 MG PO (08:48)
[2018-10-28] MEDS: Tamsulosin HCl 0.4 MG Capsule PO ×2 (08:49→17:34)
[2018-10-28 15:24] VITALS: BP 142/79; PULSE 68; RESP 18; TEMP 36.3; O2SAT 95
[2018-10-28 21:45] VITALS: BP 128/62; PULSE 72; RESP 16; TEMP 36.8; O2SAT 94
[2018-10-28] MEDS: Atorvastatin Calcium 10 MG Tablet PO (21:53)
[2018-10-28] MEDS: MELATONIN 3 MG TABLET PO (21:53)
[2018-10-28] MEDS: Acetaminophen 500 MG Tablet 1000 MG PO (21:55)
[2018-10-29 06:06] LABS: Absolute Lymphocyte Count 0.69 X10^3/uL (0.83-4.51); Absolute Neutrophil Count 9.7 X10^3/uL (2.0-7.7); Basophil# 0.03 X10^3/uL; Basophil% 0.3 % (0-1); Eosinophil# 0.04 X10^3/uL; Eosinophils% 0.4 % (0-5); Hematocrit 38.6 % (40-54); Hemoglobin 12.7 g/dL (13.0-16.5); Lymphocyte # 0.69 X10^3/ul (4.0); Lymphocyte % 6.1 % (19-41); Mean Corp Hgb Conc 32.9 g/dL (32-36); Mean Corpuscular Hgb 29.3 pg (27.0-32.0); Mean Corpuscular Volume 89.1 fL (80-94); Monocyte# 0.66 X10^3/uL; Monocyte% 5.9 % (0-10); NRBC Flagged by Analyzer 0 % (0-5); Neutrophil # 9.67 X10^3/uL (2.7-7.7); Neutrophil % 85.6 % (47-70); POSITIVE MORPHOLOGY YES; Platelet Count 95 K/mm3 (150-450); RBC Distribution Width CV 13.6 % (11.6-14.6); RBC Distribution Width SD 44.4 fl (35.1-43.9); Red Blood Count 4.33 M/mm3 (4.6-6.2); White Blood Count 11.3 K/mm3 (4.4-11.0)
[2018-10-29 06:13] LABS: Differential Indicated SCAN CRITERIA MET
[2018-10-29] MEDS: amLODIPine 5 MG Tablet PO (06:16)
[2018-10-29] MEDS: Famotidine 20 MG Tablet PO ×2 (06:16→17:52)
[2018-10-29] MEDS: Polyethylene Glycol 3350 17 GM PACKET PO (06:16)
[2018-10-29] MEDS: Enoxaparin 40 MG/0.4 ML Syringe SC (06:17)
[2018-10-29] MEDS: Senna/Docusate Sodium 1 Tablet PO (06:18)
[2018-10-29] MEDS: Nystatin Powder 15gm Bottle 1 APPLIC TOPICAL ×2 (06:18→21:54)
[2018-10-29] MEDS: Menthol/Lanolin/Calamine/Znox 113 GM Tube 1 APPLIC TOPICAL ×2 (06:19→21:54)
[2018-10-29 06:20] LABS: Bedside Glucose 221 mg/dL (70-110)
[2018-10-29] MEDS: levETIRAcetam 500 MG Tablet PO ×2 (06:21→17:53)
[2018-10-29 06:29] LABS: Anion Gap 4 (5-15); BUN 32 mg/dL (7-18); Calcium,Total 7.9 mg/dL (8.5-10.1); Chloride 105 mmol/L (98-107); Creatinine, Serum 0.84 mg/dL (0.70-1.30); EST Glomerular Filtration Rate 92 mL/min (>60); Est Glom Filt Rate - Afr Amer 111 mL/min (>60); Estimated Creatinine Clearance 71.87 ml/min; Glucose 211 mg/dL (74-106); Potassium 4.3 mmol/L (3.5-5.1); Sodium Level 137 mmol/L (136-145)
[2018-10-29] MEDS: Tamsulosin HCl 0.4 MG Capsule PO ×2 (08:00→17:53)
[2018-10-29] MEDS: dexAMETHasone 4 MG Tablet 2 MG PO (08:00)
[2018-10-29] MEDS: Calcium Carbonate 500 MG Tablet PO (08:00)
[2018-10-29 15:29] VITALS: BP 138/69; PULSE 63; RESP 18; TEMP 36.4; O2SAT 96
[2018-10-29] MEDS: Acetaminophen 500 MG Tablet 1000 MG PO (21:51)
[2018-10-29] MEDS: MELATONIN 3 MG TABLET PO (21:51)
[2018-10-29] MEDS: Atorvastatin Calcium 10 MG Tablet PO (21:51)
[2018-10-30] MEDS: Enoxaparin 40 MG/0.4 ML Syringe SC (05:30)
[2018-10-30] MEDS: Famotidine 20 MG Tablet PO ×2 (05:30→17:22)
[2018-10-30] MEDS: amLODIPine 5 MG Tablet PO (05:30)
[2018-10-30] MEDS: levETIRAcetam 500 MG Tablet PO ×2 (05:30→17:22)
[2018-10-30] MEDS: Polyethylene Glycol 3350 17 GM PACKET PO (05:30)
[2018-10-30] MEDS: Menthol/Lanolin/Calamine/Znox 113 GM Tube 1 APPLIC TOPICAL ×2 (05:35→20:44)
[2018-10-30] MEDS: Nystatin Powder 15gm Bottle 1 APPLIC TOPICAL ×2 (05:36→20:45)
[2018-10-30 06:45] LABS: Bedside Glucose 176 mg/dL (70-110)
[2018-10-30] MEDS: dexAMETHasone 4 MG Tablet 2 MG PO (08:05)
[2018-10-30] MEDS: Tamsulosin HCl 0.4 MG Capsule PO ×2 (08:06→17:22)
[2018-10-30] MEDS: Calcium Carbonate 500 MG Tablet PO (08:06)
[2018-10-30 15:33] VITALS: BP 131/82; PULSE 84; RESP 20; TEMP 36.3; O2SAT 96
[2018-10-30] MEDS: MELATONIN 3 MG TABLET PO (20:42)
[2018-10-30] MEDS: Atorvastatin Calcium 10 MG Tablet PO (20:42)
[2018-10-30] MEDS: Acetaminophen 500 MG Tablet 1000 MG PO (21:39)
[2018-10-31] MEDS: Polyethylene Glycol 3350 17 GM PACKET PO (06:15)
[2018-10-31] MEDS: amLODIPine 5 MG Tablet PO (06:17)
[2018-10-31] MEDS: levETIRAcetam 500 MG Tablet PO ×2 (06:17→17:46)
[2018-10-31] MEDS: Enoxaparin 40 MG/0.4 ML Syringe SC (06:18)
[2018-10-31] MEDS: Famotidine 20 MG Tablet PO ×2 (06:18→17:46)
[2018-10-31] MEDS: Nystatin Powder 15gm Bottle 1 APPLIC TOPICAL ×2 (06:21→21:18)
[2018-10-31] MEDS: Menthol/Lanolin/Calamine/Znox 113 GM Tube 1 APPLIC TOPICAL ×2 (06:21→21:20)
[2018-10-31 06:36] LABS: Bedside Glucose 189 mg/dL (70-110)
--- NOTE | 2018-10-31 06:56 | MDS.RN ---
Information for the mds was obtained from review of the clinical record, interview of resident, staff, and direct observation of resident's care.
[2018-10-31] MEDS: Tamsulosin HCl 0.4 MG Capsule PO ×2 (07:59→17:46)
[2018-10-31] MEDS: dexAMETHasone 4 MG Tablet 2 MG PO (07:59)
[2018-10-31] MEDS: Calcium Carbonate 500 MG Tablet PO (07:59)
[2018-10-31 10:00] VITALS: PULSE 72; RESP 18; O2SAT 97
[2018-10-31 15:12] VITALS: BP 139/77; PULSE 89; RESP 16; TEMP 36.6; O2SAT 96
[2018-10-31] MEDS: Atorvastatin Calcium 10 MG Tablet PO (21:05)
[2018-10-31] MEDS: MELATONIN 3 MG TABLET PO (21:05)
[2018-11-01] MEDS: Polyethylene Glycol 3350 17 GM PACKET PO (06:20)
[2018-11-01] MEDS: Famotidine 20 MG Tablet PO ×2 (06:22→17:08)
[2018-11-01] MEDS: levETIRAcetam 500 MG Tablet PO ×2 (06:22→17:08)
[2018-11-01] MEDS: amLODIPine 5 MG Tablet PO (06:22)
[2018-11-01] MEDS: Nystatin Powder 15gm Bottle 1 APPLIC TOPICAL (06:23)
[2018-11-01] MEDS: Menthol/Lanolin/Calamine/Znox 113 GM Tube 1 APPLIC TOPICAL (06:23)
[2018-11-01] MEDS: Enoxaparin 40 MG/0.4 ML Syringe SC (06:23)
[2018-11-01 06:50] LABS: Bedside Glucose 164 mg/dL (70-110)
[2018-11-01] MEDS: Calcium Carbonate 500 MG Tablet PO (08:19)
[2018-11-01] MEDS: dexAMETHasone 4 MG Tablet 2 MG PO (08:19)
[2018-11-01] MEDS: Tamsulosin HCl 0.4 MG Capsule PO ×2 (08:19→17:08)
[2018-11-01 09:45] VITALS: BP 152/75; PULSE 110; PULSE 111; RESP 18; TEMP 36.8; O2SAT 94
--- NOTE | 2018-11-01 10:00 | NURSING ---
AT 9:45 THERAPY BROUGHT PT BACK TO PT ROOM AND STATED PT WAS WEAK AND FEELING DIZZY. GOT PT UP FROM WHEEL CHAIR X2 TO BED . PT STATED HE FELT LIGHT HEADED AND FUZZY. LT SIDE WEAKNESS,DRY MOUTH. VITALS DONE WITH ASSESSMENT. REPORTED TO KELSEY MAYES AND KELSEY CUMMINGS. WILL CONTINUE TO MONITOR.
[2018-11-01 10:05] VITALS: BP 124/54; PULSE 99
--- NOTE | 2018-11-01 10:12 | NURSING ---
PT REASSESSED AND VITALS DONE BY KELSEY CUMMINGS WITH THIS NURSE IN ROOM AT 10:05
--- NOTE | 2018-11-01 10:13 | NURSING ---
Asked to assess pt by Jose COCHRAN. Per pt, he had to come back early from therapy, c/o feeling more tired, weak and fuzzy in the head. Lungs cta, hr reg, denies pain, denies cp, shortness of breath, n/t, denies arm pain, does have lt side weakness, not new. Alert and oriented x3. Pt questions whether it could be from Decadron decreased dose. Will let Dr. Mccray know. Scottie,RN primary nurse notified.
[2018-11-01 15:42] VITALS: BP 127/77; PULSE 81; RESP 18; TEMP 36.9; O2SAT 93
--- NOTE | 2018-11-01 18:49 | NURSING ---
pt reported fuzzy feeling head, weakness, pt required x2 assist to bed and chair this evening, N/O for CT hear without contrast to evaluate for edema
--- NOTE | 2018-11-02 11:18 | DCINST_ITS ---
You will use the following diet at home:: No restrictions, Regular Your food should be the consistency of: Regular Your liquids should be the consistency of: Regular/Thin Discharge Activity: Return to Normal Activity, May Shower, Use Walker Weight Bearing Status: Weight bearing as tolerated Call your doctor if you observe: Fever of 101 or Higher, Inability to urinate, Inability to have a bowel movement, Shortness of breath, Chest pain, Uncontrolled pain Allergies/Adverse Reactions: Allergies No Known Allergies Allergy (Verified 10/28/18 13:58) Medications to take at Discharge Tamsulosin HCl [Flomax] 0.4 mg PO BID 12/09/17 Acetaminophen [Tylenol Extra Strength] 1,000 mg PO Q8H PRN PRN 05/30/18 Ondansetron [Zofran] 4 mg PO Q8H PRN PRN 08/25/18 Amlodipine [Norvasc] 5 mg PO DAILY 10/07/18 Calcium Citrate 500 mg PO DAILY 10/07/18 Cholecalciferol (VIT D3) [Vitamin D] 2,000 unit PO DAILY 10/07/18 Dexamethasone [Decadron] See Taper PO TID 10/07/18 Docusate Sodium [Stool Softener] 100 mg PO DAILY 10/07/18 Famotidine 20 mg PO Q12H 10/07/18 Insulin Lispro [Humalog KwikPen] See Protocol SUBCUT ACHS 10/07/18 Levetiracetam [Levetiracetam ER] 500 mg PO BID 10/07/18 Atorvastatin Calcium [Lipitor] 10 mg PO QHS 11/01/18 Enoxaparin [Lovenox] 40 mg SUBCUT DAILY@0600 11/01/18 Melatonin 3 mg PO QHS 11/01/18 Nystatin Powder [Mycostatin Powder] 1 applic TOPICAL BID 11/01/18 Polyethylene Glycol 3350 [Miralax] 17 gm PO DAILY 11/01/18 Primary Care Physician: Violeta Copeland [Primary Care Provider] - Please follow up with your Primary Care Physician in: After hospitalization. Test Results: Test results from this visit will be discussed in further detail at your follow- up appointment, if applicable. Proposed Discharge Date: 11/01/18
--- NOTE | 2018-11-02 11:20 | PCM.DC.SUM ---
Discharge Date and Diagnosis Date of Admission: 10/07/18 Date of Discharge: 11/01/18 - Secondary Discharge Diagnosis Chronic Problems (Last Reviewed 10/28/18 @ 13:58 by Neetu Santiago) History of chest pain (Chronic) GBM (glioblastoma multiforme) (Chronic) BPH (benign prostatic hyperplasia) (Chronic) Hypertension (Chronic) Steroid-induced diabetes mellitus (Chronic) Neurogenic bladder (Chronic) BPH loc w urin obs/LUTS (Chronic) Hospital Course and Treatment Operations: None Procedures: None Summary of Care Provided: The patient is a 83 year old Male with below past medical history significant for Glioblastoma multiforme, hospitalized for acute left sided weakness which improved with high dose steroids, admitted to TCU with debility, here for rehabilitation, strengthening, prior to discharge home with spouse. 11/01/2018 Resident noticeably weaker, unable to tolerate therapy. CT scan of head ordered which showed the following: Compared to immediate prior there are small hyperdense focus in the right frontal deep white matter zabala radiata has increased, likely representing mildly increased hemorrhage versus increased calcification. Discharge to [facility] Emergency Department for transfer to [facility] for further treatment of glioblastoma multiforme. - Physical Exam Vital Signs Temp Pulse Resp BP Pulse Ox 98.5 F 81 18 127/77 H 93 11/01/18 15:42 11/01/18 15:42 11/01/18 15:42 11/01/18 15:42 11/01/18 15:42 Oxygen Delivery Method Room Air Weight: 77.621 kg Body Mass Index (BMI) 24.9 Intake and Output for Last 24 Hours 10/31/18 11/01/18 11/02/18 23:59 23:59 23:59 Intake Total 840 / 840 1080 / 1080 Output Total 200 / 200 800 / 800 Balance 640 / 640 280 / 280 Discharge Diet: No Restrictions Discharge Activity: Return to Normal Activity, May Shower, Use Walker Weight Bearing Status: Weight bearing as tolerated Call your doctor if you observe: Fever of 101 or Higher, Inability to urinate, Inability to have a bowel movement, Shortness of breath, Chest pain, Uncontrolled pain Home Medications: Medications to take at Discharge Tamsulosin HCl [Flomax] 0.4 mg PO BID 12/09/17 Acetaminophen [Tylenol Extra Strength] 1,000 mg PO Q8H PRN PRN 05/30/18 Ondansetron [Zofran] 4 mg PO Q8H PRN PRN 08/25/18 Amlodipine [Norvasc] 5 mg PO DAILY 10/07/18 Calcium Citrate 500 mg PO DAILY 10/07/18 Cholecalciferol (VIT D3) [Vitamin D] 2,000 unit PO DAILY 10/07/18 Dexamethasone [Decadron] See Taper PO TID 10/07/18 Docusate Sodium [Stool Softener] 100 mg PO DAILY 10/07/18 Famotidine 20 mg PO Q12H 10/07/18 Insulin Lispro [Humalog KwikPen] See Protocol SUBCUT ACHS 10/07/18 Levetiracetam [Levetiracetam ER] 500 mg PO BID 10/07/18 Atorvastatin Calcium [Lipitor] 10 mg PO QHS 11/01/18 Enoxaparin [Lovenox] 40 mg SUBCUT DAILY@0600 11/01/18 Melatonin 3 mg PO QHS 11/01/18 Nystatin Powder [Mycostatin Powder] 1 applic TOPICAL BID 11/01/18 Polyethylene Glycol 3350 [Miralax] 17 gm PO DAILY 11/01/18 Primary Care Physician: Violeta Copeland [Primary Care Provider] - Please follow up with your Primary Care Physician in: After hospitalization. Disposition: Acute care Hospital - [facility] Patient Condition:: Poor Medical Necessity - Tobacco Use Smoking Status: Former smoker Tobacco Use: Cigarettes Meaningful Use Info Meaningful Use Diagnoses (Choose all that apply): None applicable
== END 2018-11-02 00:14 | disposition short-term general hospital (02) | DRG 948 ==
LOC: TCU 16:17
PROVIDERS: Admitting Provider Family Medicine Geriatric Medicine; Family Provider Family Medicine; PCP Family Medicine; Referring Provider Family Medicine Geriatric Medicine; Visit Provider Family Medicine Geriatric Medicine
DX: R53.81 Other malaise (principal); C71.9 Malignant neoplasm of brain, unspecified; G81.94 Hemiplegia, unspecified affecting left nondominant side; N13.8 Other obstructive and reflux uropathy; K21.9 Gastro-esophageal reflux disease without esophagitis; E78.5 Hyperlipidemia, unspecified; I10 Essential (primary) hypertension; E55.9 Vitamin D deficiency, unspecified; E09.9 Drug or chemical induced diabetes mellitus without complications; T38.0X5A Adverse effect of glucocorticoids and synthetic analogues, initial encounter; N31.9 Neuromuscular dysfunction of bladder, unspecified; N40.1 Benign prostatic hyperplasia with lower urinary tract symptoms; Z87.891 Personal history of nicotine dependence
CPT/HCPCS: 36415; 80048; 82962; 85025; 97110; 97116; 97163; 97166; 97530; 97535; 97802

== ENCOUNTER → 2018-11-01 18:01 | Outpatient (CLI) | payer MEDICARE, OTHER, SELFPAY ==
[2018-10-01 10:57] VITALS: BMI 24.5
[2018-10-07 16:45] VITALS: BMI 24.9
--- NOTE | 2018-11-01 18:00 | CT_ITS ---
STUDY: CT BRAIN WITHOUT CONTRAST REASON FOR EXAM: Male, 83 years old. Left-sided weakness, history of glioblastoma RADIATION DOSAGE (If Supplied By Facility): CTDIvol = ( 44.99 ) mGy, DLP = ( 829.85 ) mGycm TECHNIQUE: Transaxial CT imaging of the brain was performed without administration of intravenous contrast material. Individualized dose optimization techniques were used for this CT. COMPARISON: 03 October 2018, 29 September 2018 FINDINGS: Compared to immediate prior there are small hyperdense focus in the right frontal deep white matter zabala radiata has increased, likely representing mildly increased hemorrhage versus increased calcification. The patient has unknown chronic small hemorrhagic focus in the left zabala radiata as demonstrated on prior MR, not seen on current images. There is extensive right cerebral and moderate left cerebral hemispheric white matter hypodensity, likely related to vasogenic edema and treatment effects. This cannot be definitively characterized on CT. There is no mass effect, midline shift, hydrocephalus, herniation or extraparenchymal fluid collections. There is an extremely hypodense subcortical parasagittal posterior frontal lobe region corresponding to the enhancing normality on prior MR, likely representing tumor and/or post treatment change. There is a right parietal craniotomy. There are no skull destructive lesions. CT/Brain/Head without Contrast IMPRESSION: 1. Increased right frontal hyperdense focus, possibly small hemorrhage versus increasing calcification. 2. Known right parietal precentral gyrus motor cortex lesion/abnormality, with expected left-sided motor symptoms. 3. Abnormal white matter, likely combination of posttreatment change and chronic ischemic disease. 4. For further characterization of neoplastic disease status or treatment complications refer to contrast-enhanced MRI. Electronically Signed: Ana Beyer, at 18:39 EDT Tel , Service support ,
== END ==
PROVIDERS: Family Provider Family Medicine; PCP Family Medicine; Visit Provider Family Medicine Geriatric Medicine
DX: R53.1 Weakness (principal)
CPT/HCPCS: 70450

== ENCOUNTER 2018-11-01 20:05 | Emergency (ER) | payer MEDICARE, OTHER, SELFPAY ==
[2018-10-01 10:57] VITALS: BMI 24.5
[2018-10-07 16:45] VITALS: BMI 24.9
[2018-11-01 20:07] VITALS: BP 157/86; PULSE 88; PULSE 89; RESP 16; TEMP 36.7; O2SAT 93; O2SAT 94; BMI 23.9
[2018-11-01 20:10] VITALS: BMI 23.9
[2018-11-01 20:26] LABS: Bedside Glucose 332 mg/dL (70-110)
--- NOTE | 2018-11-01 21:15 | ED.VISSUMM ---
- ER Visit Summary Date of Service: 11/01/18 Chief Complaint: Left lower extremity acute on chronic weakness with possible subtle intracranial bleed History of Present Illness: The patient is a 83 M history of glioblastoma diagnosed late 2018. Had surgery for that at [facility] and underwent chemoradiation therapy. Patient is done well. He has been in our transitional care unit here at the hospital. He has had chronic left lower leg weakness it was reportedly worse today he had a CAT scan done and the radiologist is concerned there may be a subtle intracranial bleed versus worsening calcification. This was a CT of the brain. Physical Examination: Older male no acute distress vital signs are stable afebrile. H EENT exam unremarkable. Pupils round reactive light. No facial droop. Neck nontender. Lungs clear to auscultation. Heart regular rhythm no murmur rate about 90. Abdomen is soft and nontender. Peritoneal signs. Patient is moving all 4 extremities. They are nontender. He is weak in the left leg compared to the right this is acute on chronic. He is chronically been weak in the left lower extremity is got 4-5 strength but he states it is slightly weaker than his baseline. 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 He is able to dorsi and plantar flexion but the left is weaker than the right as is his left leg trying to raise it off the bed. He is awake and alert. He is answering questions. He has normal speech. His NIH score be a 1-2 at most. Test Results: CT of his brain done earlier from the floor tonight. Showed a possible intracranial bleed versus worsening calcification. I reviewed the films. The formal read is done by the radiologist. There is no significant bleed at this time. Emergency Department Course and Treatment: I discussed all this with the patient and his . They understand that I cannot get an MRI tonight and may not be able get one tomorrow. His preferred that they get definitive diagnosis of this and wants him retransferred back to [facility]. Treatment Plan: I spoke to the [facility] transfer line no accept the patient. Disposition: Transfer to [facility] Impression: Acute on chronic left lower extremity weakness Rule out possible small intracranial bleed versus calcification versus other etiologies History of glioblastoma with resection This note was generated with [employer] dictation software. It may contain incorrect words, spelling, and punctuation that were not noted in review of the chart prior to signing ED Disposition - Plan for ED Patient: Referrals: Violeta Copeland [Primary Care Provider] -
[2018-11-01 21:36] VITALS: BP 132/86; PULSE 91; RESP 14; O2SAT 95
[2018-11-01 22:29] VITALS: BP 136/64; RESP 18
== END 2018-11-01 22:30 | disposition short-term general hospital (02) ==
PROVIDERS: Emergency Provider Emergency Medicine; Family Provider Family Medicine; PCP Family Medicine
DX: R53.1 Weakness (principal); R29.701 NIHSS score 1; N40.0 Benign prostatic hyperplasia without lower urinary tract symptoms; E11.9 Type 2 diabetes mellitus without complications; I10 Essential (primary) hypertension; Z79.899 Other long term (current) drug therapy; Z79.01 Long term (current) use of anticoagulants; Z79.4 Long term (current) use of insulin
CPT/HCPCS: 70450; 82962; 99284; A4216

== ENCOUNTER 2018-11-04 18:57 | Inpatient (IN) | payer MEDICARE, OTHER, SELFPAY ==
[2018-10-01 10:57] VITALS: BMI 24.5
--- NOTE | 2018-11-04 20:29 | HP.PCM_ITS ---
Problem List (1) GBM (glioblastoma multiforme) Status: Chronic (2) BPH (benign prostatic hyperplasia) Status: Chronic (3) Hypertension Status: Chronic (4) Steroid-induced diabetes mellitus Status: Chronic (5) Neurogenic bladder Status: Chronic (6) Left hemiparesis Status: Acute (7) Debility Status: Acute History of Present Illness Date of Admission: 11/04/18 Chief Complaint: Here for rehabilitation, strengthening, prior to discharge home with spouse. The patient is a 83 year old Male with an established diagnosis of glioblastoma who presented to [facility] and admitted 10/03/2018 with rapidly progressive left sided weakness. 10/02/2018 Started experiencing left sided weakness. 10/03/2018 Woke up with severe weakness of his left side. Dexamethasone administered at [facility] with improvement of left sided weakness. 10/03/2018 CT scan of head at [facility] showed worsening vasogenic edema. Patient transferred to [facility]. Patient felt left sided weakness had improved but not to baseline. 10/04/2018 MRI brain showed heterogeneous enhancing lesion within the right frontal lobe posterior to the resection cavity is increased in size compared to prior MRI brain July 28, 2018. Surrounding T2/FLAIR white matter hyperintensity is increased compared to prior MRI brain May 29/2019. It is unclear what component represents progressive tumor versus posttreatment changes. Steroids continued as patient improved with dexamethasone. Anticonvulsant therapy continued for seizure prophylaxis although patient has not seizure history. Seizure risk perceived high. Regarding treatment of glioblastoma: Patient has been treated with chemoradiation and 6 cycles of adjuvant temozolomide. He now has progressive imaging changes suggestive of progressive disease. Differential diagnosis includes treatment related changes. Significant worsening of left sided weakness improved with high-dose steroids. Patient will be discharged on steroid taper and return to clinic in 4 weeks from most recent MRI brain dated October 04, 2018 for consideration of possible biopsy of enhancement especially with the progression on the follow-up MRI versus continued clinical and imaging surveillance the changes are stable or improved. 10/07/2018 Admit to TCU with debility here for rehabilitation, strengthening, prior to discharge home with spouse. 11/01/2018 Resident noticeably weaker, unable to tolerate therapy. CT scan of head ordered which showed the following: Compared to immediate prior there are small hyperdense focus in the right frontal deep white matter zabala radiata has increased, likely representing mildly increased hemorrhage versus increased calcification. Discharge to [facility] Emergency Department for transfer to [facility] for further treatment of glioblastoma multiforme. At [facility], MRI performed, hemorrhage thought to be old, EEG negative for seizure, CT scan repeated prior to discharge. 11/04/2018 Admit to TCU with debility, here for rehabilitaiotn, strengthening, prior to discharge home with spouse. Past Medical History Past Medical History (Chronic Problems): Chronic Problems (Last Reviewed 10/28/18 @ 13:58 by Neetu Santiago) History of chest pain (Chronic) GBM (glioblastoma multiforme) (Chronic) BPH (benign prostatic hyperplasia) (Chronic) Hypertension (Chronic) Steroid-induced diabetes mellitus (Chronic) Neurogenic bladder (Chronic) BPH loc w urin obs/LUTS (Chronic) Medical History: Medical History (Last Reviewed 10/28/18 @ 13:58 by Neetu Santiago) Benign prostatic hyperplasia with lower urinary tract symptoms N40.1 Hyperlipidemia E78.5 Primary glioblastoma of brain C71.9 S/P RIGHT FRONTAL CRANIECTOMY 12-27-[address] [facility] [address] MILLER Ventricular hypertrophy I51.7 bilateral enlargement Allergies No Known Allergies Allergy (Verified 10/28/18 13:58) Home Medications: Ambulatory Orders Medication Instructions Recorded Tamsulosin HCl [Flomax] 0.4 mg PO BID 12/09/17 Ondansetron [Zofran] 4 mg PO Q8H PRN PRN 08/25/18 Amlodipine [Norvasc] 5 mg PO DAILY 10/07/18 Calcium Citrate 950 mg PO DAILY 10/07/18 Cholecalciferol (VIT D3) [Vitamin 2,000 unit PO DAILY 10/07/18 D] Dexamethasone [Decadron] See Protocol PO TID 10/07/18 Docusate Sodium [Stool Softener] 100 mg PO DAILY 10/07/18 Famotidine 20 mg PO Q12H 10/07/18 Insulin Lispro [Humalog KwikPen] See Protocol SUBCUT ACHS 10/07/18 Levetiracetam [Levetiracetam ER] 500 mg PO BID 10/07/18 Enoxaparin [Lovenox] 40 mg SUBCUT DAILY@0600 11/01/18 Melatonin 3 mg PO QHS 11/01/18 Nystatin Powder [Mycostatin Powder] 1 applic TOPICAL BID 11/01/18 Polyethylene Glycol 3350 [Miralax] 17 gm PO DAILY 11/01/18 Acetaminophen [Non-Aspirin] 650 mg PO Q4H PRN 11/04/18 Simvastatin 20 mg PO QHS 11/04/18 Surgical History: Surgical History (Last Reviewed 10/28/18 @ 13:58 by Neetu Santiago) History of appendectomy Z90.49 History of bilateral knee replacement Z96.653 History of cholecystectomy Z90.49 History of tonsillectomy Z90.89 Surgical History: appendectomy, cholecystectomy, total knee arthroplasty, tonsillectomy, - - Excision brain tumor by craniotomy (Right frontal) Psychiatric History: Anxiety, Depression Lives: Spouse/ Significant Other Smoking Status: Former smoker Tobacco Use: Non-smoker Alcohol: None Drugs: None - *Family History Maternal Family History: Family History (Last Reviewed 10/28/18 @ 13:58 by Neetu Santiago) Mother Heart disease Father CAD (coronary artery disease) History Items: No pertinent history Paternal Family History: Family History (Last Reviewed 10/28/18 @ 13:58 by Neetu Santiago) Mother Heart disease Father CAD (coronary artery disease) History Items: No pertinent history Review of Systems Constitutional: Denies: Chills, Fever, Weight Change HEENT: Denies: Head Aches, Sinus Congestion, Sinus Drainage Cardiovascular: Denies: Chest Pain, Palpitations Respiratory: Denies: Cough, Shortness of breath at rest, Sputum production Gastrointestinal: Denies: Abdominal Pain, Nausea, Vomiting Genitourinary: Denies: Dysuria Musculoskeletal: Denies: Joint Pain, Joint Tenderness Skin: Denies: Rash, Wounds Neurological: Denies: Numbness, Tingling, Focal weakness Psychiatric: Denies: Anxiety, Depression, Homicidal Ideations, Suicidal Ideations Hematologic/ Lymphatic: Denies: Easy Bruising, Easy Bleeding VTE Information - Inpt Only VTE Present on Admission: No VTE Mechan Device Prophylaxis: Knee High ALYSON Hose VTE Pharm Prophylaxis ordered?: No Reason prophylaxis not ordered:: Medical Contraindication - Physical Exam General: Alert, Oriented x3, Cooperative HEENT: Atraumatic, PERRLA, EOMI, Normocephalic Neck: Supple, No JVD, Negative Carotid Bruits Lungs: Clear to auscultation, Normal air movement Cardiovascular: Regular rate, No murmurs Abdomen: Bowel Sounds Present, Soft, Non Tender Extremities: No edema, Capillary Refill Less than 3 Seconds Skin: No rashes, No breakdown Musculoskeletal: No Tenderness to Palpation of Joints or Extremities Neurological: Cranial nerves II-XII grossly intact, - - Left hemiparesis. Psych/Mental Status: Normal Affect, Appropriate Body Mass Index (BMI) 23.9 Finger Stick Blood Glucose 332 Intake and Output for Last 24 Hours 11/02/18 11/03/18 11/04/18 23:59 23:59 23:59 Intake Total 240 / 240 Balance 240 / 240 Assessment/Plan All Active Problems (Last Reviewed 10/28/18 @ 13:58 by Neetu Santiago) Weakness of muscle of left side of face due to and not concurrent with cerebrovascular disease (Acute) Glioblastoma multiforme of central nervous system (Acute) Left hemiparesis (Acute) Debility (Acute) Anemia (Resolved) Educational circumstance (Acute) Chemotherapy management, encounter for (Acute) RSV (respiratory syncytial virus infection) (Resolved) Acute CVA (cerebrovascular accident) (Acute) Stroke (Acute) 83 year old male with below past medical history significant for glioblastoma multiforme of brain, hospitalized for acute weakness with brain imaging showing hemorrhage, further imaging showed no new hemorrhage, admit to TCU with debility, here for rehabilitation, strengthening, prior to discharge home with spouse. * Debility - PT/OT. * Pain - Tylenol 1000MG Q6H PRN mild pain. * Bowel - Colace 100MG daily. * Pneumonia vaccination - Administer Prevnar 13 and/or Pneumovax 23 as necessary. * DVT prophylaxis - Hold, risk of brain bleed. * Hypertension - Amlodipine 5MG daily. * Hyperlipidemia - Atorvastatin 10MG QHS. * Calcium deficiency - Calcium 500MG daily. * Vitamin D deficiency - D3 2000IU daily. * Glioblastoma multiforme - Decadron 4MG BID thru 11/09/2018, then 2MG BID. * GERD - Famotidine 20MG Q12H. * Seizure disorder - Keppra 500MG twice daily. * Insomnia - Melatonin 3MG QHS. * Skin irritation - Calmoseptine BID. * Nausea - Zofran 4MG Q8H PRN. * BPH - Tamsulosin 0.4MG BID.
[2018-11-04 21:11] LABS: Bedside Glucose 243 mg/dL (70-110)
[2018-11-04] MEDS: Atorvastatin Calcium 10 MG Tablet PO (21:27)
[2018-11-04] MEDS: Famotidine 20 MG Tablet PO (21:27)
[2018-11-04] MEDS: MELATONIN 3 MG TABLET PO (21:27)
[2018-11-04] MEDS: Insulin Lispro 100 UNIT/ML INSULN.PEN SC (21:27)
[2018-11-04] MEDS: Menthol/Lanolin/Calamine/Znox 113 GM Tube 1 APPLIC TOPICAL (21:28)
[2018-11-04 21:33] VITALS: BMI 22.8
[2018-11-04 21:36] VITALS: BP 150/80; PULSE 64; RESP 18; TEMP 36.6; O2SAT 97; BMI 22.9
[2018-11-04 21:37] VITALS: PULSE 64; O2SAT 97
[2018-11-05] MEDS: Famotidine 20 MG Tablet PO ×2 (05:11→17:28)
[2018-11-05] MEDS: levETIRAcetam 500 MG Tablet PO ×2 (05:11→17:28)
[2018-11-05] MEDS: Menthol/Lanolin/Calamine/Znox 113 GM Tube 1 APPLIC TOPICAL ×2 (05:11→21:09)
[2018-11-05] MEDS: amLODIPine 5 MG Tablet PO (05:11)
[2018-11-05 05:50] LABS: Absolute Lymphocyte Count 1.11 X10^3/uL (0.83-4.51); Absolute Neutrophil Count 9.1 X10^3/uL (2.0-7.7); Basophil# 0.05 X10^3/uL; Basophil% 0.4 % (0-1); Lymphocyte # 1.11 X10^3/ul (4.0); Lymphocyte % 9.7 % (19-41); Mean Corp Hgb Conc 33.3 g/dL (32-36); Mean Corpuscular Hgb 29.3 pg (27.0-32.0); Mean Corpuscular Volume 87.8 fL (80-94); Mean Platelet Vol. 8.8 fl (6.2-12.0); Monocyte# 0.66 X10^3/uL; Monocyte% 5.8 % (0-10); NRBC Flagged by Analyzer 0 % (0-5); Neutrophil # 9.07 X10^3/uL (2.7-7.7); Neutrophil % 79.7 % (47-70); Platelet Count 134 K/mm3 (150-450); RBC Distribution Width CV 13.5 % (11.6-14.6); RBC Distribution Width SD 43.6 fl (35.1-43.9); Red Blood Count 4.44 M/mm3 (4.6-6.2); White Blood Count 11.4 K/mm3 (4.4-11.0)
[2018-11-05 06:26] LABS: Bedside Glucose 172 mg/dL (70-110)
[2018-11-05 06:28] LABS: Anion Gap 8 (5-15); BUN 34 mg/dL (7-18); BUN/Creat Ratio 44.6 RATIO (10-20); Calcium,Total 7.8 mg/dL (8.5-10.1); Chloride 106 mmol/L (98-107); Creatinine, Serum 0.76 mg/dL (0.70-1.30); EST Glomerular Filtration Rate 103 mL/min (>60); Est Glom Filt Rate - Afr Amer 125 mL/min (>60); Estimated Creatinine Clearance 61.28 ml/min; Glucose 142 mg/dL (74-106); Potassium 3.9 mmol/L (3.5-5.1); Sodium Level 140 mmol/L (136-145)
[2018-11-05] MEDS: Calcium Carbonate 500 MG Tablet PO (08:05)
[2018-11-05] MEDS: dexAMETHasone 4 MG Tablet PO ×2 (08:05→17:28)
[2018-11-05] MEDS: Tamsulosin HCl 0.4 MG Capsule PO ×2 (08:06→17:28)
[2018-11-05] MEDS: Insulin Lispro 100 UNIT/ML INSULN.PEN SC ×3 (08:06→17:29)
[2018-11-05 09:00] VITALS: PULSE 85; RESP 18; O2SAT 96
[2018-11-05 10:56] LABS: Bedside Glucose 275 mg/dL (70-110)
--- NOTE | 2018-11-05 14:26 | NURSING ---
PT STRAIGHT CATH FOR 400. STRAW IN COLOR,CLOUDY, MILD SMELL. PT TOLERATED WELL AND NOW IS RESTING IN BED. PT REFUSED TO HAVE HIS HEELS FLOATED.
[2018-11-05 16:00] VITALS: BP 130/76; PULSE 77; RESP 18; TEMP 36.5; O2SAT 95
[2018-11-05 17:10] LABS: Bedside Glucose 260 mg/dL (70-110)
[2018-11-05] MEDS: MELATONIN 3 MG TABLET PO (21:09)
[2018-11-05] MEDS: Atorvastatin Calcium 10 MG Tablet PO (21:09)
[2018-11-05 21:26] LABS: Bedside Glucose 263 mg/dL (70-110)
[2018-11-06] MEDS: levETIRAcetam 500 MG Tablet PO ×2 (06:03→17:05)
[2018-11-06] MEDS: amLODIPine 5 MG Tablet PO (06:03)
[2018-11-06] MEDS: Famotidine 20 MG Tablet PO ×2 (06:03→17:05)
[2018-11-06] MEDS: Polyethylene Glycol 3350 17 GM PACKET PO (06:04)
[2018-11-06] MEDS: Menthol/Lanolin/Calamine/Znox 113 GM Tube 1 APPLIC TOPICAL ×2 (06:05→22:03)
[2018-11-06 06:31] LABS: Bedside Glucose 239 mg/dL (70-110)
--- NOTE | 2018-11-06 07:36 | PCM.PN.RX ---
Progress Note - Pharmacy Subjective: TCU Admission Objective: Allergies No Known Allergies Allergy (Verified 10/28/18 13:58) Current Medications Generic Name Dose Route Start Last Admin Trade Name Freq PRN Reason Stop Dose Admin Acetaminophen 1,000 mg 11/04/18 20:41 Tylenol PO Q6H PRN MILD PAIN (1-310) Amlodipine Besylate 5 mg 11/05/18 06:00 11/06/18 06:03 Norvasc PO 5 mg DAILY PAUL Administration Atorvastatin Calcium 10 mg 11/04/18 22:00 11/05/18 21:09 Lipitor PO 10 mg QHS PAUL Administration Calamine/Phenol 1 applic 11/04/18 22:00 11/06/18 06:05 Calmoseptine Ointment TOPICAL 1 applicatio 0600,2200 [facility] Administration Protocol Calcium Carbonate 500 mg 11/05/18 08:00 11/05/18 08:05 Tums PO 500 mg DAILYCM PAUL Administration Cholecalciferol 2,000 unit 11/05/18 08:00 11/05/18 08:06 Vitamin D PO 2,000 unit DAILYCM PAUL Administration Dexamethasone 4 mg 11/05/18 08:00 11/05/18 17:28 Decadron PO 11/09/18 17:01 4 mg BIDCM PAUL Administration Dexamethasone 2 mg 11/10/18 08:00 Decadron PO BIDCM PAUL Famotidine 20 mg 11/04/18 19:00 11/06/18 06:03 Pepcid PO 20 mg Q12 PAUL Administration Insulin Glargine 10 units 11/06/18 06:00 11/06/18 06:32 Lantus (Bkc) SC 10 units BID PAUL Administration Levetiracetam 500 mg 11/05/18 06:00 11/06/18 06:03 Keppra Tablet PO 500 mg BID [facility] Administration Melatonin 3 mg 11/04/18 22:00 11/05/18 21:09 Melatonin PO 3 mg QHS PAUL Administration Ondansetron HCl 4 mg 11/04/18 18:53 Zofran Odt PO Q8H PRN PRN NAUSEA Polyethylene Glycol 17 gm 11/06/18 06:00 11/06/18 06:04 Miralax PO 17 gm DAILY PAUL Administration Tamsulosin HCl 0.4 mg 11/05/18 08:30 11/05/18 17:28 Flomax PO 0.4 mg BID@0830,1730 PAUL Administration Vital Signs Temp Pulse Resp BP Pulse Ox 97.7 F L 77 18 130/76 H 95 11/05/18 16:00 11/05/18 16:00 11/05/18 16:00 11/05/18 16:00 11/05/18 16:00 Oxygen Delivery Method Room Air Weight: 78.789 kg Body Mass Index (BMI) 22.8 Finger Stick Blood Glucose 332 Sodium 140 mmol/L (136-145) 11/05/18 05:10 Potassium 3.9 mmol/L (3.5-5.1) 11/05/18 05:10 Chloride 106 mmol/L (98-107) 11/05/18 05:10 Carbon Dioxide 26.0 mmol/L (21.0-32.0) 11/05/18 05:10 Anion Gap 8 (5-15) 11/05/18 05:10 BUN 34 mg/dL (7-18) H 11/05/18 05:10 Creatinine 0.76 mg/dL (0.70-1.30) 11/05/18 05:10 Est GFR (MDRD) Af Amer 125 mL/min (>60) 11/05/18 05:10 Est GFR (MDRD) Non-Af 103 mL/min (>60) 11/05/18 05:10 BUN/Creatinine Ratio 44.6 RATIO (10-20) H 11/05/18 05:10 Glucose 142 mg/dL (74-106) H 11/05/18 05:10 Assessment/Plan: 1. Pain: Tylenol 1000mg PO Q6h PRN mild pain (1-3). Please continue to monitor patient for signs/symptoms of increased or decreased pain. 2. Hypertension: Amlodipine 5mg PO daily. Please continue to monitor blood pressure, electrolytes. 3. Hyperlipidemia: Atorvastatin 10mg PO QHS. Last lipid panel 05/2018. Please continue to monitor and order lipid panel annually as clinically appropriate. 4. BPH: Flomax 0.4mg PO BID. Please continue to monitor for signs and symptoms of urinary retention, BPH. 5. GERD: Pepcid 20mg PO BID. Please continue to monitor for signs and symptoms of increased/decreased GERD symptoms, renal function. 6. Glioblastoma: Dexamethasone 4mg PO BIDCM thru 11/09 then 2mg PO BIDCM thereafter. Please continue to monitor for symptom improvement, as well as blood glucose levels due to steroid induced diabetes. *7. Steroid-induced diabetes: Lantus 10units SC BID. POC blood sugars in the upper 200's, consider increasing Lantus if elevated blood glucose persists. Continue to monitor blood glucose and for S/S of hyper or hypoglycemia. 8. DVT Prophylaxis: Lovenox 40mg SC daily. Please continue to monitor for signs and symptoms of bleeding, renal function. 9. Seizure disorder: Keppra 500mg PO BID. Please continue to monitor for signs/symptoms of seizure. 10. Nausea: Zofran 4mg PO Q8h PRN nausea. Please continue to monitor for signs and symptoms of nausea/ vomiting. 11. Insomnia: Melatonin 3mg PO QHS. Please continue to monitor for signs and symptoms of insomnia, oversedation, confusion. 12. General wellness: Calcium Carbonate 500mg PO daily, Cholecalciferol 2,000 unit PO daily. Please continue to monitor. Psychotropic Medications: none Unnecessary Medications: none Bowel Regimen: Miralax 17g PO Daily. Please continue to monitor for increased/decreased bowel movements or diarrhea. Date of Note:: 11/06/18 - Provider Comments Provider responsibility: Provider responsible to enter orders to implement recommendations
[2018-11-06] MEDS: Tamsulosin HCl 0.4 MG Capsule PO ×2 (08:24→17:05)
[2018-11-06] MEDS: Calcium Carbonate 500 MG Tablet PO (08:24)
[2018-11-06] MEDS: dexAMETHasone 4 MG Tablet PO ×2 (08:24→17:05)
[2018-11-06 11:01] LABS: Bedside Glucose 239 mg/dL (70-110)
[2018-11-06 15:44] VITALS: BP 124/65; PULSE 71; RESP 20; TEMP 36.9; O2SAT 96
[2018-11-06 17:06] LABS: Bedside Glucose 327 mg/dL (70-110)
[2018-11-06 21:51] LABS: Bedside Glucose 309 mg/dL (70-110)
[2018-11-06] MEDS: Atorvastatin Calcium 10 MG Tablet PO (22:03)
[2018-11-06] MEDS: MELATONIN 3 MG TABLET PO (22:03)
[2018-11-07] MEDS: Polyethylene Glycol 3350 17 GM PACKET PO (06:27)
[2018-11-07] MEDS: amLODIPine 5 MG Tablet PO (06:34)
[2018-11-07] MEDS: Famotidine 20 MG Tablet PO ×2 (06:34→17:19)
[2018-11-07] MEDS: levETIRAcetam 500 MG Tablet PO ×2 (06:34→17:19)
[2018-11-07 06:35] LABS: Bedside Glucose 153 mg/dL (70-110)
[2018-11-07] MEDS: Menthol/Lanolin/Calamine/Znox 113 GM Tube 1 APPLIC TOPICAL ×2 (06:36→20:33)
[2018-11-07] MEDS: Tamsulosin HCl 0.4 MG Capsule PO ×2 (08:17→17:19)
[2018-11-07] MEDS: dexAMETHasone 4 MG Tablet PO ×2 (08:17→17:19)
[2018-11-07] MEDS: Calcium Carbonate 500 MG Tablet PO (08:17)
[2018-11-07 11:21] LABS: Bedside Glucose 231 mg/dL (70-110)
[2018-11-07 15:05] VITALS: BP 127/69; PULSE 81; RESP 18; TEMP 36.5; O2SAT 95
--- NOTE | 2018-11-07 15:37 | NURSING ---
c/o having full bladder. bladder scanned for 624cc. pt incontinent of large amt of urine and straight cathed for 500cc cloudy straw colored urine. tolerated well.
[2018-11-07 16:56] LABS: Bedside Glucose 296 mg/dL (70-110)
[2018-11-07] MEDS: MELATONIN 3 MG TABLET PO (20:33)
[2018-11-07] MEDS: Atorvastatin Calcium 10 MG Tablet PO (20:33)
[2018-11-07 21:11] LABS: Bedside Glucose 281 mg/dL (70-110)
[2018-11-08] MEDS: Polyethylene Glycol 3350 17 GM PACKET PO (05:17)
[2018-11-08] MEDS: amLODIPine 5 MG Tablet PO (05:17)
[2018-11-08] MEDS: Famotidine 20 MG Tablet PO ×2 (05:17→17:38)
[2018-11-08] MEDS: levETIRAcetam 500 MG Tablet PO ×2 (05:17→17:38)
[2018-11-08] MEDS: Menthol/Lanolin/Calamine/Znox 113 GM Tube 1 APPLIC TOPICAL ×2 (05:17→20:06)
[2018-11-08 06:26] LABS: Bedside Glucose 216 mg/dL (70-110)
[2018-11-08] MEDS: dexAMETHasone 4 MG Tablet PO ×2 (08:12→17:37)
[2018-11-08] MEDS: Calcium Carbonate 500 MG Tablet PO (08:12)
[2018-11-08] MEDS: Tamsulosin HCl 0.4 MG Capsule PO ×2 (08:13→17:37)
[2018-11-08] MEDS: Insulin Lispro 100 UNIT/ML INSULN.PEN 10 UNIT SC ×2 (08:39→11:58)
[2018-11-08 11:25] LABS: Bedside Glucose 312 mg/dL (70-110)
[2018-11-08 15:26] VITALS: BP 100/66; PULSE 86; RESP 18; TEMP 36.5; O2SAT 96
[2018-11-08 16:30] LABS: Bedside Glucose 234 mg/dL (70-110)
[2018-11-08] MEDS: Insulin Lispro 100 UNIT/ML INSULN.PEN 13 UNIT SC (17:34)
[2018-11-08] MEDS: Atorvastatin Calcium 10 MG Tablet PO (20:00)
[2018-11-08 21:36] LABS: Bedside Glucose 173 mg/dL (70-110)
[2018-11-08] MEDS: Acetaminophen 500 MG Tablet 1000 MG PO (22:26)
[2018-11-08] MEDS: MELATONIN 3 MG TABLET PO (22:26)
[2018-11-09] MEDS: levETIRAcetam 500 MG Tablet PO ×2 (06:06→18:25)
[2018-11-09] MEDS: amLODIPine 5 MG Tablet PO (06:06)
[2018-11-09] MEDS: Famotidine 20 MG Tablet PO ×2 (06:06→18:26)
[2018-11-09] MEDS: Polyethylene Glycol 3350 17 GM PACKET PO (06:07)
[2018-11-09] MEDS: Menthol/Lanolin/Calamine/Znox 113 GM Tube 1 APPLIC TOPICAL ×2 (06:10→21:44)
[2018-11-09 06:30] LABS: Bedside Glucose 113 mg/dL (70-110)
[2018-11-09] MEDS: dexAMETHasone 4 MG Tablet PO ×2 (08:10→18:25)
[2018-11-09] MEDS: Tamsulosin HCl 0.4 MG Capsule PO ×2 (08:11→18:24)
[2018-11-09] MEDS: Calcium Carbonate 500 MG Tablet PO (08:11)
[2018-11-09] MEDS: Insulin Lispro 100 UNIT/ML INSULN.PEN SC ×3 (08:53→18:24)
[2018-11-09 10:00] VITALS: PULSE 82
[2018-11-09 11:36] LABS: Bedside Glucose 239 mg/dL (70-110)
[2018-11-09 15:29] VITALS: BP 130/70; PULSE 60; RESP 18; TEMP 36.4; O2SAT 96
--- NOTE | 2018-11-09 15:40 | NURSING ---
This nurse is aware of Vital Signs recently obtained by Ariella CHANDRA
[2018-11-09 17:10] LABS: Bedside Glucose 183 mg/dL (70-110)
--- NOTE | 2018-11-09 18:33 | NURSING ---
This nurse bladder scanned pt for 240ml at this time. Attends on.
[2018-11-09] MEDS: Acetaminophen 500 MG Tablet 1000 MG PO (21:42)
[2018-11-09] MEDS: Atorvastatin Calcium 10 MG Tablet PO (21:43)
[2018-11-09] MEDS: MELATONIN 3 MG TABLET PO (21:43)
[2018-11-09 21:51] LABS: Bedside Glucose 204 mg/dL (70-110)
[2018-11-10 06:30] LABS: Bedside Glucose 107 mg/dL (70-110)
[2018-11-10] MEDS: Famotidine 20 MG Tablet PO ×2 (07:12→17:59)
[2018-11-10] MEDS: levETIRAcetam 500 MG Tablet PO ×2 (07:13→18:00)
[2018-11-10] MEDS: amLODIPine 5 MG Tablet PO (07:13)
[2018-11-10] MEDS: Polyethylene Glycol 3350 17 GM PACKET PO (07:13)
[2018-11-10] MEDS: Menthol/Lanolin/Calamine/Znox 113 GM Tube 1 APPLIC TOPICAL ×2 (07:17→21:15)
[2018-11-10] MEDS: Tamsulosin HCl 0.4 MG Capsule PO ×2 (08:21→18:00)
[2018-11-10] MEDS: dexAMETHasone 4 MG Tablet 2 MG PO ×2 (08:21→17:59)
[2018-11-10] MEDS: Calcium Carbonate 500 MG Tablet PO (08:21)
[2018-11-10 10:00] VITALS: RESP 16
[2018-11-10 10:41] LABS: Bedside Glucose 260 mg/dL (70-110)
[2018-11-10 15:15] VITALS: BP 134/79; PULSE 77; RESP 20; TEMP 36.1; O2SAT 95
[2018-11-10 17:21] LABS: Bedside Glucose 226 mg/dL (70-110)
--- NOTE | 2018-11-10 20:54 | PCA ---
Patient refused shower and oral care tonight. Patient requested shower to be done in the morning instead. This [employer] gave patient a bed bath. Nurse was made aware.
[2018-11-10] MEDS: Acetaminophen 500 MG Tablet 1000 MG PO (21:15)
[2018-11-10] MEDS: MELATONIN 3 MG TABLET PO (21:16)
[2018-11-10] MEDS: Atorvastatin Calcium 10 MG Tablet PO (21:16)
[2018-11-10 21:40] LABS: Bedside Glucose 261 mg/dL (70-110)
[2018-11-11] MEDS: Famotidine 20 MG Tablet PO ×2 (05:30→17:34)
[2018-11-11] MEDS: levETIRAcetam 500 MG Tablet PO ×2 (05:31→17:34)
[2018-11-11] MEDS: amLODIPine 5 MG Tablet PO (05:31)
[2018-11-11] MEDS: Polyethylene Glycol 3350 17 GM PACKET PO (05:31)
[2018-11-11] MEDS: Menthol/Lanolin/Calamine/Znox 113 GM Tube 1 APPLIC TOPICAL ×2 (05:34→19:41)
[2018-11-11 06:30] LABS: Bedside Glucose 138 mg/dL (70-110)
[2018-11-11] MEDS: Tamsulosin HCl 0.4 MG Capsule PO ×2 (08:03→17:34)
[2018-11-11] MEDS: Calcium Carbonate 500 MG Tablet PO (08:03)
[2018-11-11] MEDS: dexAMETHasone 4 MG Tablet 2 MG PO ×2 (08:03→17:34)
[2018-11-11 10:00] VITALS: PULSE 82; RESP 18; O2SAT 97
[2018-11-11 11:15] LABS: Bedside Glucose 201 mg/dL (70-110)
[2018-11-11 16:00] VITALS: BP 137/78; PULSE 59; RESP 18; TEMP 36.8; O2SAT 96
[2018-11-11 17:06] LABS: Bedside Glucose 259 mg/dL (70-110)
[2018-11-11] MEDS: MELATONIN 3 MG TABLET PO (19:39)
[2018-11-11] MEDS: Atorvastatin Calcium 10 MG Tablet PO (19:39)
[2018-11-11 21:36] LABS: Bedside Glucose 233 mg/dL (70-110)
[2018-11-12 05:55] LABS: Hematocrit 37.3 % (40-54); Hemoglobin 12.6 g/dL (13.0-16.5); Mean Corp Hgb Conc 33.8 g/dL (32-36); Mean Corpuscular Hgb 29.2 pg (27.0-32.0); Mean Corpuscular Volume 86.3 fL (80-94); Mean Platelet Vol. 8.8 fl (6.2-12.0); POSITIVE COUNT YES; POSITIVE MORPHOLOGY YES; Platelet Count 122 K/mm3 (150-450); RBC Distribution Width SD 43.9 fl (35.1-43.9); Red Blood Count 4.32 M/mm3 (4.6-6.2); White Blood Count 15.6 K/mm3 (4.4-11.0)
[2018-11-12 05:57] LABS: Differential Indicated MANUAL DIFF
[2018-11-12 06:16] LABS: Anion Gap 9 (5-15); BUN 23 mg/dL (7-18); BUN/Creat Ratio 30.8 RATIO (10-20); Chloride 103 mmol/L (98-107); Creatinine, Serum 0.75 mg/dL (0.70-1.30); EST Glomerular Filtration Rate 106 mL/min (>60); Est Glom Filt Rate - Afr Amer 128 mL/min (>60); Estimated Creatinine Clearance 60.02 ml/min; Glucose 162 mg/dL (74-106); Potassium 4.1 mmol/L (3.5-5.1); Sodium Level 138 mmol/L (136-145)
[2018-11-12 06:23] LABS: Neutrophil-Segmented 86 % (47-70); Total Cells Counted 100 (MANUAL DIFF)
[2018-11-12 06:24] LABS: Lymphocyte 8 % (19-41); Metamyelocyte 2 % (0-1); Monocyte 4 % (0-10)
[2018-11-12 06:26] LABS: Bedside Glucose 142 mg/dL (70-110)
[2018-11-12 06:26] LABS: Platelet Estimate SLT DEC (ADEQ); Platelet Morphology LARGE; Red Cell Morphology NORM C+C NORMAL (NORM C&C)
[2018-11-12 06:27] LABS: Reactive Lymphocyte RARE
[2018-11-12 06:28] LABS: Absolute Lymphocyte Count 1.25 X10^3/uL (0.83-4.51); Absolute Neutrophil Count 13.4 X10^3/uL (2.0-7.7)
[2018-11-12] MEDS: Polyethylene Glycol 3350 17 GM PACKET PO (06:36)
[2018-11-12] MEDS: levETIRAcetam 500 MG Tablet PO ×2 (06:39→17:27)
[2018-11-12] MEDS: amLODIPine 5 MG Tablet PO (06:39)
[2018-11-12] MEDS: Famotidine 20 MG Tablet PO ×2 (06:39→17:27)
[2018-11-12] MEDS: Menthol/Lanolin/Calamine/Znox 113 GM Tube 1 APPLIC TOPICAL ×2 (06:40→20:45)
--- NOTE | 2018-11-12 06:50 | NURSING ---
Pt bilateral heels noted to be bright red. Pt refusing to elevate or wear heel boots d/t stating they get tangled in the blankets. Educated pt on the importance of relieving the pressure to them d/t it could possibly cause pressure injuries. Pt stating I move them around when they start to hurt.
[2018-11-12] MEDS: dexAMETHasone 4 MG Tablet 2 MG PO ×2 (08:18→17:26)
[2018-11-12] MEDS: Calcium Carbonate 500 MG Tablet PO (08:18)
[2018-11-12] MEDS: Tamsulosin HCl 0.4 MG Capsule PO ×2 (08:21→17:27)
--- NOTE | 2018-11-12 09:40 | CASEMGMT ---
Social Work IDT met with patient, and friend for care plan meeting. Discussed patient's progress in therapy. Pt is set up/SBA for all ADLS, still mod assist for LE ADLs and toileting. Pt has [place] pineda tomorrow, and may be requesting to DC next week. Pt denies [facility] or [facility] home exercise programs to use. Will continue to follow. Sandra Pinto, JESÚS LOERAW
[2018-11-12 11:20] LABS: Bedside Glucose 307 mg/dL (70-110)
--- NOTE | 2018-11-12 11:27 | NURSING ---
Dr Mccray notified of BS of 307, new order to start humalog 7 units with meals
[2018-11-12] MEDS: Insulin Lispro 100 UNIT/ML INSULN.PEN 7 UNIT SC ×2 (11:50→17:26)
[2018-11-12 15:47] VITALS: BP 117/70; PULSE 85; RESP 18; TEMP 36.5; O2SAT 96
[2018-11-12 16:04] LABS: Pathologist Review Reviewed
[2018-11-12 17:06] LABS: Bedside Glucose 217 mg/dL (70-110)
--- NOTE | 2018-11-12 17:33 | NURSING ---
Pt instructed on use of insulin pen administration. this nurse showed pt how to use and pt states he has given his injections in the past and is familiar with giving. Will continue to educate.
[2018-11-12] MEDS: MELATONIN 3 MG TABLET PO (20:46)
[2018-11-12] MEDS: Atorvastatin Calcium 10 MG Tablet PO (20:46)
[2018-11-12 20:51] LABS: Bedside Glucose 332 mg/dL (70-110)
--- NOTE | 2018-11-12 21:01 | NURSING ---
upon administering hs application of eucerin, this nurse noted pt heels to be reddened and blanchable. this nurse requested that pt elevated heels to relieve redness and offload pressure. pt refusing at this time stating that the pillow always gets too tangled up when i move and i don't need it. this nurse educated pt on importance off elevating heels to prevent pressure sores. pt states understanding, still refusing elevation of heels. Will continue to educated and offer to elevate heels.
[2018-11-13 06:16] LABS: Bedside Glucose 189 mg/dL (70-110)
[2018-11-13] MEDS: levETIRAcetam 500 MG Tablet PO ×2 (06:26→17:31)
[2018-11-13] MEDS: Polyethylene Glycol 3350 17 GM PACKET PO (06:27)
[2018-11-13] MEDS: amLODIPine 5 MG Tablet PO (06:27)
[2018-11-13] MEDS: Famotidine 20 MG Tablet PO ×2 (06:27→17:31)
[2018-11-13] MEDS: Menthol/Lanolin/Calamine/Znox 113 GM Tube 1 APPLIC TOPICAL ×2 (06:41→21:30)
[2018-11-13] MEDS: Calcium Carbonate 500 MG Tablet PO (07:55)
[2018-11-13] MEDS: Tamsulosin HCl 0.4 MG Capsule PO ×2 (07:56→17:31)
[2018-11-13] MEDS: dexAMETHasone 4 MG Tablet 2 MG PO (07:56)
[2018-11-13] MEDS: Insulin Lispro 100 UNIT/ML INSULN.PEN 7 UNIT SC ×2 (07:57→17:34)
--- NOTE | 2018-11-13 08:47 | PCA ---
PT if out of building at 's appt and refused offer for a early breakfast
--- NOTE | 2018-11-13 08:56 | MDS.RN ---
Information for the mds was obtained from review of the clinical record, interview of resident, staff, and direct observation of resident's care.
[2018-11-13 15:56] LABS: Bedside Glucose 301 mg/dL (70-110)
[2018-11-13 15:58] VITALS: BP 149/85; PULSE 88; RESP 18; TEMP 36.2; O2SAT 96
--- NOTE | 2018-11-13 15:58 | NURSING ---
pt has f/u appt in [address] Ocampo, MRI is to be done there at that appointment.
--- NOTE | 2018-11-13 16:57 | NURSING ---
PT LEFT FLOOR AT 8AM BY WHEEL CHAIR TO APPOINTMENTS IN [place]. IS TAKING. PT ARRIVED BACK TO FLOOR BY WHEEL CHAIR AT 1550.
[2018-11-13 17:00] VITALS: PULSE 79; RESP 18; O2SAT 95
[2018-11-13 21:20] LABS: Bedside Glucose 284 mg/dL (70-110)
[2018-11-13] MEDS: Atorvastatin Calcium 10 MG Tablet PO (21:32)
[2018-11-13] MEDS: MELATONIN 3 MG TABLET PO (21:32)
[2018-11-14] MEDS: amLODIPine 5 MG Tablet PO (06:24)
[2018-11-14] MEDS: Polyethylene Glycol 3350 17 GM PACKET PO (06:24)
[2018-11-14] MEDS: levETIRAcetam 500 MG Tablet PO ×2 (06:24→17:41)
[2018-11-14] MEDS: Famotidine 20 MG Tablet PO ×2 (06:24→17:41)
[2018-11-14] MEDS: dexAMETHasone 4 MG Tablet 2 MG PO (06:24)
[2018-11-14] MEDS: Menthol/Lanolin/Calamine/Znox 113 GM Tube 1 APPLIC TOPICAL ×2 (06:25→21:09)
[2018-11-14 06:31] LABS: Bedside Glucose 114 mg/dL (70-110)
[2018-11-14] MEDS: Calcium Carbonate 500 MG Tablet PO (07:45)
[2018-11-14] MEDS: Tamsulosin HCl 0.4 MG Capsule PO ×2 (07:45→17:41)
[2018-11-14] MEDS: Insulin Lispro 100 UNIT/ML INSULN.PEN 7 UNIT SC ×3 (07:48→17:42)
[2018-11-14 11:30] LABS: Bedside Glucose 190 mg/dL (70-110)
[2018-11-14 16:00] VITALS: BP 130/79; PULSE 72; RESP 95; TEMP 37.1; O2SAT 95
[2018-11-14 17:00] LABS: Bedside Glucose 123 mg/dL (70-110)
--- NOTE | 2018-11-14 17:01 | NURSING ---
PT BLADDER SCANNED FOR 472. PT ASKED TO BE STRAIGHT CATHED. 500 OUT,CLOUDY,STRAW STRONG SMELLING WITH A LITTLE BLOOD IN URINE. REPORTED TO KELSEY MAYES
[2018-11-14] MEDS: Atorvastatin Calcium 10 MG Tablet PO (21:10)
[2018-11-14] MEDS: MELATONIN 3 MG TABLET PO (21:10)
[2018-11-14 21:21] LABS: Bedside Glucose 213 mg/dL (70-110)
--- NOTE | 2018-11-14 22:42 | NURSING ---
Pt c/o feeling pressure in lower abd feels like he has to urinate. Pt straight cathed for 550cc. Urine cloudy with hematuria, foul smelling. Pt with increased retention. Dr Mccray aware N.O. insert F/C.
--- NOTE | 2018-11-15 00:12 | NURSING ---
This nurse explained to pt that she has a order for a woods cathether to be put in tonight, pt voiced no concerns. Woods 16Fr with 10cc in balloon urine cloudy, yellow, no odor or blood noted during this time.
[2018-11-15] MEDS: dexAMETHasone 4 MG Tablet 2 MG PO (06:11)
[2018-11-15] MEDS: levETIRAcetam 500 MG Tablet PO ×2 (06:11→17:45)
[2018-11-15] MEDS: Polyethylene Glycol 3350 17 GM PACKET PO (06:12)
[2018-11-15] MEDS: amLODIPine 5 MG Tablet PO (06:12)
[2018-11-15] MEDS: Famotidine 20 MG Tablet PO ×2 (06:12→17:45)
[2018-11-15] MEDS: Menthol/Lanolin/Calamine/Znox 113 GM Tube 1 APPLIC TOPICAL ×2 (06:13→20:10)
[2018-11-15 07:41] LABS: Bedside Glucose 125 mg/dL (70-110)
[2018-11-15] MEDS: Calcium Carbonate 500 MG Tablet PO (08:18)
[2018-11-15] MEDS: Insulin Lispro 100 UNIT/ML INSULN.PEN 7 UNIT SC ×3 (08:18→17:45)
[2018-11-15] MEDS: Tamsulosin HCl 0.4 MG Capsule PO ×2 (08:18→17:45)
[2018-11-15 10:41] LABS: Bedside Glucose 163 mg/dL (70-110)
[2018-11-15 16:00] VITALS: BP 121/64; PULSE 67; RESP 18; TEMP 36.6; O2SAT 96
[2018-11-15 17:06] LABS: Bedside Glucose 229 mg/dL (70-110)
[2018-11-15] MEDS: Atorvastatin Calcium 10 MG Tablet PO (20:09)
[2018-11-15] MEDS: MELATONIN 3 MG TABLET PO (20:10)
[2018-11-15 21:11] LABS: Bedside Glucose 153 mg/dL (70-110)
[2018-11-16] MEDS: dexAMETHasone 4 MG Tablet 2 MG PO (05:55)
[2018-11-16] MEDS: levETIRAcetam 500 MG Tablet PO ×2 (05:55→18:27)
[2018-11-16] MEDS: Famotidine 20 MG Tablet PO ×2 (05:56→18:27)
[2018-11-16] MEDS: Polyethylene Glycol 3350 17 GM PACKET PO (05:56)
[2018-11-16] MEDS: amLODIPine 5 MG Tablet PO (05:56)
[2018-11-16] MEDS: Menthol/Lanolin/Calamine/Znox 113 GM Tube 1 APPLIC TOPICAL ×2 (05:57→20:35)
[2018-11-16 06:26] LABS: Bedside Glucose 129 mg/dL (70-110)
[2018-11-16] MEDS: Calcium Carbonate 500 MG Tablet PO (08:00)
[2018-11-16] MEDS: Insulin Lispro 100 UNIT/ML INSULN.PEN 7 UNIT SC ×3 (08:00→18:27)
[2018-11-16] MEDS: Tamsulosin HCl 0.4 MG Capsule PO ×2 (08:00→18:27)
[2018-11-16 10:56] LABS: Bedside Glucose 281 mg/dL (70-110)
[2018-11-16 15:21] VITALS: BP 146/81; PULSE 87; RESP 20; TEMP 36.5; O2SAT 97
[2018-11-16 17:05] LABS: Bedside Glucose 234 mg/dL (70-110)
[2018-11-16] MEDS: Atorvastatin Calcium 10 MG Tablet PO (20:33)
[2018-11-16] MEDS: MELATONIN 3 MG TABLET PO (20:33)
[2018-11-16 21:15] VITALS: RESP 18; O2SAT 97
[2018-11-16 21:21] LABS: Bedside Glucose 175 mg/dL (70-110)
[2018-11-17] MEDS: dexAMETHasone 4 MG Tablet 2 MG PO (06:04)
[2018-11-17] MEDS: levETIRAcetam 500 MG Tablet PO ×2 (06:04→17:46)
[2018-11-17] MEDS: Famotidine 20 MG Tablet PO ×2 (06:04→17:46)
[2018-11-17] MEDS: Menthol/Lanolin/Calamine/Znox 113 GM Tube 1 APPLIC TOPICAL ×2 (06:05→21:39)
[2018-11-17] MEDS: amLODIPine 5 MG Tablet PO (06:05)
[2018-11-17] MEDS: Polyethylene Glycol 3350 17 GM PACKET PO (06:06)
[2018-11-17 06:20] LABS: Bedside Glucose 130 mg/dL (70-110)
[2018-11-17] MEDS: Tamsulosin HCl 0.4 MG Capsule PO ×2 (07:49→17:46)
[2018-11-17] MEDS: Insulin Lispro 100 UNIT/ML INSULN.PEN 7 UNIT SC ×3 (07:50→17:45)
[2018-11-17] MEDS: Calcium Carbonate 500 MG Tablet PO (07:50)
[2018-11-17 11:06] LABS: Bedside Glucose 244 mg/dL (70-110)
[2018-11-17 15:33] VITALS: BP 123/68; PULSE 65; RESP 18; TEMP 36.4; O2SAT 95
[2018-11-17 16:55] LABS: Bedside Glucose 215 mg/dL (70-110)
[2018-11-17 21:20] LABS: Bedside Glucose 311 mg/dL (70-110)
[2018-11-17] MEDS: Atorvastatin Calcium 10 MG Tablet PO (21:36)
[2018-11-17] MEDS: MELATONIN 3 MG TABLET PO (21:36)
[2018-11-17 21:40] VITALS: RESP 16; O2SAT 97
[2018-11-17] MEDS: Acetaminophen 500 MG Tablet 1000 MG PO (21:40)
[2018-11-18] MEDS: Famotidine 20 MG Tablet PO ×2 (05:58→17:30)
[2018-11-18] MEDS: dexAMETHasone 4 MG Tablet 2 MG PO (05:58)
[2018-11-18] MEDS: amLODIPine 5 MG Tablet PO (05:58)
[2018-11-18] MEDS: levETIRAcetam 500 MG Tablet PO ×2 (05:58→17:30)
[2018-11-18] MEDS: Polyethylene Glycol 3350 17 GM PACKET PO (05:58)
[2018-11-18] MEDS: Menthol/Lanolin/Calamine/Znox 113 GM Tube 1 APPLIC TOPICAL ×2 (06:00→21:58)
[2018-11-18 06:20] LABS: Bedside Glucose 148 mg/dL (70-110)
[2018-11-18] MEDS: Insulin Lispro 100 UNIT/ML INSULN.PEN 7 UNIT SC ×3 (07:59→17:31)
[2018-11-18] MEDS: Calcium Carbonate 500 MG Tablet PO (08:02)
[2018-11-18] MEDS: Tamsulosin HCl 0.4 MG Capsule PO ×2 (08:02→17:30)
[2018-11-18 09:20] VITALS: PULSE 80; RESP 18; O2SAT 96
--- NOTE | 2018-11-18 10:16 | CASEMGMT ---
Social Work Spoke with patient about discharge plans. Pt requesting to discharge 11/25. Pt has new insulin and a new catheter. Pt agreeable to [facility] SN but no therapy. Provided pt with list of [facility] agencies - pt chose [facility]. Referral made to [facility]. Pt requesting w/c as he is still weak. [place] [facility] [place]. Plan: DC home 11/25 with [facility] and w/c Sandra Pinto, MAILER AFRICAN STUDIES PROFESSOR
[2018-11-18 11:51] LABS: Bedside Glucose 206 mg/dL (70-110)
[2018-11-18 16:00] VITALS: BP 112/69; PULSE 73; RESP 18; TEMP 36.6; O2SAT 97
--- NOTE | 2018-11-18 16:07 | SUR.HOLD ---
patient was sleeping; left a calling card
[2018-11-18 17:41] LABS: Bedside Glucose 268 mg/dL (70-110)
--- NOTE | 2018-11-18 20:12 | DCINST_ITS ---
You will use the following diet at home:: No restrictions, Regular Your food should be the consistency of: Regular Your liquids should be the consistency of: Regular/Thin Discharge Activity: Return to Normal Activity, May Shower, Use Walker Weight Bearing Status: Weight bearing as tolerated Call your doctor if you observe: Fever of 101 or Higher, Inability to urinate, Inability to have a bowel movement, Shortness of breath, Chest pain, Uncontrolled pain Allergies/Adverse Reactions: Allergies No Known Allergies Allergy (Verified 10/28/18 13:58) Medications to take at Discharge Ondansetron [Zofran] 4 mg PO Q8H PRN PRN 08/25/18 Calcium Citrate 950 mg PO DAILY 10/07/18 Cholecalciferol (VIT D3) [Vitamin D3] 2,000 unit PO DAILY 10/07/18 Melatonin 3 mg PO QHS 11/01/18 Polyethylene Glycol 3350 [Miralax] 17 gm PO DAILY 11/01/18 Simvastatin 20 mg PO QHS 11/04/18 Acetaminophen [Tylenol] 1,000 mg PO Q6H PRN tablet 11/18/18 Amlodipine [Norvasc] 5 mg PO DAILY #30 tab 11/18/18 Dexamethasone [Decadron] 2 mg PO DAILY #15 tab 11/18/18 Famotidine 20 mg PO Q12H #60 tab 11/18/18 Insulin Detemir [Levemir (BKC)] 10 units SUBCUT BID #1 flexpen 11/18/18 Insulin Lispro [Humalog KwikPen] 7 unit SUBCUT TIDAC #1 insuln.pen 11/18/18 Menthol/Lanolin/Calamine/Znox [Calmoseptine Ointment] 1 applic TOPICAL 0600,2200 tube 11/18/18 Mineral Oil/Petrolatum,White [Eucerin] 1 applic TOPICAL 0600,2200 jar 11/18/18 Polyethylene Glycol 3350 [Miralax] 17 gm PO DAILY packet 11/18/18 Tamsulosin HCl [Flomax] 0.4 mg PO BID #60 cap 11/18/18 dexAMETHasone [Decadron] 1 mg PO DAILY@1700 #60 tab 11/18/18 levETIRAcetam tablet [Keppra tablet] 500 mg PO BID tablet 11/18/18 The following prescriptions were given: dexAMETHasone [Decadron] 1 mg PO DAILY@1700 #60 tab Transmission Status: Pending to [facility], [place] Dexamethasone [Decadron] 2 mg PO DAILY #15 tab Transmission Status: Pending to [facility] Famotidine 20 mg PO Q12H #60 tab Transmission Status: Pending to [facility] Tamsulosin HCl [Flomax] 0.4 mg PO BID #60 cap Transmission Status: Pending to [facility], [place] Insulin Lispro [Humalog KwikPen] 7 unit SUBCUT TIDAC #1 insuln.pen Transmission Status: Pending to [facility], [place] Insulin Detemir [Levemir (BKC)] 10 units SUBCUT BID #1 flexpen Transmission Status: Pending to [facility], [place] Amlodipine [Norvasc] 5 mg PO DAILY #30 tab Transmission Status: Pending to [facility], [place] Primary Care Physician: Violeta Copeland [Primary Care Provider] - Please follow up with your Primary Care Physician in: 1 week. Test Results: Test results from this visit will be discussed in further detail at your follow- up appointment, if applicable. Please Follow Up With: Mason figueroa When: [phone] Please Follow Up With: Esteban fletcher When: [phone] Please Follow Up With: Neuro Proposed Discharge Date: 11/25/18
--- NOTE | 2018-11-18 20:14 | PCM.DC.SUM ---
Discharge Date and Diagnosis Date of Admission: 11/04/18 Date of Discharge: 11/25/18 - Secondary Discharge Diagnosis Chronic Problems (Last Reviewed 10/28/18 @ 13:58 by Neetu Santiago) History of chest pain (Chronic) GBM (glioblastoma multiforme) (Chronic) BPH (benign prostatic hyperplasia) (Chronic) Hypertension (Chronic) Steroid-induced diabetes mellitus (Chronic) Neurogenic bladder (Chronic) BPH loc w urin obs/LUTS (Chronic) Hospital Course and Treatment Imaging Results: 11/05/18 10:22 Diet: Cardiac: Calorie-Controlled Is pt able to select menu?: Yes How many daily calories?: 1999 calorie Labs (Last 48 Hours) 11/16/18 11/17/18 11/17/18 21:08 06:18 10:58 POC Glucose 175 H 130 H 244 H 11/17/18 11/17/18 11/18/18 16:46 21:08 06:05 POC Glucose 215 H 311 H 148 H 11/18/18 11/18/18 11:48 17:27 POC Glucose 206 H 268 H Operations: None Procedures: None Summary of Care Provided: The patient is a 83 year old Male with below past medical history significant for glioblastoma multiforme of brain, hospitalized for acute weakness with brain imaging showing hemorrhage, further imaging showed no new hemorrhage, admit to TCU with debility, here for rehabilitation, strengthening, prior to discharge home with spouse. Discharge home with spouse, [facility] for [facility], [facility] for wheelchair. - Physical Exam Vital Signs Temp Pulse Resp BP Pulse Ox 97.8 F 73 18 112/69 97 11/18/18 16:00 11/18/18 16:00 11/18/18 16:00 11/18/18 16:00 11/18/18 16:00 Oxygen Delivery Method Room Air Weight: 77.649 kg Body Mass Index (BMI) 22.8 Finger Stick Blood Glucose 332 Intake and Output for Last 24 Hours 11/16/18 11/17/18 11/18/18 23:59 23:59 23:59 Intake Total 920 / 920 600 / 600 1140 / 1140 Output Total 2400 / 2400 2275 / 2275 850 / 850 Balance -1480 / -1480 -1675 / -1675 290 / 290 POC Glucose 11/18/18 11/18/1819 17:27 11:48 06:05 POC Glucose 268 H 206 H 148 H 11/17/18 21:08 POC Glucose 311 H Discharge Diet: No Restrictions Discharge Activity: Return to Normal Activity, May Shower, Use Walker Weight Bearing Status: Weight bearing as tolerated Call your doctor if you observe: Fever of 101 or Higher, Inability to urinate, Inability to have a bowel movement, Shortness of breath, Chest pain, Uncontrolled pain Home Medications: Medications to take at Discharge Ondansetron [Zofran] 4 mg PO Q8H PRN PRN 08/25/18 Calcium Citrate 950 mg PO DAILY 10/07/18 Cholecalciferol (VIT D3) [Vitamin D3] 2,000 unit PO DAILY 10/07/18 Melatonin 3 mg PO QHS 11/01/18 Polyethylene Glycol 3350 [Miralax] 17 gm PO DAILY 11/01/18 Simvastatin 20 mg PO QHS 11/04/18 Acetaminophen [Tylenol] 1,000 mg PO Q6H PRN tablet 11/18/18 Amlodipine [Norvasc] 5 mg PO DAILY #30 tab 11/18/18 Dexamethasone [Decadron] 2 mg PO DAILY #15 tab 11/18/18 Famotidine 20 mg PO Q12H #60 tab 11/18/18 Insulin Detemir [Levemir (BKC)] 10 units SUBCUT BID #1 flexpen 11/18/18 Insulin Lispro [Humalog KwikPen] 7 unit SUBCUT TIDAC #1 insuln.pen 11/18/18 Menthol/Lanolin/Calamine/Znox [Calmoseptine Ointment] 1 applic TOPICAL 0600,2200 tube 11/18/18 Mineral Oil/Petrolatum,White [Eucerin] 1 applic TOPICAL 0600,2200 jar 11/18/18 Polyethylene Glycol 3350 [Miralax] 17 gm PO DAILY packet 11/18/18 Tamsulosin HCl [Flomax] 0.4 mg PO BID #60 cap 11/18/18 dexAMETHasone [Decadron] 1 mg PO DAILY@1700 #60 tab 11/18/18 levETIRAcetam tablet [Keppra tablet] 500 mg PO BID tablet 11/18/18 Following Prescrptions Were Given to Patient: dexAMETHasone [Decadron] 1 mg PO DAILY@1700 #60 tab Transmission Status: Pending to [place], [place] Dexamethasone [Decadron] 2 mg PO DAILY #15 tab Transmission Status: Pending to [place], [place] Famotidine 20 mg PO Q12H #60 tab Transmission Status: Pending to [place], [place] Tamsulosin HCl [Flomax] 0.4 mg PO BID #60 cap Transmission Status: Pending to [place], [place] Insulin Lispro [Humalog KwikPen] 7 unit SUBCUT TIDAC #1 insuln.pen Transmission Status: Pending to [place], [place] Insulin Detemir [Levemir (BKC)] 10 units SUBCUT BID #1 flexpen Transmission Status: Pending to [place], [place] Amlodipine [Norvasc] 5 mg PO DAILY #30 tab Transmission Status: Pending to [facility], [place] Primary Care Physician: Violeta Copeland [Primary Care Provider] - Please follow up with your Primary Care Physician in: 1 week. Please Follow Up With: Mason figueroa When: [phone] Please Follow Up With: Esteban fletcher When: [phone] Please Follow Up With: Neuro Disposition: Home with Home Health Minutes spent on discharge:: 35 Patient Condition:: Stable Medical Necessity - Tobacco Use Smoking Status: Former smoker Tobacco Use: Non-smoker Meaningful Use Info Meaningful Use Diagnoses (Choose all that apply): None applicable
--- NOTE | 2018-11-18 20:18 | PCM.PN.HH ---
Home Health Note - Plan Overview of reason of hospitalization: The patient is a 83 year old Male with below past medical history significant for glioblastoma multiforme of brain, hospitalized for acute weakness with brain imaging showing hemorrhage, further imaging showed no new hemorrhage, admit to TCU with debility, here for rehabilitation, strengthening, prior to discharge home with spouse. Discharge home with spouse, [facility] [place] for wheelchair. Problems: Complete List of Medical Problems (Last Reviewed 10/28/18 @ 13:58 by Neetu Santiago) Weakness of muscle of left side of face due to and not concurrent with cerebrovascular disease (Acute) Glioblastoma multiforme of central nervous system (Acute) History of chest pain (Chronic) GBM (glioblastoma multiforme) (Chronic) BPH (benign prostatic hyperplasia) (Chronic) Hypertension (Chronic) Steroid-induced diabetes mellitus (Chronic) Neurogenic bladder (Chronic) Left hemiparesis (Acute) Debility (Acute) Educational circumstance (Acute) Chemotherapy management, encounter for (Acute) BPH loc w urin obs/LUTS (Chronic) Acute CVA (cerebrovascular accident) (Acute) Stroke (Acute) - Requirements and Reasons Disciplines Needed/Ordered: [facility] Reason for Disciplines: Disease Specific Monitoring/education, Medication Management/Knowledge Deficit, Teaching of Injections Related To: Change in Medical Treatment Plan, Limited/Poor Endurance, Physical Impairments, Unsteady Gait/Balance, Fall Risk Patient is unable to leave the home: Without Aid of Supportive Devices (crutches, cane, wheelchair, walker), Without the assistance of another person
[2018-11-18] MEDS: Atorvastatin Calcium 10 MG Tablet PO (21:55)
[2018-11-18] MEDS: MELATONIN 3 MG TABLET PO (21:56)
[2018-11-18 22:05] LABS: Bedside Glucose 253 mg/dL (70-110)
[2018-11-19 05:46] LABS: Hematocrit 34.6 % (40-54); Hemoglobin 11.5 g/dL (13.0-16.5); Mean Corp Hgb Conc 33.2 g/dL (32-36); Mean Corpuscular Hgb 29.4 pg (27.0-32.0); Mean Corpuscular Volume 88.5 fL (80-94); POSITIVE COUNT YES; POSITIVE MORPHOLOGY YES; Platelet Count 102 K/mm3 (150-450); RBC Distribution Width CV 14.4 % (11.6-14.6); RBC Distribution Width SD 45.6 fl (35.1-43.9); Red Blood Count 3.91 M/mm3 (4.6-6.2); White Blood Count 16.5 K/mm3 (4.4-11.0)
[2018-11-19 06:03] LABS: Anion Gap 9 (5-15); BUN 18 mg/dL (7-18); BUN/Creat Ratio 26.8 RATIO (10-20); Calcium,Total 7.8 mg/dL (8.5-10.1); Chloride 102 mmol/L (98-107); Creatinine, Serum 0.67 mg/dL (0.70-1.30); EST Glomerular Filtration Rate 120 mL/min (>60); Est Glom Filt Rate - Afr Amer 145 mL/min (>60); Estimated Creatinine Clearance 60.39 ml/min; Glucose 121 mg/dL (74-106); Potassium 4.4 mmol/L (3.5-5.1); Sodium Level 139 mmol/L (136-145)
[2018-11-19 06:15] LABS: Differential Indicated MANUAL DIFF
[2018-11-19] MEDS: levETIRAcetam 500 MG Tablet PO ×2 (06:17→17:49)
[2018-11-19] MEDS: dexAMETHasone 4 MG Tablet 2 MG PO (06:17)
[2018-11-19] MEDS: Polyethylene Glycol 3350 17 GM PACKET PO (06:17)
[2018-11-19] MEDS: Famotidine 20 MG Tablet PO ×2 (06:17→17:48)
[2018-11-19] MEDS: amLODIPine 5 MG Tablet PO (06:17)
[2018-11-19 06:21] LABS: Bedside Glucose 106 mg/dL (70-110)
[2018-11-19] MEDS: Menthol/Lanolin/Calamine/Znox 113 GM Tube 1 APPLIC TOPICAL ×2 (06:22→20:01)
[2018-11-19 06:45] LABS: Lymphocyte 9 % (19-41); Monocyte 2 % (0-10); Neutrophil-Segmented 89 % (47-70); Red Cell Morphology NORM C+C NORMAL (NORM C&C); Total Cells Counted 100 (MANUAL DIFF)
[2018-11-19 06:46] LABS: Absolute Lymphocyte Count 1.49 X10^3/uL (0.83-4.51); Absolute Neutrophil Count 14.7 X10^3/uL (2.0-7.7); Lymphocyte # 1.49 X10^3/ul (4.0); Neutrophil # 14.68 X10^3/uL (2.7-7.7); Platelet Estimate ADEQUATE (ADEQ)
[2018-11-19] MEDS: Insulin Lispro 100 UNIT/ML INSULN.PEN 7 UNIT SC ×3 (08:00→17:49)
[2018-11-19] MEDS: Tamsulosin HCl 0.4 MG Capsule PO ×2 (08:02→17:49)
[2018-11-19] MEDS: Calcium Carbonate 500 MG Tablet PO (08:02)
[2018-11-19 10:18] LABS: Pathologist Review Reviewed
--- NOTE | 2018-11-19 10:53 | NURSING ---
THIS NURSE CHANGED PT CATH BAG DUE TO LEAKAGE AT BOTTOM OF ORIGINAL BAG.
[2018-11-19 11:16] LABS: Bedside Glucose 195 mg/dL (70-110)
[2018-11-19 15:43] VITALS: BP 109/66; PULSE 77; RESP 18; TEMP 36.8; O2SAT 94
--- NOTE | 2018-11-19 16:11 | CHAPLAIN ---
Type of Pastoral Visit _x__ Initial Visit ___ Follow-up Visit ___ On-call Visit ___ General Patient Visit ___ Spiritual Assessment ___ Family Conference ___ Bereavement ___ Rapid Response ___ Code Blue ___ Other (describe below) Pastoral Care Referral From _x__ Patient ___ Family ___ Nurse ___ Physician ___ Crusher Screen Repairer ___ Bottle Washing Machine Operator ___ Other (describe below) Sacrament/Intervention _x__ Active listening ___ Anointing ___ Congregational ___ Bereavement ___ Communion ___ Lalita exploration ___ _x__ Life review ___ Prayer ___ Reconciliation ___ Sacrament of Sick _x__ Supportive presence ___ Wedding ___ Other (describe below) Pastoral Comments
[2018-11-19 17:46] LABS: Bedside Glucose 285 mg/dL (70-110)
[2018-11-19] MEDS: MELATONIN 3 MG TABLET PO (20:00)
[2018-11-19] MEDS: Atorvastatin Calcium 10 MG Tablet PO (20:00)
[2018-11-19 20:04] VITALS: RESP 16
[2018-11-19 21:11] LABS: Bedside Glucose 218 mg/dL (70-110)
[2018-11-20] MEDS: amLODIPine 5 MG Tablet PO (06:36)
[2018-11-20] MEDS: levETIRAcetam 500 MG Tablet PO ×2 (06:36→17:43)
[2018-11-20] MEDS: dexAMETHasone 4 MG Tablet 2 MG PO (06:36)
[2018-11-20] MEDS: Polyethylene Glycol 3350 17 GM PACKET PO (06:39)
[2018-11-20] MEDS: Menthol/Lanolin/Calamine/Znox 113 GM Tube 1 APPLIC TOPICAL ×2 (06:39→21:14)
[2018-11-20] MEDS: Famotidine 20 MG Tablet PO ×2 (06:44→17:43)
[2018-11-20 07:06] LABS: Bedside Glucose 249 mg/dL (70-110)
[2018-11-20] MEDS: Insulin Lispro 100 UNIT/ML INSULN.PEN 7 UNIT SC ×3 (07:58→17:42)
[2018-11-20] MEDS: Tamsulosin HCl 0.4 MG Capsule PO ×2 (07:58→17:43)
[2018-11-20] MEDS: Calcium Carbonate 500 MG Tablet PO (07:58)
[2018-11-20 10:46] LABS: Bedside Glucose 179 mg/dL (70-110)
[2018-11-20 16:00] VITALS: BP 132/74; PULSE 78; RESP 18; TEMP 36.5; O2SAT 95
[2018-11-20 17:15] LABS: Bedside Glucose 235 mg/dL (70-110)
[2018-11-20 20:36] LABS: Bedside Glucose 230 mg/dL (70-110)
[2018-11-20] MEDS: MELATONIN 3 MG TABLET PO (21:14)
[2018-11-20] MEDS: Atorvastatin Calcium 10 MG Tablet PO (21:14)
[2018-11-21] MEDS: Polyethylene Glycol 3350 17 GM PACKET PO (06:08)
[2018-11-21] MEDS: levETIRAcetam 500 MG Tablet PO ×2 (06:09→18:17)
[2018-11-21] MEDS: Famotidine 20 MG Tablet PO ×2 (06:09→18:17)
[2018-11-21] MEDS: dexAMETHasone 4 MG Tablet 2 MG PO (06:09)
[2018-11-21] MEDS: amLODIPine 5 MG Tablet PO (06:09)
[2018-11-21] MEDS: Menthol/Lanolin/Calamine/Znox 113 GM Tube 1 APPLIC TOPICAL ×2 (06:15→21:40)
[2018-11-21 06:20] LABS: Bedside Glucose 140 mg/dL (70-110)
[2018-11-21] MEDS: Calcium Carbonate 500 MG Tablet PO (08:20)
[2018-11-21] MEDS: Tamsulosin HCl 0.4 MG Capsule PO ×2 (08:20→18:17)
[2018-11-21] MEDS: Insulin Lispro 100 UNIT/ML INSULN.PEN 7 UNIT SC ×3 (08:20→18:14)
[2018-11-21 10:00] VITALS: PULSE 78; O2SAT 95
[2018-11-21 11:00] LABS: Bedside Glucose 274 mg/dL (70-110)
--- NOTE | 2018-11-21 13:48 | NURSING ---
This nurse explained to pt that we had an order to D/C woods catheter d/t being discharged home soon and us wanting to make sure he's able to continue to straight cath while at home. Pt voiced no concerns. 10cc balloon deflated and 16F woods cath d/c'd at this time. Pt tolerated well.
[2018-11-21 15:47] VITALS: BP 126/69; PULSE 84; RESP 18; TEMP 36.6; O2SAT 94
[2018-11-21 17:01] LABS: Bedside Glucose 246 mg/dL (70-110)
--- NOTE | 2018-11-21 19:40 | NURSING ---
At 1600, Pt incontinent of large amount of urine in attends. Bladder scanned for 0cc at that time.
[2018-11-21 21:16] LABS: Bedside Glucose 220 mg/dL (70-110)
[2018-11-21] MEDS: Acetaminophen 500 MG Tablet 1000 MG PO (21:39)
[2018-11-21] MEDS: MELATONIN 3 MG TABLET PO (21:39)
[2018-11-21] MEDS: Atorvastatin Calcium 10 MG Tablet PO (21:39)
--- NOTE | 2018-11-21 23:40 | NURSING ---
this nurse was asked to straight cath the pt. explained procedure. pt verbalized understanding-and had no questions. drained 300 ml urine. changed attends. laura care provided. pt tolerated well.
[2018-11-22] MEDS: Famotidine 20 MG Tablet PO ×2 (06:27→17:36)
[2018-11-22] MEDS: amLODIPine 5 MG Tablet PO (06:27)
[2018-11-22] MEDS: Polyethylene Glycol 3350 17 GM PACKET PO (06:27)
[2018-11-22] MEDS: levETIRAcetam 500 MG Tablet PO ×2 (06:27→17:36)
[2018-11-22] MEDS: dexAMETHasone 4 MG Tablet 2 MG PO (06:29)
[2018-11-22 06:31] LABS: Bedside Glucose 156 mg/dL (70-110)
[2018-11-22] MEDS: Menthol/Lanolin/Calamine/Znox 113 GM Tube 1 APPLIC TOPICAL ×2 (06:31→21:07)
[2018-11-22] MEDS: Tamsulosin HCl 0.4 MG Capsule PO ×2 (08:09→17:36)
[2018-11-22] MEDS: Calcium Carbonate 500 MG Tablet PO (08:09)
[2018-11-22] MEDS: Insulin Lispro 100 UNIT/ML INSULN.PEN 7 UNIT SC ×3 (08:10→17:37)
[2018-11-22 11:41] LABS: Bedside Glucose 216 mg/dL (70-110)
[2018-11-22 16:00] VITALS: BP 147/83; PULSE 82; RESP 18; TEMP 36.6; O2SAT 96
[2018-11-22 16:50] LABS: Bedside Glucose 210 mg/dL (70-110)
[2018-11-22 20:56] LABS: Bedside Glucose 192 mg/dL (70-110)
[2018-11-22] MEDS: Atorvastatin Calcium 10 MG Tablet PO (21:10)
[2018-11-22] MEDS: MELATONIN 3 MG TABLET PO (21:10)
[2018-11-22 21:30] VITALS: O2SAT 95
[2018-11-23] MEDS: Polyethylene Glycol 3350 17 GM PACKET PO (07:00)
[2018-11-23] MEDS: levETIRAcetam 500 MG Tablet PO ×2 (07:04→17:46)
[2018-11-23] MEDS: dexAMETHasone 4 MG Tablet 2 MG PO (07:04)
[2018-11-23] MEDS: Famotidine 20 MG Tablet PO ×2 (07:04→17:46)
[2018-11-23] MEDS: Menthol/Lanolin/Calamine/Znox 113 GM Tube 1 APPLIC TOPICAL ×2 (07:05→21:12)
[2018-11-23] MEDS: amLODIPine 5 MG Tablet PO (07:06)
[2018-11-23] MEDS: Tamsulosin HCl 0.4 MG Capsule PO ×2 (08:12→17:46)
[2018-11-23] MEDS: Calcium Carbonate 500 MG Tablet PO (08:12)
[2018-11-23] MEDS: Insulin Lispro 100 UNIT/ML INSULN.PEN 7 UNIT SC ×3 (08:13→17:47)
[2018-11-23 10:30] VITALS: PULSE 91; RESP 18; O2SAT 96
[2018-11-23 11:27] LABS: Bedside Glucose 120 mg/dL (70-110)
[2018-11-23 11:27] LABS: Bedside Glucose 247 mg/dL (70-110)
[2018-11-23 15:30] VITALS: BP 120/65; PULSE 80; RESP 18; TEMP 36.8; O2SAT 96
[2018-11-23 16:51] LABS: Bedside Glucose 154 mg/dL (70-110)
[2018-11-23 20:46] LABS: Bedside Glucose 209 mg/dL (70-110)
[2018-11-23] MEDS: MELATONIN 3 MG TABLET PO (21:12)
[2018-11-23] MEDS: Atorvastatin Calcium 10 MG Tablet PO (21:12)
[2018-11-24] MEDS: Polyethylene Glycol 3350 17 GM PACKET PO (06:07)
[2018-11-24] MEDS: Famotidine 20 MG Tablet PO ×2 (06:07→18:03)
[2018-11-24] MEDS: amLODIPine 5 MG Tablet PO (06:07)
[2018-11-24] MEDS: levETIRAcetam 500 MG Tablet PO ×2 (06:07→18:03)
[2018-11-24] MEDS: dexAMETHasone 4 MG Tablet 2 MG PO (06:07)
[2018-11-24] MEDS: Menthol/Lanolin/Calamine/Znox 113 GM Tube 1 APPLIC TOPICAL ×2 (06:11→21:06)
[2018-11-24 06:20] LABS: Bedside Glucose 118 mg/dL (70-110)
[2018-11-24] MEDS: Insulin Lispro 100 UNIT/ML INSULN.PEN 7 UNIT SC ×3 (08:11→18:03)
[2018-11-24] MEDS: Calcium Carbonate 500 MG Tablet PO (08:11)
[2018-11-24] MEDS: Tamsulosin HCl 0.4 MG Capsule PO ×2 (08:11→18:03)
[2018-11-24 10:51] LABS: Bedside Glucose 188 mg/dL (70-110)
[2018-11-24 15:19] VITALS: BP 145/74; PULSE 80; RESP 18; TEMP 36.5; O2SAT 93
[2018-11-24 16:50] LABS: Bedside Glucose 168 mg/dL (70-110)
[2018-11-24 20:36] LABS: Bedside Glucose 301 mg/dL (70-110)
[2018-11-24] MEDS: MELATONIN 3 MG TABLET PO (21:04)
[2018-11-24] MEDS: Atorvastatin Calcium 10 MG Tablet PO (21:04)
[2018-11-24 21:10] VITALS: RESP 16; O2SAT 97
--- NOTE | 2018-11-24 21:31 | NURSING ---
This nurse went into resident room to given hs medication as ordered pt stated, starting to feel pressure on bladder. Nurse bladder scan 680 so this nurse straight cath patient 800. Tolerated well stated, no more pressure. Condom catheter on at this time.
[2018-11-25] MEDS: dexAMETHasone 4 MG Tablet 2 MG PO (05:51)
[2018-11-25] MEDS: levETIRAcetam 500 MG Tablet PO (05:51)
[2018-11-25] MEDS: Polyethylene Glycol 3350 17 GM PACKET PO (05:52)
[2018-11-25] MEDS: amLODIPine 5 MG Tablet PO (05:52)
[2018-11-25] MEDS: Famotidine 20 MG Tablet PO (05:52)
[2018-11-25] MEDS: Menthol/Lanolin/Calamine/Znox 113 GM Tube 1 APPLIC TOPICAL (05:53)
[2018-11-25 06:36] LABS: Bedside Glucose 182 mg/dL (70-110)
[2018-11-25] MEDS: Calcium Carbonate 500 MG Tablet PO (08:49)
[2018-11-25] MEDS: Insulin Lispro 100 UNIT/ML INSULN.PEN 7 UNIT SC (08:49)
[2018-11-25] MEDS: Tamsulosin HCl 0.4 MG Capsule PO (08:49)
[2018-11-25 09:00] VITALS: BP 124/69; PULSE 70; RESP 18; TEMP 36.7; O2SAT 95
[2018-11-25 09:04] VITALS: PULSE 70; RESP 18; O2SAT 97
--- NOTE | 2018-11-27 14:55 | MDS.RN ---
IPA/MDS assessment was completed on 11/19/18, waiting to finalize assessment per information systems instructions
== END 2018-11-25 09:45 | disposition home health service (06) | DRG 949 ==
PROVIDERS: Admitting Provider Family Medicine Geriatric Medicine; Family Provider Family Medicine; PCP Family Medicine; Referring Provider Family Medicine Geriatric Medicine; Visit Provider Family Medicine Geriatric Medicine
DX: Z48.811 Encounter for surgical aftercare following surgery on the nervous system (principal); C71.9 Malignant neoplasm of brain, unspecified; G81.94 Hemiplegia, unspecified affecting left nondominant side; N13.8 Other obstructive and reflux uropathy; E78.5 Hyperlipidemia, unspecified; K21.9 Gastro-esophageal reflux disease without esophagitis; G40.909 Epilepsy, unspecified, not intractable, without status epilepticus; E09.9 Drug or chemical induced diabetes mellitus without complications; T38.0X5A Adverse effect of glucocorticoids and synthetic analogues, initial encounter; N31.9 Neuromuscular dysfunction of bladder, unspecified; I10 Essential (primary) hypertension; Z87.891 Personal history of nicotine dependence; N40.1 Benign prostatic hyperplasia with lower urinary tract symptoms
CPT/HCPCS: 36415; 80048; 82962; 85025; 97110; 97116; 97163; 97166; 97530; 97535; 97802

== ENCOUNTER 2018-12-12 11:21 | Emergency (ER) | payer MEDICARE, OTHER, SELFPAY ==
[2018-10-01 10:57] VITALS: BMI 24.5
[2018-12-12 11:22] VITALS: BP 121/71; PULSE 102; RESP 17; TEMP 36.3; O2SAT 97; BMI 23.1
--- NOTE | 2018-12-12 12:00 | EKG12_ITS ---
Test Reason : DYSRHYTHMIA Blood Pressure : / mmHG Vent. Rate : 076 BPM Atrial Rate : 076 BPM P-R Int : 160 ms QRS Dur : 112 ms QT Int : 362 ms P-R-T Axes : 056 -25 020 degrees QTc Int : 407 ms Normal sinus rhythm Voltage criteria for left ventricular hypertrophy Abnormal ECG Confirmed by RONEY LANDRY, [place] ([id number]), film and video editor CEZAR STEVENSON ([id number]) on 12/15/2018 10:42:34 AM Referred By: CD Confirmed By:AZ SIM MD
--- NOTE | 2018-12-12 12:00 | CT_ITS ---
STUDY: CT BRAIN WITHOUT CONTRAST REASON FOR EXAM: Male, 83 years old. Increasing left sided weakness and dizziness. Recent resection of a glioblastoma. RADIATION DOSAGE (If Supplied By Facility): CTDIvol = ( 44.99 ) mGy, DLP = ( 779.24 ) mGycm TECHNIQUE: Transaxial CT imaging of the brain was performed without administration of intravenous contrast material. Individualized dose optimization techniques were used for this CT. COMPARISON: Comparison is made with prior examination dated November 01, 2018. FINDINGS: Normal soft tissue structures. The patient is status post right frontoparietal craniotomy superiorly. This is unchanged. There is mild cerebral atrophy with widening of the extra-axial spaces and ventricular dilatation. There are areas of decreased attenuation within the white matter tracts of the supratentorial brain, consistent with microvascular disease changes. The previously seen small hyperdense focus in the deep white matter of the right zabala radiata as markedly decreased in size. 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 No new abnormality is seen. Normal basal ganglia and thalami. Normal brainstem. Normal cerebellum. There is no intracranial hemorrhage. There are no findings of an acute ischemic infarction. Normal visualized paranasal sinuses. CT/Brain/Head without Contrast IMPRESSION: Chronic involutional changes of the brain. No acute abnormality seen. Electronically Signed: Mil Bell, at 13:08 EDT , Service support ,
--- NOTE | 2018-12-12 12:01 | RAD_ITS ---
STUDY: X-RAY CHEST REASON FOR EXAM: Male, 83 years old. Increasing weakness and dizziness. Recent cerebral surgery. TECHNIQUE: AP and lateral views of the chest. COMPARISON: Comparison is made with prior examination of the Generic 2018. FINDINGS: Stable elevation of the right hemidiaphragm. Stable calcified granuloma in the right upper lobe. Stable minimal increased markings at the left lung base. There is no demonstrated pleural abnormality. Normal size heart. Normal mediastinum and judah. Normal visualized pulmonary arteries. There is atherosclerotic calcification of the aortic arch with tortuosity. Normal visualized thoracic spine. Normal visualized ribs, clavicles, and shoulders. There is no demonstrated abnormality of the visualized soft tissue structures of the upper abdomen. RAD/Chest PA and Lateral IMPRESSION: No acute abnormality is seen. Electronically Signed: Mil Bell, at 13:09 EDT , Service support ,
--- NOTE | 2018-12-12 12:03 | ED.VIS.GEN ---
History of Present Illness Chief Complaint: Weakness Narrative: 83-year-old male with a history of glioblastoma that was operated on in November 2017 at [facility] presents with increased left-sided weakness for the past 2 weeks. He was doing fairly well on oral steroids but when they were reduced 2 weeks ago his weakness increased above baseline. He was started back on a high dose several days ago but he remains weaker than baseline on the left side, mostly in his left leg. Current severity is moderate. Onset was gradual. Past Medical History - Allergies and Home Meds Allergies/Adverse Reactions: Allergies No Known Allergies Allergy (Verified 12/12/18 11:22) Primary Care Physician: Violeta Copeland [Primary Care Provider] - Prior records reviewed: Yes Surgical History: appendectomy, cholecystectomy, total knee arthroplasty, tonsillectomy, - - Excision brain tumor by craniotomy (Right frontal) Smoking Status: Former smoker - Family History Maternal Family History: Family History (Last Reviewed 10/28/18 @ 13:58 by Neetu Santiago) Mother Heart disease Father CAD (coronary artery disease) Family History: Reports: No pertinent history Paternal Family History: Family History (Last Reviewed 10/28/18 @ 13:58 by Neetu Santiago) Mother Heart disease Father CAD (coronary artery disease) Family History: Reports: No pertinent history Review of Systems General: Denies: Chills, Fever, Sweats Eyes: Denies: Visual changes - bilaterally, Diplopia ENT: Denies: Rhinorrhea, Sore throat Cardiovascular: Denies: Chest pain, Palpitations Respiratory: Denies: Dyspnea, Cough, Dyspnea on exertion Gastrointestinal: Denies: Abdominal pain, Nausea, Vomiting, Diarrhea, Melena, Hematochezia Genitourinary: Denies: Dysuria, Hematuria, Frequency Musculoskeletal: Denies: Back pain, Extremity Pain Skin: Denies: Rash, Wounds Neurological: Reports: Headache, Weakness. Denies: Numbness Psych: Denies: Anxiety Hematologic: Denies: Easy bruising Physical Exam Vital Signs/Narrative: Vital Signs Temp Pulse Resp BP Pulse Ox 12/12/18 11:22 97.4 F L 102 H 17 121/71 H 97 General: Well nourished, Well developed, Acute Distress Head: Normocephalic, Atraumatic Eyes: Perrl, EOMI ENT: Moist mucous membranes, No rhinorrhea Neck: Supple, Nontender Cardiovascular: Regular rate, Regular rhythm, No murmurs Respiratory: No distress, CTA bilaterally, Chest nontender Abdomen: Soft, Nontender, Nondistended, Normal bowel sounds Back: Nontender, Normal Inspection Extremities: Nontender, No edema Skin: Normal color, No rash Neurological: Alert, Oriented x3, Cranial nerves II-XII grossly intact, - - left leg moderate weakness Psychological: Normal affect, Normal Mood Diagnostic/Tx/Re-eval - Medical Decision Making Labs reveal a slightly elevated glucose. He does have a leukocytosis of 22,000 however he is on high-dose Medrol currently. His urine does appear infected but he does not have UTI symptoms. I sent it for culture and covered him with an oral antibiotic. He has no cough or any other symptoms of infection. His left-sided weakness has been progressive for the past several weeks and it has been worse in the past secondary to his glioblastoma. It is not a new sudden onset acute issue. His brain CT is negative for obvious acute process. I talked with his specialist at [facility] [place] who knows him well. The patient really prefers not to be transferred at this time and has an appointment next for repeat MRI. He would prefer strongly to either go home or go to a rehab facility because this is not a sudden acute issue. He wanted to go to transitional care here but they do not have a bed available. I have consulted social work and we are arranging to transfer him to another rehab facility at his request. Care will be turned over to the oncoming physician to follow-up on disposition. ED Disposition - Plan for ED Patient: Disposition: Acute Care Hospital - Other Diagnosis: Glioblastoma, Left-sided weakness, UTI (urinary tract infection) Referrals: Violeta Copeland [Primary Care Provider] -
[2018-12-12 13:54] LABS: Mucous, Urine 0 SEEN /hpf (<or=2+)
[2018-12-12 13:57] VITALS: BP 127/68; PULSE 64; RESP 14; TEMP 36.9; O2SAT 98
[2018-12-12 13:59] LABS: Color, Urine Yellow (Yellow); Glucose, Dipstick 1000 mg/dl (Normal); Ketone-Dipstick 5 mg/dl (Negative); Leukocyte Esterase-Dipstick 500 /ul (Negative); Nitrite-Dipstick Negative (Negative); Occult Blood-Urine 150 /ul (Negative); Protein-Dipstick 15 mg/dl (Negative); Specific Gravity, Urine 1.015 (1.002-1.030); Urine Bilirubin Dipstick Negative (Negative); Urine Clarity Sl. Cloudy (Clear); Urine Urobilinogen Normal (Normal)
[2018-12-12 14:09] LABS: Bacteria 2+ /hpf (None Seen); Red Blood Cells-Urine 10-25 SEEN /hpf (0-5); Squamous Epithelial Cells - UA 0-5 SEEN /hpf (0-5); White Blood Cells 25-50 SEEN /hpf (0-5)
[2018-12-12 14:27] LABS: Absolute Lymphocyte Count 0.38 X10^3/uL (0.83-4.51); Absolute Neutrophil Count 18.9 X10^3/uL (2.0-7.7); Basophil# 0.06 X10^3/uL; Basophil% 0.3 % (0-1); Eosinophil# 0.19 X10^3/uL; Eosinophils% 0.9 % (0-5); Hematocrit 36.1 % (40-54); Hemoglobin 12.2 g/dL (13.0-16.5); Lymphocyte # 0.38 X10^3/ul (4.0); Lymphocyte % 1.8 % (19-41); Mean Corp Hgb Conc 33.8 g/dL (32-36); Mean Corpuscular Hgb 30.2 pg (27.0-32.0); Mean Corpuscular Volume 89.4 fL (80-94); Mean Platelet Vol. 9.3 fl (6.2-12.0); Monocyte% 3.4 % (0-10); NRBC Flagged by Analyzer 0 % (0-5); Neutrophil % 91.6 % (47-70); POSITIVE DIFFERENTIAL YES; Platelet Count 110 K/mm3 (150-450); RBC Distribution Width CV 15.7 % (11.6-14.6); Red Blood Count 4.04 M/mm3 (4.6-6.2); White Blood Count 20.7 K/mm3 (4.4-11.0)
[2018-12-12 14:34] LABS: ALB/GLOB Ratio 0.6 RATIO (0.9-2.4); AST(SGOT) 10 U/L (15-37); Alanine Aminotransfer ALT/SGPT 25 U/L (16-61); Albumin, Serum 2.3 g/dL (3.2-5.0); Alkaline Phosphatase 73 U/L (45-117); Anion Gap 5 (5-15); BUN 32 mg/dL (7-18); BUN/Creat Ratio 38.5 RATIO (10-20); Calcium,Total 8.2 mg/dL (8.5-10.1); Chloride 103 mmol/L (98-107); Creatinine, Serum 0.83 mg/dL (0.70-1.30); EST Glomerular Filtration Rate 94 mL/min (>60); Est Glom Filt Rate - Afr Amer 113 mL/min (>60); Estimated Creatinine Clearance 74.38 ml/min; Globulin 3.6 g/dL (2.2-4.2); Glucose 178 mg/dL (74-106); Potassium 4.2 mmol/L (3.5-5.1); Protein, Total 5.9 g/dL (6.4-8.2); Sodium Level 138 mmol/L (136-145)
[2018-12-12 14:58] LABS: Differential Indicated SCAN CRITERIA MET
[2018-12-12 15:19] LABS: Anisocytosis 1+; Platelet Estimate ADEQUATE (ADEQ)
[2018-12-12 16:00] VITALS: RESP 16
--- NOTE | 2018-12-12 16:26 | CM.ED ---
Social Work Consult: SNF placement Informant: Dr. Lynn Patient familiar to this social worker psychiatric. Patient stating to have been living at home with spouse and to now be too weak. Patient stating that patient spouse is not able to care for patient. Patient stating to have recently had a stay on the TCU and is wondering if patient would be able to return there. Telephone call to TCU, [facility]. They do not have any open beds. Updated patient on this information. Second choice is [facility]. Telephone call to Yesy GAMBOA. Yesy stating to have openings and to be able to review case. Clinical information faxed. Patient does have a qualifying stay under Medicare. Paris ESPINOSA, TALYA
--- NOTE | 2018-12-12 17:53 | ED.DCSUM_ITS ---
- ER Visit Summary Date of Service: 12/12/18 Chief Complaint: [] History of Present Illness: The patient is a 83 M [] Physical Examination: [] Test Results: [] Emergency Department Course and Treatment: [] Treatment Plan: [] Disposition: [] Impression: [] This note was generated with [employer] dictation software. It may contain incorrect words, spelling, and punctuation that were not noted in review of the chart prior to signing ED Disposition - Plan for ED Patient: Disposition: Acute Care Hospital - Other Diagnosis: Glioblastoma, Left-sided weakness, UTI (urinary tract infection) Instructions: Understanding Urinary Tract Infections (UTIs) Prescriptions: Cephalexin [Keflex] 500 mg PO BID #10 cap Prescription Printed Referrals: Violeta Copeland [Primary Care Provider] - Additional Instructions: Continue home medications as previously prescribed. Also take antibiotics twice a day as prescribed. PT/OT to evaluate and treat
[2018-12-12 18:00] VITALS: RESP 16
--- NOTE | 2018-12-12 18:05 | ED.RN ---
REPORT CALLED TO [facility]. RN VERBALIZED UNDERSTANDING. GIVEN RIDE ETA 1 HOUR TO OUR FACILITY
--- NOTE | 2018-12-12 18:10 | CM.ED ---
Social Work Telephone call from Yesy Brower. Patient has been accepted. Patient to discharge to [facility] skilled. PASRR completed and faxed along with discharge orders. Updated team and patient. All agreeable to plan. Paris Weiss MSW, TALYA
[2018-12-12] MEDS: Cephalexin 250 MG Capsule 500 MG PO (18:17)
[2018-12-12 18:24] VITALS: RESP 14
== END 2018-12-12 20:17 | disposition skilled nursing facility (03) ==
PROVIDERS: Emergency Provider Emergency Medicine; Family Provider Family Medicine; PCP Family Medicine
DX: R53.1 Weakness (principal); N39.0 Urinary tract infection, site not specified; R73.9 Hyperglycemia, unspecified; Z87.891 Personal history of nicotine dependence; Z85.841 Personal history of malignant neoplasm of brain
CPT/HCPCS: 70450; 71046; 80053; 81001; 85025; 87086; 87088; 87186; 93005; 99285; J7040

== ENCOUNTER 2018-12-26 14:30 | Inpatient (IN) | payer MEDICARE, OTHER, SELFPAY ==
[2018-10-01 10:57] VITALS: BMI 24.5
[2018-12-26 14:54] VITALS: BP 90/52; PULSE 110; RESP 20; TEMP 36.3; O2SAT 95
--- NOTE | 2018-12-26 15:26 | PCM.HP.STD ---
Problem List (1) GBM (glioblastoma multiforme) Status: Chronic (2) BPH (benign prostatic hyperplasia) Status: Chronic (3) Hypertension Status: Chronic (4) Steroid-induced diabetes mellitus Status: Chronic (5) Neurogenic bladder Status: Chronic (6) Left hemiparesis Status: Acute (7) Debility Status: Acute History of Present Illness Date of Admission: 12/26/18 Chief Complaint: Here for rehabilitation, strengthening, prior to discharge home with . The patient is a 83 year old Male with below past medical history significant for glioblastoma multiforme with followin12/12/2018 Presented to [facility] Emergency Department with left sided weakness. Diagnosed with urinary tract infection, treated with Keflex 500MG BID x 5 days. 12/12/2018 CT brain showed chronic involutional changes of brain. 12/12/2018 Admit to [facility] for debility, for rehabilitation, strengthening. 12/26/2018 Admit to TCU with debility, here for rehabilitation, strengthening, prior to discharge home with . Past Medical History Past Medical History (Chronic Problems): Chronic Problems (Last Reviewed 10/28/18 @ 13:58 by Neetu Santiago) History of chest pain (Chronic) GBM (glioblastoma multiforme) (Chronic) BPH (benign prostatic hyperplasia) (Chronic) Hypertension (Chronic) Steroid-induced diabetes mellitus (Chronic) Neurogenic bladder (Chronic) BPH loc w urin obs/LUTS (Chronic) Medical History: Medical History (Last Reviewed 10/28/18 @ 13:58 by Neetu Santiago) Benign prostatic hyperplasia with lower urinary tract symptoms N40.1 Hyperlipidemia E78.5 Primary glioblastoma of brain C71.9 S/P RIGHT FRONTAL CRANIECTOMY 12-27-[address] [facility] [address] MILLER Ventricular hypertrophy I51.7 bilateral enlargement Allergies No Known Allergies Allergy (Verified 12/12/18 11:22) Home Medications: Ambulatory Orders Medication Instructions Recorded Ondansetron [Zofran] 4 mg PO Q8H PRN PRN 08/25/18 Calcium Citrate 950 mg PO DAILY 10/07/18 Cholecalciferol (VIT D3) [Vitamin 2,000 unit PO DAILY 10/07/18 D3] Melatonin 3 mg PO QHS 11/01/18 Polyethylene Glycol 3350 [Miralax] 17 gm PO DAILY 11/01/18 Simvastatin 20 mg PO QHS 11/04/18 Acetaminophen [Tylenol] 1,000 mg PO Q6H PRN tab 11/18/18 Amlodipine [Norvasc] 5 mg PO DAILY #30 tab 11/18/18 Famotidine 20 mg PO Q12H #60 tab 11/18/18 Tamsulosin HCl [Flomax] 0.4 mg PO BID #60 cap 11/18/18 Dexamethasone [Decadron] 4 mg PO BID 12/12/18 Oxybutynin Chloride [Oxybutynin 10 mg PO DAILY 12/12/18 Chloride ER] Ibuprofen 200 mg PO Q6H PRN PRN 12/26/18 Insulin Detemir [Levemir (BKC)] 10 units SUBCUT BID 12/26/18 Insulin Lispro [Humalog KwikPen] 7 unit SUBCUT TIDAC 12/26/18 Menthol/Lanolin/Calamine/Znox 1 applic TOPICAL 0600,2200 12/26/18 [Calmoseptine Ointment] Mineral Oil/Petrolatum,White 1 applic TOPICAL 0600,2200 12/26/18 [Eucerin] levETIRAcetam tablet [Keppra 750 mg PO BID 12/26/18 tablet] Surgical History: Surgical History (Last Reviewed 10/28/18 @ 13:58 by Neetu Santiago) History of appendectomy Z90.49 History of bilateral knee replacement Z96.653 History of cholecystectomy Z90.49 History of tonsillectomy Z90.89 Surgical History: appendectomy, cholecystectomy, total knee arthroplasty - Bilateral., tonsillectomy, - - Excision brain tumor by craniotomy (Right frontal) Psychiatric History: Anxiety, Depression Lives: Spouse/ Significant Other Smoking Status: Former smoker Tobacco Use: Cigarettes Alcohol: None Drugs: None - *Family History Maternal Family History: Family History (Last Reviewed 10/28/18 @ 13:58 by Neetu Santiago) Mother Heart disease Father CAD (coronary artery disease) History Items: No pertinent history Paternal Family History: Family History (Last Reviewed 10/28/18 @ 13:58 by Neetu Santiago) Mother Heart disease Father CAD (coronary artery disease) History Items: No pertinent history Review of Systems Constitutional: Denies: Chills, Fever, Weight Change HEENT: Denies: Head Aches, Sinus Congestion, Sinus Drainage Cardiovascular: Denies: Chest Pain, Palpitations Respiratory: Denies: Cough, Shortness of breath at rest, Sputum production Gastrointestinal: Denies: Abdominal Pain, Nausea, Vomiting Genitourinary: Denies: Dysuria Musculoskeletal: Denies: Joint Pain, Joint Tenderness Skin: Denies: Rash, Wounds Neurological: Denies: Numbness, Tingling, Focal weakness Psychiatric: Denies: Anxiety, Depression, Homicidal Ideations, Suicidal Ideations Hematologic/ Lymphatic: Denies: Easy Bruising, Easy Bleeding VTE Information - Inpt Only VTE Present on Admission: No VTE Mechan Device Prophylaxis: Knee High ALYSON Hose VTE Pharm Prophylaxis ordered?: No Reason prophylaxis not ordered:: Medical Contraindication - Physical Exam Vitals/I&O's: Body Mass Index (BMI) 23.1 Finger Stick Blood Glucose 332 General: Alert, Oriented x3, Cooperative HEENT: Atraumatic, PERRLA, EOMI, Normocephalic Neck: Supple, No JVD, Negative Carotid Bruits Lungs: Clear to auscultation, Normal air movement Cardiovascular: Regular rate, No murmurs Abdomen: Bowel Sounds Present, Soft, Non Tender Extremities: No edema, Capillary Refill Less than 3 Seconds Skin: No rashes, No breakdown Musculoskeletal: No Tenderness to Palpation of Joints or Extremities Neurological: Cranial nerves II-XII grossly intact Psych/Mental Status: Normal Affect, Appropriate Current Medications Acetaminophen (Tylenol) 1,000 mg PO Q6H PRN PRN Reason: Pain Score 1-3/10 Amlodipine Besylate (Norvasc) 5 mg PO DAILY [facility] Calamine/Phenol (Calmoseptine Ointment) 1 applic TOPICAL 0600,2200 [facility]; Protocol Cholecalciferol (Vitamin D) 2,000 unit PO DAILY [facility] Dexamethasone (Decadron) 4 mg PO BID [facility] Famotidine (Pepcid) 20 mg PO Q12H [facility] Insulin Human Lispro (Humalog Kwikpen (Bkc)) 7 unit SC TIDAC [facility] Levetiracetam (Keppra Tablet) 750 mg PO BID [facility] Multi-Ingredient Cream (Eucerin) 1 applic TOPICAL 0600,2200 [facility]; Protocol Non-Formulary Medication (Simvastatin) 20 mg PO QHS [facility] Non-Formulary Medication (Oxybutynin Chloride [Oxybutynin Chloride Er]) 10 mg PO DAILY [facility] Non-Formulary Medication (Melatonin) 3 mg PO QHS [facility] Non-Formulary Medication (Insulin Detemir [Levemir Flexpen]) 10 units subcut BID [facility] Non-Formulary Medication (Ibuprofen) 200 mg PO Q6H PRN PRN PRN Reason: Pain Score 1-10/10 Non-Formulary Medication (Calcium Citrate) 950 mg PO DAILY [facility] Ondansetron HCl (Zofran) 4 mg PO Q8H PRN PRN PRN Reason: NAUSEA Polyethylene Glycol (Miralax) 17 gm PO DAILY [facility] Tamsulosin HCl (Flomax) 0.4 mg PO BID [facility] Tuberculin PPD (Tubersol, Aplisol, Ppd) 5 tu ID X1 ONE Stop: 12/27/18 10:01 Tuberculin PPD (Tubersol, Aplisol, Ppd) 5 tu ID X1 ONE Stop: 01/03/19 10:01 Assessment/Plan All Active Problems (Last Reviewed 10/28/18 @ 13:58 by Neetu Santiaog) Weakness of muscle of left side of face due to and not concurrent with cerebrovascular disease (Acute) Glioblastoma multiforme of central nervous system (Acute) Left hemiparesis (Acute) Debility (Acute) Anemia (Resolved) Educational circumstance (Acute) Chemotherapy management, encounter for (Acute) RSV (respiratory syncytial virus infection) (Resolved) Acute CVA (cerebrovascular accident) (Acute) Stroke (Acute) 83 year old male with below past medical history with below past medical history of glioblastoma multiforme, admitted with debility, here for rehabilitation, strengthening, prior to discharge home with . Debility - PT/OT. Pain - Tylenol 1000MG Q6H PRN pain (1-3) Bowel - Miralax 17GM daily, Senna/colace 1 tablet BID, Dulcolax 10MG daily PRN. Adult immunization - Administer Prevnar 13, Pneumovax 23, Fluzone as necessary. DVT prophylaxis - Hold, risk of brain bleed. Glioblastoma Multiforme - Dexamethasone 4MG BID. GERD - Famotidine 40MG daily. 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 Seizure prophylaxis - Keppra 750MG BID. Insomnia - Melatonin 3MG QHS. Skin irritation - Calmoseptine BID, Eucerin BID. Nausea - Zofran 4MG Q8H PRN. Overactive bladder - Oxybutynin 10MG daily. BPH - Tamsulosin 0.4MG BID. Dehydration - Normal Saline 1 liter IV bolus, then 60cc/hour.
[2018-12-26 16:17] VITALS: BMI 22.1
[2018-12-26 16:46] LABS: Bedside Glucose 68 mg/dL (70-110)
[2018-12-26] MEDS: 0.9% Normal Saline 1,000 ML 999 ML IV (17:06)
[2018-12-26 17:12] VITALS: BMI 22.2
[2018-12-26] MEDS: dexAMETHasone 4 MG Tablet PO (18:37)
[2018-12-26] MEDS: Tamsulosin HCl 0.4 MG Capsule PO (18:37)
[2018-12-26] MEDS: levETIRAcetam 750 MG Tablet PO (18:37)
[2018-12-26 18:51] LABS: Bedside Glucose 55 mg/dL (70-110)
[2018-12-26] MEDS: 0.9% Normal Saline 1,000 ML 60 ML IV (19:06)
[2018-12-26 19:11] LABS: Bedside Glucose 65 mg/dL (70-110)
[2018-12-26 20:55] LABS: Bedside Glucose 102 mg/dL (70-110)
[2018-12-26] MEDS: MELATONIN 3 MG TABLET PO (21:52)
[2018-12-26] MEDS: Menthol/Lanolin/Calamine/Znox 113 GM Tube 1 APPLIC TOPICAL (21:53)
[2018-12-27] MEDS: Polyethylene Glycol 3350 17 GM PACKET PO (05:23)
[2018-12-27] MEDS: Tolterodine Tartrate 2 MG CAP.SA PO (05:29)
[2018-12-27] MEDS: levETIRAcetam 750 MG Tablet PO ×2 (05:29→16:25)
[2018-12-27] MEDS: Famotidine 20 MG Tablet 40 MG PO (05:29)
[2018-12-27] MEDS: Menthol/Lanolin/Calamine/Znox 113 GM Tube 1 APPLIC TOPICAL ×2 (05:29→20:04)
[2018-12-27] MEDS: Ondansetron ODT 4 MG Tablet PO ×2 (05:32→16:24)
[2018-12-27 06:30] LABS: Bedside Glucose 134 mg/dL (70-110)
[2018-12-27 06:50] LABS: Absolute Lymphocyte Count 0.34 X10^3/uL (0.83-4.51); Absolute Neutrophil Count 12.8 X10^3/uL (2.0-7.7); Basophil# 0.06 X10^3/uL; Basophil% 0.4 % (0-1); Eosinophil# 0.02 X10^3/uL; Eosinophils% 0.1 % (0-5); Hematocrit 34.3 % (40-54); Hemoglobin 11.3 g/dL (13.0-16.5); Lymphocyte # 0.34 X10^3/ul (4.0); Lymphocyte % 2.4 % (19-41); Mean Corp Hgb Conc 32.9 g/dL (32-36); Mean Corpuscular Hgb 30.1 pg (27.0-32.0); Mean Corpuscular Volume 91.5 fL (80-94); Mean Platelet Vol. 9.7 fl (6.2-12.0); Monocyte# 0.37 X10^3/uL; Monocyte% 2.6 % (0-10); NRBC Flagged by Analyzer 0 % (0-5); Neutrophil # 12.83 X10^3/uL (2.7-7.7); Neutrophil % 91.9 % (47-70); POSITIVE COUNT YES; POSITIVE DIFFERENTIAL YES; Platelet Count 81 K/mm3 (150-450); RBC Distribution Width CV 16.8 % (11.6-14.6); RBC Distribution Width SD 56.1 fl (35.1-43.9); Red Blood Count 3.75 M/mm3 (4.6-6.2)
[2018-12-27 06:56] LABS: Differential Indicated SCAN CRITERIA MET
[2018-12-27 07:12] LABS: Anion Gap 14 (5-15); BUN 22 mg/dL (7-18); BUN/Creat Ratio 52.3 RATIO (10-20); Calcium,Total 7.5 mg/dL (8.5-10.1); Chloride 105 mmol/L (98-107); Creatinine, Serum 0.42 mg/dL (0.70-1.30); EST Glomerular Filtration Rate 205 mL/min (>60); Est Glom Filt Rate - Afr Amer 248 mL/min (>60); Estimated Creatinine Clearance 59.27 ml/min; Glucose 144 mg/dL (74-106); Potassium 3.5 mmol/L (3.5-5.1); Sodium Level 139 mmol/L (136-145)
--- NOTE | 2018-12-27 07:32 | PHA.CONS_ITS ---
<Armando Calderon D - Last Filed: 12/27/18 07:32> Progress Note - Pharmacy Subjective: TCU Admission Objective: Allergies No Known Allergies Allergy (Verified 12/12/18 11:22) Current Medications Generic Name Dose Route Start Last Admin Trade Name Freq PRN Reason Stop Dose Admin Acetaminophen 1,000 mg 12/26/18 15:18 Tylenol PO Q6H PRN Pain Score 1-3/10 Bisacodyl 10 mg 12/26/18 15:49 Dulcolax PO DAILY PRN Constipation Calamine/Phenol 1 applic 12/26/18 22:00 12/27/18 05:29 Calmoseptine Ointment TOPICAL 1 applicatio 0600,2200 PAUL Administration Protocol Dexamethasone 4 mg 12/26/18 17:00 12/26/18 18:37 Decadron PO 4 mg BID@0745,1700 PAUL Administration Famotidine 40 mg 12/27/18 06:00 12/27/18 05:29 Pepcid PO 40 mg DAILY PAUL Administration Sodium Chloride 1,000 mls @ 60 mls/hr 12/26/18 16:50 12/26/18 19:06 IV 60 mls/hr .[id number] PAUL Administration Levetiracetam 750 mg 12/26/18 18:00 12/27/18 05:29 Keppra Tablet PO 750 mg BID PAUL Administration Melatonin 3 mg 12/26/18 22:00 12/26/18 21:52 Melatonin PO 3 mg QHS PAUL Administration Multi-Ingredient Cream 1 applic 12/26/18 22:00 12/27/18 05:29 Eucerin TOPICAL 1 applicatio 0600,2200 PAUL Administration Protocol Ondansetron HCl 4 mg 12/26/18 17:45 12/27/18 05:32 Zofran Odt PO 4 mg Q8H PRN PRN Administration NAUSEA/VOMITING Polyethylene Glycol 17 gm 12/27/18 06:00 12/27/18 05:23 Miralax PO 17 gm DAILY PAUL Administration Senna/Docusate Sodium 1 tablet 12/26/18 18:00 12/27/18 05:29 Senokot-S, Amberly-Colace PO Not Given BID PAUL Sodium Chloride 10 - 40 ml 12/26/18 17:11 IV UD PRN SALINE FLUSH Tamsulosin HCl 0.4 mg 12/26/18 17:30 12/26/18 18:37 Flomax PO 0.4 mg BID@0800,1730 PAUL Administration Tolterodine Tartrate 2 mg 12/27/18 06:00 12/27/18 05:29 Detrol La PO 2 mg DAILY PAUL Administration Tuberculin PPD 5 tu 12/27/18 10:00 Tubersol, Aplisol, Ppd ID 12/27/18 10:01 X1 ONE Tuberculin PPD 5 tu 01/03/19 10:00 Tubersol, Aplisol, Ppd ID 01/03/19 10:01 X1 ONE Vital Signs Temp Pulse Resp BP Pulse Ox 97.3 F L 110 H 20 H 90/52 L 95 12/26/18 14:54 12/26/18 14:54 12/26/18 14:54 12/26/18 14:54 12/26/18 14:54 Oxygen Delivery Method Room Air Weight: 76.204 kg Body Mass Index (BMI) 22.1 Finger Stick Blood Glucose 332 Sodium 139 mmol/L (136-145) 12/27/18 06:30 Potassium 3.5 mmol/L (3.5-5.1) 12/27/18 06:30 Chloride 105 mmol/L (98-107) 12/27/18 06:30 Carbon Dioxide 20.0 mmol/L (21.0-32.0) L 12/27/18 06:30 Anion Gap 14 (5-15) 12/27/18 06:30 BUN 22 mg/dL (7-18) H 12/27/18 06:30 Creatinine 0.42 mg/dL (0.70-1.30) L 12/27/18 06:30 Est GFR (MDRD) Af Amer 248 mL/min (>60) 12/27/18 06:30 Est GFR (MDRD) Non-Af 205 mL/min (>60) 12/27/18 06:30 BUN/Creatinine Ratio 52.3 RATIO (10-20) H 12/27/18 06:30 Glucose 144 mg/dL (74-106) H 12/27/18 06:30 Assessment/Plan: 1) Pain APAP for mild pain. Continue to monitor daily pain scores, prn medication use. 2) Glioblastoma/Sz PPx Levetiracetam, dexamethasone. Continue to monitor clinically. 3) GI Famotidine, prn ondansetron. Continue to monitor prn medication use, for s/s GI distress. 4) Tamsulosin, tolterodine. Continue to monitor for symptoms. 5) Sleep Melatonin at HS. Continue to monitor for insomnia. Psychotropic Medications: None Unnecessary Medications: None Bowel Regimen: 6) Senna/s, PEG, prn bisacodyl. Continue to monitor prn medication use, for con stipation/diarrhea. Date of Note:: 12/27/18 - Provider Comments Provider responsibility: Provider responsible to enter orders to implement recommendations <Rui Mccray Chi - Last Filed: 12/27/18 10:18> Progress Note - Pharmacy Subjective: [] Objective: Allergies No Known Allergies Allergy (Verified 12/12/18 11:22) Current Medications Generic Name Dose Route Start Last Admin Trade Name Freq PRN Reason Stop Dose Admin Acetaminophen 1,000 mg 12/26/18 15:18 Tylenol PO Q6H PRN Pain Score 1-3/10 Bisacodyl 10 mg 12/26/18 15:49 Dulcolax PO DAILY PRN Constipation Calamine/Phenol 1 applic 12/26/18 22:00 12/27/18 05:29 Calmoseptine Ointment TOPICAL 1 applicatio 0600,2200 PAUL Administration Protocol Dexamethasone 4 mg 12/26/18 17:00 12/27/18 07:52 Decadron PO 4 mg BID@0745,1700 PAUL Administration Famotidine 40 mg 12/27/18 06:00 12/27/18 05:29 Pepcid PO 40 mg DAILY PAUL Administration Sodium Chloride 1,000 mls @ 60 mls/hr 12/26/18 16:50 12/26/18 19:06 IV 60 mls/hr .[id number] PAUL Administration Levetiracetam 750 mg 12/26/18 18:00 12/27/18 05:29 Keppra Tablet PO 750 mg BID PAUL Administration Melatonin 3 mg 12/26/18 22:00 12/26/18 21:52 Melatonin PO 3 mg QHS PAUL Administration Multi-Ingredient Cream 1 applic 12/26/18 22:00 12/27/18 05:29 Eucerin TOPICAL 1 applicatio 0600,2200 PAUL Administration Protocol Ondansetron HCl 4 mg 12/26/18 17:45 12/27/18 05:32 Zofran Odt PO 4 mg Q8H PRN PRN Administration NAUSEA/VOMITING Polyethylene Glycol 17 gm 12/27/18 06:00 12/27/18 05:23 Miralax PO 17 gm DAILY PAUL Administration Senna/Docusate Sodium 1 tablet 12/26/18 18:00 12/27/18 05:29 Senokot-S, Amberly-Colace PO Not Given BID PAUL Sodium Chloride 10 - 40 ml 12/26/18 17:11 IV UD PRN SALINE FLUSH Tamsulosin HCl 0.4 mg 12/26/18 17:30 12/27/18 07:51 Flomax PO 0.4 mg BID@0800,1730 PAUL Administration Tolterodine Tartrate 2 mg 12/27/18 06:00 12/27/18 05:29 Detrol La PO 2 mg DAILY PAUL Administration Tuberculin PPD 5 tu 01/03/19 10:00 Tubersol, Aplisol, Ppd ID 01/03/19 10:01 X1 ONE Vital Signs Temp Pulse Resp BP Pulse Ox 97.3 F L 110 H 20 H 90/52 L 95 12/26/18 14:54 12/26/18 14:54 12/26/18 14:54 12/26/18 14:54 12/26/18 14:54 Oxygen Delivery Method Room Air Weight: 76.204 kg Body Mass Index (BMI) 22.1 Finger Stick Blood Glucose 332 Sodium 139 mmol/L (136-145) 12/27/18 06:30 Potassium 3.5 mmol/L (3.5-5.1) 12/27/18 06:30 Chloride 105 mmol/L (98-107) 12/27/18 06:30 Carbon Dioxide 20.0 mmol/L (21.0-32.0) L 12/27/18 06:30 Anion Gap 14 (5-15) 12/27/18 06:30 BUN 22 mg/dL (7-18) H 12/27/18 06:30 Creatinine 0.42 mg/dL (0.70-1.30) L 12/27/18 06:30 Est GFR (MDRD) Af Amer 248 mL/min (>60) 12/27/18 06:30 Est GFR (MDRD) Non-Af 205 mL/min (>60) 12/27/18 06:30 BUN/Creatinine Ratio 52.3 RATIO (10-20) H 12/27/18 06:30 Glucose 144 mg/dL (74-106) H 12/27/18 06:30 Assessment/Plan: Psychotropic Medications: Unnecessary Medications: Bowel Regimen: - Provider Comments Provider responsibility: Provider responsible to enter orders to implement recommendations Provider Comments to Recommendations by Pharmacy: Agree
[2018-12-27] MEDS: Tamsulosin HCl 0.4 MG Capsule PO ×2 (07:51→16:25)
[2018-12-27] MEDS: dexAMETHasone 4 MG Tablet PO ×2 (07:52→16:25)
[2018-12-27 10:36] LABS: Bedside Glucose 255 mg/dL (70-110)
[2018-12-27] MEDS: 0.9% Normal Saline 1,000 ML 60 ML IV (11:25)
[2018-12-27 15:26] VITALS: BP 121/70; PULSE 96; RESP 16; TEMP 36.8; O2SAT 95
[2018-12-27 17:00] LABS: Bedside Glucose 250 mg/dL (70-110)
[2018-12-27] MEDS: MELATONIN 3 MG TABLET PO (20:04)
[2018-12-27] MEDS: Acetaminophen 500 MG Tablet 1000 MG PO (20:09)
[2018-12-27 21:02] LABS: Bedside Glucose 302 mg/dL (70-110)
--- NOTE | 2018-12-28 00:19 | NURSING ---
Addendum entered by Nisreen Zhou 12/28/18 10:29: Dr Mccray updated and will speak to him on Saturday Original Note: Pt inquiring about hospice. Pt feels his left side is not improving. Will update Dr Mccray.
[2018-12-28] MEDS: 0.9% Normal Saline 1,000 ML 60 ML IV (04:23)
[2018-12-28] MEDS: Polyethylene Glycol 3350 17 GM PACKET PO (04:56)
[2018-12-28] MEDS: levETIRAcetam 750 MG Tablet PO ×2 (05:09→17:43)
[2018-12-28] MEDS: Tolterodine Tartrate 2 MG CAP.SA PO (05:09)
[2018-12-28] MEDS: Famotidine 20 MG Tablet 40 MG PO (05:09)
[2018-12-28] MEDS: Menthol/Lanolin/Calamine/Znox 113 GM Tube 1 APPLIC TOPICAL ×2 (05:10→19:58)
[2018-12-28 06:46] LABS: Bedside Glucose 286 mg/dL (70-110)
[2018-12-28] MEDS: Ondansetron ODT 4 MG Tablet PO (07:19)
[2018-12-28] MEDS: Tamsulosin HCl 0.4 MG Capsule PO ×2 (07:20→17:42)
[2018-12-28] MEDS: dexAMETHasone 4 MG Tablet PO ×2 (07:20→17:42)
[2018-12-28 10:45] LABS: Bedside Glucose 309 mg/dL (70-110)
--- NOTE | 2018-12-28 13:58 | NURSING ---
[place]ounty court judge into take pts meal tray, pt stated he just wants to . avinash gonzalez [place] [facility] [place]ennifer zaragoza regarding hospice.
[2018-12-28 14:59] VITALS: BP 131/86; PULSE 88; RESP 18; TEMP 36.6; O2SAT 97
[2018-12-28 16:50] LABS: Bedside Glucose 242 mg/dL (70-110)
[2018-12-28] MEDS: Insulin Lispro 100 UNIT/ML INSULN.PEN 7 UNIT SC (17:45)
[2018-12-28] MEDS: MELATONIN 3 MG TABLET PO (19:58)
[2018-12-28 21:30] LABS: Bedside Glucose 216 mg/dL (70-110)
--- NOTE | 2018-12-28 22:14 | NURSING ---
Dr Mccray aware of increased edema to bilateral lower extrem and crackles to rt lower lobe. N.O. D/C normal saline. Dr mccray aware of urinary retention, pt with multiple stright caths. N.O. insert F/C. Will continue to monitor and asses.
--- NOTE | 2018-12-28 22:17 | NURSING ---
Code status discussed with pt, pt informed RN he wishes to be a DNRCC. Purple bracelet applied.
--- NOTE | 2018-12-29 01:22 | NURSING ---
Pt requesting zofran prior to meals to decrease nausea in order to increase appetite. Dr Mccray aware. N.O. entered
[2018-12-29] MEDS: levETIRAcetam 750 MG Tablet PO ×2 (05:28→17:22)
[2018-12-29] MEDS: Tolterodine Tartrate 2 MG CAP.SA PO (05:28)
[2018-12-29] MEDS: Menthol/Lanolin/Calamine/Znox 113 GM Tube 1 APPLIC TOPICAL ×2 (05:28→21:36)
[2018-12-29] MEDS: Famotidine 20 MG Tablet 40 MG PO (05:28)
[2018-12-29] MEDS: Polyethylene Glycol 3350 17 GM PACKET PO (05:28)
[2018-12-29] MEDS: Ondansetron ODT 4 MG Tablet PO ×4 (05:35→16:10)
[2018-12-29 07:02] LABS: Bedside Glucose 195 mg/dL (70-110)
[2018-12-29] MEDS: dexAMETHasone 4 MG Tablet PO ×2 (07:53→17:22)
[2018-12-29] MEDS: Tamsulosin HCl 0.4 MG Capsule PO ×2 (07:54→17:22)
[2018-12-29] MEDS: Insulin Lispro 100 UNIT/ML INSULN.PEN 7 UNIT SC ×3 (07:54→17:43)
--- NOTE | 2018-12-29 11:15 | NURSING ---
pt asking nurse if hospice coming in today. stated, i dont think im gonna make it much longer and my cant take care of me this way. luba fought this thing for a year and im done cristina soto
[2018-12-29 11:35] LABS: Bedside Glucose 171 mg/dL (70-110)
--- NOTE | 2018-12-29 12:16 | CASEMGMT ---
Addendum entered by Sandra Pinto 12/29/18 16:55: [facility] visited patient - pt remains agreeable to admission and DC home 12/30. [facility] attempted to talk with , but did not have any questions. [facility] to provide hospital bed and other necessary DME prior to pt discharging home. Scheduled cot transport with [facility] at 1:30 pm. Plan: DC home with [facility] at 1:30 pm. Original Note: Social Work Met with patient to discuss hospice inquiry. Pt stated he doesn't want to keep doing therapy, and wants to go home with hospice. Explained hospice and the options for possibly IPU, home or SNF. Pt stated he would like to go home. Inquired about the ability to hire private duty aides to provide assistance when hospice is not there; pt stated he can absolutely do that. Provided a list of agencies. Inquired about hospice agency to refer - provided a list to pt. Pt is a factual person and agreed to review [employer] Hospice Compare data. entered room - pt agreed to continue discussion. Explained above information to . having some difficulty accepting pt choosing hospice and understanding the goal of hospice. continued to reiterate I cannot help you at home, and we need them to help you in the morning - if they cannot do that, then why have them. SW reexplained hospice goals and advocated for patient's decision. Pt told this is what he wants and they can help him. agreed to referral. Inquired about which hospice company - gave her opinion on companies. SW offered for and pt to review companies and will come back once decision is made. As SW was exiting room, told pt to make the decision, she has to leave. Revisited pt to offer continued assistance - pt chose [facility]. Pt stated for them to schedule appt with , but if she cannot come in today, he would like to still speak with [facility] - is not ready for pt to discharge home today. pt is agreeable to open with hospice and discharge home tomorrow. Referral made to [facility]. IDT notified. Will continue to follow. Sandra Pinto, JESÚS LOERAW
[2018-12-29 15:30] VITALS: BP 135/78; PULSE 88; RESP 20; TEMP 36.8; O2SAT 91
--- NOTE | 2018-12-29 16:32 | NURSING ---
hospice admission personel in to do admission assessment for dc home edgar.
[2018-12-29 17:01] LABS: Bedside Glucose 126 mg/dL (70-110)
[2018-12-29] MEDS: Senna/Docusate Sodium 1 Tablet PO (17:23)
[2018-12-29] MEDS: NYSTATIN 500,000 UNIT/5 ML UDC 500000 UNIT PO ×2 (18:21→21:37)
--- NOTE | 2018-12-29 19:03 | DCINST_ITS ---
You will use the following diet at home:: No restrictions, Regular Your food should be the consistency of: Regular Your liquids should be the consistency of: Regular/Thin Discharge Activity: Return to Normal Activity, May Shower, Use Walker Weight Bearing Status: Weight bearing as tolerated Call your doctor if you observe: Fever of 101 or Higher, Inability to urinate, Inability to have a bowel movement, Shortness of breath, Chest pain, Uncontrolled pain Allergies/Adverse Reactions: Allergies No Known Allergies Allergy (Verified 12/12/18 11:22) Medications to take at Discharge Ondansetron [Zofran] 4 mg PO Q8H PRN PRN 08/25/18 Melatonin 3 mg PO QHS 11/01/18 Polyethylene Glycol 3350 [Miralax] 17 gm PO DAILY 11/01/18 Acetaminophen [Tylenol] 1,000 mg PO Q6H PRN tab 11/18/18 Famotidine 20 mg PO Q12H #60 tab 11/18/18 Tamsulosin HCl [Flomax] 0.4 mg PO BID #60 cap 11/18/18 Dexamethasone [Decadron] 4 mg PO BID 12/12/18 Oxybutynin Chloride [Oxybutynin Chloride ER] 10 mg PO DAILY 12/12/18 Menthol/Lanolin/Calamine/Znox [Calmoseptine Ointment] 1 applic TOPICAL 0600,0 12/26/18 Mineral Oil/Petrolatum,White [Eucerin] 1 applic TOPICAL 0600,2200 12/26/18 levETIRAcetam tablet [Keppra tablet] 750 mg PO BID 12/26/18 Bisacodyl [Dulcolax] 10 mg PO DAILY PRN tab 12/29/18 Insulin Glargine [Lantus SoloStar Pen] 20 units SUBCUT QHS #1 pen 12/29/18 Insulin Lispro [Humalog KwikPen] 7 unit SUBCUT TIDAC #1 insuln.pen 12/29/18 Nystatin 500,000 unit PO 4X/DAY #200 ml 12/29/18 Ondansetron [Zofran Odt] 4 mg PO 0700,1100,1700 #90 tab 12/29/18 The following prescriptions were given: Insulin Lispro [Humalog KwikPen] 7 unit SUBCUT TIDAC #1 insuln.pen Transmission Status: Pending to [facility] [place], [place] Insulin Glargine [Lantus SoloStar Pen] 20 units SUBCUT QHS #1 pen Transmission Status: Pending to [place], [place] Nystatin 500,000 unit PO 4X/DAY #200 ml Transmission Status: Pending to [place], [place] Ondansetron [Zofran Odt] 4 mg PO 0700,1100,1700 #90 tab Transmission Status: Pending to [facility] [place] [place] Primary Care Physician: Violeta Copeland [Primary Care Provider] - Please follow up with your Primary Care Physician in: 1 week. Test Results: Test results from this visit will be discussed in further detail at your follow- up appointment, if applicable. Proposed Discharge Date: 12/30/18
--- NOTE | 2018-12-29 19:04 | DS.PCM_ITS ---
Discharge Date and Diagnosis Date of Admission: 12/26/18 Date of Discharge: 12/30/18 - Secondary Discharge Diagnosis Chronic Problems (Last Reviewed 10/28/18 @ 13:58 by Neetu Santiago) History of chest pain (Chronic) GBM (glioblastoma multiforme) (Chronic) BPH (benign prostatic hyperplasia) (Chronic) Hypertension (Chronic) Steroid-induced diabetes mellitus (Chronic) Neurogenic bladder (Chronic) BPH loc w urin obs/LUTS (Chronic) Hospital Course and Treatment Imaging Results: 12/26/18 15:08 Diet: Regular Diet Food consistency:: Mechanical Soft/Ground Liquid Consistency:: Regular/Thin Labs (Last 48 Hours) 12/27/18 12/28/18 12/28/18 20:57 06:19 10:37 POC Glucose 302 H 286 H 309 H 12/28/18 12/28/18 12/29/18 16:39 21:23 06:30 POC Glucose 242 H 216 H 195 H 12/29/18 12/29/18 11:27 16:45 POC Glucose 171 H 126 H Operations: None Procedures: None Summary of Care Provided: The patient is a 83 year old Male with below past medical history with below past medical history of glioblastoma multiforme, admitted with debility, here for rehabilitation, strengthening, prior to discharge home with . 12/28/2018 Resident noticed he was becoming weaker on the left side, he realized he was dying and requested hospice services. Discharge home with [facility]. - Physical Exam Vitals/I&O's: Vital Signs Temp Pulse Resp BP Pulse Ox 98.2 F 88 20 H 135/78 H 91 12/29/18 15:30 12/29/18 15:30 12/29/18 15:30 12/29/18 15:30 12/29/18 15:30 Oxygen Delivery Method Room Air Weight: 76.204 kg Body Mass Index (BMI) 22.1 Finger Stick Blood Glucose 332 Intake and Output for Last 24 Hours 12/27/18 12/28/18 12/29/18 23:59 23:59 23:59 Intake Total 1699 / 1699 2540 / 2540 480 / 480 Output Total 1200 / 1200 1300 / 1300 Balance 499 / 499 1240 / 1240 480 / 480 Laboratory Results 12/28/18 21:23: POC Glucose 216 H 12/29/18 06:30: POC Glucose 195 H 12/29/18 11:27: POC Glucose 171 H 12/29/18 16:45: POC Glucose 126 H Current Medications Acetaminophen (Tylenol) 1,000 mg PO Q6H PRN PRN Reason: Pain Score 1-3/10 Last Admin: 12/27/18 20:09 Dose: 1,000 mg Documented by: Bisacodyl (Dulcolax) 10 mg PO DAILY PRN PRN Reason: Constipation Calamine/Phenol (Calmoseptine Ointment) 1 applic TOPICAL 0600,2200 [facility]; Protocol Last Admin: 12/29/18 05:28 Dose: 1 applicatio Documented by: Dexamethasone (Decadron) 4 mg PO BID@0745,1700 [facility] Last Admin: 12/29/18 17:22 Dose: 4 mg Documented by: Dextrose (D50w Syringe) 0 gm IV X1 PRN; Protocol PRN Reason: Hypoglycemia Famotidine (Pepcid) 40 mg PO DAILY [facility] Last Admin: 12/29/18 05:28 Dose: 40 mg Documented by: Glucagon () 1 mg IM .X1 PRN PRN Reason: Hypoglycemia Insulin Glargine (Lantus (Bk)) 20 units SC QHS [facility] Last Admin: 12/28/18 21:42 Dose: 20 units Documented by: Insulin Human Lispro (Humalog Kwikpen ([facility])) 7 unit SC TIDAC [facility] Last Admin: 12/29/18 17:43 Dose: 7 u Documented by: Levetiracetam (Keppra Tablet) 750 mg PO BID [facility] Last Admin: 12/29/18 17:22 Dose: 750 mg Documented by: Melatonin (Melatonin) 3 mg PO QHS [facility] Last Admin: 12/28/18 19:58 Dose: 3 mg Documented by: Multi-Ingredient Cream (Eucerin) 1 applic TOPICAL 0600,2200 [facility]; Protocol Last Admin: 12/29/18 05:28 Dose: 1 applicatio Documented by: Nutritional Formula (Lactose Free) (Ensure Enlive) 120 ml PO 4X/DAY [facility] Last Admin: 12/29/18 17:21 Dose: 120 ml Documented by: Nystatin (Nystatin) 500,000 unit PO 4X/DAY [facility] Last Admin: 12/29/18 18:21 Dose: 500,000 unit Documented by: Ondansetron HCl (Zofran Odt) 4 mg PO Q8H PRN PRN PRN Reason: NAUSEA/VOMITING Last Admin: 12/29/18 11:00 Dose: 4 mg Documented by: Ondansetron HCl (Zofran Odt) 4 mg PO 0700,1100,1700 [facility] Last Admin: 12/29/18 16:10 Dose: 4 mg Documented by: Polyethylene Glycol (Miralax) 17 gm PO DAILY [facility] Last Admin: 12/29/18 05:28 Dose: 17 gm Documented by: Senna/Docusate Sodium (Senokot-S, Amberly-Colace) 1 tablet PO BID [facility] Last Admin: 12/29/18 17:23 Dose: 1 tablet Documented by: Sodium Chloride () 10 - 40 ml IV UD PRN PRN Reason: SALINE FLUSH Tamsulosin HCl (Flomax) 0.4 mg PO BID@0800,1730 [facility] Last Admin: 12/29/18 17:22 Dose: 0.4 mg Documented by: Tolterodine Tartrate (Detrol La) 2 mg PO DAILY [facility] Last Admin: 12/29/18 05:28 Dose: 2 mg Documented by: Discharge Diet: No Restrictions Discharge Activity: Return to Normal Activity, May Shower, Use Walker Weight Bearing Status: Weight bearing as tolerated Call your doctor if you observe: Fever of 101 or Higher, Inability to urinate, Inability to have a bowel movement, Shortness of breath, Chest pain, Uncontrolled pain Home Medications: Medications to take at Discharge Ondansetron [Zofran] 4 mg PO Q8H PRN PRN 08/25/18 Melatonin 3 mg PO QHS 11/01/18 Polyethylene Glycol 3350 [Miralax] 17 gm PO DAILY 11/01/18 Acetaminophen [Tylenol] 1,000 mg PO Q6H PRN tab 11/18/18 Famotidine 20 mg PO Q12H #60 tab 11/18/18 Tamsulosin HCl [Flomax] 0.4 mg PO BID #60 cap 11/18/18 Dexamethasone [Decadron] 4 mg PO BID 12/12/18 Oxybutynin Chloride [Oxybutynin Chloride ER] 10 mg PO DAILY 12/12/18 Menthol/Lanolin/Calamine/Znox [Calmoseptine Ointment] 1 applic TOPICAL 0600,2200 12/26/18 Mineral Oil/Petrolatum,White [Eucerin] 1 applic TOPICAL 0600,2200 12/26/18 levETIRAcetam tablet [Keppra tablet] 750 mg PO BID 12/26/18 Bisacodyl [Dulcolax] 10 mg PO DAILY PRN tab 12/29/18 Insulin Glargine [Lantus SoloStar Pen] 20 units SUBCUT QHS #1 pen 12/29/18 Insulin Lispro [Humalog KwikPen] 7 unit SUBCUT TIDAC #1 insuln.pen 12/29/18 Nystatin 500,000 unit PO 4X/DAY #200 ml 12/29/18 Ondansetron [Zofran Odt] 4 mg PO 0700,1100,1700 #90 tab 12/29/18 Following Prescrptions Were Given to Patient: Insulin Lispro [Humalog KwikPen] 7 unit SUBCUT TIDAC #1 insuln.pen Transmission Status: Sent to [place], [place] Insulin Glargine [Lantus SoloStar Pen] 20 units SUBCUT QHS #1 pen Transmission Status: Sent to [place], [place] Nystatin 500,000 unit PO 4X/DAY #200 ml Transmission Status: Sent to [place], [place] Ondansetron [Zofran Odt] 4 mg PO 0700,1100,1700 #90 tab Transmission Status: Sent to [place], [place] Primary Care Physician: Violeta Copeland [Primary Care Provider] - Please follow up with your Primary Care Physician in: 1 week. Disposition: Home with Hospice Minutes spent on discharge:: 30 Patient Condition:: Poor Medical Necessity - Tobacco Use Smoking Status: Former smoker Tobacco Use: Cigarettes Meaningful Use Info Meaningful Use Diagnoses (Choose all that apply): None applicable
[2018-12-29 21:21] LABS: Bedside Glucose 155 mg/dL (70-110)
[2018-12-29] MEDS: MELATONIN 3 MG TABLET PO (21:37)
[2018-12-29] MEDS: morphine (oral solution) 10MG/0.5ML Syringe 10 MG PO (21:51)
[2018-12-29] MEDS: 0.9% Saline Lock 10 ML Syringe IV (21:54)
--- NOTE | 2018-12-29 21:56 | NURSING ---
Addendum entered by Lanie Edouard 12/29/18 22:19: Dr. Mccray notified of patient complaining of pain in left shoulder, back, and left abdomen and that patient is refusing Tylenol and requesting to be sent to ER. Dr. Mccray also notified of patient stating that he no longer is wanting hospice. New orders given for Roxanol 10 mg q2h prn for pain of 6-10. Left message with Sandra HERNADEZ to talk to patient in morning. Original Note: Pt states, to this nurse that I no longer want hospice his neighbor will take care of him. I told pt I would leave a message with administrator social welfare. Pt also c/o of pain in left shoulder and back offered prn tylenol refused stating tylenol does nothing for him. Pt requesting to go down to ER for pain offer a k-pad to see if it would him with pain. Report to KELSEY Brennan.
[2018-12-30] MEDS: morphine (oral solution) 10MG/0.5ML Syringe 10 MG PO (04:58)
[2018-12-30] MEDS: levETIRAcetam 750 MG Tablet PO (05:01)
[2018-12-30 06:41] LABS: Bedside Glucose 155 mg/dL (70-110)
--- NOTE | 2018-12-30 08:08 | NURSING ---
PT REFUSED MORNING MEDS AND INSULIN. ALSO REFUSED BREAKFAST. PT STATED I WANT OUT OF HERE. REPORTED TO KELSEY DUBOIS
--- NOTE | 2018-12-30 08:45 | CASEMGMT ---
Social Work Spoke with patient about him going home on hospice. Referenced his night in pain, and reeducated patient on hospice, their goals, and how they can help pt at home. Discussed how neighbor, Jamin, can keep helping him at home in addition to hospice. Explained for pt to get settled at home with hospice and see how things go, if he is not happy with the service, he can cancel at any time. Pt satisfied with reeducation and agreed to go home with [facility]. JESÚS WatkinsW
[2018-12-30 09:45] VITALS: PULSE 104; RESP 12; O2SAT 91
[2018-12-30] MEDS: 0.9% Saline Lock 10 ML Syringe IV (09:46)
--- NOTE | 2018-12-30 09:52 | NURSING ---
THIS NURSE INTO PT ROOM TO DO ASSESSMENT ON PT. PT DOES ANSWER QUESTIONS BUT MUMBLES AT TIMES. THIS NURSE SAW PT NOT TAKE A BREATH 3 TIMES AND THE LONGEST WAS 15 SECONDS. OXYGEN IS ANY WHERE FROM 88% TO 91% ROOM AIR. ASKED PT IF I COULD PUT O2 ON HIM. PT STATED I DONT CARE. PLACED PT AT 2L, OXYGEN RANGE 90%-93%. PT CONTINUES TO DENY PAIN AT THIS TIME. WILL CONTINUE TO MONITOR. REPORTED TO KELSEY DUBOIS
--- NOTE | 2018-12-30 10:33 | CASEMGMT ---
Social Work Patient unable to maintain alertness to participate in MDS interview as patient is discharging home on hospice this day. Staff interview completed. Sandra Pinto MSW [employer]
--- NOTE | 2018-12-30 10:40 | NURSING ---
called [facility] to provide update that pt is requiring O2 and having episodes of apnea. they will make sure O2 is set up at home for the pt. verbalized that if deemed appropriate, upon the [facility] nurse assessment, they could address possible inpatient hospice needs with family, but as of now, continue plan for discharge home with hospice care.
[2018-12-30 11:06] LABS: Bedside Glucose 142 mg/dL (70-110)
--- NOTE | 2018-12-30 11:50 | NURSING ---
PT REFUSED NOON MEDS AND LUNCH. OK PER KELSEY CUMMINGS TO NOT GIVE INSULIN.
--- NOTE | 2018-12-30 13:38 | NURSING ---
BENITO HERE TO NETWORK SECURITY ENGINEER PT TO TRANSPORT HOME ON HOSPICE. THIS NURSE PULLED PT IV. PT LEFT FLOOR AT 1340 BY COT. EMILIANO RN AND KELSEY DUBOIS AWARE
--- NOTE | 2019-01-07 12:21 | MDS.RN ---
Information for the mds was obtained from review of the clinical record, interview of resident, staff, and direct observation of resident's care.
== END 2018-12-30 13:30 | disposition hospice, home (50) | DRG 55 ==
PROVIDERS: Admitting Provider Family Medicine Geriatric Medicine; Family Provider Family Medicine; PCP Family Medicine; Referring Provider Family Medicine Geriatric Medicine; Visit Provider Family Medicine Geriatric Medicine
DX: C71.9 Malignant neoplasm of brain, unspecified (principal); G81.94 Hemiplegia, unspecified affecting left nondominant side; N40.1 Benign prostatic hyperplasia with lower urinary tract symptoms; I10 Essential (primary) hypertension; N31.9 Neuromuscular dysfunction of bladder, unspecified; E09.9 Drug or chemical induced diabetes mellitus without complications; T38.0X5D Adverse effect of glucocorticoids and synthetic analogues, subsequent encounter; E78.5 Hyperlipidemia, unspecified; F41.9 Anxiety disorder, unspecified; F32.9 Major depressive disorder, single episode, unspecified; Z87.891 Personal history of nicotine dependence; K21.9 Gastro-esophageal reflux disease without esophagitis; N32.81 Overactive bladder
CPT/HCPCS: 36415; 80048; 82962; 85025; 97110; 97162; 97166; 97535; 97802; J7030; A4216